=== PATIENT | male | born 1965 | race Caucasian/White ===

== ENCOUNTER 2024-07-13 08:01 | Outpatient (REF) | payer BC, SELFPAY ==
--- OUTSIDE RECORDS SUMMARY | 2024-07-13 08:03 | XMS_ITS | Data Portability ---
Author Organization [facility], Main Office Address [address] [place] [address] Care Team Providers Care Target Setter Name Role Phone ALY DENNIS Primary Care Provider [phone] TIFFANY ALLEN Roll Cutter LUNA HARRINGTON Anesthesia Technician [facility] Phys. Med. & Rehab Assessment Encounter Date Assessment Date Assessment LastModified by Organization Details LastModified Time 06/23/2021 06/23/2021 This service was provided using telemedicine. Patient consented to video & audio visit Patient was located at at home Provider was located in the office. No other persons participated in the telemedicine visit except for the patient unless otherwise indicated here. {{}} Total time of visit was 20 minutes. Resolving symptoms of COVID-19 in patient who is now day #5 since postive test. 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 Orders done. Advised that he may use trimacinolone 0.1% cream that he has had home for resolving rash. [email or web address] Not available 06/23/2021 11:28:37 Plan of Treatment Reminders Order Date Submit Date Provider Last Modified By Organization Details Last Modified Time Details Appointments None recorded. Lab unlisted lab - covid-19 (novel coronaviru s) PCR 2021 022 [facility], [address], [address], 03:06:42 CBC w/ auto diff 2021 022 [facility], [address], [place], [address], 2 15:30:16 lipid panel, serum 2021 022 [facility], [address], [address], [place], [address], 2 13:49:47 HbA1c (hemoglobi n A1c), blood 2021 022 [facility], [address], [address], [place], [address], 19:18:04 CMP, serum or plasma 2021 022 [facility], [address], [address], [place], [address], 2 13:49:45 PSA, serum or plasma - Screening 2021 022 [facility], [address], [address], [place], [address], 2 13:55:56 CBC w/ auto diff 2022 023 [facility], [address], [address], [place], [address], 3 14:12:25 ferritin, serum or plasma 2022 023 [facility], [address], [address], [place], [address], 3 15:37:19 PSA, serum or plasma - Screening 2022 023 [facility], [address], [address], [place], [address], 3 15:37:21 lipid panel, serum 2022 023 [facility], [address], [address], [place], [address], 3 15:35:50 CMP, serum or plasma 2022 023 [facility], [address], [address], [place], [address], 3 15:35:49 hemochroma tosis mutation (hfe), blood/tiss ue 2022 023 [facility], [address], [address], [place], [address], 3 10:44:11 CBC w/ auto diff 2022 023 [facility], [address], [address], [place], [address], 3 14:53:[address]/dietiti an referral 2021 022 [email or web address] Not available 2 11:44:[address]/dietiti an referral 2022 023 [email or web address] Not available 3 11:31:06 Procedures None recorded. Surgeries None recorded. Imaging None recorded. Medication Orders olopatadin e 0.1 % eye drops 2021 023 [id number], [address] [place], [address], 3 10:20:34 Patient Targets Encounter Date Encounter Id Patient Goals Patient Target Last Modified By Organization Details Last Modified Time 04/18/2023 [id number] director long term care goal of Excess Body Weight Loss % 5 Not available Not available Not available Ongoing of LDL Direct <100 Not available Not available Not available Ongoing of LDL Direct yearly Not available Not available Not available Pt agrees to follow low fat diet, avoid saturated fats , decrease carbohydrate intake to 45 - 50 gm per meal , pt agrees to develop a regular pattern of exercise such as walking 30 minutes a day 3 times a week, Pt will keep a record of exercise and activity level Patient preferences and goals incorporated in plan and updated/modified as needed to reflect progress toward goal.Pt advised and agrees to work on self-monitoring behaviors; begin an appropriate diet for weight loss (such as a low carbohydrate diet), to do moderate exercise (such as walking) for approximately 150 minutes per week; and to identify desirable and timely rewards that will reinforce achievement of specific weight loss goals. [email or web address] Not available 04/18/2023 11:45:56 Patient Instructions Encounter Date Encounter Id Patient Instructions Last Modified By Organization Details Last Modified Time 01/11/2022 [id number] high cholesterol: care instructions [email or web address] Not available 01/11/2022 11:07:06 prediabetes: care instructions awychowski Not available 01/11/2022 11:07:06 dry eyes: care instructions [email or web address] Not available 01/11/2022 11:07:07 Prostate Cancer Screening [email or web address] Not available 01/11/2022 11:07:07 starting a weight loss plan: care instructions [email or web address] Not available 01/11/2022 11:07:07 11/15/2022 [id number] high cholesterol: care instructions [email or web address] Not available 11/15/2022 10:43:54 04/18/2023 [id number] A healthy lifestyle: care instructions [email or web address] Not available 04/18/2023 11:55:37 Well Visit 50 to 65: Care Instructions [email or web address] Not available 04/18/2023 11:55:37 starting a weight loss plan: care instructions [email or web address] Not available 04/18/2023 11:55:37 Medications (OTC, herbal therapies, supplements) reviewed and reconciled with patient and or caregiver, including potential side effects, drug interactions, instructions, and the consequences of not taking medication. Reviewed potential barriers to medication adherence, such as side effects from medication or cost of medication. 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 for Body mass index 30+ - obesity Referring Physician: Aly Dennis, Family Medicine, Encounter Date: 06/19/2024 Results Created Date Observation Date Name Description Value Unit Range Abnormal Flag Note LastModifiedBy Organization Detail LastModifiedTime 06/21/19 22 06/29/2021 COVID -19 (NOVE L CORON AVIRU S) PCR covid-19 PCR specimen source NASAL Not Available [facility] [address] [place], [address], 06/30/2021 05:45:51 06/21/19 22 06/30/2021 COVID -19 (NOVE L CORON AVIRU S) PCR covid-19 PCR result (neg) abnormal POSIT BROOKE Posit brooke for detec tion of 2018- novel Coron aviru s (2018nCoV ) by RT-PC Jose Cruz ambrosio to the [facility]. All test resul ts must be corre lated with clini rosanna findi ngs. This test has been autho rized by the FDA under an Emerg ency Use Autho rizat ion (EUA) for use by autho rized labor atori es. Testi ng perfo rmed on the [employer] ic Panth er Aptim a assay utili zing trans cript ion-m ediat ed ampli ficat ion (TMA) . Not Available [facility] [address] [place], [address], 06/30/2021 05:45:51 06/24/19 22 06/24/2021 COVID -19 (NOVE L CORON AVIRU S) PCR covid-19 PCR specimen source NASAL Not Available [facility] [address] [place], [address], 06/25/2021 03:06:42 06/24/19 22 06/25/2021 COVID -19 (NOVE L CORON AVIRU S) PCR covid-19 PCR result (neg) abnormal POSIT BR[facility] Posit brooke for detec tion of 2019- novel Coron aviru s (2018nCoV ) by real- time RT-PC R. Resul deepali ambrosio to the [facility]. To preve nt error s in diagn osis, test resul ts shoul d be inter prete d in the paula xt of clini rosanna findi ngs and other labor atory data. Rare polym orphi sms exist that could lead to false -nega tive or false -posi tive resul ts. If resul ts obtai favian do not match the clini rosanna findi ngs, addit ional testi ng shoul d be consi dered . This test has been autho rized by the FDA under an Emerg ency Use Autho rizat ion (EUA) for use by autho rized labor atori es. Testi ng perfo rmed by real time PCR utili [employer]StoneAS VisualCV0 SARS- CoV-2 test. Not Available [facility] [address] [place], [address], 06/25/2021 03:06:42 02/21/20 22 02/20/2022 COMPR EHENS BROOKE METAB OLIC PANL glucose 85 mg/dL (70-99 ) Not Available [facility] [address] [place], [address], 02/20/2022 13:49:45 02/21/20 22 02/20/2022 COMPR EHENS BROOKE METAB OLIC PANL BUN 13 mg/dL (6-20) Not Available [facility] [address] [place], [address], 02/20/2022 13:49:45 02/21/20 22 02/20/2022 COMPR EHENS BROOKE METAB OLIC PANL creatinine 1.0 mg/dL (0.7-1 .2) Not Available [facility] [address] [place], [address], 02/20/2022 13:49:45 02/21/20 22 02/20/2022 COMPR EHENS BROOKE METAB OLIC PANL sodium 140 mmol/ L (133-1 45) Not Available [facility] [address] [place], [address], 02/20/2022 13:49:45 02/21/20 22 02/20/2022 COMPR EHENS BROOKE METAB OLIC PANL potassium 3.9 mmol/ L (3.6-5 .2) Not Available [facility] [address] [place], [address], 02/20/2022 13:49:45 02/21/20 22 02/20/2022 COMPR EHENS BROOKE METAB OLIC PANL chloride 105 mmol/ L (98-10 7) Not Available [facility] [address] [place], [address], 02/20/2022 13:49:45 02/21/20 22 02/20/2022 COMPR EHENS BROOKE METAB OLIC PANL bicarbonate 25 mmol/ L (22-29 ) Not Available [facility] [address] [place], [address], 02/20/2022 13:49:45 02/21/2002/20/2022 COMPR EHENS BROOKE METAB OLIC PANL anion gap 10 (4-17) Not Available [facility] [address] [place], [address], 02/20/2022 13:49:45 02/21/20 22 02/20/2022 COMPR EHENS BROOKE METAB OLIC PANL albumin 4.7 gm/dL (3.4-4 .8) Not Available [facility] [address] [place], [address], 02/20/2022 13:49:45 02/21/20 22 02/20/2022 COMPR EHENS BROOKE METAB OLIC PANL calcium 9.7 mg/dL (8.6-1 0.5) Not Available [facility] [address] [place], [address], 02/20/2022 13:49:45 02/21/20 22 02/20/2022 COMPR EHENS BROOKE METAB OLIC PANL bilirubin,to amilcar 0.7 mg/dL (0-1.2 ) Not Available [facility] [address] [place], [address], 02/20/2022 13:49:45 02/21/20 22 02/20/2022 COMPR EHENS BROOKE METAB OLIC PANL total protein 6.6 gm/dL (6.2-8 .2) Not Available [facility] [address] [place], [address], 02/20/2022 13:49:45 02/21/20 22 02/20/2022 COMPR EHENS BROOKE METAB OLIC PANL Ag ratio 2.5 Not Available [facility] [address] [place], [address], 02/20/2022 13:49:45 02/21/20 22 02/20/2022 COMPR EHENS BROOKE METAB OLIC PANL AST 23 U/L (0-40) Not Available [facility] [address] [place], [address], 02/20/2022 13:49:45 02/21/20 22 02/20/2022 COMPR EHENS BROOKE METAB OLIC PANL alk phos 54 U/L (40-12 9) Not Available [facility] [address] [place], [address], 02/20/2022 13:49:45 02/21/20 22 02/20/2022 COMPR EHENS BROOKE METAB OLIC PANL ALT 23 U/L (0-41) Not Available [facility] [address] [place], [address], 02/20/2022 13:49:45 02/21/20 22 02/20/2022 COMPR EHENS BROOKE METAB OLIC PANL estimated GFR creatinine 94 mL/mi n/1.7 3_M2 Creat inine based estim ated glome rular filtr ation (eGFR ) in adult s is calcu lated using the Natio nal Kidne y Found ation recom damien d 2020 CKD-E PI equat ion. Estim ates GFR from serum creat inine , age and sex. Not Available [facility] [address] [place] [address], 02/20/2022 13:49:45 02/21/20 22 02/20/2022 LIPID PANEL cholesterol, total 179 mg/dL (<200) Not Available [facility] [address] [place], [address], 02/20/2022 13:49:47 02/21/20 22 02/20/2022 LIPID PANEL triglyceride 133 mg/dL (<150) Not Available [facility] [address] [place], [address], 02/20/2022 13:49:47 02/21/20 22 02/20/2022 LIPID PANEL HDL chol 42 mg/dL (>39) Not Available [facility] [address] [place], [address], 02/20/2022 13:49:47 02/21/20 22 02/20/2022 LIPID PANEL LDL cholesterol, calculated 110 mg/dL (0-130 ) Not Available [facility] [address] [place], [address], 02/20/2022 13:49:47 02/21/20 22 02/20/2022 LIPID PANEL non HDL cholesterol (calc) 137 mg/dL (<160) Not Available [facility] [address] [place], [address], 02/20/2022 13:49:47 02/21/20 22 02/20/2022 PSA SCREE N PSA 0.8 NG/mL (0-4) TEST PERFO RMED USING THE FARSHAD ELECT FARSHAD MILLU MINES CENCE TOTAL PSA ASSAY . PSA VALUE S OBTAI FAVIAN WITH OTHER ASSAY METHO DS OR KITS CANNO T BE USED INTER GARCIA EABLY . Not Available [facility] [address] [place], [address], 02/20/2022 13:55:56 02/21/20 22 02/20/2022 COMPL ETE CBC WITH DIFF WBC 7.2 K/mm3 (4.0-1 1.0) Not Available [facility] [address] [place], [address], 02/20/2022 15:30:15 02/21/20 22 02/20/2022 COMPL ETE CBC WITH DIFF RBC 4.93 M/mm3 (4.70- 6.10) Not Available [facility] [address] [place], [address], 02/20/2022 15:30:15 02/21/20 22 02/20/2022 COMPL ETE CBC WITH DIFF HGB 15.3 gm/dL (13.7- 17.1) Not Available [facility] [address] [place], [address], 02/20/2022 15:30:15 02/21/20 22 02/20/2022 COMPL ETE CBC WITH DIFF HCT 44.1 % (40.5- 50.0) Not Available [facility] [address] [place], [address], 02/20/2022 15:30:15 02/21/20 22 02/20/2022 COMPL ETE CBC WITH DIFF MCV 89.5 fL (80.0- 94.0) Not Available [facility] [address] [place], [address], 02/20/2022 15:30:15 02/21/20 22 02/20/2022 COMPL ETE CBC WITH DIFF MCH 31.0 pg (27.0- 34.0) Not Available [facility] [address] [place], [address], 02/20/2022 15:30:15 02/21/20 22 02/20/2022 COMPL ETE CBC WITH DIFF MCHC 34.7 g/dL (33.0- 37.0) Not Available [facility] [address] [place], [address], 02/20/2022 15:30:15 02/21/20 22 02/20/2022 COMPL ETE CBC WITH DIFF plt 257 K/mm3 (150-4 60) Not Available [facility] [address] [place], [address], 02/20/2022 15:30:15 02/21/20 22 02/20/2022 COMPL ETE CBC WITH DIFF RDW-SD 40.6 fL (<47.0 ) Not Available [facility] [address] [place], [address], 02/20/2022 15:30:15 02/21/20 22 02/20/2022 COMPL ETE CBC WITH DIFF MPV 11.1 fL (9.4-1 2.4) Not Available [facility] [address] [place], [address], 02/20/2022 15:30:15 02/21/20 22 02/20/2022 COMPL ETE CBC WITH DIFF automated NRBC 0.0 #/100 _WBC' s Not Available [facility] [address] [place], [address], 02/20/2022 15:30:15 02/21/20 22 02/20/2022 COMPL ETE CBC WITH DIFF abs. NRBC 0.0 K/mm3 Not Available [facility] [address] [place], [address], 02/20/2022 15:30:15 02/21/20 22 02/20/2022 COMPL ETE CBC WITH DIFF neut # 5.0 K/mm3 (1.3-7 .0) Not Available [facility] [address] [place], [address], 02/20/2022 15:30:15 02/21/20 22 02/20/2022 COMPL ETE CBC WITH DIFF lymph # 1.3 K/mm3 (0.8-3 .1) Not Available [facility] [address] [place], [address], 02/20/2022 15:30:15 02/21/20 22 02/20/2022 COMPL ETE CBC WITH DIFF mono# 0.6 K/mm3 (0.4-1 .3) Not Available [facility] [address] [place], [address], 02/20/2022 15:30:15 02/21/20 22 02/20/2022 COMPL ETE CBC WITH DIFF eo # 0.2 K/mm3 (0.0-0 .4) Not Available [facility] [address] [place], [address], 02/20/2022 15:30:15 02/21/20 22 02/20/2022 COMPL ETE CBC WITH DIFF baso # 0.0 K/mm3 (0.0-0 .1) Not Available [facility] [address] [place], [address], 02/20/2022 15:30:15 02/21/20 22 02/20/2022 COMPL ETE CBC WITH DIFF abs. imm gran 0.0 K/mm3 Not Available [facility] [address] [place], [address], 02/20/2022 15:30:15 02/21/20 22 02/20/2022 COMPL ETE CBC WITH DIFF neut 69.0 % (44-76 ) Not Available [facility] [address] [place], [address], 02/20/2022 15:30:15 02/21/20 22 02/20/2022 COMPL ETE CBC WITH DIFF lymph 18.1 % (15-43 ) Not Available [facility] [address] [place], [address], 02/20/2022 15:30:15 02/21/20 22 02/20/2022 COMPL ETE CBC WITH DIFF monocyte 8.9 % (4.5-1 0.5) Not Available [facility] [address] [place], [address], 02/20/2022 15:30:15 02/21/20 22 02/20/2022 COMPL ETE CBC WITH DIFF eo 2.8 % (0-6) Not Available [facility] [address] [place], [address], 02/20/2022 15:30:15 02/21/20 22 02/20/2022 COMPL ETE CBC WITH DIFF baso 0.6 % (0-2) Not Available [facility] [address], [place], [address], 02/20/2022 15:30:15 02/21/20 22 02/20/2022 COMPL ETE CBC WITH DIFF imm gran 0.6 % Not Available [facility] [address], [place], [address], 02/20/2022 15:30:15 02/21/20 22 02/20/2022 HEMOG LOBIN A1C hemoglobin A1C 5.3 % (4.0-5 .6) MONIT ORING : In known diabe tic patie nts, hemog lobin A1c targe ts shoul d be discu ssed with healt h care provi leisa. DIAGN OSTIC USE: The Ameri can Diabe ashwin Assoc iatio n (ADA) and the World Healt h Organ izati on (WHO) recom mend the use of HbA1c to diagn ose diabe ashwin using a thres hold of 6.5%. Patie nts who have an HbA1c betwe en 5.7% and 6.4% are consi dered at incre ased risk for devel oping diabe ashwin in the futur e. CAUTI ON: False ly low HbA1c resul ts may be obser saran in patie nts with hemol ytic anemi a, homoz ygous forms of abnor mal hemog lobin (e.g. SS, CC, SC), pregn tanner, recen t blood loss or hemog lobin F great er than 7%. Fruct osami ne may be used as an alter carla test in these cases . REFER ENCE: ADA: Stand ards of Medic al Care in Diabe ashwin 2019, The Journ al of Clini rosanna and Appli ed Resea [facility] and Educa tion Volum e 43, Suppl ement 1 Not Available [facility] [address] [place], [address], 02/20/2022 19:18:04 01/04/20 23 01/03/2023 COMPL ETE CBC WITH DIFF WBC 7.2 K/mm3 (4.0-1 1.0) Not Available [facility] [address] [place], [address], 01/03/2023 14:12:25 01/04/20 23 01/03/2023 COMPL ETE CBC WITH DIFF RBC 5.19 M/mm3 (4.70- 6.10) Not Available [facility] [address] [place], [address], 01/03/2023 14:12:25 01/04/20 23 01/03/2023 COMPL ETE CBC WITH DIFF HGB 15.6 gm/dL (13.7- 17.1) Not Available [facility] [address] [place], [address], 01/03/2023 14:12:25 01/04/20 23 01/03/2023 COMPL ETE CBC WITH DIFF HCT 47.8 % (40.5- 50.0) Not Available [facility] [address] [place], [address], 01/03/2023 14:12:25 01/04/20 23 01/03/2023 COMPL ETE CBC WITH DIFF MCV 92.1 fL (80.0- 94.0) Not Available [facility] [address] [place], [address], 01/03/2023 14:12:25 01/04/20 23 01/03/2023 COMPL ETE CBC WITH DIFF MCH 30.1 pg (27.0- 34.0) Not Available [facility] [address] [place], [address], 01/03/2023 14:12:25 01/04/20 23 01/03/2023 COMPL ETE CBC WITH DIFF MCHC 32.6 g/dL (33.0- 37.0) low Not Available [facility] [address] [place], [address], 01/03/2023 14:12:25 01/04/20 23 01/03/2023 COMPL ETE CBC WITH DIFF plt 271 K/mm3 (150-4 60) Not Available [facility] [address] [place], [address], 01/03/2023 14:12:25 01/04/20 23 01/03/2023 COMPL ETE CBC WITH DIFF RDW-SD 42.5 fL (<47.0 ) Not Available [facility] [address] [place], [address], 01/03/2023 14:12:25 01/04/20 23 01/03/2023 COMPL ETE CBC WITH DIFF MPV 11.0 fL (9.4-1 2.4) Not Available [facility] [address] [place], [address], 01/03/2023 14:12:25 01/04/20 23 01/03/2023 COMPL ETE CBC WITH DIFF automated NRBC 0.0 #/100 _WBC' s Not Available [facility] [address] [place], [address], 01/03/2023 14:12:25 01/04/2001/03/2023 COMPL ETE CBC WITH DIFF abs. NRBC 0.0 K/mm3 Not Available [facility] [address] [place], [address], 01/03/2023 14:12:25 01/04/20 23 01/03/2023 COMPL ETE CBC WITH DIFF neut # 4.6 K/mm3 (1.3-7 .0) Not Available [facility] [address] [place], [address], 01/03/2023 14:12:25 01/04/20 23 01/03/2023 COMPL ETE CBC WITH DIFF lymph # 1.6 K/mm3 (0.8-3 .1) Not Available [facility] [address] [place], [address], 01/03/2023 14:12:25 01/04/20 23 01/03/2023 COMPL ETE CBC WITH DIFF mono# 0.7 K/mm3 (0.4-1 .3) Not Available [facility] [address] [place], [address], 01/03/2023 14:12:25 01/04/20 23 01/03/2023 COMPL ETE CBC WITH DIFF eo # 0.2 K/mm3 (0.0-0 .4) Not Available [facility] [address] [place], [address], 01/03/2023 14:12:25 01/04/20 23 01/03/2023 COMPL ETE CBC WITH DIFF baso # 0.0 K/mm3 (0.0-0 .1) Not Available [facility] [address] [place], [address], 01/03/2023 14:12:25 01/04/20 23 01/03/2023 COMPL ETE CBC WITH DIFF abs. imm gran 0.1 K/mm3 Not Available [facility] [address] [place], [address], 01/03/2023 14:12:25 01/04/20 23 01/03/2023 COMPL ETE CBC WITH DIFF neut 64.3 % (44-76 ) Not Available [facility] [address] [place], [address], 01/03/2023 14:12:25 01/04/20 23 01/03/2023 COMPL ETE CBC WITH DIFF lymph 22.6 % (15-43 ) Not Available [facility] [address] [place], [address], 01/03/2023 14:12:25 01/04/20 23 01/03/2023 COMPL ETE CBC WITH DIFF monocyte 9.2 % (4.5-1 0.5) Not Available [facility] [address] [place], [address], 01/03/2023 14:12:25 01/04/20 23 01/03/2023 COMPL ETE CBC WITH DIFF eo 2.6 % (0-6) Not Available [facility] [address] [place], [address], 01/03/2023 14:12:25 01/04/20 23 01/03/2023 COMPL ETE CBC WITH DIFF baso 0.6 % (0-2) Not Available [facility] [address] [place], [address], 01/03/2023 14:12:25 01/04/20 23 01/03/2023 COMPL ETE CBC WITH DIFF imm gran 0.7 % Not Available [facility] [address] [place], [address], 01/03/2023 14:12:25 01/04/20 23 01/03/2023 COMPR EHENS BROOKE METAB OLIC PANL glucose 88 mg/dL (70-99 ) Not Available [facility] [address] [place], [address], 01/03/2023 15:35:49 01/04/20 23 01/03/2023 COMPR EHENS BROOKE METAB OLIC PANL BUN 15 mg/dL (6-20) Not Available [facility] [address] [place], [address], 01/03/2023 15:35:49 01/04/20 23 01/03/2023 COMPR EHENS BROOKE METAB OLIC PANL creatinine 1.2 mg/dL (0.7-1 .2) Not Available [facility] [address] [place], [address], 01/03/2023 15:35:49 01/04/20 23 01/03/2023 COMPR EHENS BROOKE METAB OLIC PANL sodium 141 mmol/ L (133-1 45) Not Available [facility] [address] [place], [address], 01/03/2023 15:35:49 01/04/20 23 01/03/2023 COMPR EHENS BROOKE METAB OLIC PANL potassium 4.8 mmol/ L (3.6-5 .2) Not Available [facility] [address] [place], [address], 01/03/2023 15:35:49 01/04/20 23 01/03/2023 COMPR EHENS BROOKE METAB OLIC PANL chloride 104 mmol/ L (98-10 7) Not Available [facility] [address] [place], [address], 01/03/2023 15:35:49 01/04/20 23 01/03/2023 COMPR EHENS BROOKE METAB OLIC PANL bicarbonate 28 mmol/ L (22-29 ) Not Available [facility] [address] [place], [address], 01/03/2023 15:35:49 01/04/20 23 01/03/2023 COMPR EHENS [place] METAB OLIC PANL anion gap 9 (4-17) Not Available [facility] [address] [place], [id number], 01/03/2023 15:35:49 01/04/2001/03/2023 COMPR EHENS [place] METAB OLIC PANL albumin 4.7 gm/dL (3.4-4 .8) Not Available [facility] [address] [place], [id number], 01/03/2023 15:35:49 01/04/2001/03/2023 COMPR EHENS BROOKE METAB OLIC PANL calcium 10.0 mg/dL (8.6-1 0.5) Not Available [facility] [address] [place], [id number], 01/03/2023 15:35:49 01/04/20 23 01/03/2023 COMPR EHENS BR[place] METAB OLIC PANL bilirubin,to amilcar 0.5 mg/dL (0-1.2 ) Not Available [facility] [address] [place], [id number], 01/03/2023 15:35:49 01/04/20 23 01/03/2023 COMPR EHENS BROOKE METAB OLIC PANL total protein 6.6 gm/dL (6.2-8 .2) Not Available [facility] [address], [id number], 01/03/2023 15:35:49 01/04/20 23 01/03/2023 COMPR EHENS BROOKE METAB OLIC PANL Ag ratio 2.5 Not Available [facility] [address] [place], [id number], 01/03/2023 15:35:49 01/04/20 23 01/03/2023 COMPR EHENS BROOKE METAB OLIC PANL AST 20 U/L (0-40) Not Available [facility] [address] [place], [id number], 01/03/2023 15:35:49 01/04/20 23 01/03/2023 COMPR EHENS BROOKE METAB OLIC PANL alk phos 54 U/L (40-12 9) Not Available [facility] [address], [address], 01/03/2023 15:35:49 01/04/20 23 01/03/2023 COMPR EHENS BROOKE METAB OLIC PANL ALT 24 U/L (0-41) Not Available [facility] [address] [place], [id number], 01/03/2023 15:35:49 01/04/20 23 01/03/2023 COMPR EHENS BROOKE METAB OLIC PANL estimated GFR creatinine 74 mL/mi n/1.7 3_M2 Creat inine based estim ated glome rular filtr ation (eGFR ) in adult s is calcu lated using the Natio nal Kidne y Found ation recom damien d 2020 CKD-E PI equat ion. Estim ates GFR from serum creat inine , age and sex. Not Available [facility] [address] [place], [address], 01/03/2023 15:35:49 01/04/20 23 01/03/2023 LIPID PANEL cholesterol, total 160 mg/dL (<200) Not Available [facility] [address] [place], [address], 01/03/2023 15:35:50 01/04/20 23 01/03/2023 LIPID PANEL triglyceride 112 mg/dL (<150) Not Available [facility] [address] [place], [address], 01/03/2023 15:35:50 01/04/20 23 01/03/2023 LIPID PANEL HDL chol 39 mg/dL (>39) low Not Available [facility] [address] [place], [address], 01/03/2023 15:35:50 01/04/20 23 01/03/2023 LIPID PANEL LDL cholesterol, calculated 99 mg/dL (0-130 ) Not Available [facility] [address] [place], [address], 01/03/2023 15:35:50 01/04/20 23 01/03/2023 LIPID PANEL non HDL cholesterol (calc) 121 mg/dL (<160) Not Available [facility] [address], [address], 01/03/2023 15:35:50 01/04/20 23 01/03/2023 BETTY TIN ferritin 499 NG/mL (16-29 4) high Not Available [facility] [address] [place], [address], 01/03/2023 15:37:19 01/04/20 23 01/03/2023 PSA SCREE N PSA 0.7 NG/mL (0-4) TEST PERFO RMED USING THE FARSHAD ELECT FARSHAD MILLU MINES CENCE TOTAL PSA ASSAY . PSA VALUE S OBTAI FAVIAN WITH OTHER ASSAY METHO DS OR KITS CANNO T BE USED INTER GARCIA EABLY . Not Available [facility] [address] [place], [address], 01/03/2023 15:37:21 01/04/20 23 01/04/2023 IRON & TIBC iron 89 mcg/d L (45-16 0) Not Available [facility] [address] [place], [address], 01/04/2023 09:46:05 01/04/20 23 01/04/2023 IRON & TIBC unsaturated iron binding capac 269 mcg/d L (110-3 70) Not Available [facility] [address], [address], 01/04/2023 09:46:05 01/04/20 23 01/04/2023 IRON & TIBC est T. iron bind capacity 358 mcg/d L (155-5 30) Not Available [facility] [address], [address], 01/04/2023 09:46:05 01/04/20 23 01/04/2023 IRON & TIBC % iron saturation 25 % (20-55 ) Not Available [facility] [address], [address], 01/04/2023 09:46:05 01/04/20 23 01/04/2023 TRANS BETTY N transferrin 280 mg/dL (200-3 60) Not Available [facility] [address], [address], 01/04/2023 09:46:06 04/18/20 23 04/18/2023 COMPL ETE BLOOD COUNT WBC 7.1 K/mm3 (4.0-1 1.0) Not Available [facility] [address] [place] [address], 04/18/2023 14:53:35 04/18/20 04/18/2023 COMPL ETE BLOOD COUNT RBC 5.24 M/mm3 (4.70- 6.10) Not Available [facility] [address] [place], [address], 04/18/2023 14:53:35 04/18/20 23 04/18/2023 COMPL ETE BLOOD COUNT HGB 15.7 gm/dL (13.7- 17.1) Not Available [facility] [address] [place], [address], 04/18/2023 14:53:35 04/18/20 23 04/18/2023 COMPL ETE BLOOD COUNT HCT 47.2 % (40.5- 50.0) Not Available [facility] [address] [place], [address], 04/18/2023 14:53:35 04/18/20 23 04/18/2023 COMPL ETE BLOOD COUNT MCV 90.1 fL (80.0- 94.0) Not Available [facility] [address] [place], [address], 04/18/2023 14:53:35 04/18/20 23 04/18/2023 COMPL ETE BLOOD COUNT MCH 30.0 pg (27.0- 34.0) Not Available [facility] [address] [place], [address], 04/18/2023 14:53:35 04/18/20 23 04/18/2023 COMPL ETE BLOOD COUNT MCHC 33.3 g/dL (33.0- 37.0) Not Available [facility] [address] [place], [address], 04/18/2023 14:53:35 04/18/20 23 04/18/2023 COMPL ETE BLOOD COUNT plt 259 K/mm3 (150-4 60) Not Available [facility] [address] [place], [address], 04/18/2023 14:53:35 04/18/20 23 04/18/2023 COMPL ETE BLOOD COUNT RDW-SD 41.0 fL (<47.0 ) Not Available [facility] [address] [place], [address], 04/18/2023 14:53:35 04/18/20 23 04/18/2023 COMPL ETE BLOOD COUNT MPV 11.0 fL (9.4-1 2.4) Not Available [facility] [address] [place], [address], 04/18/2023 14:53:35 04/18/20 23 04/18/2023 COMPL ETE BLOOD COUNT automated NRBC 0.0 #/100 _WBC' s Not Available [facility] [address] [place], [address], 04/18/2023 14:53:35 04/18/20 23 04/18/2023 COMPL ETE BLOOD COUNT abs. NRBC 0.0 K/mm3 Not Available [facility] [address] [place], [address], 04/18/2023 14:53:35 04/18/20 23 04/18/2023 TRANS BETTY N transferrin 272 mg/dL (200-3 60) Not Available [facility] [address] [place], [address], 04/18/2023 17:15:09 04/18/20 23 04/30/2023 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 HETERO ZYGOUS (nomut ) abnormal Not Available [facility] [address] [place], [address], 04/30/2023 10:44:11 04/18/20 23 04/30/2023 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 ON DETECT ED Not Available [facility] [address] [place], [address], 04/30/2023 10:44:11 04/18/20 23 04/30/2023 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 N hereditary hemochromato sis NO INCRE ASED RISK with heter ozygo sity of C282Y This ivana sis ident ified one copy of the C282Y mutat ion. This patie nt is heter ozygo us for the C282Y mutat ion alone and is at low risk for iron overl oad. Less than 1% of indiv idual s affec hebert with hered itary hemoc hroma tosis are heter ozygo us for the C282Y mutat ion alone . Kori ic couns eling may be consi dered if clini sam indic ated. Patie nts with 2 copie s of the C282Y mutat ion accou nt for 60-90 % of patie nts with Hered itary Hemoc hroma tosis . The H63D mutat ion is gener ally not assoc iated with iron overl oad unles s seen with the C282Y mutat ion as a compo und heter ozygo te (<5%) . The remai asad 10-15 % of patie nts who have inher ited forms of iron overl oad most likel y have mutat ions in anoth er gene invol saran in iron homeo stasi s. Pheno typic expre ssion only occur s in appro ximat taylor 70% of C282Y homoz ygote s, and fewer than 10% will devel op sever e iron overl oad accom panie d by organ damag e and clini rosanna manif estat ions of hemoc hroma tosis . Kris ile hemoc hroma tosis is assoc iated with mutat ions in the HJV (HFE2 ) and HAMP (HEF2 B) genes , which are not teste d by this HFE mutat ion ivana sis. Rare polym orphi sms exist that could lead to false -nega tive or false -posi tive resul ts. If resul ts obtai favian do not match the clini rosanna findi ngs, addit ional testi ng shoul d be consi dered . Test resul ts shoul d be inter prete d in the paula xt of clini rosanna findi ngs, famil y histo ry, and other labor atory data. Metho ds: DNA was extra cted from this sampl e and scree favian for the mutat ions indic ated by real- time PCR. Refer ences : Hitesh e Kori . 1996: 13:39 9408, Sandy Inter n Med. 2006 Jan 1,145 (3):2 09-22 3., Dig Dis Sci. 2006 Sep 51(4) : 803-8 07. Jose t 2002, 359(9 302): 211-2 18., Clin Gastr oente rol Hepat ol 2006, 4(11) :1403 -1410 , Kori Med. 1999 Sep-O ct,2( 5)271 -277. This test was devel oped and it's perfo rmanc e alistair cteri stics deter mined by Beverly ate Refer ence Labor atori es. It has not been clear ed or appro saran by the [place] FDA. The FDA has deter mined that such clear ance is not neces earle. This labor atory is certi fied under CLIA 88 as quali fied to perfo rm high compl exity clini rosanna labor atory testi ng. 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 BY SILVIA IN RODOLFO Mcpherson Not Available [facility] [address] [place], [address], 04/30/2023 10:44:11 06/24/19 25 06/24/2024 CBC WITH DIFFE RENTI AL/PL ATELE T WBC 8.1 x10e3 /uL 3.4-10 .8 normal Not Available [facility] ([facility]) [address] [facility], [place], [address], 06/25/2024 08:08:38 06/24/19 25 06/24/2024 CBC WITH DIFFE RENTI AL/PL ATELE T RBC 5.13 x10e6 /uL 4.14-5 .80 normal Not Available [facility] ([facility]) [address] [place], [address], 06/25/2024 08:08:38 06/24/19 25 06/24/2024 CBC WITH DIFFE RENTI AL/PL ATELE T hemoglobin 16.0 g/dL 13.0-1 7.7 normal Not Available [facility] ([facility]) [address] [place], [address], 06/25/2024 08:08:38 06/24/19 25 06/24/2024 CBC WITH DIFFE RENTI AL/PL ATELE T hematocrit 46.7 % 37.5-5 1.0 normal Not Available [facility] ([facility]) [address] [place], [address], 06/25/2024 08:08:38 06/24/19 25 06/24/2024 CBC WITH DIFFE RENTI AL/PL ATELE T MCV 91 fL 79-97 normal Not Available [facility] ([facility]) [address] [place], [address], 06/25/2024 08:08:38 06/24/19 25 06/24/2024 CBC WITH DIFFE RENTI AL/PL ATELE T MCH 31.2 pg 26.6-3 3.0 normal Not Available [facility] ([facility]) [address] [place], [address], 06/25/2024 08:08:38 06/24/19 25 06/24/2024 CBC WITH DIFFE RENTI AL/PL ATELE T MCHC 34.3 g/dL 31.5-3 5.7 normal Not Available [facility] ([facility]) [address] [place], [address], 06/25/2024 08:08:38 06/24/19 25 06/24/2024 CBC WITH DIFFE RENTI AL/PL ATELE T RDW 12.6 % 11.6-1 5.4 Not Available [facility] ([facility]) [address] [facility], [place], [address], 06/25/2024 08:08:38 06/24/19 25 06/24/2024 CBC WITH DIFFE RENTI AL/PL ATELE T platelets 273 x10e3 /uL 150-45 0 normal Not Available [facility] ([facility]) [address] [facility], [place], [address], 06/25/2024 08:08:38 06/24/19 25 06/24/2024 CBC WITH DIFFE RENTI AL/PL ATELE T neutrophils 68 % not estab. normal Not Available [facility] ([facility]) [address] [facility], [place], [address], 06/25/2024 08:08:38 06/24/19 25 06/24/2024 CBC WITH DIFFE RENTI AL/PL ATELE T lymphs 19 % not estab. normal Not Available [facility] ([facility]) [address] [facility], [place], [address], 06/25/2024 08:08:38 06/24/19 25 06/24/2024 CBC WITH DIFFE RENTI AL/PL ATELE T monocytes 8 % not estab. normal Not Available [facility] ([facility]) [address] [facility], [place], [address], 06/25/2024 08:08:38 06/24/19 25 06/24/2024 CBC WITH DIFFE RENTI AL/PL ATELE T eos 3 % not estab. normal Not Available [facility] ([facility]) [address] [facility], [place], [address], 06/25/2024 08:08:38 06/24/19 25 06/24/2024 CBC WITH DIFFE RENTI AL/PL ATELE T basos 1 % not estab. 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 0 normal Not Available [facility] ([facility]) [address] [place], [address], 06/25/2024 08:08:38 06/24/19 25 06/24/2024 CBC WITH DIFFE RENTI AL/PL ATELE T lymphs (absolute) 1.5 x10e3 /uL 0.7-3. 1 normal Not Available [facility] ([facility]) [address] [place], [address], 06/25/2024 08:08:38 06/24/19 25 06/24/2024 CBC WITH DIFFE RENTI AL/PL ATELE T monocytes(ab solute) 0.7 x10e3 /uL 0.1-0. 9 normal Not Available [facility] ([facility]) [address] [place], [address], 06/25/2024 08:08:38 06/24/19 25 06/24/2024 CBC WITH DIFFE RENTI AL/PL ATELE T eos (absolute) 0.2 x10e3 /uL 0.0-0. 4 normal Not Available [facility] ([facility]) [address] [place], [address], 06/25/2024 08:08:38 06/24/19 25 06/24/2024 CBC WITH DIFFE RENTI AL/PL ATELE T baso (absolute) 0.1 x10e3 /uL 0.0-0. 2 normal Not Available [facility] ([facility]) [address] [facility], [place], [address], 06/25/2024 08:08:38 06/24/19 25 06/24/2024 CBC WITH DIFFE RENTI AL/PL ATELE T immature granulocytes 1 % not estab. Not Available [facility] ([facility]) [address] [facility], [place], [address], 06/25/2024 08:08:38 06/24/19 25 06/24/2024 CBC WITH DIFFE RENTI AL/PL ATELE T immature grans (abs) 0.1 x10e3 /uL 0.0-0. 1 Not Available [facility] ([facility]) [address] [facility], [place], [address], 06/25/2024 08:08:38 06/24/19 25 06/24/2024 CBC WITH DIFFE RENTI AL/PL ATELE T NRBC OPERATIONS LEADER Not Available [facility] ([facility]) [address] [facility], [place], [address], 06/25/2024 08:08:38 06/24/19 25 06/24/2024 CBC WITH DIFFE RENTI AL/PL ATELE T hematology comments: OPERATIONS LEADER Not Available [facility] ([facility]) [address] [facility], [place], [address], 06/25/2024 08:08:38 06/24/19 25 06/24/2024 COMP. METAB OLIC PANEL (14) glucose 99 mg/dL 70-99 normal Not Available [facility] ([facility]) [address] [facility] [place], [address], 06/25/2024 08:08:38 06/24/19 25 06/24/2024 COMP. METAB OLIC PANEL (14) BUN 16 mg/dL 6-24 normal Not Available [facility] ([facility]) [address] [facility], [place], [address], 06/25/2024 08:08:38 06/24/19 25 06/24/2024 COMP. METAB OLIC PANEL (14) creatinine 0.99 mg/dL 0.76-1 .27 normal Not Available [facility] ([facility]) [address] [facility] [place], [address], 06/25/2024 08:08:38 06/24/19 25 06/24/2024 COMP. METAB OLIC PANEL (14) eGFR 89 mL/mi n/1.7 3 >59 normal Not Available [facility] ([facility]) [address] [facility] [place], [address], 06/25/2024 08:08:38 06/24/19 25 06/24/2024 COMP. METAB OLIC PANEL (14) BUN/creatini ne ratio 16 9-20 normal Not Available [facility] ([facility]) [address] [facility], [place], [address], 06/25/2024 08:08:38 06/24/19 25 06/24/2024 COMP. METAB OLIC PANEL (14) sodium 142 mmol/ L 134-14 4 normal Not Available [facility] ([facility]) [address] [facility] [place], [address], 06/25/2024 08:08:38 06/24/19 25 06/24/2024 COMP. METAB OLIC PANEL (14) potassium 4.2 mmol/ L 3.5-5. 2 normal Not Available [facility] ([facility]) [address] [facility] [place], [address], 06/25/2024 08:08:38 06/24/19 25 06/24/2024 COMP. METAB OLIC PANEL (14) chloride 103 mmol/ L 96-106 normal Not Available [facility] ([facility]) [address] [facility], [place], [address], 06/25/2024 08:08:38 06/24/19 25 06/24/2024 COMP. METAB OLIC PANEL (14) carbon dioxide, total 23 mmol/ L 20-29 normal Not Available [facility] ([facility]) [address] [facility] [place], [address], 06/25/2024 08:08:38 06/24/19 25 06/24/2024 COMP. METAB OLIC PANEL (14) calcium 9.8 mg/dL 8.7-10 .2 normal Not Available [facility] ([facility]) [address] [facility] [place], [address], 06/25/2024 08:08:38 06/24/19 25 06/24/2024 COMP. METAB OLIC PANEL (14) protein, total 6.7 g/dL 6.0-8. 5 normal Not Available [facility] ([facility]) [address] [facility] [place], [address], 06/25/2024 08:08:38 06/24/19 25 06/24/2024 COMP. METAB OLIC PANEL (14) albumin 4.4 g/dL 3.8-4. 9 normal Not Available [facility] ([facility]) [address] [facility] [place], [address], 06/25/2024 08:08:38 06/24/19 25 06/24/2024 COMP. METAB OLIC PANEL (14) globulin, total 2.3 g/dL 1.5-4. 5 Not Available [facility] ([facility]) [address] [facility] [place], [address], 06/25/2024 08:08:38 06/24/19 25 06/24/2024 COMP. METAB OLIC PANEL (14) bilirubin, total 0.5 mg/dL 0.0-1. 2 normal Not Available [facility] ([facility]) [address] [facility] [place], [address], 06/25/2024 08:08:38 06/24/19 25 06/24/2024 COMP. METAB OLIC PANEL (14) alkaline phosphatase 57 IU/L 44-121 normal Not Available [facility] ([facility]) [address] [facility] [place], [address], 06/25/2024 08:08:38 06/24/19 25 06/24/2024 COMP. METAB OLIC PANEL (14) AST (SGOT) 24 IU/L 0-40 normal Not Available [facility] ([facility]) [address] [facility] [place], [address], 06/25/2024 08:08:38 06/24/19 25 06/24/2024 COMP. METAB OLIC PANEL (14) ALT (SGPT) 28 IU/L 0-44 normal Not Available [facility] ([facility]) [address] [place], [address], 06/25/2024 08:08:38 06/24/19 25 06/24/2024 LIPID PANEL cholesterol, total 193 mg/dL 100-19 9 normal Not Available [facility] ([facility]) [address] [place], [address], 06/25/2024 08:08:39 06/24/19 25 06/24/2024 LIPID PANEL triglyceride s 118 mg/dL 0-149 normal Not Available [facility] ([facility]) [address] [place], [address], 06/25/2024 08:08:39 06/24/19 25 06/24/2024 LIPID PANEL HDL cholesterol 39 mg/dL >39 below low normal Not Available [facility] ([facility]) [address] [place], [address], 06/25/2024 08:08:39 06/24/19 25 06/24/2024 LIPID PANEL VLDL cholesterol rosanna 21 mg/dL 5-40 Not Available [facility] ([facility]) [address] [place], [address], 06/25/2024 08:08:39 06/24/19 25 06/24/2024 LIPID PANEL LDL chol calc ([facility]) 133 mg/dL 0-99 above high normal Not Available [facility] ([facility]) [address] [facility], [place], [address], 06/25/2024 08:08:39 06/24/19 25 06/24/2024 LIPID PANEL LDL calc comment: OPERATIONS LEADER Not Available [facility] ([facility]) [address] [facility], [place], [address], 06/25/2024 08:08:39 06/24/19 25 06/25/2024 PROST ATE-S PECIF IC AG prostate specific Ag 0.8 NG/mL 0.0-4. 0 normal Farshad ECLIA metho dolog y. Accor ding to the Ameri can Urolo gical Assoc iatio n, Serum PSA shoul d decre ase and remai n at undet ectab le level s after radic al prost atect mary. The AUA defin es bioch emica l recur rence as an initi al PSA value 0.2 ng/mL or great er follo wed by a subse quent confi rmato ry PSA value 0.2 ng/mL or great er. Value s obtai favian with diffe rent assay metho ds or kits canno t be used inter garcia eably . Resul ts canno t be inter prete d as absol ysleta del sur evide nce of the prese nce or absen ce of savanna roman se. Not Available [facility] ([facility]) [address] [facility], [place], [address], 06/25/2024 08:08:40 06/24/19 25 06/25/2024 BETTY TIN ferritin 587 NG/mL 30-400 above high normal Not Available [facility] ([facility]) [address] [facility], [place], [address], 06/25/2024 08:08:41 06/24/19 25 06/25/2024 C-ANANTH CTIVE PROTE IN, QUANT C-reactive protein, quant 2 mg/L 0-10 normal Not Available [facility] ([facility]) [address], [place], [address], 06/25/2024 08:08:42 06/23/19 25 06/23/2024 XR, knee, 1 or 2 view Knee 1 or 2 Views Left, 2 views Reason : PAIN COMPAR CORTEZ: None. FINDIN GS: No bone lesion s or fractu res. Mild tricom partme ntal degene rative osteoa rthrit is but no eviden ce of osteoc hondra l defect or intra- articu lar loose body. Very trace joint effusi on. IMPRES SHERICE: No acute abnorm ality. WSN: [id number] Orderi ng Physic thom: Aly Green ed By: Kelli Esqueda MD Dictat ed Date/T yoshi: 3:38 pm Review ed By: Yin HANCOCK, Kelli Signed By: Kelli Esqueda MD Signed Date/T yoshi: 3:38 pm Transc ribed By: KRISTOPHER Transc ribed Date/T yoshi: 3:37 pm Patien t Class: Outpat ient [facility] (Outpt Imaging) [address] [place], [address], 06/24/2024 11:19:59 Result Notes None recorded. Problems Name Problem SNOMED Code Status Onset Date Resolution Date Notes Provider Name and Address Organization Details Recorded Time Hyperlipi demia 38276985 Active 2016 [facility] 15:16:16 Hypertrig lyceridem ia 973086611 Active 2016 [facility] 9 15:16:16 Chronic dermatiti s 19740420 Completed 201612/08/2019 Aly Dennis MD [address] [facility] [address] [facility] [place], [address] , [facility] 0 11:36:21 Obesity 994588968 Completed 201708/23/2017 Aly Dennis MD [address] [facility] [address], [place], [address] , [facility] 8 14:40:23 Body mass index 30+ - obesity 019529675 Completed 201712/08/2019 Aly Dennis MD [address] [facility] [address], [place], [address] , [facility] 5 10:59:47 Family history of malignant neoplasm of prostate 372043359 Active 2017 Darcie verdugo [facility] 9 15:16:16 Diverticu lar disease 638645300 Active 2017 Darcie verdugo [facility] 9 15:16:16 Internal hemorrhoi ds 69309801 Active 2017 Darcie verdugo [facility] 9 15:16:16 Environme ntal allergy 455895389 Active 2018 Darcie verdugo [facility] 9 15:16:16 Disorder of lumbar disc 404780501 Active 2019 Aly Dennis MD [address] [facility] [address], [place], [address] , [facility] 0 08:34:20 Eczema 07753792 Active 2019 Aly Dennis MD [address] [facility] [address], [place], [address] , [facility] 0 11:45:16 Elevated blood-pre ssure reading without diagnosis of hypertens ion 826657225 Completed 201901/11/2022 Aly Dennis MD [address] [facility] [address], [address] , [facility] 2 10:49:02 Impaired fasting glycemia 464346208 Completed 202002/21/2022 Aly Dennis MD [address] [facility] [address], [place], [address] , [facility] 2 09:19:47 Gastroeso phageal reflux disease 817882481 Active 2020 Billy Malin PA-C [address] [facility] [address], [place], [address] , [facility] 1 11:29:00 Chronic low back pain 412228980 Active 2020 Billy Malin PA-C [address] [facility] [address], [place], [address] , [facility] 1 11:32:46 Skin lesion 72521245 Completed 202001/11/2022 Aly Dennis MD [address] [facility] [address], [place], [address] , [facility] 2 10:52:09 History of SARS-CoV- 2 84848959133 4714751 Active 2021 Aly Dennis MD [address] [facility] [address], [place], [address] , [facility] 2 10:52:00 Family history of hemochrom atosis 155324193 Active 2021 Aly Dennis MD [address] [facility] [address], [place], [address] , [facility] 2 10:54:54 Serum ferritin above reference range 659711079 Active 2022 Aly Dennis MD [address] [facility] [address], [place], [address] , [facility] 3 07:30:23 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 Procedures Surgical History Date Name Laterality Status Provider Name and Address Organization Details Recorded Time 07/05/19 23 biopsy of skin completed Aly Dennis MD [address] [address], [place], [address], [facility] 07/11/2022 22:29:09 05/08/20 18 Colonoscopy completed Martina Valentin [facility] 05/08/2018 12:09:45 08/11/19 17 Cerumen Removal completed Aly Dennis MD [address] [address], [place], [address], [facility] 08/10/2016 13:52:43 07/11/19 16 Create eardrum opening completed Gabby Underwood MA [facility] 08/10/2016 13:09:38 06/10/19 13 Other completed Gabby Underwood MA [facility] 08/10/2016 13:06:33 06/10/18 80 Orthopedic Surgery completed Aly Dennis MD [address] [address], [place], [address], [facility] 08/23/2017 14:49:00 06/10/18 78 Elbow arthroscopy/anthony earl completed Aly Dennis MD [address] [facility] [address], [place], [address], [facility] 08/25/2018 09:50:43 06/10/18 75 Ther fx nasal inf turbinate completed Aly Dennis MD [address] [facility] [address], [place], [address], [facility] [place] 08/25/2018 09:51:30 Imaging Results Imaging Date Name Status LastModified by Organiz ation Details LastModified Time 06/23/2024 XR, knee, 1 or 2 view completed [facility] ([facility]) [address] , [place], [address], 06/24/2024 11:19:59 Procedure Notes None recorded. Medical Equipment None Reported. Allergies Allergen ID Allergen Name Allergen Category Reaction Reaction Severity Criticality Documentation Date Start Date Code Code System Note Provider Name and Address Organization Details Recorded Time 51500 ragweed pollen environme nt Not available Not available Not available 06/23/2021 [id number] UNK Leatha Negro MA [facility], [facility] 2 10:50:00 No known drug allergies Medications Name Sig Start Date Stop Date Status Note LastModified by Organization Details LastModified Time carisopro dol 350 mg tablet 05/12 completed Not Available Not Available Not Available amoxicill in 500 mg capsule Take 1 capsule 3 times a day by oral route for 10 days. 05/12 completed Not Available Not Available Not Available neomycin- polymyxin -hydrocor t 3.5 mg/mL-10, 000 unit/mL-1 % ear solution 03/12 completed Not Available Not Available Not Available ketoconaz ole 2 % shampoo APPLY TO THE AFFECTED AREA(S), LATHER, LEAVE IN PLACE FOR 5 MINUTES, AND THEN RINSE OFF WITH WATER BY TOPICAL ROUTE TWICE weekly for 2 months and as needed 08/20 completed Not Available Not Available Not Available Carafate 100 mg/mL oral suspensio n 05/12 completed Not Available Not Available Not Available cetirizin e 10 mg tablet Take 1 tablet every day by oral route as needed. active Not Available Not Available No t Available azithromy gabriela 250 mg tablet 03/12 completed Not Available Not Available Not Available ibuprofen 800 mg tablet 08/10 completed Not Available Not Available Not Available tizanidin e 4 mg tablet Take 1 tablet every 6 hours by oral route as needed for 7 days. 07/09 completed Not Available Not Available Not Available prednison e 20 mg tablet Take 2 tablets every day by oral route for 5 days. 05/12 completed Not Available Not Available Not Available permethri n 5 % topical cream APPLY (THOROUG HLY MASSAGE INTO SKIN FROM HEAD TO SOLES OF FEET) BY TOPICAL ROUTE ONCE LEAVE ON FOR 8-14 HR, THEN REMOVE BY THOROUGH WASHING 08/23 completed Not Available Not Available Not Available acetamino phen 300 mg-codein e 30 mg tablet 03/12 completed Not Available Not Available Not Available omeprazol e 40 mg capsule,d elayed release 05/12 completed Not Available Not Available Not Available fenofibra te micronize d 200 mg capsule TAKE 1 CAPSULE DAILY active Not Available Not Available No t Available triamcino lone acetonide 0.1 % topical cream APPLY TO AFFECTED AREA TWICE A DAY NEEDED 01/09 completed Not Available Not Available Not Available simvastat in 40 mg tablet TAKE 1 TABLET DAILY active Not Available Not Available No t Available oxycodone -acetamin ophen 5 mg-325 mg tablet 05/12 completed Not Available Not Available Not Available amoxicill in 875 mg tablet TAKE 1 TABLET BY MOUTH EVERY 12 HOURS FOR 10 DAYS 12/07 completed Not Available Not Available Not Available clotrimaz ole-betam ethasone 1 %-0.05 % topical cream APPLY 1 APPLICAT ION(S) TWICE A DAY BY TOPICAL ROUTE NEEDED FOR 10 DAYS. 01/09 completed Not Available Not Available Not Available olopatadi ne 0.1 % eye drops INSTILL 1 DROP INTO AFFECTED EYE(S) BY OPHTHALM IC ROUTE 2 TIMES PER DAY AT AN INTERVAL OF 6 TO 8 HOURS 11/15 completed Not Available Not Available Not Available lidocaine 5 % topical patch 05/12 completed Not Available Not Available Not Available betametha sone dipropion ate 0.05 % topical cream Apply 1 applicat ion every day by topical route as needed for 30 days. 06/19 completed Not Available Not Available Not Available omeprazol e 20 mg capsule,d elayed release TAKE 1 CAPSULE BY MOUTH EVERY DAY active Not Available Not Available No t Available cephalexi n 500 mg tablet TAKE 1 TABLET (ORAL) 4 TIMES PER DAY FOR 3 DAYS 06/19 completed Not Available Not Available Not Available hydroxyzi ne HCl 25 mg tablet TAKE 1-2 TABS BY MOUTH AT BEDTIME TOLERATE D FOR ITCH MAY BE SEDATING 06/19 completed Not Available Not Available Not Available codeine 10 mg-guaife nesin 100 mg/5 mL oral liquid Take 5 mL as needed by oral route in the evening for 3 days. 05/12 completed Not Available Not Available Not Available gabapenti n 100 mg capsule Take 1 capsule 3 times a day by oral route for 30 days. 01/11 completed Not Available Not Available Not Available methylpre dnisolone 4 mg tablets in a dose pack TAKE 6 TABLETS ON DAY 1 DIRECTED ON PACKAGE AND DECREASE BY 1 TAB EACH DAY FOR A TOTAL OF 6 DAYS 12/07 completed Not Available Not Available Not Available naproxen 500 mg tablet TAKE 1 TABLET BY MOUTH TWICE A DAY FOR 15 DAYS. 06/08 completed Not Available Not Available Not Available amoxicill in 875 mg-potass ium clavulana te 125 mg tablet 08/10 completed Not Available Not Available Not Available Benadryl 25 mg capsule Take 2 capsules every 4 hours by oral route as needed. 09/21 completed Not Available Not Available Not Available neomycin 3.5 mg/g-poly myxin B 10,000 unit/g-de xameth 0.1 % eye oint APPLY TO INTO BOTH EYES AT BEDTIME 11/15 completed Not Available Not Available Not Available Benadryl Allergy 25 mg tablet Take 2 tablets every 4 hours by oral route as needed. 06/08 completed for seasonal allergie s Not Available Not Available Not Available Vitamin C 500 mg capsule,e xtended release Take 1 capsule every day by oral route. 06/19 completed Not Available Not Available Not Available cyclobenz aprine 5 mg tablet Take 1 tablet 3 times a day by oral route for 7 days. 01/11 completed Not Available Not Available Not Available Folbee 2.5 mg-25 mg-1 mg tablet TAKE 1 TABLET BY MOUTH EVERY DAY *NOT COVERD 11/15 completed Not Available Not Available Not Available Vitamin C 1 tablet po daily active OTC; strength unknown Not Available Not Available Not Available ProAir HFA 90 mcg/actua tion aerosol inhaler Inhale 2 puffs every 4-6 hours by inhalati on route as needed for 25 days. 05/12 completed Not Available Not Available Not Available Zanfel topical cleanser 12/07 completed Not Available Not Available Not Available GaviLyte- G 236 gram-22.7 4 gram-6.74 gram-5.86 gram oral solution 05/12 completed Not Available Not Available Not Available Proctosol HC 2.5 % topical cream perineal applicato r APPLY SPARINGL Y TO AFFECTED AREA TWICE A DAY 04/09 completed Not Available Not Available Not Available Vitals Date Recorded Body height Provider Name an d Address Organization Details Last Updated DateTime 06/23/2021 171.45 cm Leatha Negro MA [facility] 06/23/2021 10:49:52 Date Recorded Body height Body mass index (BMI) Body weight Heart rate Oxygen saturation Oxygen saturation in Arterial blood by Pulse oximetry Body temperature Systolic blood pressure Diastolic blood pressure Provider Name and Address Organization Details Last Updated DateTime 2 171.45 cm 33.5 kg/m2 14652.5 4 g 58 /min 98 % 98 % 98.24 [degF] 126 mm[Hg] 84 mm[Hg] [facility] 2 10:28:35 Date Recorded Body height Body mass index (BMI) Body weight Heart rate Oxygen saturation Oxygen saturation in Arterial blood by Pulse oximetry Body temperature Systolic blood pressure Diastolic blood pressure Provider Name and Address Organization Details Last Updated DateTime 3 171.45 cm 34.1 kg/m2 167238. 91 g 66 /min 96 % 96 % 97.9 [degF] 144 mm[Hg] 71 mm[Hg] Mel[facility] Magall[facility] 3 10:14:38 Date Recorded Body height Body mass index (BMI) Body weight Oxygen saturation Oxygen saturation in Arterial blood by Pulse oximetry Heart rate Body temperature Systolic blood pressure Diastolic blood pressure Provider Name and Address Organization Details Last Updated DateTime 3 171.45 cm 33.8 kg/m2 66617.7 3 g 98 % 98 % 64 /min 98.3 [degF] 124 mm[Hg] 78 mm[Hg] Stefany Sutherland MA [facility] 3 10:56:04 Date Recorded Body height Body mass index (BMI) Body weight Heart rate Oxygen saturation Oxygen saturation in Arterial blood by Pulse oximetry Body temperature Systolic blood pressure Diastolic blood pressure Provider Name and Address Organization Details Last Updated DateTime 5 171.45 cm 36 kg/m2 403597. 02 g 66 /min 97 % 97 % 97.7 [degF] 149 mm[Hg] 87 mm[Hg] Gabby lynch MA [facility] 5 10:31:04 Social History Question Answer Notes LastModified by Organizat ion Details LastModified Time Tobacco Smoking Status [facility]10/[facility] 13:01:06 Do You Have An Advance Directive? Yes HCP; Suresh Rowland Information not available 01/11/2022 What Is Your Level Of Alcohol Consumption? Occasional Information not available 08/10/2016 Is Blood Transfusion Acceptable In An Emergency? Yes Information not available 08/10/2016 What Is Your Level Of Caffeine Consumption? Heavy 4-5 Servings Of Coffee Daily Information not available 06/19/2024 How Much Tobacco Do You Chew? None Information not available 08/10/2016 Are You Currently Employed? Yes Information not available 08/10/2016 What Type Of Diet Are You Following? REGULAR Less Red Meat And Carbs Information not available 06/19/2024 Which Illicit Or Recreational Drugs Have You Used? None Information not available 08/10/2016 Do You Or Have You Ever Used E-cigarettes Or Vape? 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 With Others ([place]), Daughter, And Dog Information not available 01/11/2022 Do You Take Precautions To Prevent Distracted Driving? Yes Information not available 08/10/2016 How Often Do You Need To Have Someone Help You When You Read Instructions, Pamphlets, Or Other Written Material From Your Doctor Or Pharmacy? Never Information not available 08/10/2016 Have You Served In The ? Yes Information not available 08/10/2016 Have You Or Anyone In Your Household Had Any Of The Following Symptoms In The Last 14 Days: Sore Throat, Cough, Chills, Body Aches For Unknown Reasons, Shortness Of Breath For Unknown Reasons, Loss Of Smell, Loss Of Taste, Fever At Or Greater Than 100 Degrees Fahrenheit? No Information not available 12/08/2019 Are You Or Anyone In Your Household A Health Care Provider Or Emergency Responder? No Information not available 12/08/2019 To The Best Of Your Knowledge Have You Been In Close Proximity To Any Individual Who Tested Positive For COVID-19? No Information not available 06/16/2020 *AWV ONLY* Are You Presently Prescribed Opioid Medication By PCP Or Specialist? If YES -Provider Assess The Benefit For Other, Non-opioid Pain Therapies Instead, Even If The Patient Does Not Have OUD But Is Possibly At Risk. No Information not available 01/09/2021 Have You Recently Traveled To A COVID-19 High Risk Area Or Gathering In The Last 10 Days? No Information not available 01/09/2021 What Was The Date Of Your Most Recent Tobacco Screening? 06/19/2024 Information not available 06/19/2024 How Many Children Do You Have? 2 [place] ([place] [email or web address] Information not available 01/11/2022 Do You Use Protection During Sex? No Information not available 08/10/2016 Seat Belts Used Routinely No Information not available 01/11/2022 Are You Sexually Active? No Information not available 08/10/2016 Smoke Alarm In Home Yes Information not available 01/11/2022 At What Age Did You Start Smoking Tobacco? 0 Information not available 08/10/2016 Are You Passively Exposed To Smoke? Yes Information not available 08/10/2016 Do You Or Have You Ever Used Smokeless Tobacco? Never Used Smokeless Tobacco Information not available 09/22/2019 How Much Tobacco Do You Smoke? No Information not available 08/10/2016 Do You Use Any Illicit Or Recreational Drugs? No Information not available 01/11/2022 Do You Use Sunscreen Routinely? Yes Information not available 08/10/2016 How Many Years Have You Smoked Tobacco? 0 Information not available 08/10/2016 Do You Or Have You Ever Used Any Other Forms Of Tobacco Or Nicotine? No Information not available 01/11/2022 Sex: Unknown Functional Status Question Answer Note LastModified by Organizat ion Details LastModified Time Are you able to walk? YESWOREST Information not available 01/11/2022 Are you able to care for yourself? Yes Information not available 08/10/2016 What is your exercise level? Occasional chair exercises for joints Information not available 06/19/2024 Mental Status None recorded. Family History Relationship Description Onset Age of this Age Resolved Age Notes LastModified by Organization Details LastModified Time Father Hemochromato sis [email or web address] s Not available 08/10/2016 13:04:40 Father Carcinoma of prostate and PGF [email or web address] Not available 01/09/2021 11:14:22 Mother Well adult [email or web address] Not avail able 08/10/2016 13:27:25 Maternal Grandfather Abdominal aortic aneurysm awychowski Not available 08/10 13:27:48 Medical History Condition Response Other N Gout N Kidney Stones N Blood Diseases N Hyperthyroidism N Breast Cancer N Depression N COPD N Lung Disease N Hypothyroidism N Defects or Inherited Disease N Anesthesia Complications N Headaches/Migraines N Varicose Veins N Anxiety Disorder N Obesity Y Vision or Eye Problems Y Arthritis N Head Injury/Concussion N Polyps N Infertility N Congenital Anomalies N Acid Reflux (GERD) Y Cancer N Stroke N ADHD N Endometriosis N High Cholesterol Y Liver Disease N Fibromyalgia N Kidney Disease N Heart Problems N Ear or Hearing Problems Y Hospitalizations Y Thyroid Problems N GI Problems N Acne Y Eating Disorder N Skin Problems Y Anemia N Constipation N Bladder Problems N Mental Illness N Ovarian Cancer N Diabetes N Blood Transfusions Y Seizures/Epilepsy N Tuberculosis N AIDS/HIV N Congestive Heart Failure (CHF) N Eczema N Diverticulitis N Abuse/Domestic Violence N Asthma N Allergies N Reflux/GERD N Hepatitis N Pulmonary Embolism N Hypertension N Chicken Pox N Autism Spectrum Disorder (ASD) N Osteoporosis N Immunizations Vaccine Type Date Status Note Provider Name and Address Organization Details Recorded Time Tdap 09/15/19 13 completed Darcie verdugo [facility] 09/17/2018 15:16:17 COVID-19, mRNA, LNP-S, PF, 100 mcg/0.5mL dose or 50 mcg/0.25mL dose 06/22/19 21 completed CHELSI Munoz [facility] 11/15/2022 10:13:21 COVID-19, mRNA, LNP-S, PF, 100 mcg/0.5mL dose or 50 mcg/0.25mL dose 07/20/19 21 completed CHELSI Brennan [facility] 05/01/2021 15:54:10 Influenza, split virus, quadrivalent, PF 05/12/20 18 completed CHELSI Napier [facility] 01/11/2022 13:20:43 Influenza, split virus, quadrivalent, PF 04/18/20 19 completed [facility] 01/11/2022 13:20:43 Td (adult), 2 Lf tetanus toxoid, preservative free, adsorbed 04/18/20 23 completed CHELSI Newman, [facility] 04/18/2023 12:01:06 Influenza, split virus, trivalent, PF 06/19/19 25 cancelled patient objection Aly Dennis MD [address] [address], [place], [address], [facility] 06/19/2024 11:09:27 Past Encounters Encounter ID Performer Location Encounter Start Date Encounter Closed Date Diagnosis/Indication Diagnosis SNOMED-CT Code Diagnosis ICD10 Code Diagnosis Note [id number] Aly Dennis MD Main Office [address] [facility] [address] [place] [id number] 03/12/2016 15:21:35 03/12/2016 16:43:33 Mixed hyperlipidemia 014397333 E78.2 Body mass index 30+ - obesity 310033393 E66.9 Z68.35 Otitis media 07011908 H6 6.92 chronic s/p tube placement by ENT ~ 8 months ago - cont. f/u c ENT [id number] Gabby Ivory-Chelsi jacques MA Main Office [address] [address] [place] [id number] 08/10/2016 12:38:07 08/10/2016 14:08:03 Adult health examination 486068773 Z00.00 Immunizati on status utd per pt, flu declined. Will screen based on risk factors. Regular dental and ophtho care advised as well as seat belt and sunscreen use. Distracted driving discussed. Advance directives in place. Body mass index 30+ - obesity 912501980 Z68.30 E66.9 Hyperlipidemia 55658403 E78.5 Foreign body in ear 7544 1006 T16.2XXA [id number] Aly Dennis MD Main Office [address] [address] [place] [id number] 10/29/2016 11:08:11 10/29/2016 12:18:58 Acute dermatitis 44425652 L30.9 Possible scabies vs contact dermatitis vs eczema. Less likely impetigino us or fungal. Will see if topical steroid helps and counseled on scabies pathophysi ology. Call inb/worse. Tinea corporis 34609080 B35.4 P{t will use OTC antifungal cream for 2 weeks and call inb/worse. [id number] Aly Dennis MD Main Office [address] [address] [place] [id number] 08/23/2017 13:50:12 08/23/2017 15:05:32 Adult health examination 106549732 Z00.00 Immunizati on status utd, flu declined. Will screen based on risk factors. Regular dental and ophtho care advised as well as seat belt and sunscreen use. Distracted driving discussed. Advance directives in place. Obesity 483665566 E66.9 Body mass index 30+ - obesity 479627284 Z68.34 Hypertriglyceridemia 302 983140 E78.2 Hyperlipidemia 63871980 E78.5 Well controlled and meds tolerated. Will continue current dosing. Screening for malignant neoplasm of colon 516363470 Z12.11 [id number] Aly Dennis MD Main Office [address] [facility] [address] [place] [id number] 11/22/2017 08:21:09 11/22/2017 09:21:49 Epistaxis 61814530 R04.0 continue to use vaseline, do not use saline spray. Chronic sinusitis 011160 00 J32.9 Continue amox TID as directed start zyrtec daily and flonase once daily- takes 3-5 days to kick in. stop nasal saline spray. hydration, rest. call/ return if not improved after amox, may need sinus CT. [id number] Aly Dennis MD Main Office [address] [facility] [address] [place] [id number] 05/12/2018 09:36:24 05/12/2018 10:55:54 Needs influenza immunization 025402075 Z23 Low back pain 050069116 M54.5 Likely muscular but if recurrent or if additional symptoms develop will need formal PT, possibly MRI and PMR vs neurosurg eval. WIll work on core strengthen ing himself and call with any recurrence . Degenerati on of lumbar intervertebral disc 83590908 M51.36 L5/S1 on xray. Bilateral nature of pain makes disc disease/sp inal stenosis less likely but will need to be considered if pain recurs. [id number] Aly Dennis MD Main Office [address] [facility] [address] [place] [id number] 08/25/2018 09:15:15 08/25/2018 10:13:54 Adult health examination 692849329 Z00.00 Immunizati on status utd, flu advised in the Fall. Will screen based on risk factors. Regular dental and ophtho care advised as well as seat belt and sunscreen use. Distracted driving discussed. Advance directives in place. Body mass index 30+ - obesity 797596422 Z68.34 Obesity 354395207 E66.9 Hypertriglyceridemia 302 424905 E78.2 Hyperlipidemia 55414955 E78.5 Well controlled and meds tolerated. Will continue current dosing. Screening for malignant neoplasm of colon 911972233 Z12.11 Screening utd. Due in 2027 unless symptoms or other risk factors arise in the meantime. Gastroesop hageal reflux disease 218115070 K21.9 Discussed wt loss and caffeine intake reduction. Will use H2B PRN. Call if symptoms persist/wo rsen. Seborrheic dermatitis of scalp 649748519 L21.0 Call inb/worse. Eczema 35066734 L30.9 c/w nummular eczema. WIll see if steroid helps. Advised to f/u with derm if persistent or changing. [id number] Aly Dennis MD Main Office [address] [address] [place] [id number] 11/25/2018 14:16:12 11/25/2018 15:17:45 Chronic dermatitis 89909065 L30.9 Unclear if this is related to photosensi tivity vs allergic process/ec zema. See if po prednisone helps given degree of skin involvemen t then transition to topical. Given recurrence will ask derm to help characteri ze and provide treatment plan. Advised to call inb/worse in the meantime. Eczema 52912069 L30.9 Overall findings still suggestive of this, but given recurrence will ask derm for assistance with management . Gentle soap and moisturiza tion after bathing advised. [id number] Dayanara Parrish Main Office [address] [address] [place] [id number] 04/18/2019 08:24:17 04/18/2019 08:29:17 Needs influenza immunization 450164835 Z23 [id number] Aly Dennis MD Main Office [address] [address] [place] [id number] 06/11/2019 10:22:52 06/11/2019 11:33:17 Low back pain 771615214 M54.5 Likely muscular but reflex asymmetry is concerning for possible radiculopa thy. If persistent will need formal PT, possibly MRI and PMR vs neurosurg eval. WIll try NSAID, muscle relaxant, sleeping on firm surface and working on core strengthen ing himself for now. Call with any new symptom developmen t. [id number] Aly Dennis MD Main Office [address] [address] [place] [id number] 06/15/2019 11:03:01 06/15/2019 12:13:52 Low back pain 724116622 M54.5 Likely muscular but reflex asymmetry is concerning for possible radiculopa thy. WIll continue with conservati ve home treatment for now. If persistent will need formal PT. Given recurrent nature will ask PMR for insight on how to prevent further recurrence and to see if imaging is warranted. Advised to call with any new symptom developmen t. [id number] Aly Dennis MD Main Office [address] [address] [place] [id number] 06/22/2019 09:52:17 06/22/2019 10:34:55 Lumbar radiculopathy 874862374 M54.16 Persistent pain with radicular finding on exam and worsening chronic recurrent course. Further anatomical characteri zation warranted. Will try formal PT while waiting for physiatry eval next month. [id number] Aly Dennis MD Main Office [address] [address] [place] [id number] 07/09/2019 08:04:29 07/09/2019 08:46:45 Low back strain 512200775 S39.012D Based on MRI findings pain is most likely from soft tissue source/mus teresa. Will continue PT but should be fine to return to work. Physiatry referral not done but would pursue only if symptoms recur. Will return to work after PT this week. [id number] TANYA Dsouza Main Office [address] [address] [place] [id number] 09/22/2019 13:00:18 09/22/2019 15:31:50 Acute otitis media 3894638 H66.91 unable to visualize TM, will tx for presumed OM. amox bid x full 10 days, hydration, rest, tylenol or ibuprofen as needed for pain. call or return of sx not improving next week. 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 Will continue with current topical treatment for now, try otc hydrocorti sone cream to skin bid for 5 days. If not improving would use medrol as he cannot use steroid cream around the eye. Call if any pain or sx in eye. [id number] Aly Dennis MD Main Office [address] [facility] [address] [facility] [place] [id number] 12/08/2019 10:44:19 12/08/2019 12:06:28 Adult health examination 465507818 Z00.00 Immunizati on status utd, flu advised in the Fall. Will screen based on risk factors. Regular dental and ophtho care advised as well as seat belt and sunscreen use. Distracted driving discussed. Advance directives in place. Disorder o f lumbar disc 039281804 M51.9 Stable, has completed Pt since recent flare and works on [employer]. Refer to PMR if recurrent. Varicella vaccination 68 084241 Z23 Body mass index 30+ - obesity 235998647 Z68.33 Obesity 655536790 E66.9 Hypertriglyceridemia 302 955728 E78.2 Hyperlipidemia 21652680 E78.5 Well controlled and meds tolerated. Will continue current dosing. Screening for malignant neoplasm of colon 796830355 Z12.11 Screening utd. Due in 2027 unless symptoms or other risk factors arise in the meantime. Gastroesop hageal reflux disease 471226466 K21.9 Discussed wt loss and caffeine intake reduction. Will use H2B PRN. Call if symptoms persist/wo rsen. Eczema 95671688 L30.9 c/w nummular eczema. Responding to topical triamcinol oneAdvised to f/u with derm if persistent or changing. Family his tory of malignant neoplasm of prostate 231031450 Z80.42 Elevated blood-pressure reading without diagnosis of hypertension 071940547 R03.0 Non sepcific changes on ECG without LVH. Will screen for other end organ damage. Start diuretic if BP >130/90 at f/u. Tinrosenda littleuris 147592831 B 35.6 Call inb/worse. [id number] [facility] [address] [facility] [address] [place] [id number] 04/09/2020 08:01:39 04/09/2020 10:03:14 Eczema [id number] L30.9 [id number] [facility] [address] [facility] [address] [place] [address] 06/16/2020 06:55:07 06/28/2020 11:20:10 Hyperlipidemia 96859546 E78.01 Well controlled and meds tolerated. Will continue current dosing. Disorder o f lumbar disc 157487374 M51.9 Imaging from 2019 showed some subtle disease. Responded well to PT in the past so will revisit. Refer to PMR if persistent /worse. Screening for malignant neoplasm of prostate 551051178 Z12.5 Due for screening before next appt. [id number] Billy Malin PA-C Main Office [address] [facility] [address] [place] [address] 01/09/2021 10:22:29 01/09/2021 11:32:25 Adult health examination 426435157 Z00.00 Varicella vaccination 68 894722 Z23 Hyperlipidemia 48826217 E78.5 Hepatitis C screening 41 2508076 Z11.59 Prostate s pecific antigen above reference range 318066658 R97.20 Eczema 87948432 L30.9 stable, cont f/u c derm Impaired f asting glycemia 368444184 R73.01 Body mass index 30+ - obesity 613738507 E66.9 Z68.33 Chronic low back pain 27 0728817 M54.5 better lately p PT, cont HEP Skin lesion 27317373 L98 .9 Gastroesop hageal reflux disease 615171427 K21.9 mild, discussed anti-reflu x measures, rec pepcid qd/prn - if no sig help, then consider ppi [id number] Alexandria Wallis Main Office [address] [facility] [address] [place] [id number] 05/01/2021 15:23:46 05/01/2021 16:26:16 Low back pain 531271654 M54.51 Rest, stretching at home, start PT program twice a week. Can use naprosyn in the am and flexeril at night, sleep with pillow under knees or between knees. Likely muscular, call if not better with PT and medication s. [id number] Billy Malin PA-C Main Office [address] [facility] [address] [place] [id number] 06/08/2021 08:44:19 06/08/2021 14:18:55 Herpes zoster 7239023 B02.9 viewed pic that he sent in, and by virtue of his story - sounds like he had shingles x 1 wk, which is getting better - cont to apply ointment (can use triple abx or vas pj) topically to buffer friction between vest/shirt and skin, and consider gbn if PHN appears to persist/ge t worse (sounds like he is getting better so may not need but will give script just in case d/t holiday w/e and he is going to [place] in 2 days), rec get shingrix in ~ 6 months [id number] [facility] [address] [facility] [address] [place] [address] 06/23/2021 08:21:26 06/23/2021 15:41:04 Exposure to viral disease 3992269917 15759 Z03.818 [id number] Aly Dennis MD Main Office [address] [facility] [address] [place] [id number] 01/11/2022 10:05:08 01/11/2022 11:10:01 Adult health examination 758792884 Z00.00 Immunizati on status utd, flu advised in the Fall. Will screen based on risk factors. Regular dental and ophtho care advised as well as seat belt and sunscreen use. Distracted driving discussed. Advance directives in place. Varicella vaccination 68 247121 Z23 Hypertriglyceridemia 302 380301 E78.2 Fairly well controlled on statin/fib rate. Consider adding fish oil Hyperlipidemia 46441480 E78.5 Well controlled and meds tolerated. Will continue current dosing. Body mass index 30+ - obesity 289498854 E66.9 Z68.33 Impaired f asting glycemia 025771866 R73.01 Will monitor/re assess. Family his tory of hemochromatosis 103430063 Z83.49 Nocturia 086329911 R35.1 Allergic conjunctivitis 216171293 H10.13 Continue lubricatin g drops, try allergy tx. [id number] Aly Dennis MD Main Office [address] [facility] [address] [place] [id number] 11/15/2022 09:56:33 11/15/2022 10:36:30 Family history of hemochromatosis 663518387 Z83.49 Due for labs before next appt. Nocturia 684164080 R35.1 Hyperlipidemia 53538312 E78.5 Well controlled and meds tolerated. Will continue current dosing. [id number] Billy Malin PA-C Main Office [address] [facility] [address] [place] [id number] 04/18/2023 10:48:33 04/18/2023 12:00:37 Adult health examination 935342961 Z00.00 colon utd Eczema 28825986 L30.9 stable, cont f/u c derm Gastroesop hageal reflux disease 578485260 K21.9 mild, discussed anti-reflu x measures, rec pepcid qd/prn - if no sig help, then consider ppi Hypertriglyceridemia 302 219159 E78.2 stable, cont meds as dir Serum ferr itin above reference range 110437971 R77.8 + fh HH, will check for genetic mutation Family his tory of hemochromatosis 416291203 Z83.49 see above Requires a tetanus booster 432216109 Z23 Body mass index 30+ - obesity 292377536 E66.9 Z68.33 Pain of le ft knee region 9589351317 74825 M25.562 mild, int - likely d/t mild OA - defers xray for now, consider turmeric or prn tyl [id number] Moira Pac Main Office [address] [facility] [address] [place] [address] 06/19/2024 09:57:02 06/19/2024 11:13:42 Adult health examination 948105345 Z00.00 Immunizati on status utd, flu advised in the Fall. Will screen based on risk factors. Regular dental and ophtho care advised as well as seat belt and sunscreen use. Distracted driving discussed. Advance directives in place. Influenza vaccination declined 816324026 Z28.21 Body mass index 30+ - obesity 594380152 E66.9 Z68.36 Gastroesop hageal reflux disease 847330897 K21.9 Discussed wt loss and caffeine intake reduction. Will use H2B PRN. Call if symptoms persist/wo rsen. Nocturia 991759108 R35.1 Serum ferr itin above reference range 322325733 R77.8 Hereditary hemochromatosis 68621403 E83.110 Heterzygou s Administra tion of pneumococcal vaccine 03581997 Z23 Varicella vaccination 68 028467 Z23 Pain of le ft knee region 7866465025 20730 M25.562 Health Concerns Section Related Observation LastModified by Organization Detai ls LastModified Time None Recorded Concern Status LastModified by Organization Details LastModified Time None Recorded Advance Directives Directive Y: HCP; Suresh Rowland Payers Encounter Date Sequence Insurance Name Policy Number Policy Wheeler Covered Member ID Wheeler Member ID Guarantor Name 06/23/2021 1 [place] [facility] [id number] Roddy Ramos III [id number] Roddy Ramos III 01/11/2022 1 [place] [facility] [id number] Roddy Ramos III [id number] Roddy Krueger Gaulin III 11/15/2022 1 [place] [facility] [id number] Roddy Ramos III [id number] Roddy Krueger Gaulin III 04/18/2023 1 [place] [facility] [id number] Roddy Krueger Gaulin III [id number] Roddy Ramos III Notes Date Note Type Note Provider Name and Address Organization Details Recorded Time 2 text/html TH visit during COVID-19 crisis. Pt notes that he is doing well after testing positive for COVID on 06/19/2020. Had been traveling to [place] prior to positive test. Now with resolution of fevers. Notes mild cough and nasal congestion. No change in taste/smell. Did not have treatment with any therapeutics against COVID. Also notes rash over bilateral upper arms and extending to the flanks. Started with burning sensation and rash on the left upper arm and was thought to be possible zoster. however, symptoms now bilateral. Notes no open lesions presently, but had some small blisters at onset. Using Vaseline topically, which helps control the itching. Jhon Giang MD [address] [address], [place], [address], [facility] 06/23/2021 11:28:56 2 text/html Generic HPI TemplateReported bypatient.Notes:Here for a physical, feels well. Seeing dentist and ophtho regularly. Aly Dennis MD [address], [address], [facility] 01/12/2022 09:07:26 3 text/html HyperlipidemiaReported bypatient.Type of hyperlipidemia:combined Duration:chronic Prior Tests:highest cholesterol level: (210); highest LDL level: (134); highest triglyceride level: (176); lowest HDL level: (41) Control:usually well controlled; improving; at goal Current Therapy:currently taking: (simvastatin and fenofibrate); last cholesterol level: (179); last LDL level: (110); last triglyceride level: (133); last HDL level: (42) Compliance:compliant; compliant with diet; exercises Complications:no coronary artery disease; no peripheral artery disease; no cardiovascular disease Risk Factors:obesity Aly Dennis MD [address], [address], [facility] 12/12/2022 12:10:16 3 text/html here for annual pe. Billy Malin PA-C [address], [address], [facility] 04/18/2023 12:00:57
[2024-07-13 08:31] LABS: Hematocrit 43.1 % (42.0-52.0); Hemoglobin 15.5 g/dl (14.0-18.0)
[2024-07-13 09:46] LABS: Ferritin 525 ng/mL (20-250)
== END 2024-07-13 08:02 | disposition home or self-care (01) ==
LOC: HO.BBR 08:01
PROVIDERS: PCP Pediatrics; Visit Provider Pediatrics
DX: E83.110 Hereditary hemochromatosis (principal)
CPT/HCPCS: 36415; 82728; 85014; 85018

== ENCOUNTER 2024-08-11 08:03 | Outpatient (REF) | payer BC, SELFPAY ==
--- OUTSIDE RECORDS SUMMARY | 2024-08-11 08:15 | XMS_ITS | Data Portability ---
Author Organization [facility], Main Office Address [address] [place] [address] Care Team Providers Care Dialysis Chief Equipment Technician Name Role Phone ALY DENNIS Primary Care Provider [phone] TIFFANY ALLEN Doggy Daycare Activities Director LUNA HARRINGTON Office Messenger Helper [phone] [facility] Phys. Med. [...] now day #5 since postive test. 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 Orders done. Advised that he may use trimacinolone 0.1% cream that he has had home for resolving rash. [email or web address] Not available 06/23/2021 11:28:37 Plan of Treatment Reminders Order Date Submit Date Provider Last Modified By Organization Details Last Modified Time Details Appointments None record ed. Lab CBC w/ auto diff 2024 025 FARZANA [facility] (Centralized Electronic Ordering - All Locations), Patient Can Go To The Location Of Their Choice, [id number] 08:08:38 PSA, total, serum or plasma 2024 025 FARZANA [facility] (Centralized Electronic Ordering - All Locations), Patient Can Go To The Location Of Their Choice, 08:08:40 ferrit in, serum or plasma 2024 025 FARZANA [facility] (Centralized Electronic Ordering - All Locations), Patient Can Go To The Location Of Their Choice, 08:08:41 C reacti ve protei n, QN, serum or plasma 2024 025 FARZANA [facility] (Centralized Electronic Ordering - All Locations), Patient Can Go To The Location Of Their Choice, 08:08:42 CMP, serum or plasma 2024 025 FARZANA [facility] (Centralized Electronic Ordering - All Locations), Patient Can Go To The Location Of Their Choice, 08:08:39 lipid panel, serum 2024 025 FARZANA [facility] (Centralized Electronic Ordering - All Locations), Patient Can Go To The Location Of Their Choice, 08:08:39 hemoch romato sis mutati on (hfe), blood/ tissue 2022 023 FARZANA [facility], [address], [address], [place], [id number], 3 10:44:11 CBC w/ auto diff 2022 023 FARZANA [facility], [address], [address], [place], [id number], 3 14:53:35 CBC w/ auto diff 2022 023 FARZANA [facility], [address], [address], [place], [address], 3 14:12:25 ferrit in, serum or plasma 2022 023 FARZANA [facility], [address], [address], [place], [address], 3 15:37:19 PSA, serum or plasma - Screen ing 2022 023 FARZANA [facility], [address], [address], [place], [id number], 3 15:37:21 lipid panel, serum 2022 023 FARZANA [facility], [address], [address], [place], [address], 3 15:35:50 CMP, serum or plasma 2022 023 FARZANA [facility], [address], [address], [place], [address], 3 15:35:49 CBC w/ auto diff 2021 022 FARZANA [facility], [address], [address], [place], [id number], 2 15:30:16 lipid panel, serum 2021 022 FARZANA [facility], [address], [address], [place], [id number], 2 13:49:47 HbA1c (hemog lobin A1c), blood 2021 022 FARZANA [facility], [address], [address], [place], [address], 2 19:18:04 CMP, serum or plasma 2021 022 FARZANA [facility], [address], [address], [place], [address], 2 13:49:45 PSA, serum or plasma - Screen ing 2021 022 FARZANA [facility], [address], [address], [place], [id number], 2 13:55:56 unlist ed lab - covid- 19 (novel de jesus virus) PCR 2021 022 FARZANA [facility], [address] [facility], [facility], [place], [id number], 2 03:06:42 Referral nutrit ionist /vinodi josie referr al 2024 025 Not available 5 11:20:28 nutrit ionist /dieti josie referr al 2022 023 [email or web address] Not available 3 11:31:06 nutrit ionist /vinodi josie referr al 2021 022 [email or web address] Not available 2 11:44:32 Procedures None record ed. Surgeries None record ed. Imaging XR, knee, 3 view - to assess left knee arthri tic burden 2024 025 lyn [facility], [address] [place] [address], [id number], 5 09:28:19 Medication Orders omepra zole 20 mg capsul e,tim yed releas e 2024 025 [email or web address] [id number], [address] [place], [address], 5 15:59:49 olopat adine 0.1 % eye drops 2021 023 ATHENAFAX [id number], [address] [place], [address], 3 10:20:34 Patient Targets Encounter Date Encounter Id Patient Goals Patient Target Last Modified By Organization Details Last Modified Time 04/18/2023 [id number] [facility] goal of Excess Body Weight Loss % [...] By Organization Details Last Modified Time 01/11/2022 [id number] high cholesterol : care instructions [email or web address] Not available 01/11/2022 11:07:06 prediabetes: car e instructions awychowski Not available 01/11/2022 11:07:06 dry eyes: care instructions awychowski Not available 01/11/2022 11:07:07 Prostate Cancer Screening awychowski Not available 01/11/2022 11:07:07 starting a weigh t loss plan: care instructions awychowski Not available 01/11/2022 11:07:07 11/15/2022 [id number] high cholesterol : care instructions awychowski Not available 11/15/2022 10:43:54 04/18/2023 [id number] A healthy lifest yle: care instructions pmadden Not available 04/18/2023 11:55:37 Well Visit 50 to 65: Care Instructions pmadden Not available 04/18/2023 11:55:37 starting a weigh t loss plan: care instructions pmadden Not available 04/18/2023 11:55:37 Medications (OTC , herbal therapies, supplements) reviewed and reconciled with patient and or caregiver, including potential side effects, drug interactions, instructions, and the consequences of not taking medication. Reviewed potential barriers to medication adherence, such as side effects from medication or cost of medication. 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 Body mass index 30+ - obesity Referring Physician: Aly Dennis, Family Medicine, Encounter Date: 01/11/2022 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 for Body mass index 30+ - obesity Referring Physician: Billy Malin, Internal Medicine, Encounter Date: 04/18/2023 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 Refer ral for Body mass index 30+ - obesity Referring Physician: Aly Dennis, Family Medicine, Encounter Date: 06/19/2024 Results Created Date Observation Date Name Description Value Unit Range Abnormal Flag Note LastModifiedBy Organization Detail LastModifiedTime 06/21/19 22 06/29/2021 COVID -19 (NOVE L CORON AVIRU S) PCR covid-19 PCR specimen source NASAL Not Available [facility] (Centralized [facility] Ordering - All Locations) Patient Can Go To The Location Of Their Choice, [id number] 06/30/2021 05:45:51 06/21/19 22 06/30/2021 COVID -19 (NOVE L CORON AVIRU S) PCR covid-19 PCR result (neg) abnormal POSIT BROOKE Posit brooke for detec tion of 2019- novel Coron aviru s (2018 -nCoV ) by RT-PC R. Resul t teo ambrosio to the [facility]. All test resul ts must be corre lated with clini rosanna findi ngs. This test has been autho rized by the FDA under an Emerg ency Use Autho rizat ion (EUA) for use by autho rized labor atori es. Testi ng perfo rmed on the Holog ic Panth er Aptim a assay utili zing trans cript ion-m ediat ed ampli ficat ion (TMA) . Not Available [facility] (Centralized Electronic Ordering - All Locations) Patient Can Go To The Location Of Their Choice, [id number] 06/30/2021 05:45:51 06/24/1906/24/2021 COVID -19 (NOVE L CORON AVIRU S) PCR covid-19 PCR specimen source NASAL Not Available [facility] (Centralized [facility] Ordering - All Locations) Patient Can Go To The Location Of Their Choice, 06/25/2021 03:06:42 06/24/19 22 06/25/2021 COVID -19 (NOVE L CORON AVIRU S) PCR covid-19 PCR result (neg) abnormal POSIT BROOKE Posit brooke for detec tion of 2019- novel Coron aviru s (2018nCoV ) by real- time RT-PC R. Resul t repor hebert to the [facility]. To preve nt error s in diagn [...] perfo rmed by real time PCR utili [facility] LORIE 6800 SARS- CoV-2 test. Not Available [facility] (Centralized Electronic Ordering - All Locations) Patient Can Go To The Location Of Their Choice, [id number] 06/25/2021 03:06:42 02/21/20 22 02/20/2022 COMPR EHENS BROOKE METAB OLIC PANL glucose 85 mg/dL (70-99 ) Not Available [facility] (Centralized Electronic Ordering - All Locations) Patient Can Go To The Location Of Their Choice, [id number] 02/20/2022 13:49:45 02/21/20 22 02/20/2022 COMPR EHENS BROOKE METAB OLIC PANL BUN 13 mg/dL (6-20) Not Available [facility] (Centralized Electronic Ordering - All Locations) Patient Can Go To The Location Of Their Choice, 02/20/2022 13:49:45 02/21/2002/20/2022 COMPR EHENS BROOKE METAB OLIC PANL creatinine 1.0 mg/dL (0.7-1 .2) Not Available [facility] (Centralized Electronic Ordering - All Locations) Patient Can Go To The Location Of Their Choice, 02/20/2022 13:49:45 02/21/2002/20/2022 COMPR EHENS BROOKE METAB OLIC PANL sodium 140 mmol/ L (133-1 45) Not Available [facility] (Centralized Electronic Ordering - All Locations) Patient Can Go To The Location Of Their Choice, 02/20/2022 13:49:45 02/21/2002/20/2022 COMPR EHENS BROOKE METAB OLIC PANL potassium 3.9 mmol/ L (3.6-5 .2) Not Available [facility] (Centralized Electronic Ordering - All Locations) Patient Can Go To The Location Of Their Choice, 02/20/2022 13:49:45 02/21/2002/20/2022 COMPR EHENS BROOKE METAB OLIC PANL chloride 105 mmol/ L (98-10 7) Not Available [facility] (Centralized Electronic Ordering - All Locations) Patient Can Go To The Location Of Their Choice, 02/20/2022 13:49:45 02/21/2002/20/2022 COMPR EHENS BROOKE METAB OLIC PANL bicarbonate 25 mmol/ L (22-29 ) Not Available [facility] (Centralized Electronic Ordering - All Locations) Patient Can Go To The Location Of Their Choice, 02/20/2022 13:49:45 02/21/2002/20/2022 COMPR EHENS BROOKE METAB OLIC PANL anion gap 10 (4-17) Not Available [facility] (Centralized Electronic Ordering - All Locations) Patient Can Go To The Location Of Their Choice, 02/20/2022 13:49:45 02/21/2002/20/2022 COMPR EHENS BROOKE METAB OLIC PANL albumin 4.7 gm/dL (3.4-4 .8) Not Available [facility] (Centralized Electronic Ordering - All Locations) Patient Can Go To The Location Of Their Choice, 02/20/2022 13:49:45 02/21/2002/20/2022 COMPR EHENS BROOKE METAB OLIC PANL calcium 9.7 mg/dL (8.6-1 0.5) Not Available [facility] (Centralized Electronic Ordering - All Locations) Patient Can Go To The Location Of Their Choice, 02/20/2022 13:49:45 02/21/2002/20/2022 COMPR EHENS BROOKE METAB OLIC PANL bilirubin,to amilcar 0.7 mg/dL (0-1.2 ) Not Available [facility] (Centralized Electronic Ordering - All Locations) Patient Can Go To The Location Of Their Choice, 02/20/2022 13:49:45 02/21/2002/20/2022 COMPR EHENS BROOKE METAB OLIC PANL total protein 6.6 gm/dL (6.2-8 .2) Not Available [facility] (Centralized Electronic Ordering - All Locations) Patient Can Go To The Location Of Their Choice, 02/20/2022 13:49:45 02/21/2002/20/2022 COMPR EHENS BROOKE METAB OLIC PANL Ag ratio 2.5 Not Available [facility] (Centralized Electronic Ordering - All Locations) Patient Can Go To The Location Of Their Choice, 02/20/2022 13:49:45 02/21/2002/20/2022 COMPR EHENS BROOKE METAB OLIC PANL AST 23 U/L (0-40) Not Available [facility] (Centralized Electronic Ordering - All Locations) Patient Can Go To The Location Of Their Choice, 02/20/2022 13:49:45 02/21/2002/20/2022 COMPR EHENS BROOKE METAB OLIC PANL alk phos 54 U/L (40-12 9) Not Available [facility] (Centralized Electronic Ordering - All Locations) Patient Can Go To The Location Of Their Choice, 02/20/2022 13:49:45 02/21/2002/20/2022 COMPR EHENS BROOKE METAB OLIC PANL ALT 23 U/L (0-41) Not Available [facility] (Centralized Electronic Ordering - All Locations) Patient Can Go To The Location Of Their Choice, 02/20/2022 13:49:45 02/21/2002/20/2022 COMPR EHENS BROOKE METAB OLIC PANL estimated GFR creatinine 94 mL/mi n/1.7 3_M2 Creat inine based estim ated glome rular filtr ation (eGFR ) in adult s is calcu lated using the Natio nal Kidne y Found ation recom damien d 2020 CKD-E PI equat ion. Estim ates GFR from serum creat inine , age and sex. Not Available [facility] (Centralized Electronic Ordering - All Locations) Patient Can Go To The Location Of Their Choice, 02/20/2022 13:49:45 02/21/2002/20/2022 LIPID PANEL cholesterol, total 179 mg/dL (<200) Not Available [facility] ([facility] Ordering - All Locations) Patient Can Go To The Location Of Their Choice, 02/20/2022 13:49:47 02/21/2002/20/2022 LIPID PANEL triglyceride 133 mg/dL (<150) Not Available [facility] ([facility] Order[facility] - All Locations) Patient Can Go To The Location Of Their Choice, 02/20/2022 13:49:47 02/21/2002/20/2022 LIPID PANEL HDL chol 42 mg/dL (>39) Not Available [facility] (Centralized Electronic Ordering - All Locations) Patient Can Go To The Location Of Their Choice, 02/20/2022 13:49:47 02/21/2002/20/2022 LIPID PANEL LDL cholesterol, calculated 110 mg/dL (0-130 ) Not Available [facility] (Centralized Electronic Ordering - All Locations) Patient Can Go To The Location Of Their Choice, 02/20/2022 13:49:47 02/21/2002/20/2022 LIPID PANEL non HDL cholesterol (calc) 137 mg/dL (<160) Not Available [facility] ([facility] Ordering - All Locations) Patient Can Go To The Location Of Their Choice, 02/20/2022 13:49:47 02/21/2002/20/2022 PSA SCREE N PSA 0.8 NG/mL (0-4) TEST PERFO RMED USING THE FARSHAD ELECT FARSHAD MILLU MINES CENCE TOTAL PSA ASSAY . PSA VALUE S OBTAI FAVIAN WITH OTHER ASSAY METHO DS OR KITS CANNO T BE USED INTER GARCIA EABLY . Not Available [facility] (Centralized Electronic Ordering - All Locations) Patient Can Go To The Location Of Their Choice, 02/20/2022 13:55:56 02/21/2002/20/2022 COMPL ETE CBC WITH DIFF WBC 7.2 K/mm3 (4.0-1 1.0) Not Available [facility] (Centralized Electronic Ordering - All Locations) Patient Can Go To The Location Of Their Choice, 02/20/2022 15:30:02/21/2002/20/2022 COMPL ETE CBC WITH DIFF RBC 4.93 M/mm3 (4.70- 6.10) Not Available [facility] (Centralized Electronic Ordering - All Locations) Patient Can Go To The Location Of Their Choice, 02/20/2022 15:30:15 02/21/2002/20/2022 COMPL ETE CBC WITH DIFF HGB 15.3 gm/dL (13.7- 17.1) Not Available [facility] (Centralized Electronic Ordering - All Locations) Patient Can Go To The Location Of Their Choice, 02/20/2022 15:30:15 02/21/2002/20/2022 COMPL ETE CBC WITH DIFF HCT 44.1 % (40.5- 50.0) Not Available [facility] (Centralized Electronic Ordering - All Locations) Patient Can Go To The Location Of Their Choice, 02/20/2022 15:30:15 02/21/2002/20/2022 COMPL ETE CBC WITH DIFF MCV 89.5 fL (80.0- 94.0) Not Available [facility] (Centralized Electronic Ordering - All Locations) Patient Can Go To The Location Of Their Choice, 02/20/2022 15:30:02/21/2002/20/2022 COMPL ETE CBC WITH DIFF MCH 31.0 pg (27.0- 34.0) Not Available [facility] (Centralized Electronic Ordering - All Locations) Patient Can Go To The Location Of Their Choice, 02/20/2022 15:30:02/21/2002/20/2022 COMPL ETE CBC WITH DIFF MCHC 34.7 g/dL (33.0- 37.0) Not Available [facility] (Centralized Electronic Ordering - All Locations) Patient Can Go To The Location Of Their Choice, 02/20/2022 15:30:15 02/21/2002/20/2022 COMPL ETE CBC WITH DIFF plt 257 K/mm3 (150-4 60) Not Available [facility] (Centralized Electronic Ordering - All Locations) Patient Can Go To The Location Of Their Choice, 02/20/2022 15:30:02/21/2002/20/2022 COMPL ETE CBC WITH DIFF RDW-SD 40.6 fL (<47.0 ) Not Available [facility] (Centralized Electronic Ordering - All Locations) Patient Can Go To The Location Of Their Choice, 02/20/2022 15:30:02/21/2002/20/2022 COMPL ETE CBC WITH DIFF MPV 11.1 fL (9.4-1 2.4) Not Available [facility] (Centralized Electronic Ordering - All Locations) Patient Can Go To The Location Of Their Choice, 02/20/2022 15:30:02/21/2002/20/2022 COMPL ETE CBC WITH DIFF automated NRBC 0.0 #/100 _WBC' s Not Available [facility] (Centralized Electronic Ordering - All Locations) Patient Can Go To The Location Of Their Choice, 02/20/2022 15:30:02/21/2002/20/2022 COMPL ETE CBC WITH DIFF abs. NRBC 0.0 K/mm3 Not Available [facility] (Centralized Electronic Ordering - All Locations) Patient Can Go To The Location Of Their Choice, 02/20/2022 15:30:02/21/2002/20/2022 COMPL ETE CBC WITH DIFF neut # 5.0 K/mm3 (1.3-7 .0) Not Available [facility] (Centralized Electronic Ordering - All Locations) Patient Can Go To The Location Of Their Choice, 02/20/2022 15:30:02/21/2002/20/2022 COMPL ETE CBC WITH DIFF lymph # 1.3 K/mm3 (0.8-3 .1) Not Available [facility] (Centralized Electronic Ordering - All Locations) Patient Can Go To The Location Of Their Choice, 02/20/2022 15:30:02/21/2002/20/2022 COMPL ETE CBC WITH DIFF mono# 0.6 K/mm3 (0.4-1 .3) Not Available [facility] (Centralized Electronic Ordering - All Locations) Patient Can Go To The Location Of Their Choice, 02/20/2022 15:30:02/21/2002/20/2022 COMPL ETE CBC WITH DIFF eo # 0.2 K/mm3 (0.0-0 .4) Not Available [facility] (Centralized Electronic Ordering - All Locations) Patient Can Go To The Location Of Their Choice, 02/20/2022 15:30:02/21/2002/20/2022 COMPL ETE CBC WITH DIFF baso # 0.0 K/mm3 (0.0-0 .1) Not Available [facility] (Centralized Electronic Ordering - All Locations) Patient Can Go To The Location Of Their Choice, 02/20/2022 15:30:02/21/2002/20/2022 COMPL ETE CBC WITH DIFF abs. imm gran 0.0 K/mm3 Not Available [facility] ([facility] Ordering - All Locations) Patient Can Go To The Location Of Their Choice, 02/20/2022 15:30:02/21/2002/20/2022 COMPL ETE CBC WITH DIFF neut 69.0 % (44-76 ) Not Available [facility] (Centralized Electronic Ordering - All Locations) Patient Can Go To The Location Of Their Choice, 02/20/2022 15:30:02/21/2002/20/2022 COMPL ETE CBC WITH DIFF lymph 18.1 % (15-43 ) Not Available [facility] (Centralized Electronic Ordering - All Locations) Patient Can Go To The Location Of Their Choice, 02/20/2022 15:30:02/21/2002/20/2022 COMPL ETE CBC WITH DIFF monocyte 8.9 % (4.5-1 0.5) Not Available [facility] (Centralized Electronic Ordering - All Locations) Patient Can Go To The Location Of Their Choice, [id number] 02/20/2022 15:30:15 02/21/20 22 02/20/2022 COMPL ETE CBC WITH DIFF eo 2.8 % (0-6) Not Available [facility] (Centralized Electronic Ordering - All Locations) Patient Can Go To The Location Of Their Choice, [facility] 02/20/2022 15:30:15 02/21/20 22 02/20/2022 COMPL ETE CBC WITH DIFF baso 0.6 % (0-2) Not Available [facility] (Centralized [facility] Ordering - All Locations) Patient Can Go To The Location Of Their Choice, [id number] 02/20/2022 15:30:15 02/21/20 22 02/20/2022 COMPL ETE CBC WITH DIFF imm gran 0.6 % Not Available [facility] (Centralized Electronic Ordering - All Locations) Patient Can Go To The Location Of Their Choice, [facility] 02/20/2022 15:30:15 02/21/2002/20/2022 HEMOG LOBIN A1C hemoglobin A1C 5.3 % [...] of Clini rosanna and Appli ed Resea [facility] and Alea trina Volum e 43, Suppl ement 1 Not Available [facility] (Centralized Electronic Ordering - All Locations) Patient Can Go To The Location Of Their Choice, 02/20/2022 19:18:04 01/04/2001/03/2023 COMPL ETE CBC WITH DIFF WBC 7.2 K/mm3 (4.0-1 1.0) Not Available [facility] (Centralized Electronic Ordering - All Locations) Patient Can Go To The Location Of Their Choice, 01/03/2023 14:12:25 01/04/2001/03/2023 COMPL ETE CBC WITH DIFF RBC 5.19 M/mm3 (4.70- 6.10) Not Available [facility] (Centralized Electronic Ordering - All Locations) Patient Can Go To The Location Of Their Choice, 01/03/2023 14:12:01/04/2001/03/2023 COMPL ETE CBC WITH DIFF HGB 15.6 gm/dL (13.7- 17.1) Not Available [facility] (Centralized Electronic Ordering - All Locations) Patient Can Go To The Location Of Their Choice, 01/03/2023 14:12:25 01/04/2001/03/2023 COMPL ETE CBC WITH DIFF HCT 47.8 % (40.5- 50.0) Not Available [facility] (Centralized Electronic Ordering - All Locations) Patient Can Go To The Location Of Their Choice, 01/03/2023 14:12:25 01/04/2001/03/2023 COMPL ETE CBC WITH DIFF MCV 92.1 fL (80.0- 94.0) Not Available [facility] ([facility]ized Electronic Ordering - All Locations) Patient Can Go To The Location Of Their Choice, 01/03/2023 14:12:01/04/2001/03/2023 COMPL ETE CBC WITH DIFF MCH 30.1 pg (27.0- 34.0) Not Available [facility] (Centralized Electronic Ordering - All Locations) Patient Can Go To The Location Of Their Choice, 01/03/2023 14:12:25 01/04/2001/03/2023 COMPL ETE CBC WITH DIFF MCHC 32.6 g/dL (33.0- 37.0) low Not Available [facility] ([facility]ized [facility] Ordering - All Locations) Patient Can Go To The Location Of Their Choice, 01/03/2023 14:12:01/04/2001/03/2023 COMPL ETE CBC WITH DIFF plt 271 K/mm3 (150-4 60) Not Available [facility] (Centralized Electronic Ordering - All Locations) Patient Can Go To The Location Of Their Choice, 01/03/2023 14:12:01/04/2001/03/2023 COMPL ETE CBC WITH DIFF RDW-SD 42.5 fL (<47.0 ) Not Available [facility] (Centralized Electronic Ordering - All Locations) Patient Can Go To The Location Of Their Choice, 01/03/2023 14:12:01/04/2001/03/2023 COMPL ETE CBC WITH DIFF MPV 11.0 fL (9.4-1 2.4) Not Available [facility] (Centralized Electronic Ordering - All Locations) Patient Can Go To The Location Of Their Choice, 01/03/2023 14:12:01/04/2001/03/2023 COMPL ETE CBC WITH DIFF automated NRBC 0.0 #/100 _WBC' s Not Available [facility] (Centralized Electronic Ordering - All Locations) Patient Can Go To The Location Of Their Choice, 01/03/2023 14:12:01/04/2001/03/2023 COMPL ETE CBC WITH DIFF abs. NRBC 0.0 K/mm3 Not Available [facility] (Centralized Electronic Ordering - All Locations) Patient Can Go To The Location Of Their Choice, 01/03/2023 14:12:01/04/2001/03/2023 COMPL ETE CBC WITH DIFF neut # 4.6 K/mm3 (1.3-7 .0) Not Available [facility] (Centralized Electronic Ordering - All Locations) Patient Can Go To The Location Of Their Choice, 01/03/2023 14:12:01/04/2001/03/2023 COMPL ETE CBC WITH DIFF lymph # 1.6 K/mm3 (0.8-3 .1) Not Available [facility] (Centralized Electronic Ordering - All Locations) Patient Can Go To The Location Of Their Choice, 01/03/2023 14:12:01/04/2001/03/2023 COMPL ETE CBC WITH DIFF mono# 0.7 K/mm3 (0.4-1 .3) Not Available [facility] (Centralized Electronic Ordering - All Locations) Patient Can Go To The Location Of Their Choice, 01/03/2023 14:12:01/04/2001/03/2023 COMPL ETE CBC WITH DIFF eo # 0.2 K/mm3 (0.0-0 .4) Not Available [facility] (Centralized Electronic Ordering - All Locations) Patient Can Go To The Location Of Their Choice, 01/03/2023 14:12:01/04/2001/03/2023 COMPL ETE CBC WITH DIFF baso # 0.0 K/mm3 (0.0-0 .1) Not Available [facility] (Centralized Electronic Ordering - All Locations) Patient Can Go To The Location Of Their Choice, 01/03/2023 14:12:01/04/2001/03/2023 COMPL ETE CBC WITH DIFF abs. imm gran 0.1 K/mm3 Not Available [facility] ([facility] Ordering - All Locations) Patient Can Go To The Location Of Their Choice, 01/03/2023 14:12:01/04/2001/03/2023 COMPL ETE CBC WITH DIFF neut 64.3 % (44-76 ) Not Available [facility] (Centralized Electronic Ordering - All Locations) Patient Can Go To The Location Of Their Choice, 01/03/2023 14:12:01/04/2001/03/2023 COMPL ETE CBC WITH DIFF lymph 22.6 % (15-43 ) Not Available [facility] (Centralized Electronic Ordering - All Locations) Patient Can Go To The Location Of Their Choice, 01/03/2023 14:12:01/04/2001/03/2023 COMPL ETE CBC WITH DIFF monocyte 9.2 % (4.5-1 0.5) Not Available [facility] (Centralized Electronic Ordering - All Locations) Patient Can Go To The Location Of Their Choice, 01/03/2023 14:12:01/04/2001/03/2023 COMPL ETE CBC WITH DIFF eo 2.6 % (0-6) Not Available [facility] (Centralized Electronic Ordering - All Locations) Patient Can Go To The Location Of Their Choice, 01/03/2023 14:12:25 01/04/2001/03/2023 COMPL ETE CBC WITH DIFF baso 0.6 % (0-2) Not Available [facility] (Centralized Electronic Ordering - All Locations) Patient Can Go To The Location Of Their Choice, 01/03/2023 14:12:25 01/04/2001/03/2023 COMPL ETE CBC WITH DIFF imm gran 0.7 % Not Available [facility] (Centralized Electronic Ordering - All Locations) Patient Can Go To The Location Of Their Choice, 01/03/2023 14:12:25 01/04/2001/03/2023 COMPR EHENS BROOKE METAB OLIC PANL glucose 88 mg/dL (70-99 ) Not Available [facility] (Centralized Electronic Ordering - All Locations) Patient Can Go To The Location Of Their Choice, 01/03/2023 15:35:49 01/04/2001/03/2023 COMPR EHENS BROOKE METAB OLIC PANL BUN 15 mg/dL (6-20) Not Available [facility] (Centralized Electronic Ordering - All Locations) Patient Can Go To The Location Of Their Choice, 01/03/2023 15:35:49 01/04/2001/03/2023 COMPR EHENS BROOKE METAB OLIC PANL creatinine 1.2 mg/dL (0.7-1 .2) Not Available [facility] (Centralized Electronic Ordering - All Locations) Patient Can Go To The Location Of Their Choice, 01/03/2023 15:35:49 01/04/2001/03/2023 COMPR EHENS BROOKE METAB OLIC PANL sodium 141 mmol/ L (133-1 45) Not Available [facility] (Centralized Electronic Ordering - All Locations) Patient Can Go To The Location Of Their Choice, 01/03/2023 15:35:49 01/04/2001/03/2023 COMPR EHENS BROOKE METAB OLIC PANL potassium 4.8 mmol/ L (3.6-5 .2) Not Available [facility] (Centralized Electronic Ordering - All Locations) Patient Can Go To The Location Of Their Choice, 01/03/2023 15:35:49 01/04/2001/03/2023 COMPR EHENS BROOKE METAB OLIC PANL chloride 104 mmol/ L (98-10 7) Not Available [facility] (Centralized Electronic Ordering - All Locations) Patient Can Go To The Location Of Their Choice, 01/03/2023 15:35:49 01/04/2001/03/2023 COMPR EHENS BROOKE METAB OLIC PANL bicarbonate 28 mmol/ L (22-29 ) Not Available [facility] (Centralized Electronic Ordering - All Locations) Patient Can Go To The Location Of Their Choice, 01/03/2023 15:35:49 01/04/2001/03/2023 COMPR EHENS BROOKE METAB OLIC PANL anion gap 9 (4-17) Not Available [facility] (Centralized Electronic Ordering - All Locations) Patient Can Go To The Location Of Their Choice, 01/03/2023 15:35:49 01/04/2001/03/2023 COMPR EHENS BROOKE METAB OLIC PANL albumin 4.7 gm/dL (3.4-4 .8) Not Available [facility] (Centralized Electronic Ordering - All Locations) Patient Can Go To The Location Of Their Choice, 01/03/2023 15:35:49 01/04/2001/03/2023 COMPR EHENS BROOKE METAB OLIC PANL calcium 10.0 mg/dL (8.6-1 0.5) Not Available [facility] (Centralized Electronic Ordering - All Locations) Patient Can Go To The Location Of Their Choice, 01/03/2023 15:35:49 01/04/2001/03/2023 COMPR EHENS BROOKE METAB OLIC PANL bilirubin,to amilcar 0.5 mg/dL (0-1.2 ) Not Available [facility] (Centralized Electronic Ordering - All Locations) Patient Can Go To The Location Of Their Choice, 01/03/2023 15:35:49 01/04/2001/03/2023 COMPR EHENS BROOKE METAB OLIC PANL total protein 6.6 gm/dL (6.2-8 .2) Not Available [facility] (Centralized Electronic Ordering - All Locations) Patient Can Go To The Location Of Their Choice, 01/03/2023 15:35:49 01/04/2001/03/2023 COMPR EHENS BROOKE METAB OLIC PANL Ag ratio 2.5 Not Available [facility] (Centralized Electronic Ordering - All Locations) Patient Can Go To The Location Of Their Choice, 01/03/2023 15:35:49 01/04/2001/03/2023 COMPR EHENS BROOKE METAB OLIC PANL AST 20 U/L (0-40) Not Available [facility] (Centralized Electronic Ordering - All Locations) Patient Can Go To The Location Of Their Choice, 01/03/2023 15:35:49 01/04/2001/03/2023 COMPR EHENS BROOKE METAB OLIC PANL alk phos 54 U/L (40-12 9) Not Available [facility] (Centralized Electronic Ordering - All Locations) Patient Can Go To The Location Of Their Choice, 01/03/2023 15:35:49 01/04/2001/03/2023 COMPR EHENS BROOKE METAB OLIC PANL ALT 24 U/L (0-41) Not Available [facility] (Centralized Electronic Ordering - All Locations) Patient Can Go To The Location Of Their Choice, 01/03/2023 15:35:49 01/04/2001/03/2023 COMPR EHENS BROOKE METAB OLIC PANL estimated GFR creatinine 74 mL/mi n/1.7 3_M2 Creat inine based estim ated glome rular filtr ation (eGFR ) in adult s is calcu lated using the Natio nal Kidne y Found ation recom damien d 2020 CKD-E PI equat ion. Estim ates GFR from serum creat inine , age and sex. Not Available [facility] (Centralized Electronic Ordering - All Locations) Patient Can Go To The Location Of Their Choice, 01/03/2023 15:35:49 01/04/2001/03/2023 LIPID PANEL cholesterol, total 160 mg/dL (<200) Not Available [facility] ([facility] Order[facility] - All Locations) Patient Can Go To The Location Of Their Choice, 01/03/2023 15:35:50 01/04/2001/03/2023 LIPID PANEL triglyceride 112 mg/dL (<150) Not Available [facility] ([facility] Order[facility] - All Locations) Patient Can Go To The Location Of Their Choice, 01/03/2023 15:35:50 01/04/2001/03/2023 LIPID PANEL HDL chol 39 mg/dL (>39) low Not Available [facility] (Centralized Electronic Ordering - All Locations) Patient Can Go To The Location Of Their Choice, 01/03/2023 15:35:50 01/04/2001/03/2023 LIPID PANEL LDL cholesterol, calculated 99 mg/dL (0-130 ) Not Available [facility] (Centralized Electronic Ordering - All Locations) Patient Can Go To The Location Of Their Choice, 01/03/2023 15:35:50 01/04/2001/03/2023 LIPID PANEL non HDL cholesterol (calc) 121 mg/dL (<160) Not Available [facility] ([facility] Ordering - All Locations) Patient Can Go To The Location Of Their Choice, 01/03/2023 15:35:50 01/04/2001/03/2023 BETTY TIN ferritin 499 NG/mL (16-29 4) high Not Available [facility] ([facility]ized Electronic Ordering - All Locations) Patient Can Go To The Location Of Their Choice, 01/03/2023 15:37:19 01/04/2001/03/2023 PSA SCREE N PSA 0.7 NG/mL (0-4) TEST PERFO RMED USING THE FARSHAD ELECT FARSHAD MILLU MINES CENCE TOTAL PSA ASSAY . PSA VALUE S OBTAI FAVIAN WITH OTHER ASSAY METHO DS OR KITS CANNO T BE USED INTER GARCIA EABLY . Not Available [facility] (Centralized Electronic Ordering - All Locations) Patient Can Go To The Location Of Their Choice, 01/03/2023 15:37:21 01/04/2001/04/2023 IRON & TIBC iron 89 mcg/d L (45-16 0) Not Available [facility] ([facility]ized Electronic Ordering - All Locations) Patient Can Go To The Location Of Their Choice, 01/04/2023 09:46:05 01/04/2001/04/2023 IRON & TIBC unsaturated iron binding capac 269 mcg/d L (110-3 70) Not Available [facility] (Centralized Electronic Ordering - All Locations) Patient Can Go To The Location Of Their Choice, 01/04/2023 09:46:05 01/04/2001/04/2023 IRON & TIBC est T. iron bind capacity 358 mcg/d L (155-5 30) Not Available [facility] ([facility]ized Electronic Ordering - All Locations) Patient Can Go To The Location Of Their Choice, 01/04/2023 09:46:05 01/04/2001/04/2023 IRON & TIBC % iron saturation 25 % (20-55 ) Not Available [facility] ([facility]ized Electronic Ordering - All Locations) Patient Can Go To The Location Of Their Choice, 01/04/2023 09:46:05 01/04/2001/04/2023 TRANS BETTY N transferrin 280 mg/dL (200-3 60) Not Available [facility] ([facility] Electronic Ordering - All Locations) Patient Can Go To The Location Of Their Choice, 01/04/2023 09:46:06 04/18/2004/18/2023 COMPL ETE BLOOD COUNT WBC 7.1 K/mm3 (4.0-1 1.0) Not Available [facility] ([facility]ized [facility] Ordering - All Locations) Patient Can Go To The Location Of Their Choice, 04/18/2023 14:53:35 04/18/2004/18/2023 COMPL ETE BLOOD COUNT RBC 5.24 M/mm3 (4.70- 6.10) Not Available [facility] ([facility] Ordering - All Locations) Patient Can Go To The Location Of Their Choice, 04/18/2023 14:53:35 04/18/2004/18/2023 COMPL ETE BLOOD COUNT HGB 15.7 gm/dL (13.7- 17.1) Not Available [facility] ([facility] Ordering - All Locations) Patient Can Go To The Location Of Their Choice, 04/18/2023 14:53:35 04/18/2004/18/2023 COMPL ETE BLOOD COUNT HCT 47.2 % (40.5- 50.0) Not Available [facility] ([facility]ized Electronic Ordering - All Locations) Patient Can Go To The Location Of Their Choice, 04/18/2023 14:53:35 04/18/2004/18/2023 COMPL ETE BLOOD COUNT MCV 90.1 fL (80.0- 94.0) Not Available [facility] ([facility] Electronic Ordering - All Locations) Patient Can Go To The Location Of Their Choice, 04/18/2023 14:53:35 04/18/2004/18/2023 COMPL ETE BLOOD COUNT MCH 30.0 pg (27.0- 34.0) Not Available [facility] ([facility]ized Electronic Ordering - All Locations) Patient Can Go To The Location Of Their Choice, 04/18/2023 14:53:35 04/18/2004/18/2023 COMPL ETE BLOOD COUNT MCHC 33.3 g/dL (33.0- 37.0) Not Available [facility] ([facility] Electronic Ordering - All Locations) Patient Can Go To The Location Of Their Choice, 04/18/2023 14:53:35 04/18/2004/18/2023 COMPL ETE BLOOD COUNT plt 259 K/mm3 (150-4 60) Not Available [facility] ([facility] Electronic Ordering - All Locations) Patient Can Go To The Location Of Their Choice, 04/18/2023 14:53:35 04/18/2004/18/2023 COMPL ETE BLOOD COUNT RDW-SD 41.0 fL (<47.0 ) Not Available [facility] ([facility]ized Electronic Ordering - All Locations) Patient Can Go To The Location Of Their Choice, 04/18/2023 14:53:35 04/18/2004/18/2023 COMPL ETE BLOOD COUNT MPV 11.0 fL (9.4-1 2.4) Not Available [facility] ([facility] Ordering - All Locations) Patient Can Go To The Location Of Their Choice, 04/18/2023 14:53:35 04/18/2004/18/2023 COMPL ETE BLOOD COUNT automated NRBC 0.0 #/100 _WBC' s Not Available [facility] ([facility] Ordering - All Locations) Patient Can Go To The Location Of Their Choice, 04/18/2023 14:53:35 04/18/2004/18/2023 COMPL ETE BLOOD COUNT abs. 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 Refer ences : Natur e Kori . 1996: 13:39 9408, Sandy Inter n Med. 2005Jan 08,145 (3):2 09-22 3., Dig Dis Sci. 2006 Sep 51(4) : 803-8 07. Jose t 2002, 359(9 302): 211-2 18., Clin Gastr oente rol Hepat ol 2006, 4(11) :1403 -1410 , Kori Med. 2000 Sep-O ct,2( 5)271 -277. This test was devel oped and it's perfo rmanc e alistair cteri stics deter mined by [facility] Refer ence Labor atori es. It has not been clear ed or appro saran by the [place] FDA. The FDA has deter mined that such clear ance is not neces earle. This labor atory is certi fied under CLIA 88 as quali fied to perfo rm high compl exity clini rosanna labor atory testi ng. Not Available [facility] ([facility]ized Electronic Ordering - All Locations) Patient Can Go To The Location Of Their Choice, [id number] 04/30/2023 10:44:11 04/18/20 23 04/30/2023 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 N 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 RETED BY SILVIA IN RODOLFO Mcpherson Not Available [facility] ([facility]ized Electronic Ordering - All Locations) Patient Can Go To The Location Of Their Choice, [id number] 04/30/2023 10:44:11 06/24/1906/24/2024 CBC WITH DIFFE RENTI AL/PL ATELE T WBC 8.1 x10e3 /uL 3.4-10 .8 normal Not Available [facility] ([facility]) [address] [place], [address], 06/25/2024 08:08:38 06/24/19 25 06/24/2024 CBC WITH DIFFE RENTI AL/PL ATELE T RBC 5.13 x10e6 /uL 4.14-5 .80 normal Not Available [facility] ([facility]) [address] [place], [address], 06/25/2024 08:08:38 06/24/19 25 06/24/2024 CBC WITH DIFFE RENTI AL/PL ATELE T hemoglobin 16.0 g/dL 13.0-1 7.7 normal Not Available [facility] ([facility]) [address] [place], [address], 06/25/2024 08:08:38 06/24/19 25 06/24/2024 CBC WITH DIFFE RENTI AL/PL ATELE T hematocrit 46.7 % 37.5-5 1.0 normal Not Available [facility] ([facility]) [address] [place], [address], 06/25/2024 08:08:38 06/24/19 25 06/24/2024 CBC WITH DIFFE RENTI AL/PL ATELE T MCV 91 fL 79-97 normal Not Available [facility] ([facility]) [address] [facility], [place], [address], 06/25/2024 08:08:38 06/24/19 25 06/24/2024 CBC WITH DIFFE RENTI AL/PL ATELE T MCH 31.2 pg 26.6-3 3.0 normal Not Available [facility] ([facility]) [address] [facility], [place], [address], 06/25/2024 08:08:38 06/24/19 25 06/24/2024 CBC WITH DIFFE RENTI AL/PL ATELE T MCHC 34.3 g/dL 31.5-3 5.7 normal Not Available [facility] ([facility]) [address] [place], [address], 06/25/2024 08:08:38 06/24/19 25 06/24/2024 CBC WITH DIFFE RENTI AL/PL ATELE T RDW 12.6 % 11.6-1 5.4 Not Available [facility] ([facility]) [address] [place], [address], 06/25/2024 08:08:38 06/24/19 25 06/24/2024 CBC WITH DIFFE RENTI AL/PL ATELE T platelets 273 x10e3 /uL 150-45 0 normal Not Available [facility] ([facility]) [address] [place], [address], 06/25/2024 08:08:38 06/24/19 25 06/24/2024 CBC WITH DIFFE RENTI AL/PL ATELE T neutrophils 68 % not estab. normal Not Available [facility] ([facility]) [address] [place], [address], 06/25/2024 08:08:38 06/24/19 25 06/24/2024 CBC WITH DIFFE RENTI AL/PL ATELE T lymphs 19 % not estab. normal Not Available [facility] ([facility]) [address] [facility], [place], [address], 06/25/2024 08:08:38 06/24/19 25 06/24/2024 CBC WITH DIFFE RENTI AL/PL ATELE T monocytes 8 % not estab. normal Not Available [facility] ([facility]) [address] [facility], [place], [address], 06/25/2024 08:08:38 06/24/19 25 06/24/2024 CBC WITH DIFFE RENTI AL/PL ATELE T eos 3 % not estab. normal Not Available [facility] ([facility]) [address] [facility], [place], [address], 06/25/2024 08:08:38 06/24/19 25 06/24/2024 CBC WITH DIFFE RENTI AL/PL ATELE T basos 1 % not estab. normal Not Available [facility] ([facility]) [address] [place], [address], 06/25/2024 08:08:38 06/24/19 25 06/24/2024 CBC WITH DIFFE RENTI AL/PL ATELE T immature cells PHYSICIAN RECRUITER Not Available [facility] ([facility]) [address] [place], [address], 06/25/2024 08:08:38 06/24/19 25 06/24/2024 CBC WITH DIFFE RENTI AL/PL ATELE T neutrophils (absolute) 5.6 x10e3 /uL 1.4-7. 0 normal Not Available [facility] ([facility]) [address] [place], [address], 06/25/2024 08:08:38 06/24/19 25 06/24/2024 CBC WITH DIFFE RENTI AL/PL ATELE T lymphs (absolute) 1.5 x10e3 /uL 0.7-3. 1 normal Not Available [facility] ([facility]) [address] [facility], [place], [address], 06/25/2024 08:08:38 06/24/19 25 06/24/2024 CBC WITH DIFFE RENTI AL/PL ATELE T monocytes(ab solute) 0.7 x10e3 /uL 0.1-0. 9 normal Not Available [facility] ([facility]) [address] [facility], [place], [address], 06/25/2024 08:08:38 06/24/1906/24/2024 CBC WITH DIFFE RENTI AL/PL ATELE T eos (absolute) 0.2 x10e3 /uL 0.0-0. 4 normal Not Available [facility] ([facility]) [address] [facility], [place], [address], 06/25/2024 08:08:38 06/24/19 25 06/24/2024 CBC WITH DIFFE RENTI AL/PL ATELE T baso (absolute) 0.1 x10e3 /uL 0.0-0. 2 normal Not Available [facility] ([facility]) [address] [facility], [place], [address], 06/25/2024 08:08:38 06/24/1906/24/2024 CBC WITH DIFFE RENTI AL/PL ATELE T immature granulocytes 1 % not estab. Not Available [facility] ([facility]) [address] [place], [address], 06/25/2024 08:08:38 06/24/1906/24/2024 CBC WITH DIFFE RENTI AL/PL ATELE T immature grans (abs) 0.1 x10e3 /uL 0.0-0. 1 Not Available [facility] ([facility]) [address] [facility], [place], [address], 06/25/2024 08:08:38 06/24/19 25 06/24/2024 CBC WITH DIFFE RENTI AL/PL ATELE T NRBC PHYSICIAN RECRUITER Not Available [facility] ([facility]) [address] [facility], [place], [address], 06/25/2024 08:08:38 06/24/19 25 06/24/2024 CBC WITH DIFFE RENTI AL/PL ATELE T hematology comments: PHYSICIAN RECRUITER Not Available [facility] ([facility]) [address] [facility], [place], [address], 06/25/2024 08:08:38 06/24/19 25 06/24/2024 COMP. METAB OLIC PANEL (14) glucose 99 mg/dL 70-99 normal Not Available [facility] ([facility]) [address] [facility], [place], [address], 06/25/2024 08:08:38 06/24/19 25 06/24/2024 COMP. METAB OLIC PANEL (14) BUN 16 mg/dL 6-24 normal Not Available [facility] ([facility]) [address] [facility], [place], [address], 06/25/2024 08:08:38 06/24/19 25 06/24/2024 COMP. METAB OLIC PANEL (14) creatinine 0.99 mg/dL 0.76-1 .27 normal Not Available [facility] ([facility]) [address] [facility], [place], [address], 06/25/2024 08:08:38 06/24/19 25 06/24/2024 COMP. METAB OLIC PANEL (14) eGFR 89 mL/mi n/1.7 3 >59 normal Not Available [facility] ([facility]) [address] [facility] [place], [address], 06/25/2024 08:08:38 06/24/19 25 06/24/2024 COMP. METAB OLIC PANEL (14) BUN/creatini ne ratio 16 9-20 normal Not Available [facility] ([facility]) [address] [place], [address], 06/25/2024 08:08:38 06/24/19 25 06/24/2024 COMP. METAB OLIC PANEL (14) sodium 142 mmol/ L 134-14 4 normal Not Available [facility] ([facility]) [address] [place], [address], 06/25/2024 08:08:38 06/24/19 25 06/24/2024 COMP. METAB OLIC PANEL (14) potassium 4.2 mmol/ L 3.5-5. 2 normal Not Available [facility] ([facility]) [address] [place], [address], 06/25/2024 08:08:38 06/24/19 25 06/24/2024 COMP. METAB OLIC PANEL (14) chloride 103 mmol/ L 96-106 normal Not Available [facility] ([facility]) [address] [place], [address], 06/25/2024 08:08:38 06/24/19 25 06/24/2024 COMP. METAB OLIC PANEL (14) carbon dioxide, total 23 mmol/ L 20-29 normal Not Available [facility] ([facility]) [address] [place], [address], 06/25/2024 08:08:38 06/24/19 25 06/24/2024 COMP. METAB OLIC PANEL (14) calcium 9.8 mg/dL 8.7-10 .2 normal Not Available [facility] ([facility]) [address] [place], [address], 06/25/2024 08:08:38 06/24/19 25 06/24/2024 COMP. METAB OLIC PANEL (14) protein, total 6.7 g/dL 6.0-8. 5 normal Not Available [facility] ([facility]) [address] [place], [address], 06/25/2024 08:08:38 06/24/19 25 06/24/2024 COMP. METAB OLIC PANEL (14) albumin 4.4 g/dL 3.8-4. 9 normal Not Available [facility] ([facility]) [address] [place], [address], 06/25/2024 08:08:38 06/24/19 25 06/24/2024 COMP. METAB OLIC PANEL (14) globulin, total 2.3 g/dL 1.5-4. 5 Not Available [facility] ([facility]) [address] [place], [address], 06/25/2024 08:08:38 06/24/19 25 06/24/2024 COMP. METAB OLIC PANEL (14) bilirubin, total 0.5 mg/dL 0.0-1. 2 normal Not Available [facility] ([facility]) [address] [place], [address], 06/25/2024 08:08:38 06/24/19 25 06/24/2024 COMP. METAB OLIC PANEL (14) alkaline phosphatase 57 IU/L 44-121 normal Not Available [facility] ([facility]) [address] [place], [address], 06/25/2024 08:08:38 06/24/19 25 06/24/2024 COMP. METAB OLIC PANEL (14) AST (SGOT) 24 IU/L 0-40 normal Not Available [facility] ([facility]) [address] [place], [address], 06/25/2024 08:08:38 06/24/19 25 06/24/2024 COMP. METAB OLIC PANEL (14) ALT (SGPT) 28 IU/L 0-44 normal Not Available [facility] ([facility]) [address] [place], [address], 06/25/2024 08:08:38 06/24/19 25 06/24/2024 LIPID PANEL cholesterol, total 193 mg/dL 100-19 9 normal Not Available [facility] ([facility]) [address] [place], [address], 06/25/2024 08:08:39 06/24/19 25 06/24/2024 LIPID PANEL triglyceride s 118 mg/dL 0-149 normal Not Available [facility] ([facility]) [address] [place], [address], 06/25/2024 08:08:39 06/24/19 25 06/24/2024 LIPID PANEL HDL cholesterol 39 mg/dL >39 below low normal Not Available [facility] ([facility]) [address] [facility], [place], [address], 06/25/2024 08:08:39 06/24/19 25 06/24/2024 LIPID PANEL VLDL cholesterol rosanna 21 mg/dL 5-40 Not Available [facility] ([facility]) [address] [place], [address], 06/25/2024 08:08:39 06/24/19 25 06/24/2024 LIPID PANEL LDL chol calc ([facility]) 133 mg/dL 0-99 above high normal Not Available [facility] ([facility]) [address] [place], [address], 06/25/2024 08:08:39 06/24/19 25 06/24/2024 LIPID PANEL LDL calc comment: PHYSICIAN RECRUITER Not Available [facility] ([facility]) [address] [place], [address], 06/25/2024 08:08:39 06/24/19 25 06/25/2024 PROST ATE-S [...] t be inter prete d as absol port gamble evide nce of the prese nce or absen ce of savanna roman se. Not Available [facility] ([facility]) [address] [place], [address], 06/25/2024 08:08:40 06/24/19 25 06/25/2024 BETTY TIN ferritin 587 NG/mL 30-400 above high normal Not Available [facility] ([facility]) [address] [place], [address], 06/25/2024 08:08:41 06/24/19 25 06/25/2024 C-ANANTH CTIVE PROTE IN, QUANT C-reactive protein, quant 2 mg/L 0-10 normal Not Available [facility] ([facility]) [address] [place], [address], 06/25/2024 08:08:42 06/23/19 25 06/23/2024 XR, knee, [...] 6 Orderi ng Physic thom: Aly Green Dictat ed By: Kelli Esqueda MD Dictat ed Date/T yoshi: 3:38 pm Review ed By: Kelli Esqueda MD Signed By: Kelli Esqueda MD Signed Date/T yoshi: 3:38 pm Transc ribed By: KRISTOPHER Transc ribed Date/T yoshi: 3:37 pm Patien t Class: Outpat ient [facility] (Outpt Imaging) [address] [facility], [place], [address], 06/24/2024 11:19:59 Result Notes None recorded. Problems Name Problem SNOMED Code Status Onset Date Resolution Date Notes Provider Name and Address Organization Details Recorded Time Hyperlipi demia 80103894 Active 2016 Darcie verdugo [facility] 9 15:16:16 Hypertrig lyceridem ia 430296413 Active 2016 Darcie verdugo [facility] 9 15:16:16 Chronic dermatiti s 52291248 Completed 201612/08/2019 Aly Dennis MD [address], [place], [address] , [facility] 0 11:36:21 Obesity 587133947 Completed 201708/23/2017 Aly Dennis MD [address], [place], [address] , [facility] 8 14:40:23 Body mass index 30+ - obesity 682445779 Completed 201712/08/2019 Aly Dennis MD [address], [place], [address] , [facility] 5 10:59:47 Family history of malignant neoplasm of prostate 218836412 Active 2017 Darcie verdugo [facility] 9 15:16:16 Diverticu lar disease 405549332 Active 2017 Darcie verdugo [facility] 9 15:16:16 Internal hemorrhoi ds 44072312 Active 2017 Darcie verdugo [facility] 9 15:16:16 Environme ntal allergy 802430253 Active 2018 Darcie verdugo, [facility] 9 15:16:16 Disorder of lumbar disc 951117247 Active 2019 Aly Dennis MD [address] [facility] [address], [place], [address] , [facility] 0 08:34:20 Eczema 30474847 Active 2019 Aly Dennis MD [address] [address], [place], [address] , [facility] 0 11:45:16 Elevated blood-pre ssure reading without diagnosis of hypertens ion 758105145 Completed 201901/11/2022 Aly Dennis MD [address] [facility] [address], [place], [address] , [facility] 2 10:49:02 Impaired fasting glycemia 060953676 Completed 202002/21/2022 Aly Dennis MD [address] [address], [place], [address] , [facility] 2 09:19:47 Gastroeso phageal reflux disease 840922931 Active 2020 Billy Malin PA-C [address] [address], [place], [address] , [facility] 1 11:29:00 Chronic low back pain 371406220 Active 2020 Billy Malin PA-C [address] [facility] [address], [place], [address] , [facility] 1 11:32:46 Skin lesion 41498072 Completed 202001/11/2022 Aly Dennis MD [address] [address], [place], [address] , [facility] 2 10:52:09 History of SARS-CoV- 2 [id number] 9652824 Active 2021 Aly Dennis MD [address] [address], [place], [address] , [facility] 2 10:52:00 Family history of hemochrom atosis 421087078 Active 2021 Aly Dennis MD [address] [address], [place], [address] , [facility] 2 10:54:54 Serum ferritin above reference range 448473440 Active 2022 Aly Dennis MD [address] [address], [place], [address] , [facility] 3 07:30:23 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 Procedures Surgical History Date Name Laterality Status Provider Name and Address Organization Details Recorded Time 07/05/19 23 biopsy of skin completed Aly Dennis MD [address] [facility] [address] [facility] [place][note 2], [place], [address], [facility] 07/11/2022 22:29:09 05/08/20 18 Colonoscopy completed Martinaskylar Valentin [facility] 05/08/2018 12:09:45 08/11/19 17 Cerumen Removal completed Aly Dennis MD [address] [facility] [address] [facility] [place][note 2], [place], [address], [facility] 08/10/2016 13:52:43 07/11/19 16 Create eardrum opening completed Gabby Underwood MA [facility] 08/10/2016 13:09:38 06/10/19 13 Other completed Gabby Underwood MA [facility] 08/10/2016 13:06:33 06/10/18 80 Orthopedic Surgery completed Aly Dennis MD [address] [facility] [address] [facility] [place][note 2], [place], [address], [facility] 08/23/2017 14:49:00 06/10/18 78 Elbow arthroscopy/anthony earl completed Aly Dennis MD [address] [address], [place], [address], [facility] 08/25/2018 09:50:43 06/10/18 75 Ther fx nasal inf turbinate completed Aly Dennis MD [address] [address], [place], [address], [facility] 08/25/2018 09:51:30 Imaging Results Imaging Date Name Status LastModified by Organiz ation Details LastModified Time 06/23/2024 XR, knee, 1 or 2 view completed [facility] ([facility] [address] [place], [address], 06/24/2024 11:19:59 Procedure Notes None recorded. Medical Equipment None Reported. Allergies Allergen ID Allergen Name Allergen Category Reaction Reaction Severity Criticality Documentation Date Start Date Code Code System Note Provider Name and Address Organization Details Recorded Time 89455 ragweed pollen environme nt Not available Not available Not available 06/23/2021 [id number] UNK CHELSI Napier, [facility] 2 10:50:00 No known drug allergies Medications Name Sig Start Date Stop Date Status Note LastModified by Organization Details LastModified Time carisopro dol 350 mg tablet 05/12 completed Not Available Not Available Not Available amoxicill in 500 mg capsule Take 1 capsule 3 times a day by oral route for 10 days. 05/12 completed Not Available Not Available Not Available atorvasta tin 40 mg tablet Take 1 tablet every day by oral route for 90 days. 2024 active Not Available Not Available Not Avai lable neomycin- polymyxin -hydrocor t 3.5 mg/mL-10, 000 [...] 200 mg capsule TAKE 1 CAPSULE DAILY 08/05 completed Not Available Not Available Not Available triamcino lone acetonide 0.1 % topical cream APPLY TO AFFECTED AREA TWICE A DAY NEEDED 01/09 completed Not Available Not Available Not Available simvastat in 40 mg tablet TAKE 1 TABLET DAILY 08/05 completed Not Available Not Available Not Available oxycodone -acetamin ophen 5 mg-325 mg [...] DateTime 06/23/2021 171.45 cm Leatha Negro MA [facility] 06/23/2021 10:49:52 Date Recorded Body height Body mass index (BMI) Body weight Heart rate Oxygen saturation Oxygen saturation in Arterial blood by Pulse oximetry Body temperature Systolic blood pressure Diastolic blood pressure Provider Name and Address Organization Details Last Updated DateTime 2 171.45 cm 33.5 kg/m2 50174.5 4 g 58 /min 98 % 98 % 98.24 [degF] 126 mm[Hg] 84 mm[Hg] Leatha Negro MA [facility] 2 10:28:35 Date Recorded Body height Body mass index (BMI) Body weight Heart rate Oxygen saturation Oxygen saturation in Arterial blood by Pulse oximetry Body temperature Systolic blood pressure Diastolic blood pressure Provider Name and Address Organization Details Last Updated DateTime 3 171.45 cm 34.1 kg/m2 389541. 91 g 66 /min 96 % 96 % 97.9 [degF] 144 mm[Hg] 71 mm[Hg] Melanie Rodas MA [facility] 3 10:14:38 Date Recorded Body height Body mass index (BMI) Body weight Oxygen saturation Oxygen saturation in Arterial blood by Pulse oximetry Heart rate Body temperature Systolic blood pressure Diastolic blood pressure Provider Name and Address Organization Details Last Updated DateTime 3 171.45 cm 33.8 kg/m2 07937.7 3 g 98 % 98 % 64 /min 98.3 [degF] 124 mm[Hg] 78 mm[Hg] Stefany Sutherland MA [facility] 3 10:56:04 Date Recorded Body height Body mass index (BMI) Body weight Heart rate Oxygen saturation Oxygen saturation in Arterial blood by Pulse oximetry Body temperature Systolic blood pressure Diastolic blood pressure Provider Name and Address Organization Details Last Updated DateTime 5 171.45 cm 36 kg/m2 259853. 02 g 66 /min 97 % 97 % 97.7 [degF] 149 mm[Hg] 87 mm[Hg] Gabby lynch MA [facility] 10:31:04 Social History Question Answer Notes LastModified by Organizat ion Details LastModified Time Tobacco Smoking Status Never Smoker CHELSI Young [facility] 08/10/2016 13:01:06 Do You Have An Advance Directive? Yes HCP; Alexandria Ramos, Joey- Gaudencio perez Information not available 01/11/2022 What Is Your [...] E-cigarettes Or Vape? 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 With Others (Alexandria), Daughter, And Dog longdenisa Information not available 01/11/2022 Do You Take [...] Many Children Do You Have? 2 [place] awychowski Information not available 01/11/2022 Do You Use [...] Time Tdap 09/15/19 13 completed Darcie verdugo [facility] 09/17/2018 15:16:17 COVID-19, mRNA, LNP-S, PF, 100 mcg/0.5mL dose or 50 mcg/0.25mL dose 06/22/19 21 completed Melanie Rodas MA null, [facility] 11/15/2022 10:13:21 COVID-19, mRNA, LNP-S, PF, 100 mcg/0.5mL dose or 50 mcg/0.25mL dose 07/20/19 21 completed Mikala Arizmendi MA null, [facility] 05/01/2021 15:54:10 Influenza, split virus, quadrivalent, PF 05/12/20 18 completed CHELSI Napier, [facility] 01/11/2022 13:20:43 Influenza, split virus, quadrivalent, PF 04/18/20 19 completed CHELSI Napier, [facility] 01/11/2022 13:20:43 Td (adult), 2 Lf tetanus toxoid, preservative free, adsorbed 04/18/20 23 completed CHELSI Newman, [facility] 04/18/2023 12:01:06 Influenza, split virus, trivalent, PF 06/19/19 25 cancelled patient objection Aly Dennis MD [address] [address], [place], [address], [facility] 07/21/2024 07:06:58 Past Encounters Encounter ID Performer Location Encounter Start Date Encounter Closed Date Diagnosis/Indication Diagnosis SNOMED-CT Code Diagnosis ICD10 Code Diagnosis Note [id number] Aly Dennis MD Main Office [address] [place] [address] 03/12/2016 15:21:35 03/12/2016 16:43:33 Mixed hyperlipidemia 080100159 E78.2 Body mass index 30+ - obesity 194190065 E66.9 Z68.35 Otitis media 71836705 H6 6.92 chronic s/p tube placement by ENT ~ 8 months ago - cont. f/u c ENT [id number] Gabby jacques MA Main Office [address] [place] [address] 08/10/2016 12:38:07 08/10/2016 14:08:03 Adult health examination 173431268 Z00.00 Immunizati on status utd per pt, flu declined. Will screen based on risk factors. Regular dental and ophtho care advised as well as seat belt and sunscreen use. Distracted driving discussed. Advance directives in place. Body mass index 30+ - obesity 487970945 Z68.30 E66.9 Hyperlipidemia 20985844 E78.5 Foreign body in ear 7544 1006 T16.2XXA [id number] Aly Dennis MD Main Office [address] [address] [place] [address] 10/29/2016 11:08:11 10/29/2016 12:18:58 Acute dermatitis 79774046 L30.9 Possible scabies vs contact dermatitis vs eczema. Less likely impetigino us or fungal. Will see if topical steroid helps and counseled on scabies pathophysi ology. Call inb/worse. Tinea corporis 93967578 B35.4 P{t will use OTC antifungal cream for 2 weeks and call inb/worse. [id number] Aly Dennis MD Main Office [address] [address] [place] [address] 08/23/2017 13:50:12 08/23/2017 15:05:32 Adult health examination 705532943 Z00.00 Immunizati on status utd, flu declined. Will screen based on risk factors. Regular dental and ophtho care advised as well as seat belt and sunscreen use. Distracted driving discussed. Advance directives in place. Obesity 097670402 E66.9 Body mass index 30+ - obesity 885440880 Z68.34 Hypertriglyceridemia 302 288787 E78.2 Hyperlipidemia 35307910 E78.5 Well controlled and meds tolerated. Will continue current dosing. Screening for malignant neoplasm of colon 564456104 Z12.11 [id number] Aly Dennis MD Main Office [address] [address] [place] [address] 11/22/2017 08:21:09 11/22/2017 09:21:49 Epistaxis 14648017 R04.0 continue to use vaseline, do not use saline spray. Chronic sinusitis 243475 00 J32.9 Continue amox TID as directed start zyrtec daily and flonase once daily- takes 3-5 days to kick in. stop nasal saline spray. hydration, rest. call/ return if not improved after amox, may need sinus CT. [id number] lAy Dennis MD Main Office [address] [facility] [address] [place] [address] 05/12/2018 09:36:24 05/12/2018 10:55:54 Needs influenza immunization 962259018 Z23 Low back pain 910162057 M54.5 Likely muscular but if recurrent or if additional symptoms develop will need formal PT, possibly MRI and PMR vs neurosurg eval. WIll work on core strengthen ing himself and call with any recurrence . Degenerati on of lumbar intervertebral disc 18415248 M51.36 L5/S1 on xray. Bilateral nature of pain makes disc disease/sp inal stenosis less likely but will need to be considered if pain recurs. [id number] Aly Dennis MD Main Office [address] [facility] [address] [place] [address] 08/25/2018 09:15:15 08/25/2018 10:13:54 Adult health examination 468435822 Z00.00 Immunizati on status utd, flu advised in the Fall. Will screen based on risk factors. Regular dental and ophtho care advised as well as seat belt and sunscreen use. Distracted driving discussed. Advance directives in place. Body mass index 30+ - obesity 949082412 Z68.34 Obesity 240407565 E66.9 Hypertriglyceridemia 302 574743 E78.2 Hyperlipidemia 34251696 E78.5 Well controlled and meds tolerated. Will continue current dosing. Screening for malignant neoplasm of colon 084336659 Z12.11 Screening utd. Due in 2027 unless symptoms or other risk factors arise in the meantime. Gastroesop hageal reflux disease 762639990 K21.9 Discussed wt loss and caffeine intake reduction. Will use H2B PRN. Call if symptoms persist/wo rsen. Seborrheic dermatitis of scalp 459215263 L21.0 Call inb/worse. Eczema 45629499 L30.9 c/w nummular eczema. WIll see if steroid helps. Advised to f/u with derm if persistent or changing. [id number] Aly Dennis MD Main Office [address] [facility] [address] [place] [address] 11/25/2018 14:16:12 11/25/2018 15:17:45 Chronic dermatitis 98723080 L30.9 Unclear if this is related to photosensi tivity vs allergic process/ec zema. See if po prednisone helps given degree of skin involvemen t then transition to topical. Given recurrence will ask derm to help characteri ze and provide treatment plan. Advised to call inb/worse in the meantime. Eczema 99611420 L30.9 Overall findings still suggestive of this, but given recurrence will ask derm for assistance with management . Gentle soap and moisturiza tion after bathing advised. [id number] Dayanara Parrish Main Office [address] [facility] [address] [place] [address] 04/18/2019 08:24:17 04/18/2019 08:29:17 Needs influenza immunization 422163312 Z23 [id number] Aly Dennis MD Main Office [address] [facility] [address] [place] [address] 06/11/2019 10:22:52 06/11/2019 11:33:17 Low back pain 702984658 M54.5 Likely muscular but reflex asymmetry is concerning for possible radiculopa thy. If persistent will need formal PT, possibly MRI and PMR vs neurosurg eval. WIll try NSAID, muscle relaxant, sleeping on firm surface and working on core strengthen ing himself for now. Call with any new symptom developmen t. [id number] Aly Dennis MD Main Office [address] [facility] [address] [place] [address] 06/15/2019 11:03:01 06/15/2019 12:13:52 Low back pain 427989322 M54.5 Likely muscular but reflex asymmetry is concerning for possible radiculopa thy. WIll continue with conservati ve home treatment for now. If persistent will need formal PT. Given recurrent nature will ask PMR for insight on how to prevent further recurrence and to see if imaging is warranted. Advised to call with any new symptom oswaldo palumbo. [id number] Aly Dennis MD Main Office [address] [address] [place] [address] 06/22/2019 09:52:17 06/22/2019 10:34:55 Lumbar radiculopathy 367731365 M54.16 Persistent pain with radicular finding on exam and worsening chronic recurrent course. Further anatomical characteri zation warranted. Will try formal PT while waiting for physiatry eval next month. [id number] Aly Dennis MD Main Office [address] [address] [place] [address] 07/09/2019 08:04:29 07/09/2019 08:46:45 Low back strain 621463551 S39.012D Based on MRI findings pain is most likely from soft tissue source/mus teresa. Will continue PT but should be fine to return to work. Physiatry referral not done but would pursue only if symptoms recur. Will return to work after PT this week. [id number] TANYA Dsouza Main Office [address] [address] [place] [address] 09/22/2019 13:00:18 09/22/2019 15:31:50 Acute otitis media 1063082 H66.91 unable to visualize TM, will tx for presumed OM. amox bid x full 10 days, hydration, rest, tylenol or ibuprofen as needed for pain. call or return of sx not improving next week. 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 Will continue with current topical treatment for now, try otc hydrocorti sone cream to skin bid for 5 days. If not improving would use medrol as he cannot use steroid cream around the eye. Call if any pain or sx in eye. [id number] Aly Dennis MD Main Office [address] [address] [place] [address] 12/08/2019 10:44:19 12/08/2019 12:06:28 Adult health examination 425121271 Z00.00 Immunizati on status utd, flu advised in the Fall. Will screen based on risk factors. Regular dental and ophtho care advised as well as seat belt and sunscreen use. Distracted driving discussed. Advance directives in place. Disorder o f lumbar disc 499932354 M51.9 Stable, has completed Pt since recent flare and works on [employer]. Refer to PMR if recurrent. Varicella vaccination 68 166792 Z23 Body mass index 30+ - obesity 536852575 Z68.33 Obesity 541168282 E66.9 Hypertriglyceridemia 302 765124 E78.2 Hyperlipidemia 91840257 E78.5 Well controlled and meds tolerated. Will continue current dosing. Screening for malignant neoplasm of colon 096309946 Z12.11 Screening utd. Due in 2027 unless symptoms or other risk factors arise in the meantime. Gastroesop hageal reflux disease 581169771 K21.9 Discussed wt loss and caffeine intake reduction. Will use H2B PRN. Call if symptoms persist/wo rsen. Eczema 80594823 L30.9 c/w nummular eczema. Responding to topical triamcinol oneAdvised to f/u with derm if persistent or changing. Family his tory of malignant neoplasm of prostate 467648893 Z80.42 Elevated blood-pressure reading without diagnosis of hypertension 750098081 R03.0 Non sepcific changes on ECG without LVH. Will screen for other end organ damage. Start diuretic if BP >130/90 at f/u. Tinea cruris 795744093 B 35.6 Call inb/worse. [id number] Jhon Giang MD [facility] [address] [place] [address] 04/09/2020 08:01:39 04/09/2020 10:03:14 Eczema 60931690 L30.9 [id number] Aly Dennis MD [facility] [address] [place] [address] 06/16/2020 06:55:07 06/28/2020 11:20:10 Hyperlipidemia 84227582 E78.01 Well controlled and meds tolerated. Will continue current dosing. Disorder o f lumbar disc 145177760 M51.9 Imaging from 2019 showed some subtle disease. Responded well to PT in the past so will revisit. Refer to PMR if persistent /worse. Screening for malignant neoplasm of prostate 872375176 Z12.5 Due for screening before next appt. [id number] Billy Malin PA-C Main Office [address] [address] [place] [address] 01/09/2021 10:22:29 01/09/2021 11:32:25 Adult health examination 264505445 Z00.00 Varicella vaccination 68 915292 Z23 Hyperlipidemia 65031737 E78.5 Hepatitis C screening 41 1288047 Z11.59 Prostate s pecific antigen above reference range 010351683 R97.20 Eczema 82324123 L30.9 stable, cont f/u c derm Impaired f asting glycemia 579217394 R73.01 Body mass index 30+ - obesity 494739916 E66.9 Z68.33 Chronic low back pain 27 8931007 M54.5 better lately p PT, cont HEP Skin lesion 87949461 L98 .9 Gastroesop hageal reflux disease 951434523 K21.9 mild, discussed anti-reflu x measures, rec pepcid qd/prn - if no sig help, then consider ppi [id number] Alexanrdia Wallis Main Office [address] [address] [place] [address] 05/01/2021 15:23:46 05/01/2021 16:26:16 Low back pain 822651123 M54.51 Rest, stretching at home, start PT program twice a week. Can use naprosyn in the am and flexeril at night, sleep with pillow under knees or between knees. Likely muscular, call if not better with PT and medication s. [id number] Billy Malin PA-C Main Office [address] [address] [place] [address] 06/08/2021 08:44:19 06/08/2021 14:18:55 Herpes zoster 6283383 B02.9 viewed pic that he sent in, [...] rec get shingrix in ~ 6 months [id number] Jhon Giang MD [facility] [address] [place] [address] 06/23/2021 08:21:26 06/23/2021 15:41:04 Exposure to viral disease 3486233697 13276 Z03.818 [id number] Aly Dennis MD Main Office [address] [place] [address] 01/11/2022 10:05:08 01/11/2022 11:10:01 Adult health examination 331456917 Z00.00 Immunizati on status utd, flu advised in the Fall. Will screen based on risk factors. Regular dental and ophtho care advised as well as seat belt and sunscreen use. Distracted driving discussed. Advance directives in place. Varicella vaccination 68 571981 Z23 Hypertriglyceridemia 302 372688 E78.2 Fairly well controlled on statin/fib rate. Consider adding fish oil Hyperlipidemia 50379125 E78.5 Well controlled and meds tolerated. Will continue current dosing. Body mass index 30+ - obesity 357130478 E66.9 Z68.33 Impaired f asting glycemia 740449016 R73.01 Will monitor/re assess. Family his tory of hemochromatosis 373023502 Z83.49 Nocturia 010699823 R35.1 Allergic conjunctivitis 642227626 H10.13 Continue lubricatin g drops, try allergy tx. [id number] Aly Dennis MD Main Office [address] [place] [address] 11/15/2022 09:56:33 11/15/2022 10:36:30 Family history of hemochromatosis 811503534 Z83.49 Due for labs before next appt. Nocturia 766396112 R35.1 Hyperlipidemia 77085927 E78.5 Well controlled and meds tolerated. Will continue current dosing. [id number] Billy Malin PA-C Main Office [address] [facility] [address] [facility] [place] [address] 04/18/2023 10:48:33 04/18/2023 12:00:37 Adult health examination 304378543 Z00.00 colon utd Eczema 41161616 L30.9 stable, cont f/u c derm Gastroesop hageal reflux disease 742684815 K21.9 mild, discussed anti-reflu x measures, rec pepcid qd/prn - if no sig help, then consider ppi Hypertriglyceridemia 302 677224 E78.2 stable, cont meds as dir Serum ferr itin above reference range 312628916 R77.8 + fh HH, will check for genetic mutation Family his tory of hemochromatosis 739291380 Z83.49 see above Requires a tetanus booster 579370544 Z23 Body mass index 30+ - obesity 040433129 E66.9 Z68.33 Pain of le ft knee region 1930086415 23831 M25.562 mild, int - likely d/t mild OA - defers xray for now, consider turmeric or prn tyl [id number] Aly Dennis MD Main Office [address] [facility] [address] [facility] [place] [address] 06/19/2024 09:57:02 06/19/2024 11:13:42 Adult health examination 101683007 Z00.00 Immunizati on status utd, flu advised in the Fall. Will screen based on risk factors. Regular dental and ophtho care advised as well as seat belt and sunscreen use. Distracted driving discussed. Advance directives in place. Influenza vaccination declined 552466972 Z28.21 Body mass index 30+ - obesity 347468829 E66.9 Z68.36 Gastroesop hageal reflux disease 498448647 K21.9 Symptoms well controlled without warning signs on PPI. Discussed wt loss and caffeine intake reduction. Will use H2B PRN. Call if symptoms persist/wo rsen. Nocturia 329837159 R35.1 Serum ferr itin above reference range 757878171 R77.8 Likely secondary to heterzygou s hemochroma tosis, will monitor with therapeuti c phlebotomy . Hereditary hemochromatosis 46442680 E83.110 Heterzygou s but with elevated ferritin will refer for phlebotomy . Administra tion of pneumococcal vaccine 39931145 Z23 Varicella vaccination 68 925714 Z23 Pain of le ft knee region 6794695129 32276 M25.562 Will go for imaging if persistent /worse. If significan t arthritic burden will refer to ortho. Health Concerns Section Related Observation LastModified by Organization Detai ls LastModified Time None Recorded Concern Status LastModified by Organization Details LastModified Time None Recorded Advance Directives Directive Y: HCP; Alexandria Ramos, Suresh patricio Payers Encounter Date Sequence Insurance Name Policy Number Policy Wheeler Covered Member ID Wheeler Member ID Guarantor Name 06/23/2021 1 [place] [facility] [id number] Roddy J Gaulin III [id number] Roddy J Gaulin III 01/11/2022 1 [place] [facility] [id number] Roddy J Gaulin III [id number] Roddy J Gaulin III 11/15/2022 1 [place] [facility] [id number] Roddy J Gaulin III [id number] Roddy J Gaulin III 04/18/2023 1 [place] [facility] ([facility] [id number] Roddy J Gaulin III [id number] Roddy J Gaulin III 06/19/2024 1 [place] [facility] ([facility] [id number] Roddy J Gaulin III [id number] Roddy J Gaulin III Notes Date Note Type Note Provider Name and Address Organization Details Recorded Time 2 text/html TH visit during COVID-19 crisis. Pt notes that he is doing well after testing positive for COVID on 06/19/2020. Had been traveling to [place] prior to positive test. Now with resolution [...] control the itching. Jhon Giang MD [address] [address], [place], [id number], [facility] 06/23/2021 11:28:56 2 text/html Generic HPI TemplateReported bypatient.Notes:Here for a physical, feels well. Seeing dentist and ophtho regularly. Aly Dennis MD [address], [id number], [facility] 01/12/2022 09:07:26 3 text/html HyperlipidemiaReported bypatient.Type of [...] disease Risk Factors:obesity Aly Dennis MD [address], [id number], [facility] 12/12/2022 12:10:16 3 text/html here for annual pe. Billy Malin PA-C [address], [id number], [facility] 04/18/2023 12:00:57 5 text/html Generic HPI TemplateReported bypatient.Notes:Here for a physical, feels well. Seeing dentist and ophtho regularly. Aly Dennis MD [address], [id number], [facility] 07/21/2024 07:11:46
[2024-08-11 08:23] LABS: Hematocrit 43.1 % (42.0-52.0)
== END 2024-08-11 08:04 | disposition home or self-care (01) ==
LOC: HO.BBR 08:03
PROVIDERS: PCP Pediatrics; Visit Provider Pediatrics
DX: E83.110 Hereditary hemochromatosis (principal)
CPT/HCPCS: 36415; 85014; 85018

== ENCOUNTER 2024-09-11 08:06 | Outpatient (REF) | payer BC, SELFPAY ==
--- OUTSIDE RECORDS SUMMARY | 2024-09-11 08:19 | XMS_ITS | Data Portability ---
Author Organization 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 Med. [...] now day #5 since postive test. 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 COVID-19 PCR prior [...] Go To The Location Of Their Choice, [id number] 08:08:38 PSA, total, serum or plasma 2024 [...] blood/ tissue 2022 023 [facility], [address], [address], [place], [address], 3 10:44:11 CBC w/ auto diff 2022 023 [facility], [address], [address], [place], [address], 3 14:53:35 CBC w/ auto diff 2022 023 [facility], [address], [address], [place], [address], 3 14:12:25 ferrit in, serum or plasma 2022 023 [facility], [address], [address], [place], [address], 3 15:37:19 PSA, serum or plasma - Screen ing 2022 023 [facility], [address], [address], [place], [address], 3 15:37:21 lipid panel, serum 2022 023 [facility], [address], [address], [place], [address], 3 15:35:50 CMP, serum or plasma 2022 023 [facility], [address], [address], [place], [address], 3 15:35:49 CBC w/ auto diff 2021 022 [facility], [address], [address], [place], [address], 2 15:30:16 lipid panel, serum 2021 022 [facility], [address], [address], [place], [address], 2 13:49:47 HbA1c (hemog lobin A1c), blood 2021 022 [facility], [address], [address], [place], [address], 2 19:18:04 CMP, serum or plasma 2021 022 [facility], [address], [address], [place], [address], 2 13:49:45 PSA, serum or plasma - Screen ing 2021 022 [facility], [address], [address], [place], [address], 2 13:55:56 unlist ed lab - covid- 19 (novel de jesus virus) PCR 2021 022 [facility], [address] [facility], [facility], [place], [address], 2 03:06:42 Referral nutrit ionist /vinodi josie referr al 2024 025 [email or web address] Not available 5 11:20:28 nutrit ionist /dieti josie referr al 2022 023 [email or web address] Not available 3 11:31:06 nutrit ionist /vinodi josie referr al 2021 022 Not available 2 11:44:32 Procedures None record ed. Surgeries None record ed. Imaging XR, knee, 3 view - to assess left knee arthri tic burden 2024 025 lyn [facility], [address] [place] [address], [address], 5 09:28:19 Medication Orders omepra zole 20 mg capsul e,tim yed releas e 2024 025 [email or web address] [id number], [address] [place], [address], 5 15:59:49 olopat adine 0.1 % eye drops 2021 023 ATHENAFAX [id number], [address] [place], [address], 3 10:20:34 Patient Targets Encounter Date Encounter Id Patient Goals Patient Target Last Modified By Organization Details Last Modified Time 04/18/2023 [id number] jail goal of Excess Body Weight Loss % [...] By Organization Details Last Modified Time 01/11/2022 [id number] high cholesterol : care instructions awychowski Not available 01/11/2022 11:07:06 prediabetes: car e instructions awychowski Not available 01/11/2022 11:07:06 dry eyes: care instructions awychowski Not available 01/11/2022 11:07:07 Prostate Cancer Screening awychowski Not available 01/11/2022 11:07:07 starting a weigh t loss plan: care instructions awychowski Not available 01/11/2022 11:07:07 11/15/2022 [id number] high cholesterol : care instructions awychowski Not available 11/15/2022 10:43:54 04/18/2023 [id number] A healthy lifest yle: care instructions pmadden [...] medication. 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 Resul t teo ambrosio to the [facility]. All test resul ts must be corre [...] Go To The Location Of Their Choice, [id number] 06/30/2021 05:45:51 06/24/1906/24/2021 COVID -19 (NOVE L [...] R. Resul t repor hebert to the [facility]. To preve nt error s in diagn [...] perfo rmed by real time PCR [facility] LORIE 6800 SARS- CoV-2 test. Not Available [facility] (Centralized Electronic Ordering - All Locations) Patient Can Go To The Location Of Their Choice, [id number] 06/25/2021 03:06:42 02/21/20 22 02/20/2022 COMPR EHENS BROOKE METAB OLIC PANL glucose 85 mg/dL (70-99 ) Not Available [facility] (Centralized Electronic Ordering - All Locations) Patient Can Go To The Location Of Their Choice, [id number] 02/20/2022 13:49:45 02/21/20 22 02/20/2022 COMPR EHENS [...] Go To The Location Of Their Choice, [id number] 02/20/2022 15:30:15 02/21/20 22 02/20/2022 COMPL ETE CBC WITH DIFF eo 2.8 % (0-6) Not Available [facility] (Centralized Electronic Ordering - All Locations) Patient Can Go To The Location Of Their Choice, [facility] 02/20/2022 15:30:15 02/21/20 22 02/20/2022 COMPL ETE CBC WITH DIFF baso 0.6 % (0-2) Not Available [facility] (Centralized Electronic Ordering - All Locations) Patient Can Go To The Location Of Their Choice, [id number] 02/20/2022 15:30:15 02/21/20 22 02/20/2022 COMPL ETE CBC WITH DIFF imm gran 0.6 % Not Available [facility] (Centralized Electronic Ordering - All Locations) Patient Can Go To The Location Of Their Choice, [facility] 02/20/2022 15:30:15 02/21/2002/20/2022 HEMOG LOBIN A1C hemoglobin [...] of Clini rosanna and Appli ed Resea [facility] and Alea trina Volum e 43, Suppl [...] Go To The Location Of Their Choice, [id number] 04/18/2023 14:53:35 04/18/2004/18/2023 TRANS BETTY N transferrin 272 mg/dL (200-3 60) Not Available [facility] (Centralized Electronic Ordering - All Locations) Patient Can Go To The Location Of Their Choice, [id number] 04/18/2023 17:15:09 04/18/2004/30/2023 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 HETERO ZYGOUS (nomut ) abnormal Not Available [facility] (Centralized Electronic Ordering - All Locations) Patient Can Go To The Location Of Their Choice, [id number] 04/30/2023 10:44:11 04/18/2004/30/2023 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 ON DETECT ED Not Available [facility] (Centralized Electronic Ordering - All Locations) Patient Can Go To The Location Of Their Choice, [id number] 04/30/2023 10:44:11 04/18/2004/30/2023 HERED ITARY HEMOC HROMA [...] Go To The Location Of Their Choice, [id number] 04/30/2023 10:44:11 04/18/20 23 04/30/2023 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 N 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 BY SILVIA IN RODOLFO Mcpherson Not Available [facility] (Centralized Electronic Ordering - All Locations) Patient Can Go To The Location Of Their Choice, [id number] 04/30/2023 10:44:11 06/24/1906/24/2024 CBC WITH DIFFE RENTI AL/PL ATELE T WBC 8.1 x10e3 /uL 3.4-10 .8 normal Not Available [facility] ([facility]) [address] [place], [address], 06/25/2024 08:08:38 06/24/19 25 06/24/2024 CBC WITH DIFFE RENTI AL/PL ATELE T RBC 5.13 x10e6 /uL 4.14-5 .80 normal Not Available [facility] ([facility]) [address] [place], [address], 06/25/2024 08:08:38 06/24/19 25 06/24/2024 CBC WITH DIFFE RENTI AL/PL ATELE T hemoglobin 16.0 g/dL 13.0-1 7.7 normal Not Available [facility] ([facility]) [address] [place], [address], 06/25/2024 08:08:38 06/24/19 25 06/24/2024 CBC WITH DIFFE RENTI AL/PL ATELE T hematocrit 46.7 % 37.5-5 1.0 normal Not Available [facility] ([facility]) [address] [place], [address], 06/25/2024 08:08:38 06/24/19 25 06/24/2024 CBC WITH DIFFE RENTI AL/PL ATELE T MCV 91 fL 79-97 normal Not Available [facility] ([facility]) [address] [facility], [place], [address], 06/25/2024 08:08:38 06/24/19 25 06/24/2024 CBC WITH DIFFE RENTI AL/PL ATELE T MCH 31.2 pg 26.6-3 3.0 normal Not Available [facility] ([facility]) [address] [facility], [place], [address], 06/25/2024 08:08:38 06/24/19 25 06/24/2024 CBC WITH DIFFE RENTI AL/PL ATELE T MCHC 34.3 g/dL 31.5-3 5.7 normal Not Available [facility] ([facility]) [address] [place], [address], 06/25/2024 08:08:38 06/24/19 25 06/24/2024 CBC WITH DIFFE RENTI AL/PL ATELE T RDW 12.6 % 11.6-1 5.4 Not Available [facility] ([facility]) [address] [place], [address], 06/25/2024 08:08:38 06/24/19 25 06/24/2024 CBC WITH DIFFE RENTI AL/PL ATELE T platelets 273 x10e3 /uL 150-45 0 normal Not Available [facility] ([facility]) [address] [place], [address], 06/25/2024 08:08:38 06/24/19 25 06/24/2024 CBC WITH DIFFE RENTI AL/PL ATELE T neutrophils 68 % not estab. normal Not Available [facility] ([facility]) [address] [place], [address], 06/25/2024 08:08:38 06/24/19 25 06/24/2024 CBC WITH DIFFE RENTI AL/PL ATELE T lymphs 19 % not estab. normal Not Available [facility] ([facility]) [address] [facility], [place], [address], 06/25/2024 08:08:38 06/24/19 25 06/24/2024 CBC WITH DIFFE RENTI AL/PL ATELE T monocytes 8 % not estab. normal Not Available [facility] ([facility]) [address] [facility], [place], [address], 06/25/2024 08:08:38 06/24/19 25 06/24/2024 CBC WITH DIFFE RENTI AL/PL ATELE T eos 3 % not estab. normal Not Available [facility] ([facility]) [address] [facility], [place], [address], 06/25/2024 08:08:38 06/24/19 25 06/24/2024 CBC WITH DIFFE RENTI AL/PL ATELE T basos 1 % not estab. 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 0 normal Not Available [facility] ([facility]) [address] [place], [address], 06/25/2024 08:08:38 06/24/19 25 06/24/2024 CBC WITH DIFFE RENTI AL/PL ATELE T lymphs (absolute) 1.5 x10e3 /uL 0.7-3. 1 normal Not Available [facility] ([facility]) [address] [facility], [place], [address], 06/25/2024 08:08:38 06/24/19 25 06/24/2024 CBC WITH DIFFE RENTI AL/PL ATELE T monocytes(ab solute) 0.7 x10e3 /uL 0.1-0. 9 normal Not Available [facility] ([facility]) [address] [facility], [place], [address], 06/25/2024 08:08:38 06/24/1906/24/2024 CBC WITH DIFFE RENTI AL/PL ATELE T eos (absolute) 0.2 x10e3 /uL 0.0-0. 4 normal Not Available [facility] ([facility]) [address] [facility], [place], [address], 06/25/2024 08:08:38 06/24/19 25 06/24/2024 CBC WITH DIFFE RENTI AL/PL ATELE T baso (absolute) 0.1 x10e3 /uL 0.0-0. 2 normal Not Available [facility] ([facility]) [address] [facility], [place], [address], 06/25/2024 08:08:38 06/24/1906/24/2024 CBC WITH DIFFE RENTI AL/PL ATELE T immature granulocytes 1 % not estab. Not Available [facility] ([facility]) [address] [place], [address], 06/25/2024 08:08:38 06/24/1906/24/2024 CBC WITH DIFFE RENTI AL/PL ATELE T immature grans (abs) 0.1 x10e3 /uL 0.0-0. 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 METAB OLIC PANEL (14) glucose 99 mg/dL 70-99 normal Not Available [facility] ([facility]) [address] [facility], [place], [address], 06/25/2024 08:08:38 06/24/19 25 06/24/2024 COMP. METAB OLIC PANEL (14) BUN 16 mg/dL 6-24 normal Not Available [facility] ([facility]) [address] [facility], [place], [address], 06/25/2024 08:08:38 06/24/19 25 06/24/2024 COMP. METAB OLIC PANEL (14) creatinine 0.99 mg/dL 0.76-1 .27 normal Not Available [facility] ([facility]) [address] [facility], [place], [address], 06/25/2024 08:08:38 06/24/19 25 06/24/2024 COMP. METAB OLIC PANEL (14) eGFR 89 mL/mi n/1.7 3 >59 normal Not Available [facility] ([facility]) [address] [facility] [place], [address], 06/25/2024 08:08:38 06/24/19 25 06/24/2024 COMP. METAB OLIC PANEL (14) BUN/creatini ne ratio 16 9-20 normal Not Available [facility] ([facility]) [address] [place], [address], 06/25/2024 08:08:38 06/24/19 25 06/24/2024 COMP. METAB OLIC PANEL (14) sodium 142 mmol/ L 134-14 4 normal Not Available [facility] ([facility]) [address] [place], [address], 06/25/2024 08:08:38 06/24/19 25 06/24/2024 COMP. METAB OLIC PANEL (14) potassium 4.2 mmol/ L 3.5-5. 2 normal Not Available [facility] ([facility]) [address] [place], [address], 06/25/2024 08:08:38 06/24/19 25 06/24/2024 COMP. METAB OLIC PANEL (14) chloride 103 mmol/ L 96-106 normal Not Available [facility] ([facility]) [address] [place], [address], 06/25/2024 08:08:38 06/24/19 25 06/24/2024 COMP. METAB OLIC PANEL (14) carbon dioxide, total 23 mmol/ L 20-29 normal Not Available [facility] ([facility]) [address] [place], [address], 06/25/2024 08:08:38 06/24/19 25 06/24/2024 COMP. METAB OLIC PANEL (14) calcium 9.8 mg/dL 8.7-10 .2 normal Not Available [facility] ([facility]) [address] [place], [address], 06/25/2024 08:08:38 06/24/19 25 06/24/2024 COMP. METAB OLIC PANEL (14) protein, total 6.7 g/dL 6.0-8. 5 normal Not Available [facility] ([facility]) [address] [place], [address], 06/25/2024 08:08:38 06/24/19 25 06/24/2024 COMP. METAB OLIC PANEL (14) albumin 4.4 g/dL 3.8-4. 9 normal Not Available [facility] ([facility]) [address] [place], [address], 06/25/2024 08:08:38 06/24/19 25 06/24/2024 COMP. METAB OLIC PANEL (14) globulin, total 2.3 g/dL 1.5-4. 5 Not Available [facility] ([facility]) [address] [place], [address], 06/25/2024 08:08:38 06/24/19 25 06/24/2024 COMP. METAB OLIC PANEL (14) bilirubin, total 0.5 mg/dL 0.0-1. 2 normal Not Available [facility] ([facility]) [address] [place], [address], 06/25/2024 08:08:38 06/24/19 25 06/24/2024 COMP. METAB OLIC PANEL (14) alkaline phosphatase 57 IU/L 44-121 normal Not Available [facility] ([facility]) [address] [place], [address], 06/25/2024 08:08:38 06/24/19 25 06/24/2024 COMP. METAB OLIC PANEL (14) AST (SGOT) 24 IU/L 0-40 normal Not Available [facility] ([facility]) [address] [place], [address], 06/25/2024 08:08:38 06/24/19 25 06/24/2024 COMP. METAB OLIC PANEL (14) ALT (SGPT) 28 IU/L 0-44 normal Not Available [facility] ([facility]) [address] [place], [address], 06/25/2024 08:08:38 06/24/19 25 06/24/2024 LIPID PANEL cholesterol, total 193 mg/dL 100-19 9 normal Not Available [facility] ([facility]) [address] [place], [address], 06/25/2024 08:08:39 06/24/19 25 06/24/2024 LIPID PANEL triglyceride s 118 mg/dL 0-149 normal Not Available [facility] ([facility]) [address] [place], [address], 06/25/2024 08:08:39 06/24/19 25 06/24/2024 LIPID PANEL HDL cholesterol 39 mg/dL >39 below low normal Not Available [facility] ([facility]) [address] [facility], [place], [address], 06/25/2024 08:08:39 06/24/19 25 06/24/2024 LIPID PANEL VLDL cholesterol rosanna 21 mg/dL 5-40 Not Available [facility] ([facility]) [address] [place], [address], 06/25/2024 08:08:39 06/24/19 25 06/24/2024 LIPID PANEL LDL chol calc ([facility]) 133 mg/dL 0-99 above high normal Not Available [facility] ([facility]) [address] [place], [address], 06/25/2024 08:08:39 06/24/19 25 06/24/2024 LIPID PANEL LDL calc comment: 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 Not Available [facility] ([facility]) [address] [place], [address], 06/25/2024 08:08:40 06/24/19 25 06/25/2024 BETTY TIN ferritin 587 NG/mL 30-400 above high normal Not Available [facility] ([facility]) [address] [place], [address], 06/25/2024 08:08:41 06/24/19 25 06/25/2024 C-ANANTH CTIVE PROTE IN, QUANT C-reactive protein, quant 2 mg/L 0-10 normal Not Available [facility] ([facility]) [address] [place], [address], 06/25/2024 08:08:42 06/23/19 25 06/23/2024 XR, knee, [...] 3:37 pm Patien t Class: Outpat ient [facility] (Outpt Imaging) [address] [facility], [place], [address], 06/24/2024 11:19:59 Result Notes None recorded. Problems Name Problem SNOMED Code Status Onset Date Resolution Date Notes Provider Name and Address Organization Details Recorded Time Hyperlipi demia 45942412 Active 2016 Darcie verdugo [facility] 9 15:16:16 Hypertrig lyceridem ia 989492379 Active 2016 Darcie verdugo [facility] 9 15:16:16 Chronic dermatiti s 26129087 Completed 201612/08/2019 Aly Dennis MD [address], [place], [address] , [facility] 0 11:36:21 Obesity 624591846 Completed 201708/23/2017 Aly Dennis MD [address], [place], [address] , [facility] 8 14:40:23 Body mass index 30+ - obesity 929398319 Completed 201712/08/2019 Aly Dennis MD [address], [place], [address] , [facility] 5 10:59:47 Family history of malignant neoplasm of prostate 578667891 Active 2017 Darcie verdugo [facility] 9 15:16:16 Diverticu lar disease 386023593 Active 2017 Darcie verdugo [facility] 9 15:16:16 Internal hemorrhoi ds 80171203 Active 2017 Darcie verdugo [facility] 9 15:16:16 Environme ntal allergy 719915664 Active 2018 Darcie verdugo, [facility] 9 15:16:16 Disorder of lumbar disc 398553855 Active 2019 Aly Dennis MD [address] [facility] [address], [place], [address] , [facility] 0 08:34:20 Eczema 61388109 Active 2019 Aly Dennis MD [address] [address], [place], [address] , [facility] 0 11:45:16 Elevated blood-pre ssure reading without diagnosis of hypertens ion 714314898 Completed 201901/11/2022 Aly Dennis MD [address] [facility] [address], [place], [address] , [facility] 2 10:49:02 Impaired fasting glycemia 305534737 Completed 202002/21/2022 Aly Dennis MD [address] [address], [place], [address] , [facility] 2 09:19:47 Gastroeso phageal reflux disease 161067080 Active 2020 Billy Malin PA-C [address] [address], [place], [address] , [facility] 1 11:29:00 Chronic low back pain 075617437 Active 2020 Billy Malin PA-C [address] [facility] [address], [place], [address] , [facility] 1 11:32:46 Skin lesion 92248072 Completed 202001/11/2022 Aly Dennis MD [address] [address], [place], [address] , [facility] 2 10:52:09 History of SARS-CoV- 2 71468111652 6259493 Active 2021 Aly Dennis MD [address] [address], [place], [address] , [facility] 2 10:52:00 Family history of hemochrom atosis 994829115 Active 2021 Aly Dennis MD [address] [address], [place], [address] , [facility] 2 10:54:54 Serum ferritin above reference range 181665857 Active 2022 Aly Dennis MD [address] [address], [place], [address] , [facility] 3 07:30:23 Hereditar y hemochrom atosis 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 Procedures Surgical History Date Name Laterality Status Provider Name and Address Organization Details Recorded Time 07/05/19 23 biopsy of skin completed Aly Dennis MD [address] [facility] [address] [facility], [place], [address], [facility] 07/11/2022 22:29:09 05/08/20 18 Colonoscopy completed Martinaskylar Valentin [facility] 05/08/2018 12:09:45 08/11/19 17 Cerumen Removal completed Aly Dennis MD [address] [facility] [address] [facility], [place], [address], [facility] 08/10/2016 13:52:43 07/11/19 16 Create eardrum opening completed Gabby Underwood MA [facility] 08/10/2016 13:09:38 06/10/19 13 Other completed Gabby Underwood MA [facility] 08/10/2016 13:06:33 06/10/18 80 Orthopedic Surgery completed Aly Dennis MD [address] [facility] [address] [facility], [place], [address], [facility] 08/23/2017 14:49:00 06/10/18 78 Elbow arthroscopy/anthony earl completed Aly Dennis MD [address] [address], [place], [address], [facility] 08/25/2018 09:50:43 06/10/18 75 Ther fx nasal inf turbinate completed Aly Dennis MD [address] [address], [place], [address], [facility] 08/25/2018 09:51:30 Imaging Results Imaging Date Name Status LastModified by Organiz ation Details LastModified Time 06/23/2024 XR, knee, 1 or 2 view completed [facility] (Outpt Imaging) [address] [place], [address], 06/24/2024 11:19:59 Procedure Notes None recorded. Medical Equipment None Reported. Allergies Allergen ID Allergen Name Allergen Category Reaction Reaction Severity Criticality Documentation Date Start Date Code Code System Note Provider Name and Address Organization Details Recorded Time 00570 ragweed pollen environme nt Not available Not available Not available 06/23/2021 [id number] UNK CHELSI Napier, [facility] 2 10:50:00 No known drug allergies Medications [...] unit/g-de xameth 0.1 % eye oint APPLY INTO BOTH EYES AT BEDTIME active Not Available Not Available No t Available Benadryl Allergy 25 mg tablet Take [...] DateTime 06/23/2021 171.45 cm Leatha Negro MA [facility] 06/23/2021 10:49:52 Date Recorded Body height Body mass index (BMI) Body weight Heart rate Oxygen saturation Oxygen saturation in Arterial blood by Pulse oximetry Body temperature Systolic blood pressure Diastolic blood pressure Provider Name and Address Organization Details Last Updated DateTime 2 171.45 cm 33.5 kg/m2 19415.5 4 g 58 /min 98 % 98 % 98.24 [degF] 126 mm[Hg] 84 mm[Hg] Leatha Negro MA [facility] 2 10:28:35 Date Recorded Body height Body mass index (BMI) Body weight Heart rate Oxygen saturation Oxygen saturation in Arterial blood by Pulse oximetry Body temperature Systolic blood pressure Diastolic blood pressure Provider Name and Address Organization Details Last Updated DateTime 3 171.45 cm 34.1 kg/m2 281494. 91 g 66 /min 96 % 96 % 97.9 [degF] 144 mm[Hg] 71 mm[Hg] [facility]anie [facility] 3 10:14:38 Date Recorded Body height Body mass index (BMI) Body weight Oxygen saturation Oxygen saturation in Arterial blood by Pulse oximetry Heart rate Body temperature Systolic blood pressure Diastolic blood pressure Provider Name and Address Organization Details Last Updated DateTime 3 171.45 cm 33.8 kg/m2 44624.7 3 g 98 % 98 % 64 /min 98.3 [degF] 124 mm[Hg] 78 mm[Hg] [facility]uther[facility] 3 10:56:04 Date Recorded Body height Body mass index (BMI) Body weight Heart rate Oxygen saturation Oxygen saturation in Arterial blood by Pulse oximetry Body temperature Systolic blood pressure Diastolic blood pressure Provider Name and Address Organization Details Last Updated DateTime 5 171.45 cm 36 kg/m2 229069. 02 g 66 /min 97 % 97 % 97.7 [degF] 149 mm[Hg] 87 mm[Hg] Gabby lynch MA [facility] 10:31:04 Social History Question Answer Notes LastModified by Organizat ion Details LastModified Time Tobacco Smoking Status Never Smoker CHELSI Young [facility] 08/10/2016 13:01:06 Do You Have An Advance Directive? Yes HCP; Alexandria Ramos, Jagjitr- Gaudencio perez Information not available 01/11/2022 What [...] E-cigarettes Or Vape? Never Used Electronic Cigarettes Information not available 01/11/2022 What Is Your Occupation? [employer] [facility] lyn Information not available 08/10/2016 Live Alone Or With Others? With Others (Alexandria), Daughter, And Dog lyn Information not available 01/11/2022 Do You Take [...] available 08/10 13:27:48 Medical History Condition Response Gout N Other N Kidney Stones N Blood Diseases N Hyperthyroidism N Breast Cancer N Hypothyroidism N Lung Disease N Depression N COPD N Defects or Inherited Disease N Anesthesia Complications N Headaches/Migraines N Anxiety Disorder N Varicose Veins N Obesity Y Vision or Eye Problems Y Arthritis N Head Injury/Concussion N Infertility N Polyps N Congenital Anomalies N Acid Reflux (GERD) Y Cancer N Stroke N ADHD N Endometriosis N High Cholesterol Y Liver Disease N Fibromyalgia N Kidney Disease N Heart Problems N Ear or Hearing Problems Y Hospitalizations Y Thyroid Problems N GI Problems N Acne Y Eating Disorder N Skin Problems Y Anemia N Constipation N Bladder Problems N Mental Illness N Diabetes N Ovarian Cancer N Blood Transfusions Y Seizures/Epilepsy N Tuberculosis N AIDS/HIV N Congestive Heart Failure (CHF) N Eczema N Abuse/Domestic Violence N Diverticulitis N Asthma N Allergies N Reflux/GERD N Hepatitis N Pulmonary Embolism N Hypertension N Chicken Pox N Autism Spectrum Disorder (ASD) N Osteoporosis N Immunizations Vaccine Type Date Status Note Provider Name and Address Organization Details Recorded Time Tdap 09/15/19 13 completed Darcie verdugo [facility] 09/17/2018 15:16:17 COVID-19, mRNA, LNP-S, PF, 100 mcg/0.5mL dose or 50 mcg/0.25mL dose 06/22/19 21 completed CHELSI Munoz, [facility] 11/15/2022 10:13:21 COVID-19, mRNA, LNP-S, PF, 100 mcg/0.5mL dose or 50 mcg/0.25mL dose 07/20/19 21 completed CHELSI Brennan, [facility] 05/01/2021 15:54:10 Influenza, split virus, quadrivalent, PF 05/12/20 18 completed CHELSI Napier, [facility] 01/11/2022 13:20:43 Influenza, split virus, quadrivalent, PF 04/18/20 19 completed CHELSI Napier, [facility] 01/11/2022 13:20:43 Td (adult), 2 Lf tetanus toxoid, preservative free, adsorbed 04/18/20 23 completed CHELSI Newman, [facility] 04/18/2023 12:01:06 Influenza, split virus, trivalent, PF 06/19/19 25 cancelled patient objection Aly Dennis MD [address] [address], [place], [address], [facility] 07/21/2024 07:06:58 Past Encounters Encounter ID Performer Location Encounter Start Date Encounter Closed Date Diagnosis/Indication Diagnosis SNOMED-CT Code Diagnosis ICD10 Code Diagnosis Note [id number] Aly Dennis MD Main Office [address] [place] [address] 03/12/2016 15:21:35 03/12/2016 16:43:33 Mixed hyperlipidemia 024712974 E78.2 Body mass index 30+ - obesity 064031642 E66.9 Z68.35 Otitis media 80214951 H6 6.92 chronic s/p tube placement by ENT ~ 8 months ago - cont. f/u c ENT [id number] Gabby jacques MA Main Office [address] [place] [id number] 08/10/2016 12:38:07 08/10/2016 14:08:03 Adult health examination 001812155 Z00.00 Immunizati on status utd per pt, flu declined. Will screen based on risk factors. Regular dental and ophtho care advised as well as seat belt and sunscreen use. Distracted driving discussed. Advance directives in place. Body mass index 30+ - obesity 832981512 Z68.30 E66.9 Hyperlipidemia 98167966 E78.5 Foreign body in ear 7544 1006 T16.2XXA [id number] Aly Dennis MD Main Office [address] [address] [place] [address] 10/29/2016 11:08:11 10/29/2016 12:18:58 Acute dermatitis 64906409 L30.9 Possible scabies vs contact dermatitis vs eczema. Less likely impetigino us or fungal. Will see if topical steroid helps and counseled on scabies pathophysi ology. Call inb/worse. Tinea corporis 47893007 B35.4 P{t will use OTC antifungal cream for 2 weeks and call inb/worse. [id number] Aly Dennis MD Main Office [address] [place] [address] 08/23/2017 13:50:12 08/23/2017 15:05:32 Adult health examination 114632570 Z00.00 Immunizati on status utd, flu declined. Will screen based on risk factors. Regular dental and ophtho care advised as well as seat belt and sunscreen use. Distracted driving discussed. Advance directives in place. Obesity 690371551 E66.9 Body mass index 30+ - obesity 880479040 Z68.34 Hypertriglyceridemia 302 749336 E78.2 Hyperlipidemia 76379359 E78.5 Well controlled and meds tolerated. Will continue current dosing. Screening for malignant neoplasm of colon 867037244 Z12.11 [id number] Aly Dennis MD Main Office [address] [facility] [address] [place] [address] 11/22/2017 08:21:09 11/22/2017 09:21:49 Epistaxis 48294891 R04.0 continue to use vaseline, do not use saline spray. Chronic sinusitis 256836 00 J32.9 Continue amox TID as directed start zyrtec daily and flonase once daily- takes 3-5 days to kick in. stop nasal saline spray. hydration, rest. call/ return if not improved after amox, may need sinus CT. [id number] Aly Dennis MD Main Office [address] [facility] [address] [facility] [place] [address] 05/12/2018 09:36:24 05/12/2018 10:55:54 Needs influenza immunization 594595878 Z23 Low back pain 094148251 M54.5 Likely muscular but if recurrent or if additional symptoms develop will need formal PT, possibly MRI and PMR vs neurosurg eval. WIll work on core strengthen ing himself and call with any recurrence . Degenerati on of lumbar intervertebral disc 22162787 M51.36 L5/S1 on xray. Bilateral nature of pain makes disc disease/sp inal stenosis less likely but will need to be considered if pain recurs. [id number] Aly Dennis MD Main Office [address] [facility] [address] [place] [id number] 08/25/2018 09:15:15 08/25/2018 10:13:54 Adult health examination 018340256 Z00.00 Immunizati on status utd, flu advised in the Fall. Will screen based on risk factors. Regular dental and ophtho care advised as well as seat belt and sunscreen use. Distracted driving discussed. Advance directives in place. Body mass index 30+ - obesity 535793532 Z68.34 Obesity 493497494 E66.9 Hypertriglyceridemia 302 397861 E78.2 Hyperlipidemia 82131512 E78.5 Well controlled and meds tolerated. Will continue current dosing. Screening for malignant neoplasm of colon 778292323 Z12.11 Screening utd. Due in 2027 unless symptoms or other risk factors arise in the meantime. Gastroesop hageal reflux disease 388857421 K21.9 Discussed wt loss and caffeine intake reduction. Will use H2B PRN. Call if symptoms persist/wo rsen. Seborrheic dermatitis of scalp 854384653 L21.0 Call inb/worse. Eczema 41955688 L30.9 c/w nummular eczema. WIll see if steroid helps. Advised to f/u with derm if persistent or changing. [id number] Aly Dennis MD Main Office [address] [facility] [address] [place] [address] 11/25/2018 14:16:12 11/25/2018 15:17:45 Chronic dermatitis 16025182 L30.9 Unclear if this is related to photosensi tivity vs allergic process/ec zema. See if po prednisone helps given degree of skin involvemen t then transition to topical. Given recurrence will ask derm to help characteri ze and provide treatment plan. Advised to call inb/worse in the meantime. Eczema 37595187 L30.9 Overall findings still suggestive of this, but given recurrence will ask derm for assistance with management . Gentle soap and moisturiza tion after bathing advised. [id number] Dayanara Parrish Main Office [address] [address] [place] [id number] 04/18/2019 08:24:17 04/18/2019 08:29:17 Needs influenza immunization 436751836 Z23 [id number] Aly Dennis MD Main Office [address] [facility] [address] [place] [address] 06/11/2019 10:22:52 06/11/2019 11:33:17 Low back pain 493150608 M54.5 Likely muscular but reflex asymmetry is concerning for possible radiculopa thy. If persistent will need formal PT, possibly MRI and PMR vs neurosurg eval. WIll try NSAID, muscle relaxant, sleeping on firm surface and working on core strengthen ing himself for now. Call with any new symptom developmen t. [id number] Aly Dennis MD Main Office [address] [facility] [address] [place] [id number] 06/15/2019 11:03:01 06/15/2019 12:13:52 Low back pain 112287092 M54.5 Likely muscular but reflex asymmetry is concerning for possible radiculopa thy. WIll continue with conservati ve home treatment for now. If persistent will need formal PT. Given recurrent nature will ask PMR for insight on how to prevent further recurrence and to see if imaging is warranted. Advised to call with any new symptom developmen t. [id number] Aly Dennis MD Main Office [address] [address] [place] [address] 06/22/2019 09:52:17 06/22/2019 10:34:55 Lumbar radiculopathy 460241784 M54.16 Persistent pain with radicular finding on exam and worsening chronic recurrent course. Further anatomical characteri zation warranted. Will try formal PT while waiting for physiatry eval next month. [id number] Aly Dennis MD Main Office [address] [address] [place] [address] 07/09/2019 08:04:29 07/09/2019 08:46:45 Low back strain 735649861 S39.012D Based on MRI findings pain is most likely from soft tissue source/mus teresa. Will continue PT but should be fine to return to work. Physiatry referral not done but would pursue only if symptoms recur. Will return to work after PT this week. [id number] TANYA Dsouza Main Office [address] [address] [place] [address] 09/22/2019 13:00:18 09/22/2019 15:31:50 Acute otitis media 4431190 H66.91 unable to visualize TM, will tx for presumed OM. amox bid x full 10 days, hydration, rest, tylenol or ibuprofen as needed for pain. call or return of sx not improving next week. 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 Will continue with current topical treatment for now, try otc hydrocorti sone cream to skin bid for 5 days. If not improving would use medrol as he cannot use steroid cream around the eye. Call if any pain or sx in eye. [id number] Aly Dennis MD Main Office [address] [address] [place] [address] 12/08/2019 10:44:19 12/08/2019 12:06:28 Adult health examination 488916275 Z00.00 Immunizati on status utd, flu advised in the Fall. Will screen based on risk factors. Regular dental and ophtho care advised as well as seat belt and sunscreen use. Distracted driving discussed. Advance directives in place. Disorder o f lumbar disc 378968988 M51.9 Stable, has completed Pt since recent flare and works on [employer] ing. Refer to PMR if recurrent. Varicella vaccination 68 163734 Z23 Body mass index 30+ - obesity 305371096 Z68.33 Obesity 962759913 E66.9 Hypertriglyceridemia 302 968664 E78.2 Hyperlipidemia 81507099 E78.5 Well controlled and meds tolerated. Will continue current dosing. Screening for malignant neoplasm of colon 053574681 Z12.11 Screening utd. Due in 2027 unless symptoms or other risk factors arise in the meantime. Gastroesop hageal reflux disease 583481438 K21.9 Discussed wt loss and caffeine intake reduction. Will use H2B PRN. Call if symptoms persist/wo rsen. Eczema 30240958 L30.9 c/w nummular eczema. Responding to topical triamcinol oneAdvised to f/u with derm if persistent or changing. Family his tory of malignant neoplasm of prostate 812528199 Z80.42 Elevated blood-pressure reading without diagnosis of hypertension 144636355 R03.0 Non sepcific changes on ECG without LVH. Will screen for other end organ damage. Start diuretic if BP >130/90 at f/u. Tinea cruris 052495202 B 35.6 Call inb/worse. [id number] Jhon Giang MD [facility] [address] [facility] [place] [address] 04/09/2020 08:01:39 04/09/2020 10:03:14 Eczema 21578283 L30.9 [id number] Aly Dennis MD [facility] h [address] [facility] [place] [address] 06/16/2020 06:55:07 06/28/2020 11:20:10 Hyperlipidemia 18422413 E78.01 Well controlled and meds tolerated. Will continue current dosing. Disorder o f lumbar disc 712248295 M51.9 Imaging from 2019 showed some subtle disease. Responded well to PT in the past so will revisit. Refer to PMR if persistent /worse. Screening for malignant neoplasm of prostate 744794149 Z12.5 Due for screening before next appt. [id number] Billy Malin PA-C Main Office [address] [facility] [address] [place] [address] 01/09/2021 10:22:29 01/09/2021 11:32:25 Adult health examination 827758316 Z00.00 Varicella vaccination 68 285072 Z23 Hyperlipidemia 33486650 E78.5 Hepatitis C screening 41 3439622 Z11.59 Prostate s pecific antigen above reference range 862150843 R97.20 Eczema 24470133 L30.9 stable, cont f/u c derm Impaired f asting glycemia 384840527 R73.01 Body mass index 30+ - obesity 342809567 E66.9 Z68.33 Chronic low back pain 27 8616010 M54.5 better lately p PT, cont HEP Skin lesion 93756389 L98 .9 Gastroesop hageal reflux disease 440439223 K21.9 mild, discussed anti-reflu x measures, rec pepcid qd/prn - if no sig help, then consider ppi [id number] Alexandria Wallis Main Office [address] [address] [place] [address] 05/01/2021 15:23:46 05/01/2021 16:26:16 Low back pain 208715280 M54.51 Rest, stretching at home, start PT program twice a week. Can use naprosyn in the am and flexeril at night, sleep with pillow under knees or between knees. Likely muscular, call if not better with PT and medication s. [id number] Billy Malin PA-C Main Office [address] [facility] [address] [place] [address] 06/08/2021 08:44:19 06/08/2021 14:18:55 Herpes zoster 8012608 B02.9 viewed pic that he sent in, [...] rec get shingrix in ~ 6 months [id number] Jhon Giang MD [facility] [address] [facility] [address] [place] [address] 06/23/2021 08:21:26 06/23/2021 15:41:04 Exposure to viral disease 7383756868 23463 Z03.818 [id number] Aly Dennis MD Main Office [address] [address] [place] [id number] 01/11/2022 10:05:08 01/11/2022 11:10:01 Adult health examination 897680436 Z00.00 Immunizati on status utd, flu advised in the Fall. Will screen based on risk factors. Regular dental and ophtho care advised as well as seat belt and sunscreen use. Distracted driving discussed. Advance directives in place. Varicella vaccination 68 607650 Z23 Hypertriglyceridemia 302 532436 E78.2 Fairly well controlled on statin/fib rate. Consider adding fish oil Hyperlipidemia 08131245 E78.5 Well controlled and meds tolerated. Will continue current dosing. Body mass index 30+ - obesity 643653372 E66.9 Z68.33 Impaired f asting glycemia 227273860 R73.01 Will monitor/re assess. Family his tory of hemochromatosis 663173806 Z83.49 Nocturia 396124648 R35.1 Allergic conjunctivitis 266718325 H10.13 Continue lubricatin g drops, try allergy tx. [id number] Aly Dennis MD Main Office [address] [facility] [address] [place] [address] 11/15/2022 09:56:33 11/15/2022 10:36:30 Family history of hemochromatosis 014788909 Z83.49 Due for labs before next appt. Nocturia 469967850 R35.1 Hyperlipidemia 36684656 E78.5 Well controlled and meds tolerated. Will continue current dosing. [id number] Billy Malin PA-C Main Office [address] [facility] [address] [place] [address] 04/18/2023 10:48:33 04/18/2023 12:00:37 Adult health examination 598648693 Z00.00 colon utd Eczema 30212061 L30.9 stable, cont f/u c derm Gastroesop hageal reflux disease 899898073 K21.9 mild, discussed anti-reflu x measures, rec pepcid qd/prn - if no sig help, then consider ppi Hypertriglyceridemia 302 826361 E78.2 stable, cont meds as dir Serum ferr itin above reference range 730049662 R77.8 + fh HH, will check for genetic mutation Family his tory of hemochromatosis 408720562 Z83.49 see above Requires a tetanus booster 805392035 Z23 Body mass index 30+ - obesity 090167780 E66.9 Z68.33 Pain of le ft knee region 7154929498 49541 M25.562 mild, int - likely d/t mild OA - defers xray for now, consider turmeric or prn tyl [id number] Aly Dennis MD Main Office [address] [facility] [address] [facility] [place] [address] 06/19/2024 09:57:02 06/19/2024 11:13:42 Adult health examination 095051199 Z00.00 Immunizati on status utd, flu advised in the Fall. Will screen based on risk factors. Regular dental and ophtho care advised as well as seat belt and sunscreen use. Distracted driving discussed. Advance directives in place. Influenza vaccination declined 912399655 Z28.21 Body mass index 30+ - obesity 741310963 E66.9 Z68.36 Gastroesop hageal reflux disease 059555248 K21.9 Symptoms well controlled without warning signs on PPI. Discussed wt loss and caffeine intake reduction. Will use H2B PRN. Call if symptoms persist/wo rsen. Nocturia 710609489 R35.1 Serum ferr itin above reference range 930464737 R77.8 Likely secondary to heterzygou s hemochroma tosis, will monitor with therapeuti c phlebotomy . Hereditary hemochromatosis 46842910 E83.110 Heterzygou s but with elevated ferritin will refer for phlebotomy . Administra tion of pneumococcal vaccine 54437875 Z23 Varicella vaccination 68 537702 Z23 Pain of le ft knee region 9596932723 10100 M25.562 Will go for imaging if persistent [...] Member ID Guarantor Name 06/23/2021 1 [place] [facility]) [id number] Roddy J Gaulin III [id number] Roddy J Gaulin III 01/11/2022 1 [place] [facility] [id number] Roddy J Gaulin III [id number] Roddy J Gaulin III 11/15/2022 1 [place] [facility] [id number] Roddy J Gaulin III [id number] Roddy J Gaulin III 04/18/2023 1 [place] [facility] [id number] Roddy J Gaulin III [id number] Roddy J Gaulin III 06/19/2024 1 [place] [facility] [id number] Roddy J Gaulin III [id number] Roddy J Gaulin III Notes Date Note Type Note Provider Name and Address Organization Details Recorded Time 2 text/html TH visit during COVID-19 crisis. Pt notes that he is doing well after testing positive for COVID on 06/19/2020. Had been traveling to [place] prior to positive test. Now with resolution [...] control the itching. Jhon Giang MD [address], [address], [facility] 06/23/2021 11:28:56 2 text/html Generic HPI TemplateReported bypatient.Notes:Here for a physical, feels well. Seeing dentist and ophtho regularly. Aly Dennis MD [address], [address], [facility] 01/12/2022 09:07:26 3 text/html HyperlipidemiaReported bypatient.Type of [...] disease Risk Factors:obesity Aly Dennis MD [address], [address], [facility] 12/12/2022 12:10:16 3 text/html here for annual pe. Billy Malin PA-C [address], [address], [facility] 04/18/2023 12:00:57 5 text/html Generic HPI TemplateReported bypatient.Notes:Here for a physical, feels well. Seeing dentist and ophtho regularly. Aly Dennis MD [address], [address], [facility] 07/21/2024 07:11:46
[2024-09-11 08:22] LABS: Hematocrit 43.2 % (42.0-52.0); Hemoglobin 15.2 g/dl (14.0-18.0)
== END 2024-09-11 08:07 | disposition home or self-care (01) ==
LOC: HO.BBR 08:06
PROVIDERS: PCP Pediatrics; Visit Provider Pediatrics
DX: E83.110 Hereditary hemochromatosis (principal)
CPT/HCPCS: 36415; 85014; 85018

== ENCOUNTER 2024-10-14 08:03 | Outpatient (REF) | payer BC, SELFPAY ==
--- OUTSIDE RECORDS SUMMARY | 2024-10-14 08:10 | XMS_ITS | Data Portability ---
Author Organization [facility], Main Office Address [address] [place] [address] Care Team Providers Care Shell Fisherman Name Role Phone ALY DENNIS Primary Care Provider TIFFANY ALLEN Biodiesel Production Technician LUNA HARRINGTON Scientific Programmer Analyst [facility] Phys. Med. [...] now day #5 since postive test. 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 prior [...] Go To The Location Of Their Choice, [id number] 08:08:38 PSA, total, serum or plasma 2024 [...] blood/ tissue 2022 023 [facility], [address], [address], [place], [address], 3 10:44:11 CBC w/ auto diff 2022 023 [facility], [address], [address], [place], [address], 3 14:53:35 CBC w/ auto diff 2022 023 [facility], [address], [address], [place], [address], 3 14:12:25 ferrit in, serum or plasma 2022 023 [facility], [address], [address], [place], [address], 3 15:37:19 PSA, serum or plasma - Screen ing 2022 023 [facility], [address], [address], [place], [address], 3 15:37:21 lipid panel, serum 2022 023 [facility], [address], [address], [place], [address], 3 15:35:50 CMP, serum or plasma 2022 023 [facility], [address], [address], [place], [address], 3 15:35:49 CBC w/ auto diff 2021 022 [facility], [address], [address], [place], [address], 2 15:30:16 lipid panel, serum 2021 022 [facility], [address], [address], [place], [address], 2 13:49:47 HbA1c (hemog lobin A1c), blood 2021 022 [facility], [address], [address], [place], [address], 2 19:18:04 CMP, serum or plasma 2021 022 [facility], [address], [address], [place], [address], 2 13:49:45 PSA, serum or plasma - Screen ing 2021 022 [facility], [address], [address], [place], [address], 2 13:55:56 unlist ed lab - covid- 19 (novel de jesus virus) PCR 2021 022 [facility], [address] [facility], [facility], [place], [address], 2 03:06:42 Referral nutrit ionist /vinodi josie referr al 2024 025 Not available 5 11:20:28 nutrit ionist /dieti josie referr al 2022 023 [email or web address] Not available 3 11:31:06 nutrit ionist /vinodi josie referr al 2021 022 [email or web address] Not available 2 11:44:32 Procedures None record ed. Surgeries None record ed. Imaging XR, knee, 3 view - to assess left knee arthri tic burden 2024 025 lyn [facility], [address] [place] [address], [address], 5 09:28:19 Medication Orders omepra zole 20 mg capsul e,tim yed releas e 2024 025 [email or web address] [id number], [address] [place], [address], 5 15:59:49 olopat adine 0.1 % eye drops 2021 023 ATHENA[id number], [address] [place], [address], 3 10:20:34 Patient Targets Encounter Date Encounter Id Patient Goals Patient Target Last Modified By Organization Details Last Modified Time 04/18/2023 [id number] group home goal of Excess Body Weight Loss % [...] By Organization Details Last Modified Time 01/11/2022 [id number] high cholesterol : care instructions awychowski Not available 01/11/2022 11:07:06 prediabetes: car e instructions awychowski Not available 01/11/2022 11:07:06 dry eyes: care instructions awychowski Not available 01/11/2022 11:07:07 Prostate Cancer Screening awychowski Not available 01/11/2022 11:07:07 starting a weigh t loss plan: care instructions awychowski Not available 01/11/2022 11:07:07 11/15/2022 [id number] high cholesterol : care instructions awychowski Not available 11/15/2022 10:43:54 04/18/2023 [id number] A healthy lifest yle: care instructions pmadden [...] medication. pmadden Not available 04/18/2023 11:31:49 06/19/2024 [id number] gastroesophageal reflux disease (GERD): care instructions awychowski Not available 06/19/2024 11:09:26 hemochromatosis: care instructions awdenisa Not available 06/19/2024 11:09:26 Prostate Cancer Screening awmichaelowski Not available 06/19/2024 11:09:26 starting a weigh t loss plan: care instructions lyn Not available 06/19/2024 11:09:26 Nutrition Referr al and Weight Management Follow-up Information lyn Not available 06/19/2024 11:09:26 Reason for Referral Boss Dyer/dietitian Refer ral for Body mass index 30+ - obesity Referring Physician: Aly Dennis, Family Medicine, Encounter Date: 01/11/2022 Boss Dyer/dietitian Refer ral for Body mass index 30+ - obesity Referring Physician: Billy Malin, Internal Medicine, Encounter Date: 04/18/2023 Boss Dyer/dietitian Refer ral for Body mass index 30+ [...] Go To The Location Of Their Choice, [id number] 06/30/2021 05:45:51 06/21/19 22 06/30/2021 COVID -19 (NOVE L CORON AVIRU S) PCR covid-19 PCR result (neg) abnormal POSIT BROOKE Posit brooke for detec tion of 2019- novel Coron aviru s (2018 -nCoV ) by RT-PC R. Resul t teo ambrosio to the [facility]. All test resul ts must be corre [...] Go To The Location Of Their Choice, [id number] 06/30/2021 05:45:51 06/24/1906/24/2021 COVID -19 (NOVE L [...] R. Resul t repor hebert to the [facility]. To preve nt error s in diagn [...] perfo rmed by real time PCR utili [facility] LORIE 6800 SARS- CoV-2 test. Not Available [facility] (Centralized Electronic Ordering - All Locations) Patient Can Go To The Location Of Their Choice, [id number] 06/25/2021 03:06:42 02/21/20 22 02/20/2022 COMPR EHENS BROOKE METAB OLIC PANL glucose 85 mg/dL (70-99 ) Not Available [facility] (Centralized Electronic Ordering - All Locations) Patient Can Go To The Location Of Their Choice, [id number] 02/20/2022 13:49:45 02/21/20 22 02/20/2022 COMPR EHENS [...] Go To The Location Of Their Choice, [id number] 02/20/2022 15:30:15 02/21/20 22 02/20/2022 COMPL ETE CBC WITH DIFF eo 2.8 % (0-6) Not Available [facility] (Centralized Electronic Ordering - All Locations) Patient Can Go To The Location Of Their Choice, [id number] 02/20/2022 15:30:15 02/21/20 22 02/20/2022 COMPL ETE CBC WITH DIFF baso 0.6 % (0-2) Not Available [facility] (Centralized Electronic Ordering - All Locations) Patient Can Go To The Location Of Their Choice, [id number] 02/20/2022 15:30:15 02/21/20 22 02/20/2022 COMPL ETE CBC WITH DIFF imm gran 0.6 % Not Available [facility] (Centralized Electronic Ordering - All Locations) Patient Can Go To The Location Of Their Choice, [facility] 02/20/2022 15:30:15 02/21/2002/20/2022 HEMOG LOBIN A1C hemoglobin [...] of Clini rosanna and Appli ed [facility] and Alea trina Volum e 43, [...] Go To The Location Of Their Choice, [id number] 04/18/2023 14:53:35 04/18/2004/18/2023 TRANS BETTY N transferrin 272 mg/dL (200-3 60) Not Available [facility] (Centralized Electronic Ordering - All Locations) Patient Can Go To The Location Of Their Choice, [id number] 04/18/2023 17:15:09 04/18/2004/30/2023 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 HETERO ZYGOUS (nomut ) abnormal Not Available [facility] (Centralized Electronic Ordering - All Locations) Patient Can Go To The Location Of Their Choice, [id number] 04/30/2023 10:44:11 04/18/2004/30/2023 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 ON DETECT ED Not Available [facility] (Centralized Electronic Ordering - All Locations) Patient Can Go To The Location Of Their Choice, [id number] 04/30/2023 10:44:11 04/18/2004/30/2023 HERED ITARY HEMOC HROMA [...] Go To The Location Of Their Choice, [id number] 04/30/2023 10:44:11 04/18/20 23 04/30/2023 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 N 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 RETED BY SILVIA IN RODOLFO Mcpherson Not Available [facility] (Centralized Electronic Ordering - All Locations) Patient Can Go To The Location Of Their Choice, [id number] 04/30/2023 10:44:11 06/24/1906/24/2024 CBC WITH DIFFE RENTI AL/PL ATELE T WBC 8.1 x10e3 /uL 3.4-10 .8 normal Not Available [facility] ([facility]) [address] [place], [address], 06/25/2024 08:08:38 06/24/19 25 06/24/2024 CBC WITH DIFFE RENTI AL/PL ATELE T RBC 5.13 x10e6 /uL 4.14-5 .80 normal Not Available [facility] ([facility]) [address] [place], [address], 06/25/2024 08:08:38 06/24/19 25 06/24/2024 CBC WITH DIFFE RENTI AL/PL ATELE T hemoglobin 16.0 g/dL 13.0-1 7.7 normal Not Available [facility] ([facility]) [address] [place], [address], 06/25/2024 08:08:38 06/24/19 25 06/24/2024 CBC WITH DIFFE RENTI AL/PL ATELE T hematocrit 46.7 % 37.5-5 1.0 normal Not Available [facility] ([facility]) [address] [place], [address], 06/25/2024 08:08:38 06/24/19 25 06/24/2024 CBC WITH DIFFE RENTI AL/PL ATELE T MCV 91 fL 79-97 normal Not Available [facility] ([facility]) [address], [place], [place], [address], 06/25/2024 08:08:38 06/24/19 25 06/24/2024 CBC WITH DIFFE RENTI AL/PL ATELE T MCH 31.2 pg 26.6-3 3.0 normal Not Available [facility] ([facility]) [address], [place], [place], [address], 06/25/2024 08:08:38 06/24/19 25 06/24/2024 CBC WITH DIFFE RENTI AL/PL ATELE T MCHC 34.3 g/dL 31.5-3 5.7 normal Not Available [facility] ([facility]) [address] [place], [address], 06/25/2024 08:08:38 06/24/19 25 06/24/2024 CBC WITH DIFFE RENTI AL/PL ATELE T RDW 12.6 % 11.6-1 5.4 Not Available [facility] ([facility]) [address] [place], [address], 06/25/2024 08:08:38 06/24/19 25 06/24/2024 CBC WITH DIFFE RENTI AL/PL ATELE T platelets 273 x10e3 /uL 150-45 0 normal Not Available [facility] ([facility]) [address] [place], [address], 06/25/2024 08:08:38 06/24/19 25 06/24/2024 CBC WITH DIFFE RENTI AL/PL ATELE T neutrophils 68 % not estab. normal Not Available [facility] ([facility]) [address] [place], [address], 06/25/2024 08:08:38 06/24/19 25 06/24/2024 CBC WITH DIFFE RENTI AL/PL ATELE T lymphs 19 % not estab. normal Not Available [facility] ([facility]) [address], [place], [place], [address], 06/25/2024 08:08:38 06/24/19 25 06/24/2024 CBC WITH DIFFE RENTI AL/PL ATELE T monocytes 8 % not estab. normal Not Available [facility] ([facility]) [address], [place], [place], [address], 06/25/2024 08:08:38 06/24/19 25 06/24/2024 CBC WITH DIFFE RENTI AL/PL ATELE T eos 3 % not estab. normal Not Available [facility] ([facility]) [address], [place], [place], [address], 06/25/2024 08:08:38 06/24/19 25 06/24/2024 CBC WITH DIFFE RENTI AL/PL ATELE T basos 1 % not estab. normal Not Available [facility] ([facility]) [address] [place], [address], 06/25/2024 08:08:38 06/24/19 25 06/24/2024 CBC WITH DIFFE RENTI AL/PL ATELE T immature cells HEAD SULFIDE OPERATOR Not Available [facility] ([facility]) [address] [place], [address], 06/25/2024 08:08:38 06/24/19 25 06/24/2024 CBC WITH DIFFE RENTI AL/PL ATELE T neutrophils (absolute) 5.6 x10e3 /uL 1.4-7. 0 normal Not Available [facility] ([facility]) [address] [place], [address], 06/25/2024 08:08:38 06/24/19 25 06/24/2024 CBC WITH DIFFE RENTI AL/PL ATELE T lymphs (absolute) 1.5 x10e3 /uL 0.7-3. 1 normal Not Available [facility] ([facility]) [address], [place], [place], [address], 06/25/2024 08:08:38 06/24/19 25 06/24/2024 CBC WITH DIFFE RENTI AL/PL ATELE T monocytes(ab solute) 0.7 x10e3 /uL 0.1-0. 9 normal Not Available [facility] ([facility]) [address], [place], [place], [address], 06/25/2024 08:08:38 06/24/1906/24/2024 CBC WITH DIFFE RENTI AL/PL ATELE T eos (absolute) 0.2 x10e3 /uL 0.0-0. 4 normal Not Available [facility] ([facility]) [address], [place], [place], [address], 06/25/2024 08:08:38 06/24/19 25 06/24/2024 CBC WITH DIFFE RENTI AL/PL ATELE T baso (absolute) 0.1 x10e3 /uL 0.0-0. 2 normal Not Available [facility] ([facility]) [address], [place], [place], [address], 06/25/2024 08:08:38 06/24/1906/24/2024 CBC WITH DIFFE RENTI AL/PL ATELE T immature granulocytes 1 % not estab. Not Available [facility] ([facility]) [address] [place], [address], 06/25/2024 08:08:38 06/24/1906/24/2024 CBC WITH DIFFE RENTI AL/PL ATELE T immature grans (abs) 0.1 x10e3 /uL 0.0-0. 1 Not Available [facility] ([facility]) [address], [place], [place], [address], 06/25/2024 08:08:38 06/24/19 25 06/24/2024 CBC WITH DIFFE RENTI AL/PL ATELE T NRBC HEAD SULFIDE OPERATOR Not Available [facility] ([facility]) [address], [place], [place], [address], 06/25/2024 08:08:38 06/24/19 25 06/24/2024 CBC WITH DIFFE RENTI AL/PL ATELE T hematology comments: HEAD SULFIDE OPERATOR Not Available [facility] ([facility]) [address], [place], [place], [address], 06/25/2024 08:08:38 06/24/19 25 06/24/2024 COMP. METAB OLIC PANEL (14) glucose 99 mg/dL 70-99 normal Not Available [facility] ([facility]) [address], [place], [place], [address], 06/25/2024 08:08:38 06/24/19 25 06/24/2024 COMP. METAB OLIC PANEL (14) BUN 16 mg/dL 6-24 normal Not Available [facility] ([facility]) [address], [place], [place], [address], 06/25/2024 08:08:38 06/24/19 25 06/24/2024 COMP. METAB OLIC PANEL (14) creatinine 0.99 mg/dL 0.76-1 .27 normal Not Available [facility] ([facility]) [address], [place], [place], [address], 06/25/2024 08:08:38 06/24/19 25 06/24/2024 COMP. METAB OLIC PANEL (14) eGFR 89 mL/mi n/1.7 3 >59 normal Not Available [facility] ([facility]) [address], [place], [address], 06/25/2024 08:08:38 06/24/19 25 06/24/2024 COMP. METAB OLIC PANEL (14) BUN/creatini ne ratio 16 9-20 normal Not Available [facility] ([facility]) [address] [place], [address], 06/25/2024 08:08:38 06/24/19 25 06/24/2024 COMP. METAB OLIC PANEL (14) sodium 142 mmol/ L 134-14 4 normal Not Available [facility] ([facility]) [address] [place], [address], 06/25/2024 08:08:38 06/24/19 25 06/24/2024 COMP. METAB OLIC PANEL (14) potassium 4.2 mmol/ L 3.5-5. 2 normal Not Available [facility] ([facility]) [address] [place], [address], 06/25/2024 08:08:38 06/24/19 25 06/24/2024 COMP. METAB OLIC PANEL (14) chloride 103 mmol/ L 96-106 normal Not Available [facility] ([facility]) [address] [place], [address], 06/25/2024 08:08:38 06/24/19 25 06/24/2024 COMP. METAB OLIC PANEL (14) carbon dioxide, total 23 mmol/ L 20-29 normal Not Available [facility] ([facility]) [address] [place], [address], 06/25/2024 08:08:38 06/24/19 25 06/24/2024 COMP. METAB OLIC PANEL (14) calcium 9.8 mg/dL 8.7-10 .2 normal Not Available [facility] ([facility]) [address] [place], [address], 06/25/2024 08:08:38 06/24/19 25 06/24/2024 COMP. METAB OLIC PANEL (14) protein, total 6.7 g/dL 6.0-8. 5 normal Not Available [facility] ([facility]) [address] [place], [address], 06/25/2024 08:08:38 06/24/19 25 06/24/2024 COMP. METAB OLIC PANEL (14) albumin 4.4 g/dL 3.8-4. 9 normal Not Available [facility] ([facility]) [address] [place], [address], 06/25/2024 08:08:38 06/24/19 25 06/24/2024 COMP. METAB OLIC PANEL (14) globulin, total 2.3 g/dL 1.5-4. 5 Not Available [facility] ([facility]) [address] [place], [address], 06/25/2024 08:08:38 06/24/19 25 06/24/2024 COMP. METAB OLIC PANEL (14) bilirubin, total 0.5 mg/dL 0.0-1. 2 normal Not Available [facility] ([facility]) [address] [place], [address], 06/25/2024 08:08:38 06/24/19 25 06/24/2024 COMP. METAB OLIC PANEL (14) alkaline phosphatase 57 IU/L 44-121 normal Not Available [facility] ([facility]) [address] [place], [address], 06/25/2024 08:08:38 06/24/19 25 06/24/2024 COMP. METAB OLIC PANEL (14) AST (SGOT) 24 IU/L 0-40 normal Not Available [facility] ([facility]) [address] [place], [address], 06/25/2024 08:08:38 06/24/19 25 06/24/2024 COMP. METAB OLIC PANEL (14) ALT (SGPT) 28 IU/L 0-44 normal Not Available [facility] ([facility]) [address] [place], [address], 06/25/2024 08:08:38 06/24/19 25 06/24/2024 LIPID PANEL cholesterol, total 193 mg/dL 100-19 9 normal Not Available [facility] ([facility]) [address] [place], [address], 06/25/2024 08:08:39 06/24/19 25 06/24/2024 LIPID PANEL triglyceride s 118 mg/dL 0-149 normal Not Available [facility] ([facility]) [address] [place], [address], 06/25/2024 08:08:39 06/24/19 25 06/24/2024 LIPID PANEL HDL cholesterol 39 mg/dL >39 below low normal Not Available [facility] ([facility]) [address], [place], [place], [address], 06/25/2024 08:08:39 06/24/19 25 06/24/2024 LIPID PANEL VLDL cholesterol rosanna 21 mg/dL 5-40 Not Available [facility] ([facility]) [address] [place], [address], 06/25/2024 08:08:39 06/24/19 25 06/24/2024 LIPID PANEL LDL chol calc ([facility]) 133 mg/dL 0-99 above high normal Not Available [facility] ([facility]) [address] [place], [address], 06/25/2024 08:08:39 06/24/19 25 06/24/2024 LIPID PANEL LDL calc comment: HEAD SULFIDE OPERATOR Not Available [facility] ([facility]) [address] [place], [address], 06/25/2024 08:08:39 06/24/19 25 06/25/2024 PROST ATE-S [...] t be inter prete d as absol blanche evide nce of the prese nce or absen ce of savanna roman se. Not Available [facility] ([facility]) [address] [place], [address], 06/25/2024 08:08:40 06/24/19 25 06/25/2024 BETTY TIN ferritin 587 NG/mL 30-400 above high normal Not Available [facility] ([facility]) [address] [place], [address], 06/25/2024 08:08:41 06/24/19 25 06/25/2024 C-ANANTH CTIVE PROTE IN, QUANT C-reactive protein, quant 2 mg/L 0-10 normal Not Available [facility] ([facility]) [address] [place], [address], 06/25/2024 08:08:42 06/23/19 25 06/23/2024 XR, knee, [...] 3:37 pm Patien t Class: Outpat ient [facility] ([facility]) [address] [facility], [place], [address], 06/24/2024 11:19:59 Result Notes None recorded. Problems Name Problem SNOMED Code Status Onset Date Resolution Date Notes Provider Name and Address Organization Details Recorded Time Hyperlipi demia 70109796 Active 2016 Darcie verdugo [facility] 9 15:16:16 Hypertrig lyceridem ia 279164009 Active 2016 Darcie verdugo [facility] 9 15:16:16 Chronic dermatiti s 43830942 Completed 201612/08/2019 Aly Dennis MD [address], [place], [address] , [facility] 0 11:36:21 Obesity 811965025 Completed 201708/23/2017 Aly Dennis MD [address], [place], [address] , [facility] 8 14:40:23 Body mass index 30+ - obesity 591294516 Completed 201712/08/2019 Aly Dennis MD [address], [place], [address] , [facility] 5 10:59:47 Family history of malignant neoplasm of prostate 350684828 Active 2017 Darcie verdugo [facility] 9 15:16:16 Diverticu lar disease 004494424 Active 2017 Darcie verdugo [facility] 9 15:16:16 Internal hemorrhoi ds 29674424 Active 2017 Darcie verdugo [facility] 9 15:16:16 Environme ntal allergy 770260164 Active 2018 Darcie verdugo, [facility] 9 15:16:16 Disorder of lumbar disc 675819227 Active 2019 Aly Dennis MD [address] [facility] [address], [place], [address] , [facility] 0 08:34:20 Eczema 90602014 Active 2019 Aly Dennis MD [address] [address], [place], [address] , [facility] 0 11:45:16 Elevated blood-pre ssure reading without diagnosis of hypertens ion 068052805 Completed 201901/11/2022 Aly Dennis MD [address] [facility] [address], [place], [address] , [facility] 2 10:49:02 Impaired fasting glycemia 150724897 Completed 202002/21/2022 Aly Dennis MD [address] [address], [place], [address] , [facility] 2 09:19:47 Gastroeso phageal reflux disease 423818808 Active 2020 Billy Malin PA-C [address] [address], [place], [address] , [facility] 1 11:29:00 Chronic low back pain 481678087 Active 2020 Billy Malin PA-C [address] [facility] [address], [place], [address] , [facility] 1 11:32:46 Skin lesion 01057206 Completed 202001/11/2022 Aly Dennis MD [address] [address], [place], [address] , [facility] 2 10:52:09 History of SARS-CoV- 2 08842763843 8529237 Active 2021 Aly Dennis MD [address] [address], [place], [address] , [facility] 2 10:52:00 Family history of hemochrom atosis 782896343 Active 2021 Aly Dennis MD [address] [address], [place], [address] , [facility] 2 10:54:54 Serum ferritin above reference range 709519071 Active 2022 Aly Dennis MD [address] [address], [place], [address] , [facility] 3 07:30:23 Hereditar y hemochrom atosis 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 Procedures Surgical History Date Name Laterality Status Provider Name and Address Organization Details Recorded Time 07/05/19 23 biopsy of skin completed Aly Dennis MD [address] [facility] [address] [facility], [place], [address], [facility] 07/11/2022 22:29:09 05/08/20 18 Colonoscopy completed Martinaskylar Valentin [facility] 05/08/2018 12:09:45 08/11/19 17 Cerumen Removal completed Aly Dennis MD [address] [facility] [address] [facility], [place], [address], [facility] 08/10/2016 13:52:43 07/11/19 16 Create eardrum opening completed Gabby Underwood MA [facility] 08/10/2016 13:09:38 06/10/19 13 Other completed Gabby Underwood MA [facility] 08/10/2016 13:06:33 06/10/18 80 Orthopedic Surgery completed Aly Dennis MD [address] [facility] [address] [facility], [place], [address], [facility] 08/23/2017 14:49:00 06/10/18 78 Elbow arthroscopy/anthony earl completed Aly Dennis MD [address] [address], [place], [address], [facility] 08/25/2018 09:50:43 06/10/18 75 Ther fx nasal inf turbinate completed Aly Dennis MD [address] [address], [place], [address], [facility] 08/25/2018 09:51:30 Imaging Results Imaging Date Name Status LastModified by Organiz ation Details LastModified Time 06/23/2024 XR, knee, 1 or 2 view completed [facility] ([facility]) [address] [place], [address], 06/24/2024 11:19:59 Procedure Notes None recorded. Medical Equipment None Reported. Allergies Allergen ID Allergen Name Allergen Category Reaction Reaction Severity Criticality Documentation Date Start Date Code Code System Note Provider Name and Address Organization Details Recorded Time 07700 ragweed pollen environme nt Not available Not available Not available 06/23/2021 79338 UNK CHELSI Napier [facility] 2 10:50:00 No known drug [...] Not Available atorvasta tin 40 mg tablet TAKE 1 TABLET DAILY active Not Available Not Available No t Available neomycin- polymyxin -hydrocor t 3.5 mg/mL-10, [...] DateTime 06/23/2021 171.45 cm Leatha Negro [facility] 06/23/2021 10:49:52 Date Recorded Body height Body mass index (BMI) Body weight Heart rate Oxygen saturation Oxygen saturation in Arterial blood by Pulse oximetry Body temperature Systolic blood pressure Diastolic blood pressure Provider Name and Address Organization Details Last Updated DateTime 2 171.45 cm 33.5 kg/m2 84651.5 4 g 58 /min 98 % 98 % 98.24 [degF] 126 mm[Hg] 84 mm[Hg] Leatha Negro [facility] 2 10:28:35 Date Recorded Body height Body mass index (BMI) Body weight Heart rate Oxygen saturation Oxygen saturation in Arterial blood by Pulse oximetry Body temperature Systolic blood pressure Diastolic blood pressure Provider Name and Address Organization Details Last Updated DateTime 3 171.45 cm 34.1 kg/m2 204567. 91 g 66 /min 96 % 96 % 97.9 [degF] 144 mm[Hg] 71 mm[Hg] [facility]as [facility] 3 10:14:38 Date Recorded Body height Body mass index (BMI) Body weight Oxygen saturation Oxygen saturation in Arterial blood by Pulse oximetry Heart rate Body temperature Systolic blood pressure Diastolic blood pressure Provider Name and Address Organization Details Last Updated DateTime 3 171.45 cm 33.8 kg/m2 80125.7 3 g 98 % 98 % 64 /min 98.3 [degF] 124 mm[Hg] 78 mm[Hg] Stefany Sutherland [facility] 3 10:56:04 Date Recorded Body height Body mass index (BMI) Body weight Heart rate Oxygen saturation Oxygen saturation in Arterial blood by Pulse oximetry Body temperature Systolic blood pressure Diastolic blood pressure Provider Name and Address Organization Details Last Updated DateTime 5 171.45 cm 36 kg/m2 893087. 02 g 66 /min 97 % 97 % 97.7 [degF] 149 mm[Hg] 87 mm[Hg] Gabby lynch [facility] 5 10:31:04 Social History Question Answer Notes LastModified by Organizat ion Details LastModified Time Tobacco Smoking Status Never Smoker CHELSI Young, [facility] 08/10/2016 13:01:06 Do You Have An Advance Directive? Yes HCP; Alexandria Stokesshawanda, Jagjitr- Gaudencio perez Information not available 01/11/2022 [...] E-cigarettes Or Vape? 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 2 [place] shmuelowski Information not available 01/11/2022 Do You Use [...] Diseases N Hyperthyroidism N Breast Cancer N COPD N Depression N Lung Disease N Hypothyroidism N Defects [...] Time Tdap 09/15/19 13 completed Darcie verdugo [facility] 09/17/2018 15:16:17 COVID-19, mRNA, LNP-S, PF, 100 mcg/0.5mL dose or 50 mcg/0.25mL dose 06/22/19 21 completed CHELSI Munoz, [facility] 11/15/2022 10:13:21 COVID-19, mRNA, LNP-S, PF, 100 mcg/0.5mL dose or 50 mcg/0.25mL dose 07/20/19 21 completed CHELSI Brennan, [facility] 05/01/2021 15:54:10 Influenza, split virus, quadrivalent, PF 05/12/20 18 completed CHELSI Napier, [facility] 01/11/2022 13:20:43 Influenza, split virus, quadrivalent, PF 04/18/20 19 completed CHELSI Napier, [facility] 01/11/2022 13:20:43 Td (adult), 2 Lf tetanus toxoid, preservative free, adsorbed 04/18/20 23 completed CHELSI Newman, [facility] 04/18/2023 12:01:06 Influenza, split virus, trivalent, PF 06/19/19 25 cancelled patient objection Aly Dennis MD [address] [address], [place], [address], [facility] 07/21/2024 07:06:58 Past Encounters Encounter ID Performer Location Encounter Start Date Encounter Closed Date Diagnosis/Indication Diagnosis SNOMED-CT Code Diagnosis ICD10 Code Diagnosis Note [id number] Billy Malin PA-C Main Office [address] [place] [address] 03/12/2016 15:21:35 03/12/2016 16:43:33 Mixed hyperlipidemia 392997562 E78.2 Body mass index 30+ - obesity 955890711 E66.9 Z68.35 Otitis media 77190638 H6 6.92 chronic s/p tube placement by ENT ~ 8 months ago - cont. f/u c ENT [id number] Aly Dennis MD Main Office [address] [place] [address] 08/10/2016 12:38:07 08/10/2016 14:08:03 Adult health examination 614083464 Z00.00 Immunizati on status utd per pt, flu declined. Will screen based on risk factors. Regular dental and ophtho care advised as well as seat belt and sunscreen use. Distracted driving discussed. Advance directives in place. Body mass index 30+ - obesity 055046770 Z68.30 E66.9 Hyperlipidemia 62744855 E78.5 Foreign body in ear 7544 1006 T16.2XXA [id number] Aly Dennis MD Main Office [address] [address] 10/29/2016 11:08:11 10/29/2016 12:18:58 Acute dermatitis 62360382 L30.9 Possible scabies vs contact dermatitis vs eczema. Less likely impetigino us or fungal. Will see if topical steroid helps and counseled on scabies pathophysi ology. Call inb/worse. Tinea corporis 80654713 B35.4 P{t will use OTC antifungal cream for 2 weeks and call inb/worse. [id number] Aly Dennis MD Main Office [address] [address] 08/23/2017 13:50:12 08/23/2017 15:05:32 Adult health examination 622820738 Z00.00 Immunizati on status utd, flu declined. Will screen based on risk factors. Regular dental and ophtho care advised as well as seat belt and sunscreen use. Distracted driving discussed. Advance directives in place. Obesity 856091945 E66.9 Body mass index 30+ - obesity 070117622 Z68.34 Hypertriglyceridemia 302 141107 E78.2 Hyperlipidemia 89727656 E78.5 Well controlled and meds tolerated. Will continue current dosing. Screening for malignant neoplasm of colon 873649984 Z12.11 [id number] TANYA Dsouza Main Office [address] [address] 11/22/2017 08:21:09 11/22/2017 09:21:49 Epistaxis 93946772 R04.0 continue to use vaseline, do not use saline spray. Chronic sinusitis 748595 00 J32.9 Continue amox TID as directed start zyrtec daily and flonase once daily- takes 3-5 days to kick in. stop nasal saline spray. hydration, rest. call/ return if not improved after amox, may need sinus CT. [id number] Aly Dennis MD Main Office [address] [facility] [address] [place] [address] 05/12/2018 09:36:24 05/12/2018 10:55:54 Needs influenza immunization 355374917 Z23 Low back pain 396924672 M54.5 Likely muscular but if recurrent or if additional symptoms develop will need formal PT, possibly MRI and PMR vs neurosurg eval. WIll work on core strengthen ing himself and call with any recurrence . Degenerati on of lumbar intervertebral disc 73825358 M51.36 L5/S1 on xray. Bilateral nature of pain makes disc disease/sp inal stenosis less likely but will need to be considered if pain recurs. [id number] Aly Dennis MD Main Office [address] [place] [address] 08/25/2018 09:15:15 08/25/2018 10:13:54 Adult health examination 442726555 Z00.00 Immunizati on status utd, flu advised in the Fall. Will screen based on risk factors. Regular dental and ophtho care advised as well as seat belt and sunscreen use. Distracted driving discussed. Advance directives in place. Body mass index 30+ - obesity 351020357 Z68.34 Obesity 427931747 E66.9 Hypertriglyceridemia 302 701488 E78.2 Hyperlipidemia 48520748 E78.5 Well controlled and meds tolerated. Will continue current dosing. Screening for malignant neoplasm of colon 356062047 Z12.11 Screening utd. Due in 2027 unless symptoms or other risk factors arise in the meantime. Gastroesop hageal reflux disease 196894809 K21.9 Discussed wt loss and caffeine intake reduction. Will use H2B PRN. Call if symptoms persist/wo rsen. Seborrheic dermatitis of scalp 560720625 L21.0 Call inb/worse. Eczema 30104388 L30.9 c/w nummular eczema. WIll see if steroid helps. Advised to f/u with derm if persistent or changing. [id number] Aly Dennis MD Main Office [address] [address] [place] [address] 11/25/2018 14:16:12 11/25/2018 15:17:45 Chronic dermatitis 80432063 L30.9 Unclear if this is related to photosensi tivity vs allergic process/ec zema. See if po prednisone helps given degree of skin involvemen t then transition to topical. Given recurrence will ask derm to help characteri ze and provide treatment plan. Advised to call inb/worse in the meantime. Eczema 26618826 L30.9 Overall findings still suggestive of this, but given recurrence will ask derm for assistance with management . Gentle soap and moisturiza tion after bathing advised. [id number] Jhon Giang MD Main Office [address] [address] [place] [address] 04/18/2019 08:24:17 04/18/2019 08:29:17 Needs influenza immunization 767305003 Z23 [id number] Aly Dennis MD Main Office [address] [address] [place] [address] 06/11/2019 10:22:52 06/11/2019 11:33:17 Low back pain 882152059 M54.5 Likely muscular but reflex asymmetry is concerning for possible radiculopa thy. If persistent will need formal PT, possibly MRI and PMR vs neurosurg eval. WIll try NSAID, muscle relaxant, sleeping on firm surface and working on core strengthen ing himself for now. Call with any new symptom developmen t. [id number] Aly Dennis MD Main Office [address] [address] [place] [address] 06/15/2019 11:03:01 06/15/2019 12:13:52 Low back pain 982444111 M54.5 Likely muscular but reflex asymmetry is concerning for possible radiculopa thy. WIll continue with conservati ve home treatment for now. If persistent will need formal PT. Given recurrent nature will ask PMR for insight on how to prevent further recurrence and to see if imaging is warranted. Advised to call with any new symptom developmen t. [id number] Aly Dennis MD Main Office [address] [facility] [address] [place] [address] 06/22/2019 09:52:17 06/22/2019 10:34:55 Lumbar radiculopathy 280633917 M54.16 Persistent pain with radicular finding on exam and worsening chronic recurrent course. Further anatomical characteri zation warranted. Will try formal PT while waiting for physiatry eval next month. [id number] Aly Dennis MD Main Office [address] [address] [place] [address] 07/09/2019 08:04:29 07/09/2019 08:46:45 Low back strain 661672254 S39.012D Based on MRI findings pain is most likely from soft tissue source/mus teresa. Will continue PT but should be fine to return to work. Physiatry referral not done but would pursue only if symptoms recur. Will return to work after PT this week. [id number] Serjio Rick MD Main Office [address] [address] [place] [address] 09/22/2019 13:00:18 09/22/2019 15:31:50 Acute otitis media 4008062 H66.91 unable to visualize TM, will tx for presumed OM. amox bid x full 10 days, hydration, rest, tylenol or ibuprofen as needed for pain. call or return of sx not improving next week. 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 Will continue with current topical treatment for now, try otc hydrocorti sone cream to skin bid for 5 days. If not improving would use medrol as he cannot use steroid cream around the eye. Call if any pain or sx in eye. [id number] Aly Dennis MD Main Office [address] [address] [place] [address] 12/08/2019 10:44:19 12/08/2019 12:06:28 Adult health examination 316535143 Z00.00 Immunizati on status utd, flu advised in the Fall. Will screen based on risk factors. Regular dental and ophtho care advised as well as seat belt and sunscreen use. Distracted driving discussed. Advance directives in place. Disorder o f lumbar disc 822933573 M51.9 Stable, has completed Pt since recent flare and works on [employer] ing. Refer to PMR if recurrent. Varicella vaccination 68 299409 Z23 Body mass index 30+ - obesity 179683501 Z68.33 Obesity 690912530 E66.9 Hypertriglyceridemia 302 852222 E78.2 Hyperlipidemia 88660045 E78.5 Well controlled and meds tolerated. Will continue current dosing. Screening for malignant neoplasm of colon 178831728 Z12.11 Screening utd. Due in 2027 unless symptoms or other risk factors arise in the meantime. Gastroesop hageal reflux disease 462464718 K21.9 Discussed wt loss and caffeine intake reduction. Will use H2B PRN. Call if symptoms persist/wo rsen. Eczema 03414889 L30.9 c/w nummular eczema. Responding to topical triamcinol oneAdvised to f/u with derm if persistent or changing. Family his tory of malignant neoplasm of prostate 489023522 Z80.42 Elevated blood-pressure reading without diagnosis of hypertension 875821624 R03.0 Non sepcific changes on ECG without LVH. Will screen for other end organ damage. Start diuretic if BP >130/90 at f/u. Tinea cruris 540276398 B 35.6 Call inb/worse. [id number] Jhon Giang MD [facility] [address] [facility] [address] [facility] [place] [address] 04/09/2020 08:01:39 04/09/2020 10:03:14 Eczema 51221478 L30.9 [id number] Aly Dennis MD [facility] [address] [facility] [address] [facility] [place] [address] 06/16/2020 06:55:07 06/28/2020 11:20:10 Hyperlipidemia 89917102 E78.01 Well controlled and meds tolerated. Will continue current dosing. Disorder o f lumbar disc 655488557 M51.9 Imaging from 2019 showed some subtle disease. Responded well to PT in the past so will revisit. Refer to PMR if persistent /worse. Screening for malignant neoplasm of prostate 411885121 Z12.5 Due for screening before next appt. [id number] Billy Malin PA-C Main Office [address] [place] [address] 01/09/2021 10:22:29 01/09/2021 11:32:25 Adult health examination 721936921 Z00.00 Varicella vaccination 68 531962 Z23 Hyperlipidemia 48008577 E78.5 Hepatitis C screening 41 2071729 Z11.59 Prostate s pecific antigen above reference range 934581167 R97.20 Eczema 63388387 L30.9 stable, cont f/u c derm Impaired f asting glycemia 700086912 R73.01 Body mass index 30+ - obesity 455072583 E66.9 Z68.33 Chronic low back pain 27 9941980 M54.5 better lately p PT, cont HEP Skin lesion 46211777 L98 .9 Gastroesop hageal reflux disease 188983501 K21.9 mild, discussed anti-reflu x measures, rec pepcid qd/prn - if no sig help, then consider ppi [id number] Amita cisneros MD Main Office [address] [place] [address] 05/01/2021 15:23:46 05/01/2021 16:26:16 Low back pain 476212078 M54.51 Rest, stretching at home, start PT program twice a week. Can use naprosyn in the am and flexeril at night, sleep with pillow under knees or between knees. Likely muscular, call if not better with PT and medication s. [id number] Quan Metcalf MD Main Office [address] [place] [address] 06/08/2021 08:44:19 06/08/2021 14:18:55 Herpes zoster 4266705 B02.9 viewed pic that he sent in, [...] rec get shingrix in ~ 6 months [id number] Jhon Giang MD [facility] [address] [facility] [address] [place] [address] 06/23/2021 08:21:26 06/23/2021 15:41:04 Exposure to viral disease 3747013622 28290 Z03.818 [id number] Aly Dennis MD Main Office [address] [place] [address] 01/11/2022 10:05:08 01/11/2022 11:10:01 Adult health examination 689274044 Z00.00 Immunizati on status utd, flu advised in the Fall. Will screen based on risk factors. Regular dental and ophtho care advised as well as seat belt and sunscreen use. Distracted driving discussed. Advance directives in place. Varicella vaccination 68 549253 Z23 Hypertriglyceridemia 302 931317 E78.2 Fairly well controlled on statin/fib rate. Consider adding fish oil Hyperlipidemia 58446636 E78.5 Well controlled and meds tolerated. Will continue current dosing. Body mass index 30+ - obesity 574983230 E66.9 Z68.33 Impaired f asting glycemia 304848517 R73.01 Will monitor/re assess. Family his tory of hemochromatosis 683442847 Z83.49 Nocturia 528995788 R35.1 Allergic conjunctivitis 741176482 H10.13 Continue lubricatin g drops, try allergy tx. [id number] Aly Dennis MD Main Office [address] [facility] [address] [place] [address] 11/15/2022 09:56:33 11/15/2022 10:36:30 Family history of hemochromatosis 160838590 Z83.49 Due for labs before next appt. Nocturia 979428545 R35.1 Hyperlipidemia 22058380 E78.5 Well controlled and meds tolerated. Will continue current dosing. [id number] lAy Dennis MD Main Office [address] [facility] [address] [place] [address] 04/18/2023 10:48:33 04/18/2023 12:00:37 Adult health examination 573200766 Z00.00 colon utd Eczema 29864605 L30.9 stable, cont f/u c derm Gastroesop hageal reflux disease 556760998 K21.9 mild, discussed anti-reflu x measures, rec pepcid qd/prn - if no sig help, then consider ppi Hypertriglyceridemia 302 986289 E78.2 stable, cont meds as dir Serum ferr itin above reference range 877958940 R77.8 + fh HH, will check for genetic mutation Family his tory of hemochromatosis 104075654 Z83.49 see above Requires a tetanus booster 358354800 Z23 Body mass index 30+ - obesity 305701230 E66.9 Z68.33 Pain of le ft knee region 2123813310 55456 M25.562 mild, int - likely d/t mild OA - defers xray for now, consider turmeric or prn tyl [id number] Aly Dennis MD Main Office [address] [facility] [address] [facility] [place] [address] 06/19/2024 09:57:02 06/19/2024 11:13:42 Adult health examination 772725400 Z00.00 Immunizati on status utd, flu advised in the Fall. Will screen based on risk factors. Regular dental and ophtho care advised as well as seat belt and sunscreen use. Distracted driving discussed. Advance directives in place. Influenza vaccination declined 594479139 Z28.21 Body mass index 30+ - obesity 895011160 E66.9 Z68.36 Gastroesop hageal reflux disease 254448320 K21.9 Symptoms well controlled without warning signs on PPI. Discussed wt loss and caffeine intake reduction. Will use H2B PRN. Call if symptoms persist/wo rsen. Nocturia 325304246 R35.1 Serum ferr itin above reference range 383165908 R77.8 Likely secondary to heterzygou s hemochroma tosis, will monitor with therapeuti c phlebotomy . Hereditary hemochromatosis 06062106 E83.110 Heterzygou s but with elevated ferritin will refer for phlebotomy . Administra tion of pneumococcal vaccine 50227999 Z23 Varicella vaccination 68 383514 Z23 Pain of le ft knee region 8760858041 10518 M25.562 Will go for imaging if persistent /worse. If significan t arthritic burden will refer to ortho. Health Concerns Section Related Observation LastModified by Organization Detai ls LastModified Time None Recorded Concern Status LastModified by Organization Details LastModified Time None Recorded Advance Directives Directive Y: HCP; Suresh Rowalnd Payers Encounter Date Sequence Insurance Name Policy Number Policy Wheeler Covered Member ID Wheeler Member ID Guarantor Name 06/23/2021 1 [place] [facility] [id number] Roddy J Gaulin III [id number] Roddy J Gaulin III 01/11/2022 1 [place] [facility] [id number] Roddy J Gaulin III [id number] Roddy J Gaulin III 11/15/2022 1 [place] [facility] [id number] Roddy J Gaulin III [id number] Roddy J Gaulin III 04/18/2023 1 [place] [facility] [id number] Roddy J Gaulin III [id number] Roddy J Gaulin III 06/19/2024 1 [place] [facility] [id number] Roddy J Gaulin III [id number] Roddy J Gaulin III Notes Date Note Type Note Provider Name and Address Organization Details Recorded Time 2 text/html TH visit during COVID-19 crisis. Pt notes that he is doing well after testing positive for COVID on 06/19/2020. Had been traveling to [place] prior to positive test. Now with resolution [...] control the itching. Jhon Giang MD [address], [address], [facility] 06/23/2021 11:28:56 2 text/html Generic HPI TemplateReported bypatient.Notes:Here for a physical, feels well. Seeing dentist and ophtho regularly. Aly Dennis MD [address], [address], [facility] 01/12/2022 09:07:26 3 text/html HyperlipidemiaReported bypatient.Type of [...] disease Risk Factors:obesity Aly Dennis MD [address], [address], [facility] 12/12/2022 12:10:16 3 text/html here for annual pe. Billy Malin PA-C [address], [address], [facility] 04/18/2023 12:00:57 5 text/html Generic HPI TemplateReported bypatient.Notes:Here for a physical, feels well. Seeing dentist and ophtho regularly. Aly Dennis MD [address], [address], [facility] 07/21/2024 07:11:46
[2024-10-14 09:05] LABS: Hematocrit 42.2 % (42.0-52.0); Hemoglobin 15.3 g/dl (14.0-18.0)
[2024-10-14 09:59] LABS: Ferritin 181 ng/mL (20-250)
== END 2024-10-14 08:04 | disposition home or self-care (01) ==
LOC: HO.BBR 08:03
PROVIDERS: PCP Pediatrics; Visit Provider Pediatrics
DX: E83.110 Hereditary hemochromatosis (principal)
CPT/HCPCS: 36415; 82728; 85014; 85018

== ENCOUNTER 2024-11-20 08:00 | Outpatient (REF) | payer BC, SELFPAY ==
[2024-11-20 08:14] LABS: Hemoglobin 15.2 g/dl (14.0-18.0)
== END 2024-11-20 08:01 | disposition home or self-care (01) ==
LOC: HO.BBR 08:00
PROVIDERS: PCP Pediatrics; Visit Provider Pediatrics
DX: E83.110 Hereditary hemochromatosis (principal)
CPT/HCPCS: 36415; 85014; 85018

== ENCOUNTER 2024-12-23 09:37 | Outpatient (REF) | payer BC, SELFPAY ==
--- OUTSIDE RECORDS SUMMARY | 2024-12-23 10:10 | XMS_ITS ---
[...] Not Available Vitals Date Recorded Body height Body mass index (BMI) Body weight Heart rate Oxygen saturation Oxygen saturation in Arterial blood by Pulse oximetry Body temperature Systolic And Diastolic Provider Name and Address Organization Details Last Updated DateTime 5 171.45 cm 36 kg/m2 342801. 02 g 66 /min 97 % 97 % 97.7 [degF] 149/87 mm[Hg] Gabby lynch MA [facility] 5 10:31:04 Date Recorded Body height Provider Name an d Address Organization Details Last Updated DateTime 06/23/2021 171.45 cm Leatha Negro MA [facility] 06/23/2021 10:49:52 Date Recorded Body height Body mass index (BMI) Body weight Heart rate Oxygen saturation Oxygen saturation in Arterial blood by Pulse oximetry Body temperature Systolic And Diastolic Provider Name and Address Organization Details Last Updated DateTime 3 171.45 cm 34.1 kg/m2 064712. 91 g 66 /min 96 % 96 % 97.9 [degF] 144/71 mm[Hg] Melanie Rodas MA [facility] 3 10:14:38 Date Recorded Body height Body mass index (BMI) Body weight Heart rate Oxygen saturation Oxygen saturation in Arterial blood by Pulse oximetry Body temperature Systolic And Diastolic Provider Name and Address Organization Details Last Updated DateTime 2 171.45 cm 33.5 kg/m2 70531.5 4 g 58 /min 98 % 98 % 98.24 [degF] 126/84 mm[Hg] Leatha Negro MA [facility] 2 10:28:35 Date Recorded Body height Body mass index (BMI) Body weight Oxygen saturation Oxygen saturation in Arterial blood by Pulse oximetry Heart rate Body temperature Systolic And Diastolic Provider Name and Address Organization Details Last Updated DateTime 3 171.45 cm 33.8 kg/m2 86211.7 3 g 98 % 98 % 64 /min 98.3 [degF] 124/78 mm[Hg] Stefany Sutherland MA [facility] 3 10:56:04 Social History Question Answer Notes LastModified by Organizat ion Details LastModified Time Tobacco Smoking Status Never Smoker CHELSI Young [facility] 08/10/2016 13:01:06 Do You Have An Advance Directive? Yes HCP; Suresh Rowland Information not available 01/11/2022 Is Blood Transfusion Acceptable In An Emergency? Yes Information not available 08/10/2016 What Is Your Level Of Caffeine Consumption? Heavy 4-5 Servings Of Coffee Daily Information not available 06/19/2024 How Much Tobacco Do You Chew? None Information not available 08/10/2016 What Type Of Diet Are You Following? REGULAR Less Red Meat And Carbs Information not available 06/19/2024 Which Illicit Or Recreational Drugs Have You Used? None Information not available 08/10/2016 Live Alone Or [...] Many Children Do You Have? 2 [place] Information not available 01/11/2022 Do You Use [...] To Smoke? Yes Information not available 08/10/2016 How Much Tobacco Do You Smoke? No Information not available 08/10/2016 Do You Use Sunscreen Routinely? Yes Information not available 08/10/2016 How Many Years Have You Smoked Tobacco? 0 Information not available 08/10/2016 Sex: Unknown Functional Status Question Answer Note LastModified by Organizat ion Details LastModified Time Do you use any illicit or recreational drugs? No Information not available 01/11/2022 Do you or have you ever used any other forms of tobacco or nicotine? No Information not available 01/11/2022 What is your level of alcohol consumption? Occasional Information not available 08/10/2016 Do you or have you ever used smokeless tobacco? Never used smokeless tobacco Information not available 09/22/2019 Are you currently employed? Yes Information not available 08/10/2016 Are you able to walk? YESWOREST Information not available 01/11/2022 Are you able to care for yourself? 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 Never used electronic cigarettes Information not available 01/11/2022 What is your exercise level? Occasional chair [...] Diseases N Hyperthyroidism N Breast Cancer N Lung Disease N Hypothyroidism N Depression N COPD N Defects or [...] Problems N GI Problems N Acne Y Skin Problems Y Eating Disorder N Anemia N Constipation N Bladder Problems N Mental Illness N Ovarian Cancer N Diabetes N Blood Transfusions Y Seizures/Epilepsy N Tuberculosis N AIDS/HIV N Congestive Heart Failure (CHF) N Eczema N Diverticulitis N Abuse/Domestic Violence N Asthma N Allergies N Reflux/GERD N Hepatitis N Pulmonary Embolism N Hypertension N Osteoporosis N Chicken Pox N Autism Spectrum Disorder (ASD) N Immunizations Vaccine Type Date Status Note Provider Name and Address Organization Details Recorded Time Tdap 09/15/19 13 completed Darcie verdugo [facility] 09/17/2018 15:16:17 COVID-19, mRNA, LNP-S, PF, 100 mcg/0.5mL dose or 50 mcg/0.25mL dose 06/22/19 [address] [facility] 11/15/2022 10:13:21 COVID-19, mRNA, LNP-S, PF, 100 mcg/0.5mL dose or 50 mcg/0.25mL dose 07/20/19 21 completed CHELSI Brennan [facility] 05/01/2021 15:54:10 Influenza, split virus, quadrivalent, PF 05/12/20 18 completed CHELSI Napier, [facility] 01/11/2022 13:20:43 Influenza, split virus, quadrivalent, PF 04/18/20 19 completed CHELSI Napier, [facility] 01/11/2022 13:20:43 Td (adult), 2 Lf tetanus toxoid, preservative free, adsorbed 04/18/20 23 completed CHELSI Newman, [facility] 04/18/2023 12:01:06 Influenza, split virus, trivalent, PF 06/19/19 25 cancelled patient objection Aly Garcia MD [address] [address], [place], [address], [facility] 07/21/2024 07:06:58 Past Encounters Encounter ID Performer Location Encounter Start Date Encounter Closed Date Diagnosis/Indication Diagnosis SNOMED-CT Code Diagnosis ICD10 Code Diagnosis Note [id number] Billy Malin PA-C Main Office [address] [id number] 03/12/2016 15:21:35 03/12/2016 16:43:33 Mixed hyperlipidemia 148711153 E78.2 Body mass index 30+ - obesity 808146092 E66.9 Z68.35 Otitis media 39087117 H6 6.92 chronic s/p tube placement by ENT ~ 8 months ago - cont. f/u c ENT [id number] Aly Garcia MD Main Office [address] [address] 08/10/2016 12:38:07 08/10/2016 14:08:03 Adult health examination 087055269 Z00.00 Immunizati on status utd per pt, flu declined. Will screen based on risk factors. Regular dental and ophtho care advised as well as seat belt and sunscreen use. Distracted driving discussed. Advance directives in place. Body mass index 30+ - obesity 639767451 Z68.30 E66.9 Hyperlipidemia 49483926 E78.5 Foreign body in ear 7544 1006 T16.2XXA [id number] Aly Garcia MD Main Office [address] [facility] [address] [place] [address] 10/29/2016 11:08:11 10/29/2016 12:18:58 Acute dermatitis 19512791 L30.9 Possible scabies vs contact dermatitis vs eczema. Less likely impetigino us or fungal. Will see if topical steroid helps and counseled on scabies pathophysi ology. Call inb/worse. Tinea corporis 00599043 B35.4 P{t will use OTC antifungal cream for 2 weeks and call inb/worse. [id number] Ayl Garcia MD Main Office [address] [address] [place] [id number] 08/23/2017 13:50:12 08/23/2017 15:05:32 Adult health examination 257970994 Z00.00 Immunizati on status utd, flu declined. Will screen based on risk factors. Regular dental and ophtho care advised as well as seat belt and sunscreen use. Distracted driving discussed. Advance directives in place. Obesity 220093120 E66.9 Body mass index 30+ - obesity 909922764 Z68.34 Hypertriglyceridemia 302 326912 E78.2 Hyperlipidemia 37824556 E78.5 Well controlled and meds tolerated. Will continue current dosing. Screening for malignant neoplasm of colon 925833318 Z12.11 [id number] TANYA Dsouza Main Office [address] [facility] [address] [place] [address] 11/22/2017 08:21:09 11/22/2017 09:21:49 Epistaxis 40798437 R04.0 continue to use vaseline, do not use saline spray. Chronic sinusitis 548537 00 J32.9 Continue amox TID as directed start zyrtec daily and flonase once daily- takes 3-5 days to kick in. stop nasal saline spray. hydration, rest. call/ return if not improved after amox, may need sinus CT. [id number] Aly Garcia MD Main Office [address] [facility] [address] [place] [id number] 05/12/2018 09:36:24 05/12/2018 10:55:54 Needs influenza immunization 122855013 Z23 Low back pain 801878618 M54.5 Likely muscular but if recurrent or if additional symptoms develop will need formal PT, possibly MRI and PMR vs neurosurg eval. WIll work on core strengthen ing himself and call with any recurrence . Degenerati on of lumbar intervertebral disc 47488843 M51.36 L5/S1 on xray. Bilateral nature of pain makes disc disease/sp inal stenosis less likely but will need to be considered if pain recurs. [id number] Aly Garcia MD Main Office [address] [facility] [address] [facility] [place] [id number] 08/25/2018 09:15:15 08/25/2018 10:13:54 Adult health examination 560731376 Z00.00 Immunizati on status utd, flu advised in the Fall. Will screen based on risk factors. Regular dental and ophtho care advised as well as seat belt and sunscreen use. Distracted driving discussed. Advance directives in place. Body mass index 30+ - obesity 714090468 Z68.34 Obesity 749801604 E66.9 Hypertriglyceridemia 302 459796 E78.2 Hyperlipidemia 55709717 E78.5 Well controlled and meds tolerated. Will continue current dosing. Screening for malignant neoplasm of colon 415301941 Z12.11 Screening utd. Due in 2027 unless symptoms or other risk factors arise in the meantime. Gastroesop hageal reflux disease 390901123 K21.9 Discussed wt loss and caffeine intake reduction. Will use H2B PRN. Call if symptoms persist/wo rsen. Seborrheic dermatitis of scalp 283532344 L21.0 Call inb/worse. Eczema 23542011 L30.9 c/w nummular eczema. WIll see if steroid helps. Advised to f/u with derm if persistent or changing. [id number] Aly Garcia MD Main Office [address] [facility] [address] [facility] [place] [id number] 11/25/2018 14:16:12 11/25/2018 15:17:45 Chronic dermatitis 90075042 L30.9 Unclear if this is related to photosensi tivity vs allergic process/ec zema. See if po prednisone helps given degree of skin involvemen t then transition to topical. Given recurrence will ask derm to help characteri ze and provide treatment plan. Advised to call inb/worse in the meantime. Eczema 93891334 L30.9 Overall findings still suggestive of this, but given recurrence will ask derm for assistance with management . Gentle soap and moisturiza tion after bathing advised. [id number] Jhon Giang MD Main Office [address] [address] [place] [address] 04/18/2019 08:24:17 04/18/2019 08:29:17 Needs influenza immunization 573797498 Z23 [id number] Aly Garcia MD Main Office [address] [address] [place] [address] 06/11/2019 10:22:52 06/11/2019 11:33:17 Low back pain 889386611 M54.5 Likely muscular but reflex asymmetry is concerning for possible radiculopa thy. If persistent will need formal PT, possibly MRI and PMR vs neurosurg eval. WIll try NSAID, muscle relaxant, sleeping on firm surface and working on core strengthen ing himself for now. Call with any new symptom developmen t. [id number] Aly Garcia MD Main Office [address] [place] [address] 06/15/2019 11:03:01 06/15/2019 12:13:52 Low back pain 706006489 M54.5 Likely muscular but reflex asymmetry is concerning for possible radiculopa thy. WIll continue with conservati ve home treatment for now. If persistent will need formal PT. Given recurrent nature will ask PMR for insight on how to prevent further recurrence and to see if imaging is warranted. Advised to call with any new symptom developmen t. [id number] Aly Garcia MD Main Office [address] [address] [place] [address] 06/22/2019 09:52:17 06/22/2019 10:34:55 Lumbar radiculopathy 175234716 M54.16 Persistent pain with radicular finding on exam and worsening chronic recurrent course. Further anatomical characteri zation warranted. Will try formal PT while waiting for physiatry eval next month. [id number] Aly Garcia MD Main Office [address] [address] [place] [address] 07/09/2019 08:04:29 07/09/2019 08:46:45 Low back strain 829622942 S39.012D Based on MRI findings pain is most likely from soft tissue source/mus teresa. Will continue PT but should be fine to return to work. Physiatry referral not done but would pursue only if symptoms recur. Will return to work after PT this week. [id number] Serjio Rick MD Main Office [address] [address] [place] [address] 09/22/2019 13:00:18 09/22/2019 15:31:50 Acute otitis media 9545306 H66.91 unable to visualize TM, will tx for presumed OM. amox bid x full 10 days, hydration, rest, tylenol or ibuprofen as needed for pain. call or return of sx not improving next week. 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 Will continue with current topical treatment for now, try otc hydrocorti sone cream to skin bid for 5 days. If not improving would use medrol as he cannot use steroid cream around the eye. Call if any pain or sx in eye. [id number] Aly Garcia MD Main Office [address] [place] [address] 12/08/2019 10:44:19 12/08/2019 12:06:28 Adult health examination 603270440 Z00.00 Immunizati on status utd, flu advised in the Fall. Will screen based on risk factors. Regular dental and ophtho care advised as well as seat belt and sunscreen use. Distracted driving discussed. Advance directives in place. Disorder o f lumbar disc 514298924 M51.9 Stable, has completed Pt since recent flare and works on [employer]. Refer to PMR if recurrent. Varicella vaccination 68 235811 Z23 Body mass index 30+ - obesity 251438857 Z68.33 Obesity 148573515 E66.9 Hypertriglyceridemia 302 514954 E78.2 Hyperlipidemia 95541951 E78.5 Well controlled and meds tolerated. Will continue current dosing. Screening for malignant neoplasm of colon 351750466 Z12.11 Screening utd. Due in 2027 unless symptoms or other risk factors arise in the meantime. Gastroesop hageal reflux disease 463036047 K21.9 Discussed wt loss and caffeine intake reduction. Will use H2B PRN. Call if symptoms persist/wo rsen. Eczema 53628515 L30.9 c/w nummular eczema. Responding to topical triamcinol oneAdvised to f/u with derm if persistent or changing. Family his tory of malignant neoplasm of prostate 003921131 Z80.42 Elevated blood-pressure reading without diagnosis of hypertension 531191585 R03.0 Non sepcific changes on ECG without LVH. Will screen for other end organ damage. Start diuretic if BP >130/90 at f/u. Tinea cruris 745230550 B 35.6 Call inb/worse. [id number] [facility] [address] [place] [address] 04/09/2020 08:01:39 04/09/2020 10:03:14 Eczema 13421674 L30.9 [id number] [facility] [address] [place] [address] 06/16/2020 06:55:07 06/28/2020 11:20:10 Hyperlipidemia 84627195 E78.01 Well controlled and meds tolerated. Will continue current dosing. Disorder o f lumbar disc 213013358 M51.9 Imaging from 2019 showed some subtle disease. Responded well to PT in the past so will revisit. Refer to PMR if persistent /worse. Screening for malignant neoplasm of prostate 746829954 Z12.5 Due for screening before next appt. [id number] Billy Malin PA-C Main Office [address] [place] [address] 01/09/2021 10:22:29 01/09/2021 11:32:25 Adult health examination 308191302 Z00.00 Varicella vaccination 68 230551 Z23 Hyperlipidemia 84241830 E78.5 Hepatitis C screening 41 1992974 Z11.59 Prostate s pecific antigen above reference range 334460073 R97.20 Eczema 16217794 L30.9 stable, cont f/u c derm Impaired f asting glycemia 669004301 R73.01 Body mass index 30+ - obesity 785779202 E66.9 Z68.33 Chronic low back pain 27 0956868 M54.5 better lately p PT, cont HEP Skin lesion 54470421 L98 .9 Gastroesop hageal reflux disease 973585183 K21.9 mild, discussed anti-reflu x measures, rec pepcid qd/prn - if no sig help, then consider ppi [id number] Amita cisneros MD Main Office [address] [facility] [address] [place] [address] 05/01/2021 15:23:46 05/01/2021 16:26:16 Low back pain 451385824 M54.51 Rest, stretching at home, start PT program twice a week. Can use naprosyn in the am and flexeril at night, sleep with pillow under knees or between knees. Likely muscular, call if not better with PT and medication s. [id number] Quan Metcalf MD Main Office [address] [facility] [address] [place] [address] 06/08/2021 08:44:19 06/08/2021 14:18:55 Herpes zoster 4748145 B02.9 viewed pic that he sent in, [...] rec get shingrix in ~ 6 months [id number] Jhon Giang MD [facility] [address] [address] [place] [address] 06/23/2021 08:21:26 06/23/2021 15:41:04 Exposure to viral disease 3901368170 80518 Z03.818 [id number] Aly Garcia MD Main Office [address] [address] [place] [address] 01/11/2022 10:05:08 01/11/2022 11:10:01 Adult health examination 907337581 Z00.00 Immunizati on status utd, flu advised in the Fall. Will screen based on risk factors. Regular dental and ophtho care advised as well as seat belt and sunscreen use. Distracted driving discussed. Advance directives in place. Varicella vaccination 68 419154 Z23 Hypertriglyceridemia 302 037026 E78.2 Fairly well controlled on statin/fib rate. Consider adding fish oil Hyperlipidemia 49593493 E78.5 Well controlled and meds tolerated. Will continue current dosing. Body mass index 30+ - obesity 474786823 E66.9 Z68.33 Impaired f asting glycemia 711671502 R73.01 Will monitor/re assess. Family his tory of hemochromatosis 980475615 Z83.49 Nocturia 797259497 R35.1 Allergic conjunctivitis 990691968 H10.13 Continue lubricatin g drops, try allergy tx. [id number] Aly Garcia MD Main Office [address] [address] [place] [address] 11/15/2022 09:56:33 11/15/2022 10:36:30 Family history of hemochromatosis 613500136 Z83.49 Due for labs before next appt. Nocturia 757800526 R35.1 Hyperlipidemia 98367011 E78.5 Well controlled and meds tolerated. Will continue current dosing. [id number] Aly Garcia MD Main Office [address] [address] [place] [address] 04/18/2023 10:48:33 04/18/2023 12:00:37 Adult health examination 194135583 Z00.00 colon utd Eczema 77589703 L30.9 stable, cont f/u c derm Gastroesop hageal reflux disease 389994342 K21.9 mild, discussed anti-reflu x measures, rec pepcid qd/prn - if no sig help, then consider ppi Hypertriglyceridemia 302 682355 E78.2 stable, cont meds as dir Serum ferr itin above reference range 023404413 R77.8 + fh HH, will check for genetic mutation Family his tory of hemochromatosis 574763369 Z83.49 see above Requires a tetanus booster 836004311 Z23 Body mass index 30+ - obesity 875876918 E66.9 Z68.33 Pain of le ft knee region 0807507797 77314 M25.562 mild, int - likely d/t mild OA - defers xray for now, consider turmeric or prn tyl [id number] Aly Garcia MD Main Office [address] [facility] [address] [place] [address] 06/19/2024 09:57:02 06/19/2024 11:13:42 Adult health examination 768201307 Z00.00 Immunizati on status utd, flu advised in the Fall. Will screen based on risk factors. Regular dental and ophtho care advised as well as seat belt and sunscreen use. Distracted driving discussed. Advance directives in place. Influenza vaccination declined 996558703 Z28.21 Body mass index 30+ - obesity 468723053 E66.9 Z68.36 Gastroesop hageal reflux disease 424942832 K21.9 Symptoms well controlled without warning signs on PPI. Discussed wt loss and caffeine intake reduction. Will use H2B PRN. Call if symptoms persist/wo rsen. Nocturia 312025047 R35.1 Serum ferr itin above reference range 687858842 R77.8 Likely secondary to heterzygou s hemochroma tosis, will monitor with therapeuti c phlebotomy . Hereditary hemochromatosis 56206193 E83.110 Heterzygou s but with elevated ferritin will refer for phlebotomy . Administra tion of pneumococcal vaccine 75417723 Z23 Varicella vaccination 68 904776 Z23 Pain of le ft knee region 9274857948 44233 M25.562 Will go for imaging if persistent /worse. If significan t arthritic burden will refer to ortho. Health Concerns Section Related Observation LastModified by Organization Detai ls LastModified Time None Recorded Concern Status LastModified by Organization Details LastModified Time None Recorded Advance Directives Directive Y: HCP; [place]Suresh Cavanaugh Payers Insurance Date Sequence Insurance Name Policy Number Policy Wheeler Covered Member ID Wheeler Member ID Guarantor Name 07/30/2024 1 [place] [facility] [id number] Roddy Krueger Richard III [id number] Roddy Ramos III Notes Date Note Type Note Provider Name and Address Organization Details Recorded Time 2 text/html TH visit during COVID-19 crisis. Pt notes that he is doing well after testing positive for COVID on 06/19/2020. Had been traveling to [place] prior to positive test. Now with resolution [...] control the itching. Jhon Giang MD [address], [address], [facility] 06/23/2021 11:28:56 2 text/html Generic HPI TemplateReported bypatient.Notes:Here for a physical, feels well. Seeing dentist and ophtho regularly. Aly Gracia MD [address], [address], [facility] 01/12/2022 09:07:26 3 text/html HyperlipidemiaReported bypatient.Type of [...] disease; no cardiovascular disease Risk Factors:obesity Aly Garcia MD [address], [address], [facility] 12/12/2022 12:10:16 3 text/html here for annual pe. Billy Malin PA-C [address], [address], [facility] 04/18/2023 12:00:57 5 text/html Generic HPI TemplateReported bypatient.Notes:Here for a physical, feels well. Seeing dentist and ophtho regularly. Aly Garcia MD [address] [address], [place], [address], [facility] 07/21/2024 07:11:46
== END 2024-12-23 09:38 | disposition home or self-care (01) ==
LOC: HO.BBR 09:37
PROVIDERS: PCP Pediatrics; Visit Provider Pediatrics
DX: Z13.89 Encounter for screening for other disorder (principal)

== ENCOUNTER 2025-01-26 10:51 | Outpatient (REF) | payer BC, SELFPAY ==
[2025-01-26 11:05] LABS: Hematocrit 44.3 % (42.0-52.0); Hemoglobin 14.8 g/dl (14.0-18.0)
[2025-01-26 12:37] LABS: Ferritin 50 ng/mL (20-250)
== END 2025-01-26 10:52 | disposition home or self-care (01) ==
LOC: HO.BBR 10:51
PROVIDERS: PCP Pediatrics; Visit Provider Pediatrics
DX: E83.110 Hereditary hemochromatosis (principal)
CPT/HCPCS: 36415; 82728; 85014; 85018

== ENCOUNTER 2025-03-05 10:46 | Outpatient (REF) | payer BC, SELFPAY ==
--- OUTSIDE RECORDS SUMMARY | 2025-03-05 12:27 | XMS_ITS | Data Portability ---
Author Organization [facility], Main Office Address [address] [facility] [address] [place] [address] Care Team Providers Care Pediatric Cardiologist Name Role Phone ALY DENNIS Primary Care Provider [phone] TIFFANY ALLEN Social Media Analyst LUNA ANDREWS Home Energy Inspector [facility] Phys. Med. & Rehab Assessment No assessment recorded. Plan of Treatment Reminders Order Date Submit Date Provider Last Modified By Organization Details Last Modified Time Details Appointments PE EST 2025 10:15A M Aly Dennis MD Not available Not available Not available Lab PSA, total, serum or plasma 2024 025 [facility] (Centralized Electronic Ordering - All Locations), Patient Can Go To The Location Of Their Choice, 01/04/2025 15:45:39 TIBC (total iron-b inding capaci ty), serum 2024 025 [facility]NA [facility] (Centralized Electronic Ordering - All Locations), Patient Can Go To The Location Of Their Choice, 01/04/2025 15:45:39 ferrit in, serum or plasma 2024 025 [facility] (Centralized Electronic Ordering - All Locations), Patient Can Go To The Location Of Their Choice, 01/27/2025 14:38:50 lipid panel, serum 2024 025 [facility] ([facility]ized [facility] Ordering - All Locations), Patient Can Go To The Location Of Their Choice, 01/04/2025 15:45:38 CMP, serum or plasma 2024 025 [facility] ([facility]ized [facility] Ordering - All Locations), Patient Can Go To The Location Of Their Choice, 01/04/2025 15:51:14 CBC w/ auto diff 2024 025 [facility]AN [facility] ([facility]ized Electronic Ordering - All Locations), Patient Can Go To The Location Of Their Choice, 06/25/2024 08:08:38 PSA, total, serum or plasma 2024 025 [facility] ([facility]ized Electronic Ordering - All Locations), Patient Can Go To The Location Of Their Choice, 06/25/2024 08:08:40 ferrit in, serum or plasma 2024 025 [facility] (Centralized Electronic Ordering - All Locations), Patient Can Go To The Location Of Their Choice, 06/25/2024 08:08:41 C reacti ve protei n, QN, serum or plasma 2024 025 [facility] (Centralized Electronic Ordering - All Locations), Patient Can Go To The Location Of Their Choice, 06/25/2024 08:08:42 CMP, serum or plasma 2024 025 [facility] ([facility]ized [facility] Ordering - All Locations), Patient Can Go To The Location Of Their Choice, 06/25/2024 08:08:39 lipid panel, serum 2024 025 [facility] ([facility]ized Electronic Ordering - All Locations), Patient Can Go To The Location Of Their Choice, 06/25/2024 08:08:39 hemoch romato sis mutati on (hfe), blood/ tissue 2022 023 [facility], [address], [address], [place], [address], 04/30/2023 10:44:11 CBC w/ auto diff 2022 023 [facility], [address], [address], [place], [address], 04/18/2023 14:53:35 Referral nutrit ionist /kylie galindo referr al 2024 025 [email or web address] Not available 06/19/2024 11:20:28 nutrit ionist /vinodi josie referr al 2022 023 [email or web address] Not available 05/28/2023 11:31:06 Procedures None record ed. Surgeries None record ed. Imaging XR, ribs, unilat eral, w/ PA chest 2024 025 [facility], [address] [place] [address], [address], 02/26/2025 19:04:49 XR, thorac ic spine [email or web address] [place] [address] Radiology, [address] [place] [address], [address], 02/25/2025 16:14:25 XR, knee, 3 view - to assess left knee arthri tic burden 2024 025 lyn [facility], [address] [place] [address], [address], 06/24/2024 09:28:19 Medication Orders cyclob enzapr ine 5 mg tablet 2024 025 [facility]/Pharmacy #[id number], [address] [place], [address], 03/04/2025 15:36:36 Fish Oil 1,000 mg (120 mg-180 mg) capsul e 2024 025 [facility]acy #[id number], [address] [place], [address], 01/04/2025 15:45:40 omepra zole 20 mg capsul e,itm yed releas e 2024 025 [email or web address] [facility]/Pharmacy #0838, [address] [facility], [place], [address], 06/19/2024 15:59:49 Patient Targets Encounter Date Encounter Id Patient Goals Patient Target Last Modified By Organization Details Last Modified Time 04/18/2023 [id number] [facility] goal of Excess Body Weight Loss % 5 Not available Not available Not available Ongoing of LDL Direct <100 Not available Not available Not available Ongoing of LDL Direct yearly Not available Not available Not available 04/18/2023 [id number] Pt agrees to follow low fat diet, [...] updated/modified as needed to reflect progress toward goal. Pt advised and agrees to work on self-monitoring [...] By Organization Details Last Modified Time 04/18/2023 [id number] A healthy lifest yle: care instructions pmadden [...] medication. pmadden Not available 04/18/2023 11:31:49 06/19/2024 [id number] gastroesophageal reflux disease (GERD): care instructions awychowski Not available 06/19/2024 11:09:26 hemochromatosis: care instructions awychowski Not available 06/19/2024 11:09:26 Prostate Cancer Screening awychowski Not available 06/19/2024 11:09:26 starting a weigh t loss plan: care instructions awdenisa Not available 06/19/2024 11:09:26 Nutrition Referr al and Weight Management Follow-up Information awdenisa Not available 06/19/2024 11:09:26 01/04/2025 [id number] elevated blood pressure: care instructions awychowski Not available 01/04/2025 15:51:12 Prostate Cancer Screening awychowski Not available 01/04/2025 15:45:35 hemochromatosis: care instructions awychowski Not available 01/04/2025 15:45:35 high cholesterol : care instructions awychowski Not available 01/04/2025 15:45:36 03/04/2025 [id number] Follow up if no improvement or if symptoms worsen. 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 Refer ral for Body mass index 30+ - obesity Referring Physician: Billy Malin, Internal Medicine, Encounter Date: 04/18/2023 Refrigerator Car Icer/dietitian Refer ral for Body mass index 30+ - obesity Referring Physician: Aly Dennis, Family Medicine, Encounter Date: 06/19/2024 Results Created Date Observation Date Name Description Value Unit Range Abnormal Flag Note LastModifiedBy Organization Detail LastModifiedTime 04/18/2004/18/2023 COMPL ETE BLOOD COUNT WBC 7.1 K/mm3 (4.0-1 1.0) Not Available [facility] (Centralized Electronic Ordering - All Locations) Patient Can Go To The Location Of Their Choice, [id number] 04/18/2023 14:53:35 04/18/2004/18/2023 COMPL ETE BLOOD COUNT RBC 5.24 M/mm3 (4.70- 6.10) Not Available [facility] (Centralized Electronic Ordering - All Locations) Patient Can Go To The Location Of Their Choice, [id number] 04/18/2023 14:53:35 04/18/2004/18/2023 COMPL ETE BLOOD COUNT [...] Go To The Location Of Their Choice, [id number] 04/18/2023 14:53:35 04/18/2004/18/2023 COMPL ETE BLOOD COUNT abs. 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 2006 Jan 08,145 (3):2 09-22 3., Dig Dis Sci. 2006 Sep 51(4) : 803-8 07. Jose t 2002, 359(0 302): 211-2 18., Clin Gastr oente rol Hepat ol 2006, 4(11) :1403 -1410 , Kori Med. 2000 Sep-O ct,2 5)271 -277. This test was devel oped and it's perfo rmanc e alistair cteri stics deter mined by [facility] en[facility] Labor atori es. It has not been clear ed or appro saran by the [place] FDA. The FDA has deter mined that such clear ance is not mariya og. This labor atory is certi fied under CLIA 88 as quali fied to perfo rm high compl exity clini rosanna labor atory testi ng. 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 Not Available [facility] (Centralized Electronic Ordering - All Locations) Patient Can Go To The Location Of Their Choice, [id number] 04/30/2023 10:44:11 06/24/19 25 06/24/2024 CBC WITH DIFFE RENTI AL/PL ATELE T WBC 8.1 x10e3 /uL 3.4-10 .8 normal Not Available [facility] ([facility]) [address] [place], [address], 06/25/2024 08:08:38 06/24/19 25 06/24/2024 CBC WITH DIFFE RENTI AL/PL ATELE T RBC 5.13 x10e6 /uL 4.14-5 .80 normal Not Available [facility] ([facility]) [address] [place], [address], 06/25/2024 08:08:38 06/24/19 25 06/24/2024 CBC WITH DIFFE RENTI AL/PL ATELE T hemoglobin 16.0 g/dL 13.0-1 7.7 normal Not Available [facility] ([facility]) [address] [place], [address], 06/25/2024 08:08:38 06/24/19 25 06/24/2024 CBC WITH DIFFE RENTI AL/PL ATELE T hematocrit 46.7 % 37.5-5 1.0 normal Not Available [facility] ([facility]) [address] [facility], [place], [address], 06/25/2024 08:08:38 06/24/19 25 06/24/2024 CBC WITH DIFFE RENTI AL/PL ATELE T MCV 91 fL 79-97 normal Not Available [facility] ([facility]) [address] [facility], [place], [address], 06/25/2024 08:08:38 06/24/19 25 06/24/2024 CBC WITH DIFFE RENTI AL/PL ATELE T MCH 31.2 pg 26.6-3 3.0 normal Not Available [facility] ([facility]) [address] [facility], [place], [address], 06/25/2024 08:08:38 06/24/19 25 06/24/2024 CBC WITH DIFFE RENTI AL/PL ATELE T MCHC 34.3 g/dL 31.5-3 5.7 normal Not Available [facility] ([facility]) [address] [facility], [place], [address], 06/25/2024 08:08:38 06/24/19 25 06/24/2024 CBC WITH DIFFE RENTI AL/PL ATELE T RDW 12.6 % 11.6-1 5.4 Not Available [facility] ([facility]) [address] [facility], [place], [address], 06/25/2024 08:08:38 06/24/1906/24/2024 CBC WITH DIFFE RENTI AL/PL ATELE T platelets 273 x10e3 /uL 150-45 0 normal Not Available [facility] ([facility]) [address] [place], [address], 06/25/2024 08:08:38 06/24/19 25 06/24/2024 CBC WITH DIFFE RENTI AL/PL ATELE T neutrophils 68 % not estab. normal Not Available [facility] ([facility]) [address] [facility], [place], [address], 06/25/2024 08:08:38 06/24/19 25 06/24/2024 CBC WITH DIFFE RENTI AL/PL ATELE T lymphs 19 % not estab. normal Not Available [facility] ([facility]) [address] [facility], [place], [address], 06/25/2024 08:08:38 06/24/19 25 06/24/2024 CBC WITH DIFFE RENTI AL/PL ATELE T monocytes 8 % not estab. normal Not Available [facility] ([facility]) [address] [facility], [place], [address], 06/25/2024 08:08:38 06/24/19 25 06/24/2024 CBC WITH DIFFE RENTI AL/PL ATELE T eos 3 % not estab. normal Not Available [facility] ([facility]) [address] [facility], [place], [address], 06/25/2024 08:08:38 06/24/19 25 06/24/2024 CBC WITH DIFFE RENTI AL/PL ATELE T basos 1 % not estab. 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 0 normal Not Available [facility] ([facility]) [address] [facility], [place], [address], 06/25/2024 08:08:38 06/24/19 25 06/24/2024 CBC WITH DIFFE RENTI AL/PL ATELE T lymphs (absolute) 1.5 x10e3 /uL 0.7-3. 1 normal Not Available [facility] ([facility]) [address] [facility], [place], [address], 06/25/2024 08:08:38 06/24/19 25 06/24/2024 CBC WITH DIFFE RENTI AL/PL ATELE T monocytes(ab solute) 0.7 x10e3 /uL 0.1-0. 9 normal Not Available [facility] ([facility]) [address] [facility], [place], [address], 06/25/2024 08:08:38 06/24/19 25 06/24/2024 CBC WITH DIFFE RENTI AL/PL ATELE T eos (absolute) 0.2 x10e3 /uL 0.0-0. 4 normal Not Available [facility] ([facility]) [address] [facility], [place], [address], 06/25/2024 08:08:38 06/24/19 25 06/24/2024 CBC WITH DIFFE RENTI AL/PL ATELE T baso (absolute) 0.1 x10e3 /uL 0.0-0. 2 normal Not Available [facility] ([facility]) [address] [facility], [place], [address], 06/25/2024 08:08:38 06/24/19 25 06/24/2024 CBC WITH DIFFE RENTI AL/PL ATELE T immature granulocytes 1 % not estab. Not Available [facility] ([facility]) [address] [facility], [place], [address], 06/25/2024 08:08:38 06/24/19 25 06/24/2024 CBC WITH DIFFE RENTI AL/PL ATELE T immature grans (abs) 0.1 x10e3 /uL 0.0-0. 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 METAB OLIC PANEL (14) glucose 99 mg/dL 70-99 normal Not Available [facility] ([facility]) [address], [place], [address], 06/25/2024 08:08:38 06/24/19 25 06/24/2024 COMP. METAB OLIC PANEL (14) BUN 16 mg/dL 6-24 normal Not Available [facility] ([facility]) [address], [place], [address], 06/25/2024 08:08:38 06/24/19 25 06/24/2024 COMP. METAB OLIC PANEL (14) creatinine 0.99 mg/dL 0.76-1 .27 normal Not Available [facility] ([facility]) [address], [place], [address], 06/25/2024 08:08:38 06/24/19 25 06/24/2024 COMP. METAB OLIC PANEL (14) eGFR 89 mL/mi n/1.7 3 >59 normal Not Available [facility] ([facility]) [address], [place], [address], 06/25/2024 08:08:38 06/24/19 25 06/24/2024 COMP. METAB OLIC PANEL (14) BUN/creatini ne ratio 16 9-20 normal Not Available [facility] ([facility]) [address] [place], [address], 06/25/2024 08:08:38 06/24/19 25 06/24/2024 COMP. METAB OLIC PANEL (14) sodium 142 mmol/ L 134-14 4 normal Not Available [facility] ([facility]) [address] [place], [address], 06/25/2024 08:08:38 06/24/19 25 06/24/2024 COMP. METAB OLIC PANEL (14) potassium 4.2 mmol/ L 3.5-5. 2 normal Not Available [facility] ([facility]) [address] [place], [address], 06/25/2024 08:08:38 06/24/19 25 06/24/2024 COMP. METAB OLIC PANEL (14) chloride 103 mmol/ L 96-106 normal Not Available [facility] ([facility]) [address] [place], [address], 06/25/2024 08:08:38 06/24/19 25 06/24/2024 COMP. METAB OLIC PANEL (14) carbon dioxide, total 23 mmol/ L 20-29 normal Not Available [facility] ([facility]) [address] [place], [address], 06/25/2024 08:08:38 06/24/19 25 06/24/2024 COMP. METAB OLIC PANEL (14) calcium 9.8 mg/dL 8.7-10 .2 normal Not Available [facility] ([facility]) [address] [place], [address], 06/25/2024 08:08:38 06/24/19 25 06/24/2024 COMP. METAB OLIC PANEL (14) protein, total 6.7 g/dL 6.0-8. 5 normal Not Available [facility] ([facility]) [address] [place], [address], 06/25/2024 08:08:38 06/24/19 25 06/24/2024 COMP. METAB OLIC PANEL (14) albumin 4.4 g/dL 3.8-4. 9 normal Not Available [facility] ([facility]) [address] [place], [address], 06/25/2024 08:08:38 06/24/19 25 06/24/2024 COMP. METAB OLIC PANEL (14) globulin, total 2.3 g/dL 1.5-4. 5 Not Available [facility] ([facility]) [address] [place], [address], 06/25/2024 08:08:38 06/24/19 25 06/24/2024 COMP. METAB OLIC PANEL (14) bilirubin, total 0.5 mg/dL 0.0-1. 2 normal Not Available [facility] ([facility]) [address] [place], [address], 06/25/2024 08:08:38 06/24/19 25 06/24/2024 COMP. METAB OLIC PANEL (14) alkaline phosphatase 57 IU/L 44-121 normal Not Available [facility] ([facility]) [address] [place], [address], 06/25/2024 08:08:38 06/24/19 25 06/24/2024 COMP. METAB OLIC PANEL (14) AST (SGOT) 24 IU/L 0-40 normal Not Available [facility] ([facility]) [address] [place], [address], 06/25/2024 08:08:38 06/24/19 25 06/24/2024 COMP. METAB OLIC PANEL (14) ALT (SGPT) 28 IU/L 0-44 normal Not Available [facility] ([facility]) [address] [place], [address], 06/25/2024 08:08:38 06/24/19 25 06/24/2024 LIPID PANEL cholesterol, total 193 mg/dL 100-19 9 normal Not Available [facility] ([facility]) [address] [place], [address], 06/25/2024 08:08:39 06/24/19 25 06/24/2024 LIPID PANEL triglyceride s 118 mg/dL 0-149 normal Not Available [facility] ([facility]) [address] [place], [address], 06/25/2024 08:08:39 06/24/19 25 06/24/2024 LIPID PANEL HDL cholesterol 39 mg/dL >39 below low normal Not Available [facility] ([facility]) [address] [place], [address], 06/25/2024 08:08:39 06/24/19 25 06/24/2024 LIPID PANEL VLDL cholesterol rosanna 21 mg/dL 5-40 Not Available [facility] ([facility]) [address] [place], [address], 06/25/2024 08:08:39 06/24/19 25 06/24/2024 LIPID PANEL LDL chol calc ([facility]) 133 mg/dL 0-99 above high normal Not Available [facility] ([facility]) [address] [place], [address], 06/25/2024 08:08:39 06/24/19 25 06/24/2024 LIPID PANEL 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 0 normal [place] ECLIA metho dolog y. Accor ding to [...] t be inter prete d as absol pala evide nce of the prese nce or absen ce of savanna roman se. Not Available [facility] ([facility]) [address] [place], [address], 06/25/2024 08:08:40 06/24/19 25 06/25/2024 BETTY TIN ferritin 587 NG/mL 30-400 above high normal Not Available [facility] ([facility]) [address] [place], [address], 06/25/2024 08:08:41 06/24/19 25 06/25/2024 C-ANANTH CTIVE PROTE IN, QUANT C-reactive protein, quant 2 mg/L 0-10 normal Not Available [facility] ([facility]) [address] [place], [address], 06/25/2024 08:08:42 12/30/19 25 12/30/2024 LIPID PANEL cholesterol, total 147 mg/dL 100-19 9 normal Not Available [facility] ([facility]) [address] [place], [address], 12/30/2024 08:08:13 12/30/19 25 12/30/2024 LIPID PANEL triglyceride s 192 mg/dL 0-149 above high normal Not Available [facility] ([facility]) [address] [place], [address], 12/30/2024 08:08:13 12/30/19 25 12/30/2024 LIPID PANEL HDL cholesterol 31 mg/dL >39 below low normal Not Available [facility] ([facility]) [address] [place], [address], 12/30/2024 08:08:13 12/30/19 25 12/30/2024 LIPID PANEL VLDL cholesterol rosanna 33 mg/dL 5-40 Not Available [facility] ([facility]) [address] [place], [address], 12/30/2024 08:08:13 12/30/19 25 12/30/2024 LIPID PANEL LDL chol calc ([facility]) 83 mg/dL 0-99 Not Available [facility] ([facility]) [address] [place], [address], 12/30/2024 08:08:13 12/30/19 25 12/30/2024 LIPID PANEL LDL calc comment: 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 Not Available [facility] ([facility]) [address] [place], [address], 12/30/2024 08:08:13 12/30/19 25 12/30/2024 ALT+A ST AST (SGOT) 19 IU/L 0-40 normal Not Available [facility] ([facility]) [address] [place], [address], 12/30/2024 08:08:13 12/30/19 25 12/30/2024 ALT+A ST ALT (SGPT) 26 IU/L 0-44 normal Not Available [facility] ([facility]) [address] [place], [address], 12/30/2024 08:08:13 12/30/19 25 12/30/2024 CK, TOTAL creatine kinase,total 89 U/L 41-331 normal Not Available [facility] ([facility]) [address] [facility], [place], [address], 12/30/2024 08:08:14 06/23/1906/23/2024 XR, knee, 1 or 2 view Knee 1 or 2 Views Left, 2 views Reason : PAIN COMPAR AVI: None. FINDIN GS: No bone lesion s [...] 3:37 pm Patien t Class: Outpat ient [facility] (Outpt Imaging) [address], [place], [address], 01/04/2025 15:34:22 02/27/20 25 02/25/2025 XR, ribs, unila teral , w/ PA chest No observ ation record ed. [facility] [address] [facility] [address], [place], [address], 03/04/2025 15:29:44 02/27/20 25 02/25/2025 XR, thora cic spine , 3 view Thorac ic spine 3 views dated 2024. No prior studie s are availa ble. HISTOR Y: Pain. FINDIN GS: There is a mild accent uated thorac ic kyphos is. There is minima l loss of interv ertebr al disc space height and osteop hyte format ion throug hout. Parave rtebra l soft tissue s are within normal limits . IMPRES SHERICE: Degene rative change s. No eviden ce of fractu re or disloc ation. Examin ation [id number]. Thank you for annette hopper me to partic ipate in the care of this patien t. WSN: [id number] Orderi ng Physic thom: Yosi Malin Dictat ed By: Seymour Burks MD Dictat ed Date/T yoshi: 5:53 pm Review ed By: Seymour Burks MD Signed By: Seymour Burks MD Signed Date/T yoshi: 5:53 pm Transc ribed By: CSB Transc ribed Date/T yoshi: 5:53 pm Patien t Class: Outpat ient pmadden [facility] (Outpt Imaging) [address] [place], [address], 03/04/2025 15:29:44 02/27/20 25 02/25/2025 XR, ribs, unila teral , w/ PA chest PA chest and left RIBS 5 views dated Septem 2024. Compar avi films are from Novemb er 2017. HISTOR Y: Pain. FINDIN GS: The cardia c silhou ette is within normal limits for size. Hilar and medias tinal struct ures are unrema rkable . No airspa ce infilt rate or pleura l effusi on is identi fied. No acute displa latia rib fractu re or pneumo thorax is seen. IMPRES SHERICE: No eviden ce of acute pulmon marie diseas e. No acute displa latia rib fractu re or pneumo thorax is apprec iated. Examin ation [id number]. Thank you for rhondai ward me to partic ipate in the care of this patien t. WSN: [id number] Orderi ng Physic thom: Yosi Malin Dictat ed By: Seymour Burks MD Dictat ed Date/T yoshi: 5:54 pm Review ed By: Seymour Burks MD Signed By: Seymour Burks MD Signed Date/T yoshi: 5:54 pm Transc ribed By: CSB Transc ribed Date/T yoshi: 5:54 pm Patien t Class: Outpat ient [facility] (Outpt Imaging) [address] [place], [address], 03/04/2025 15:29:44 Result Notes Documentation Provider Name and Address Organization Details Recorded Time Xr, Knee, 1 Or 2 View : Knee 1 or 2 Views Left, 2 views Reason: PAIN COMPARISON: None. FINDINGS: No bone lesions or fractures. Mild tricompartmental degenerative osteoarthritis but no evidence of osteochondral defect or intra-articular loose body. Very trace joint effusion. IMPRESSION: No acute abnormality. WSN: [id number] Ordering Physician: Aly Dennis Dictated By: Kelli Esqueda MD Dictated Date/Time: 06/23/24 3:38 pm Reviewed By: Kelli Esqueda MD Signed By: Kelli Esqueda MD Signed Date/Time: 06/23/24 3:38 pm Transcribed By: KRISTOPHER Transcribed Date/Time: 06/23/24 3:37 pm Patient Class: Outpatient Aly Dennis MD [address], [id number], [facility] 01/04/2025 15:34:22 Xr, Thoracic Spine, 3 View : Thoracic spine 3 views dated February 25, 2025. No prior studies are available. HISTORY: Pain. FINDINGS: There is a mild accentuated thoracic kyphosis. There is minimal loss of intervertebral disc space height and osteophyte formation throughout. Paravertebral soft tissues are within normal limits. IMPRESSION: Degenerative changes. No evidence of fracture or dislocation. Examination 68234. Thank you for allowing me to participate in the care of this patient. WSN: [id number] Ordering Physician: Billy Malin Dictated By: Seymour Burks MD Dictated Date/Time: 02/26/25 5:53 pm Reviewed By: Seymour Burks MD Signed By: Seymour Burks MD Signed Date/Time: 02/26/25 5:53 pm Transcribed By: KRISTOPHER Transcribed Date/Time: 02/26/25 5:53 pm Patient Class: Outpatient Billy Malin PA-C [address] [place], [address], [facility] 03/04/2025 15:29:44 Xr, Ribs, Unilateral, W/ Pa Chest : PA chest and left RIBS 5 views dated February 25, 2025. Comparison films are from May 05, 2018. HISTORY: Pain. FINDINGS: The cardiac silhouette is within normal limits for size. Hilar and mediastinal structures are unremarkable. No airspace infiltrate or pleural effusion is identified. No acute displaced rib fracture or pneumothorax is seen. IMPRESSION: No evidence of acute pulmonary disease. No acute displaced rib fracture or pneumothorax is appreciated. Examination 72000. Thank you for allowing me to participate in the care of this patient. WSN: [id number] Ordering Physician: Billy Malin Dictated By: Seymour Burks MD Dictated Date/Time: 02/26/25 5:54 pm Reviewed By: Seymour Burks MD Signed By: Seymour Burks MD Signed Date/Time: 02/26/25 5:54 pm Transcribed By: KRISTOPHER Transcribed Date/Time: 02/26/25 5:54 pm Patient Class: Outpatient Billy Malin PA-C [address] [address], [place], [address], [facility] 03/04/2025 15:29:44 Problems Name Problem SNOMED Code Status Onset Date Resolution Date Notes Provider Name and Address Organization Details Recorded Time Hyperlipi demia 35163457 Active 2016 Darcie verdugo [facility] 9 15:16:16 Hypertrig lyceridem ia 196499895 Active 2016 Darcie verdugo [facility] 9 15:16:16 Chronic dermatiti s 15939264 Completed 201612/08/2019 Aly Dennis MD [address] [facility] [address], [place], [address] , [facility] 0 11:36:21 Obesity 877613140 Completed 201708/23/2017 Aly Dennis MD [address] [address], [place], [address] , [facility] 8 14:40:23 Body mass index 30+ - obesity 214634903 Completed 201712/08/2019 Aly Dennis MD [address] [address], [place], [address] , [facility] 5 10:59:47 Family history of malignant neoplasm of prostate 813964766 Active 2017 Darcie verdugo, [facility] 9 15:16:16 Diverticu lar disease 377794284 Active 2017 Darcie verdugo, [facility] 9 15:16:16 Internal hemorrhoi ds 92844660 Active 2017 Darcie verdugo, [facility] 9 15:16:16 Environme ntal allergy 588832721 Active 2018 Darcieriana verdugo, [facility] 9 15:16:16 Disorder of lumbar disc 505057153 Active 2019 Aly Dennis MD [address] [address], [place], [address] , [facility] 0 08:34:20 Eczema 87729554 Active 2019 Aly Dennis MD [address] [address], [address] , [facility] 0 11:45:16 Elevated blood-pre ssure reading without diagnosis of hypertens ion 034608921 Completed 201901/11/2022 Aly Dennis MD [address] [address], [address] , [facility] 2 10:49:02 Impaired fasting glycemia 991659107 Completed 202002/21/2022 Aly Dennis MD [address] [address], [address] , [facility] 2 09:19:47 Gastroeso phageal reflux disease 484883648 Active 2020 Billy Malin PA-C [address] [facility] [address], [place], [address] , [facility] 1 11:29:00 Chronic low back pain 828636485 Active 2020 Billy Malin PA-C [address] [facility] [address], [place], [address] , [facility] 1 11:32:46 Skin lesion 51842164 Completed 202001/11/2022 Aly Dennis MD [address] [facility] [address], [place], [address] , [facility] 2 10:52:09 History of SARS-CoV- 2 60496822109 3377971 Active 2021 Aly Dennis MD [address] [facility] [address], [place], [address] , [facility] 2 10:52:00 Family history of hemochrom atosis 983206941 Active 2021 Aly Dennis MD [address] [facility] [address], [place], [address] , [facility] 2 10:54:54 Serum ferritin above reference range 123256343 Active 2022 Aly Dennis MD [address] [facility] [address], [place], [address] , [facility] 3 07:30:23 Hereditar y hemochrom atosis 97211632 Active 2024 Aly Dennis MD [address] [facility] [address], [place], [address] , [facility] 5 10:59:00 Body mass index 30+ - obesity 437113333 Active 2024 Aly Dennis MD [address] [address], [place], [address] , [facility] 5 10:59:47 Osteoarth ritis of left knee joint 57950620100 9109 Active 2024 Aly Dennis MD [address] [address], [place], [address] , [facility] 5 09:25:50 Problem Notes None recorded. Procedures Surgical History Date Name Laterality Status Provider Name and Address Organization Details Recorded Time 07/05/19 23 biopsy of skin completed Aly Dennis MD [address] [address], [place], [address], [facility] 07/11/2022 22:29:09 05/08/20 18 Colonoscopy completed Martina Valentin [facility] 05/08/2018 12:09:45 08/11/19 17 Cerumen Removal completed Aly Dennis MD [address] [address], [place], [address], [facility] 08/10/2016 13:52:43 07/11/19 16 Create eardrum opening completed Gabby Underwood MA [facility] 08/10/2016 13:09:38 06/10/19 13 Other completed Gabby Underwood MA [facility] 08/10/2016 13:06:33 06/10/18 80 Orthopedic Surgery completed Aly Dennis MD [address] [address], [place], [address], [facility] 08/23/2017 14:49:00 06/10/18 78 Elbow arthroscopy/anthony earl completed Aly Dennis MD [address] [address], [place], [address], [facility] 08/25/2018 09:50:43 06/10/18 75 Ther fx nasal inf turbinate completed Aly Dennis MD [address], [place], [address], [facility] 08/25/2018 09:51:30 Imaging Results None recorded. Procedure Notes None recorded. Medical Equipment None Reported. Allergies Allergen ID Allergen Name Allergen Category Reaction Reaction Severity Criticality Documentation Date Start Date Code Code System Note Provider Name and Address Organization Details Recorded Time 65929 ragweed pollen environme nt Not available Not available Not available 06/23/2021 CHELSI Napier, [facility] 2 10:50:00 No known drug allergies Medications [...] aprine 5 mg tablet Take 1 tablet as needed by oral route at bedtime for 10 days. 2024 active Not Available Not Available Not Avai lable Folbee 2.5 mg-25 mg-1 mg tablet TAKE [...] completed Not Available Not Available Not Available Fish Oil 1,000 mg (120 mg-180 mg) capsule Take 1 capsule twice a day by oral route for 30 days. 2024 active Not Available Not Available Not Avai lable Vitals Date Recorded Body height Body mass index (BMI) Body weight Heart rate Oxygen saturation Oxygen saturation in Arterial blood by Pulse oximetry Body temperature Systolic And Diastolic Provider Name and Address Organization Details Last Updated DateTime 5 171.45 cm 36 kg/m2 454195. 02 g 66 /min 97 % 97 % 97.7 [degF] 149/87 mm[Hg] Gabby lynch MA [facility] 5 10:31:04 Date Recorded Body height Body mass index (BMI) Body weight Heart rate Oxygen saturation Oxygen saturation in Arterial blood by Pulse oximetry Body temperature Systolic And Diastolic Provider Name and Address Organization Details Last Updated DateTime 5 171.45 cm 34.7 kg/m2 618821. 28 g 68 /min 97 % 97 % 98.2 [degF] 130/74 mm[Hg] Melanie Magallanes [facility] 5 15:06:21 Date Recorded Body height Body mass index (BMI) Body weight Heart rate Oxygen saturation Oxygen saturation in Arterial blood by Pulse oximetry Body temperature Pain severity - 0-10 verbal numeric rating [Score] - Reported Systolic And Diastolic Provider Name and Address Organization Details Last Updated DateTime 5 171.45 cm 34.6 kg/m2 913042. 69 g 71 /min 96 % 96 % 97.3 [degF] 6 153/86 mm[Hg] Gabby lynch MA [facility] 5 15:06:39 Date Recorded Body height Body mass index (BMI) Body weight Heart rate Oxygen saturation Oxygen saturation in Arterial blood by Pulse oximetry Body temperature Systolic And Diastolic Systolic And Diastolic Provider Name and Address Organization Details Last Updated DateTime 5 171.45 cm 34.7 kg/m2 586234. 28 g 62 /min 97 % 97 % 98 [degF] 149/80 mm[Hg] 144/82 mm[Hg] Gabby lynch MA [facility] 5 14:54:55 Date Recorded Body height Body mass index (BMI) Body weight Oxygen saturation Oxygen saturation in Arterial blood by Pulse oximetry Heart rate Body temperature Systolic And Diastolic Provider Name and Address Organization Details Last Updated DateTime 3 171.45 cm 33.8 kg/m2 57308.7 3 g 98 % 98 % 64 /min 98.3 [degF] 124/78 mm[Hg] Stefany Sutherland MA [facility] 3 10:56:04 Social History Question Answer Notes LastModified by Organizat ion Details LastModified Time Tobacco Smoking Status Never [facility]/10[facility]2016 13:01:06 Do You Have An Advance [...] Many Children Do You Have? 2 [place] Information not available 01/11/2022 Do You Use [...] not available 08/10/2016 Are you able to walk independently without assistance or assistive devices? YESWOREST Information not available 01/11/2022 Are you able to care for yourself independently? 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 [facility] Information not available 08/10/2016 Do you or [...] Time Tdap 09/15/19 13 completed Darcie verdugo [facility] 09/17/2018 15:16:17 COVID-19, mRNA, LNP-S, PF, 100 mcg/0.5mL dose or 50 mcg/0.25mL dose 06/22/19 21 completed CHELSI Munoz [facility] 11/15/2022 10:13:21 COVID-19, mRNA, LNP-S, PF, 100 mcg/0.5mL dose or 50 mcg/0.25mL dose 07/20/19 21 completed CHELSI Brennan [facility] 05/01/2021 15:54:10 Influenza, split virus, quadrivalent, PF 05/12/20 18 completed [facility] 01/11/2022 13:20:43 Influenza, split virus, quadrivalent, PF 04/18/20 19 [facility] 13:20:43 Td (adult), 2 Lf tetanus toxoid, preservative free, adsorbed 04/18/20 23 [facility] 04[facility]18[facility]2023 12:01:06 Influenza, split virus, trivalent, PF 06/19/19 25 cancelled patient objection Aly Dennis MD [address] [place] [address], [address], [facility] 07/21/2024 07:06:58 Influenza, split virus, trivalent, PF 03/04/20 completed Gabby owens, CHELSI verdugo, [facility] 03/04/2025 16:10:02 Past Encounters Encounter ID Performer Location Encounter Start Date Encounter Closed Date Diagnosis/Indication Diagnosis SNOMED-CT Code Diagnosis ICD10 Code Diagnosis IMO Codes Diagnosis Note [id number] Billy Malin PA-C Main Office [address] [address] 03/12/2016 15:21:35 03/12/2016 16:43:33 Mixed hyperlipidemia 181718717 E78.2 Body mass index 30+ - obesity 621264973 E66.9 Z68.35 Otitis media 38412991 H6 6.92 chronic s/p tube placement by ENT ~ 8 months ago - cont. f/u c ENT [id number] Aly Dennis MD Main Office [address] [place] [address] 08/10/2016 12:38:07 08/10/2016 14:08:03 Adult health examination 025698704 Z00.00 Immunizati on status utd per pt, flu declined. Will screen based on risk factors. Regular dental and ophtho care advised as well as seat belt and sunscreen use. Distracted driving discussed. Advance directives in place. Body mass index 30+ - obesity 818276782 Z68.30 E66.9 Hyperlipidemia 35716267 E78.5 Foreign body in ear 7544 1006 T16.2XXA [id number] Aly Dennis MD Main Office [address] [place] [address] 10/29/2016 11:08:11 10/29/2016 12:18:58 Acute dermatitis 82833177 L30.9 Possible scabies vs contact dermatitis vs eczema. Less likely impetigino us or fungal. Will see if topical steroid helps and counseled on scabies pathophysi ology. Call inb/worse. Tinea corporis 64501562 B35.4 P{t will use OTC antifungal cream for 2 weeks and call inb/worse. [id number] Aly Dennis MD Main Office [address] [facility] [address] [place] [address] 08/23/2017 13:50:12 08/23/2017 15:05:32 Adult health examination 248788547 Z00.00 Immunizati on status utd, flu declined. Will screen based on risk factors. Regular dental and ophtho care advised as well as seat belt and sunscreen use. Distracted driving discussed. Advance directives in place. Obesity 931046260 E66.9 Body mass index 30+ - obesity 074159542 Z68.34 Hypertriglyceridemia 302 504062 E78.2 Hyperlipidemia 17954343 E78.5 Well controlled and meds tolerated. Will continue current dosing. Screening for malignant neoplasm of colon 851784596 Z12.11 [id number] TANYA Dsouza Main Office [address] [address] [place] [address] 11/22/2017 08:21:09 11/22/2017 09:21:49 Epistaxis 36691864 R04.0 continue to use vaseline, do not use saline spray. Chronic sinusitis 854461 00 J32.9 Continue amox TID as directed start zyrtec daily and flonase once daily- takes 3-5 days to kick in. stop nasal saline spray. hydration, rest. call/ return if not improved after amox, may need sinus CT. [id number] Aly Dennis MD Main Office [address] [address] [place] [address] 05/12/2018 09:36:24 05/12/2018 10:55:54 Needs influenza immunization 850161895 Z23 Low back pain 564346220 M54.5 Likely muscular but if recurrent or if additional symptoms develop will need formal PT, possibly MRI and PMR vs neurosurg eval. WIll work on core strengthen ing himself and call with any recurrence . Degenerati on of lumbar intervertebral disc 68009094 M51.36 L5/S1 on xray. Bilateral nature of pain makes disc disease/sp inal stenosis less likely but will need to be considered if pain recurs. [id number] Aly Dennis MD Main Office [address] [address] [place] [address] 08/25/2018 09:15:15 08/25/2018 10:13:54 Adult health examination 074623932 Z00.00 Immunizati on status utd, flu advised in the Fall. Will screen based on risk factors. Regular dental and ophtho care advised as well as seat belt and sunscreen use. Distracted driving discussed. Advance directives in place. Body mass index 30+ - obesity 984279964 Z68.34 Obesity 112082888 E66.9 Hypertriglyceridemia 302 916014 E78.2 Hyperlipidemia 29283348 E78.5 Well controlled and meds tolerated. Will continue current dosing. Screening for malignant neoplasm of colon 707173806 Z12.11 Screening utd. Due in 2027 unless symptoms or other risk factors arise in the meantime. Gastroesop hageal reflux disease 117440242 K21.9 Discussed wt loss and caffeine intake reduction. Will use H2B PRN. Call if symptoms persist/wo rsen. Seborrheic dermatitis of scalp 796564602 L21.0 Call inb/worse. Eczema 58355984 L30.9 c/w nummular eczema. WIll see if steroid helps. Advised to f/u with derm if persistent or changing. [id number] Aly Dennis MD Main Office [address] [facility] [address] [place] [address] 11/25/2018 14:16:12 11/25/2018 15:17:45 Chronic dermatitis 43419314 L30.9 Unclear if this is related to photosensi tivity vs allergic process/ec zema. See if po prednisone helps given degree of skin involvemen t then transition to topical. Given recurrence will ask derm to help characteri ze and provide treatment plan. Advised to call inb/worse in the meantime. Eczema 84743034 L30.9 Overall findings still suggestive of this, but given recurrence will ask derm for assistance with management . Gentle soap and moisturiza tion after bathing advised. [id number] Jhon Giang MD Main Office [address] [facility] [address] [place] [address] 04/18/2019 08:24:17 04/18/2019 08:29:17 Needs influenza immunization 543195725 Z23 [id number] Aly Dennis MD Main Office [address] [facility] [address] [place] [address] 06/11/2019 10:22:52 06/11/2019 11:33:17 Low back pain 751802282 M54.5 Likely muscular but reflex asymmetry is concerning for possible radiculopa thy. If persistent will need formal PT, possibly MRI and PMR vs neurosurg eval. WIll try NSAID, muscle relaxant, sleeping on firm surface and working on core strengthen ing himself for now. Call with any new symptom developmen t. [id number] Aly Dennis MD Main Office [address] [facility] [address] [place] [address] 06/15/2019 11:03:01 06/15/2019 12:13:52 Low back pain 608166956 M54.5 Likely muscular but reflex asymmetry is concerning for possible radiculopa thy. WIll continue with conservati ve home treatment for now. If persistent will need formal PT. Given recurrent nature will ask PMR for insight on how to prevent further recurrence and to see if imaging is warranted. Advised to call with any new symptom developmen t. [id number] Aly Dennis MD Main Office [address] [facility] [address] [place] [address] 06/22/2019 09:52:17 06/22/2019 10:34:55 Lumbar radiculopathy 454478498 M54.16 Persistent pain with radicular finding on exam and worsening chronic recurrent course. Further anatomical characteri zation warranted. Will try formal PT while waiting for physiatry eval next month. [id number] Aly Dennis MD Main Office [address] [facility] [address] [place] [address] 07/09/2019 08:04:29 07/09/2019 08:46:45 Low back strain 390233443 S39.012D Based on MRI findings pain is most likely from soft tissue source/mus teresa. Will continue PT but should be fine to return to work. Physiatry referral not done but would pursue only if symptoms recur. Will return to work after PT this week. [id number] Serjio Rick MD Main Office [address] [facility] [address] [place] [address] 09/22/2019 13:00:18 09/22/2019 15:31:50 Acute otitis media 7567187 H66.91 unable to visualize TM, will tx for presumed OM. amox bid x full 10 days, hydration, rest, tylenol or ibuprofen as needed for pain. call or return of sx not improving next week. [id number] Amita cisneros MD Main Office [address] 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 Will continue with current topical treatment for now, try otc hydrocorti sone cream to skin bid for 5 days. If not improving would use medrol as he cannot use steroid cream around the eye. Call if any pain or sx in eye. [id number] Aly Dennis MD Main Office [address] [facility] [address] [place] [address] 12/08/2019 10:44:19 12/08/2019 12:06:28 Adult health examination 233845756 Z00.00 Immunizati on status utd, flu advised in the Fall. Will screen based on risk factors. Regular dental and ophtho care advised as well as seat belt and sunscreen use. Distracted driving discussed. Advance directives in place. Disorder o f lumbar disc 438423800 M51.9 Stable, has completed Pt since recent flare and works on enavu. Refer to PMR if recurrent. Varicella vaccination 68 742622 Z23 Body mass index 30+ - obesity 673708065 Z68.33 Obesity 798575646 E66.9 Hypertriglyceridemia 302 425895 E78.2 Hyperlipidemia 39950349 E78.5 Well controlled and meds tolerated. Will continue current dosing. Screening for malignant neoplasm of colon 967050893 Z12.11 Screening utd. Due in 2027 unless symptoms or other risk factors arise in the meantime. Gastroesop hageal reflux disease 842630983 K21.9 Discussed wt loss and caffeine intake reduction. Will use H2B PRN. Call if symptoms persist/wo rsen. Eczema 25908192 L30.9 c/w nummular eczema. Responding to topical triamcinol oneAdvised to f/u with derm if persistent or changing. Family his tory of malignant neoplasm of prostate 634527763 Z80.42 Elevated blood-pressure reading without diagnosis of hypertension 270382637 R03.0 Non sepcific changes on ECG without LVH. Will screen for other end organ damage. Start diuretic if BP >130/90 at f/u. Tinea cruris 821488343 B 35.6 Call inb/worse. [id number] Jhon Giang MD [facility] [address] [facility] [address] [place] [address] 04/09/2020 08:01:39 04/09/2020 10:03:14 Eczema 53556520 L30.9 [id number] [facility]ly Dennis [facility] [address] [facility] [address] [facility] [place] [address] 06/16/2020 06:55:07 06/28/2020 11:20:10 Hyperlipidemia 44770981 E78.01 Well controlled and meds tolerated. Will continue current dosing. Disorder o f lumbar disc 317503352 M51.9 Imaging from 2019 showed some subtle disease. Responded well to PT in the past so will revisit. Refer to PMR if persistent /worse. Screening for malignant neoplasm of prostate 178089204 Z12.5 Due for screening before next appt. [id number] Billy Malin PA-C Main Office [address] [facility] [address] [facility] [place] [address] 01/09/2021 10:22:29 01/09/2021 11:32:25 Adult health examination 924356376 Z00.00 Varicella vaccination 68 822643 Z23 Hyperlipidemia 29867476 E78.5 Hepatitis C screening 41 0911169 Z11.59 Prostate s pecific antigen above reference range 182262200 R97.20 Eczema 11387446 L30.9 stable, cont f/u c derm Impaired f asting glycemia 376376090 R73.01 Body mass index 30+ - obesity 453553918 E66.9 Z68.33 Chronic low back pain 27 3221860 M54.5 better lately p PT, cont HEP Skin lesion 56694938 L98 .9 Gastroesop hageal reflux disease 209716286 K21.9 mild, discussed anti-reflu x measures, rec pepcid qd/prn - if no sig help, then consider ppi [id number] Amita cisneros MD Main Office [address] [address] [place] [address] 05/01/2021 15:23:46 05/01/2021 16:26:16 Low back pain 697539884 M54.51 Rest, stretching at home, start PT program twice a week. Can use naprosyn in the am and flexeril at night, sleep with pillow under knees or between knees. Likely muscular, call if not better with PT and medication s. [id number] Quan Metcalf MD Main Office [address] [address] [place] [address] 06/08/2021 08:44:19 06/08/2021 14:18:55 Herpes zoster 5214026 B02.9 viewed pic that he sent in, [...] rec get shingrix in ~ 6 months [id number] Jhon Giang MD [facility] [address] [address] [place] [address] 06/23/2021 08:21:26 06/23/2021 15:41:04 Exposure to viral disease 2648260414 06862 Z03.818 [id number] Aly Dennis MD Main Office [address] [address] [place] [address] 01/11/2022 10:05:08 01/11/2022 11:10:01 Adult health examination 276529807 Z00.00 Immunizati on status utd, flu advised in the Fall. Will screen based on risk factors. Regular dental and ophtho care advised as well as seat belt and sunscreen use. Distracted driving discussed. Advance directives in place. Varicella vaccination 68 124154 Z23 Hypertriglyceridemia 302 357610 E78.2 Fairly well controlled on statin/fib rate. Consider adding fish oil Hyperlipidemia 47671325 E78.5 Well controlled and meds tolerated. Will continue current dosing. Body mass index 30+ - obesity 106049470 E66.9 Z68.33 Impaired f asting glycemia 256981473 R73.01 Will monitor/re assess. Family his tory of hemochromatosis 655261309 Z83.49 Nocturia [id number] R35.1 Allergic conjunctivitis 257826251 H10.13 Continue lubricatin g drops, try allergy tx. [id number] Aly Dennis MD Main Office [address] [address] 11/15/2022 09:56:33 11/15/2022 10:36:30 Family history of hemochromatosis 359385001 Z83.49 Due for labs before next appt. Nocturia 407588080 R35.1 Hyperlipidemia 11867328 E78.5 Well controlled and meds tolerated. Will continue current dosing. [id number] Aly Dennis MD Main Office [address] [address] 04/18/2023 10:48:33 04/18/2023 12:00:37 Adult health examination 370643469 Z00.00 colon utd Eczema 83218090 L30.9 stable, cont f/u c derm Gastroesop hageal reflux disease 160248017 K21.9 mild, discussed anti-reflu x measures, rec pepcid qd/prn - if no sig help, then consider ppi Hypertriglyceridemia 302 806237 E78.2 stable, cont meds as dir Serum ferr itin above reference range 386410233 R77.8 + fh HH, will check for genetic mutation Family his tory of hemochromatosis 292301966 Z83.49 see above Requires a tetanus booster 693985141 Z23 Body mass index 30+ - obesity 254517151 E66.9 Z68.33 Pain of le ft knee region 7708551638 98003 M25.562 mild, int - likely d/t mild OA - defers xray for now, consider turmeric or prn tyl [id number] Aly Dennis MD Main Office [address] [facility] [address] [place] [address] 06/19/2024 09:57:02 06/19/2024 11:13:42 Adult health examination 877279611 Z00.00 Immunizati on status utd, flu advised in the Fall. Will screen based on risk factors. Regular dental and ophtho care advised as well as seat belt and sunscreen use. Distracted driving discussed. Advance directives in place. Influenza vaccination declined 864259528 Z28.21 Body mass index 30+ - obesity 057410515 E66.9 Z68.36 Gastroesop hageal reflux disease 350492264 K21.9 Symptoms well controlled without warning signs on PPI. Discussed wt loss and caffeine intake reduction. Will use H2B PRN. Call if symptoms persist/wo rsen. Nocturia 413779575 R35.1 Serum ferr itin above reference range 659066102 R77.8 Likely secondary to heterzygou s hemochroma tosis, will monitor with therapeuti c phlebotomy . Hereditary hemochromatosis 26983942 E83.110 Heterzygou s but with elevated ferritin will refer for phlebotomy . Administra tion of pneumococcal vaccine 06848439 Z23 Varicella vaccination 68 253106 Z23 Pain of le ft knee region 1293714798 75995 M25.562 Will go for imaging if persistent /worse. If significan t arthritic burden will refer to ortho. [id number] Aly Dennis MD Main Office [address] [facility] [address] [place] [address] 01/04/2025 14:30:35 01/04/2025 15:49:14 Hereditary hemochromatosis 77870690 E83.110 Heterozygo us, undergoing phlebotomy . WIll monitor labs. Hyperlipidemia 49432361 E78.5 Well controlled and meds tolerated. Will continue current dosing. Hypertriglyceridemia 302 626791 E78.2 Fairly well controlled on statin, will see if adding fish oil Nocturia 056893720 R35.1 Gastroesop hageal reflux disease 111172105 K21.9 Symptoms well controlled without warning signs on PPI. Discussed wt loss and caffeine intake reduction. Will use H2B PRN. Call if symptoms persist/wo rsen. Elevated blood-pressure reading without diagnosis of hypertension 641423086 R03.0 Blood pressure in the pre-hypert ensive range, almost normal today. Will monitor for end organ damage. [id number] Aly Dennis MD Main Office [address] [place] [address] 02/25/2025 14:36:58 02/25/2025 16:14:24 Chest wall pain 401604108 R07.89 [id number] suspect has 2 potential etiologies for his pain - ? pud/gerd and / or L ribs/thora cic spinecheck xrayssee below for tmt Acute thor acic back pain 922428003 M54.6 00232190 Gastroesop hageal reflux disease without esophagitis 064872104 K21.9 692550 mild, discussed anti-reflu x measures, rec pepcid qd/prn - if no sig help, then consider ppi 9.25 - rec resume ppi qd ac mealstop diclofenac rather, tyl 500mg 1-2 tabs 3x/day as dirrec ice to L ribs prnalso rec salonpas patch o/nrtc in 1 wk for re-eval, sooner prn [id number] Aly Dennis MD Main Office [address] [place] [address] 03/04/2025 14:16:31 03/04/2025 15:38:32 Needs influenza immunization 116179815 Z23 19 YEARS AND OLDER ONLY Chest wall pain 12782783 6 R07.89 [id number] suspect has 2 potential etiologies for his pain - ? pud/gerd and / or L ribs/thora cic spinecheck xrayssee below for tmt ..25 - persists - believe pain d/t musculoske letal strain (L rib m. strain) from last month (lifting sheet rock)cont moist heat, could alt c ice prncont heprec resume diclofenac c food x several days to help as anti-infla mmatory (is on ppi now) - when feeling better then wean off thiscont c tyl as dirwill also give prn m relaxer (hs) Gastroesop hageal reflux disease without esophagitis 135354553 K21.9 327743 mild, discussed anti-reflu x measures, rec pepcid qd/prn - if no sig help, then consider ppi 9.25 - rec resume ppi qd ac mealstop diclofenac rather, tyl 500mg 1-2 tabs 3x/day as dirrec ice to L ribs prnalso rec salonpas patch o/nrtc in 1 wk for re-eval, sooner prn ..25 - gerd better - cont ppi qd Diastasis recti 99407970 M62.08 1998 offered reassuranc e - is mild - rec core ex Health Concerns Section Related Observation LastModified by Organization Detai ls LastModified Time None Recorded Concern Status LastModified by Organization Details LastModified Time None Recorded Advance Directives Directive Y: HCP; Suresh Rowland Payers Insurance Date Sequence Insurance Name Policy Number Policy Wheeler Covered Member ID Wheeler Member ID Guarantor Name 03/04/2025 1 [facility] [place] [id number] Roddy Ramos III [id number] Roddy Ramos III Notes Date Note Type Note Provider Name and Address Organization Details Recorded Time 3 text/html Generic HPI TemplateReported by Patient here for annual pe. Billy Malin PA-C [address], [address], [facility] 04/18/2023 12:00:57 5 text/html Generic HPI TemplateReported by PatientHere for a physical, feels well. Seeing dentist and ophtho regularly. Aly Dennis MD [address] [address], [place], [address], [facility] 07/21/2024 07:11:46 5 text/html HyperlipidemiaReported by PatientHPIFor type of hyperlipidemia, patient reportscombined. For duration, patient reportschronic. For risk factors, patient reportsobesity. For prior tests, patient reportshighest cholesterol level: (210),highest ldl level: (133),highest triglyceride level: (176), andlowest hdl level: (31). For control, patient reportsusually well controlled,improving, andat goal. For current therapy, patient reportscurrently taking: (simvastatin and fenofibrate),last cholesterol level: (149),last ldl level: (83),last triglyceride level: (192), andlast hdl level: (42). For compliance, patient reportscompliant,compliant with diet, andexercises. For complications, patient reportsno coronary artery disease,no peripheral artery disease, andno cardiovascular disease. Aly Dennis MD [address]40 [facility] [address], [place], [address], [facility] 01/04/2025 15:51:34 5 text/html Patient c/o intermittent, left-sided flank pain x 3 weeks, consistently over the past 4 days.No known injury.He has been taking OTC ibuprofen.No urinary complaints - dysuria, hematuria pain aggravated by meal (usually restaurant, along c etoh)tried diclofenac c little help - ? worseno h/o kidney stonesno constipation - ave bm bid, no changesno brbpr+ htbn, mild n, no vno dysphagia, odynophagiaappetite finewt stable last colon dr andrews 11.18 - next in 10 yrs no coughingno trauma to ribsno brbpr, melena Billy Malin PA-C [address] [address], [place], [address], [facility] 02/26/2025 08:41:55 5 text/html Patient c/o intermittent, left-sided flank pain x 3 weeks, consistently over the past 4 days.No known injury.He has been taking OTC ibuprofen.No urinary complaints - dysuria, hematuria pain aggravated by meal (usually restaurant, along c etoh)tried diclofenac c little help - ? worseno h/o kidney stonesno constipation - ave bm bid, no changesno brbpr+ htbn, mild n, no vno dysphagia, odynophagiaappetite finewt stable last colon dr andrews 11.18 - next in 10 yrs no coughingno trauma to ribsno brbpr, melena 9.25.25 - here for 1 wk f/uhad nl xraysL lower rib pain is ~ 25% better - pain is intermittent, aggrav by movementtyl helps alleviatedoes recall lifting sheet rock - 6 panels 1 at a time ~ last month stomach is better c ppi Billy Malin PA-C [address] [address], [place], [address], [facility] 03/04/2025 17:09:53
--- OUTSIDE RECORDS SUMMARY | 2025-03-05 12:27 | XMS_ITS | Continuity of Care Document ---
Author Organization [facility], Main Office Address [address] [facility] [address] [place] [address] Care Team Providers Care Training Development Director Name Role Phone ALY DENNIS Primary Care Provider TIFFANY ALLEN Machine Hoop Maker Helper LUNA ANDREWS Freight Car Loader [phone] [facility] Phys. Med. & Rehab Assessment No assessment recorded. Plan of Treatment Reminders Order Date Submit Date Provider Last Modified By Organization Details Last Modified Time Details Appointments PE EST 2025 10:15A M Aly Dennis MD Not available Not available Not available Lab None recorded. Referral None recorded. Procedures None recorded. Surgeries None recorded. Imaging None recorded. Medication Orders cyclobenz aprine 5 mg tablet 2024 025 [facility][id number], [address] [place], [address], 03/04/2025 15:36:36 Patient TargetsNo targets recorded. Patient Instructions Encounter Date Encounter Id Patient Instructions Last Modified By Organization Details Last Modified Time 03/04/2025 [id number] Follow up if no improvement or if symptoms worsen. 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 None Reported. Results Created Date Observation Date Name Description Value Unit Range Abnormal Flag Note LastModifiedBy Organization Detail LastModifiedTime 02/27/2002/25/2025 XR, ribs, unila teral , w/ PA chest No observ ation [facility] ed. [facility] 3640 [facility] 207, [place], [address], 03/04/2025 15:29:44 02/27/20 25 02/25/2025 XR, thora [...] fractu re or disloc ation. Examin ation [id number]. Thank you for annette hopper me to partic ipate in the care of this patien t. WSN: [id number] Orderi ward Physic thom: Yosi Malin Dictat ed By: Seymour Burks MD Dictat ed Date/T yoshi: 5:53 pm Review ed By: Seymour Burks MD Signed By: Seymour Burks MD Signed Date/T yoshi: 5:53 pm Transc ribed By: KRISTOPHER Transc ribed Date/T yoshi: 5:53 pm Patien t Class: Outpat ient pmadden [facility] (Outpt Imaging) [address] , [place], [address], 03/04/2025 15:29:44 02/27/20 25 02/25/2025 XR, ribs, unila teral , w/ PA chest PA chest and left RIBS 5 views dated 2024. Compar avi films are from Novemb er 2018. HISTOR Y: Pain. FINDIN GS: The cardia [...] pneumo thorax is apprec iated. Examin ation [id number]. Thank you for rhondai ward me to partic ipate in the care of this delilah palumbo. WSN: [id number] Orderi ng Physic thom: Yosi Malin Dictat ed By: Seymour Burks MD Dictat ed Date/T yoshi: 5:54 pm Review ed By: Seymour Burks MD Signed By: Seymour Burks MD Signed Date/T yoshi: 5:54 pm Transc ribed By: KRISTOPHER Transc ribed Date/T yoshi: 5:54 pm Patiearle t Class: Outpat ient pmadden [facility] (Outpt Imaging) [address] [place] [address], [address], 03/04/2025 15:29:44 Result Notes None recorded. Problems Name Problem SNOMED Code Status Onset Date Resolution Date Notes Provider Name and Address Organization Details Recorded Time Hyperlipi demia 88942045 Active 2016 Darcie verdugo [facility] 9 15:16:16 Hypertrig lyceridem ia 212833807 Active 2016 Darcie verdugo [facility] 9 15:16:16 Chronic dermatiti s 56629209 Completed 201612/08/2019 Aly Dennis MD [address], [address] , [facility] 0 11:36:21 Obesity 008521862 Completed 201708/23/2017 Aly Dennis MD [address] [address], [address] , [facility] 8 14:40:23 Body mass index 30+ - obesity 534231305 Completed 201712/08/2019 Aly Dennis MD [address] [address], [address] , [facility] 5 10:59:47 Family history of malignant neoplasm of prostate 747971743 Active 2017 Darcie Christine kartik [facility] 9 15:16:16 Diverticu lar disease 499948901 Active 2017 Darcie Emmett verdugo [facility] 9 15:16:16 Internal hemorrhoi ds 66392565 Active 2017 Darcie Emmett verdugo [facility] 9 15:16:16 Environme ntal allergy 893333416 Active 2018 Darcie verdugo [facility] 9 15:16:16 Disorder of lumbar disc 167947891 Active 2019 Aly Dennis MD [address] [facility] [address], [place], [address] , [facility] 0 08:34:20 Eczema 68599232 Active 2019 Aly Dennis MD [address] [facility] [address], [place], [address] , [facility] 0 11:45:16 Elevated blood-pre ssure reading without diagnosis of hypertens ion 017451106 Completed 201901/11/2022 Aly Dennis MD [address] [facility] [address], [address] , [facility] 2 10:49:02 Impaired fasting glycemia 294389288 Completed 202002/21/2022 Aly Dennis MD [address] [facility] [address], [address] , [facility] 2 09:19:47 Gastroeso phageal reflux disease 133607381 Active 2020 Billy Malin PA-C [address] [facility] [address], [place], [address] , [facility] 1 11:29:00 Chronic low back pain 534397320 Active 2020 Billy Malin PA-C [address] [facility] [address], [place], [address] , [facility] 1 11:32:46 Skin lesion 91179957 Completed 202001/11/2022 Aly Dennis MD [address] [facility] [address], [place], [address] , [facility] 2 10:52:09 History of SARS-CoV- 2 36029749434 5198878 Active 2021 Aly Dennis MD [address] [facility] [address], [place], [address] , [facility] 2 10:52:00 Family history of hemochrom atosis 947021911 Active 2021 Aly Dennis MD [address] [facility] [address], [place], [address] , [facility] 2 10:54:54 Serum ferritin above reference range 095008655 Active 2022 Aly Dennis MD [address] [facility] [address], [place], [address] , [facility] 3 07:30:23 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 Procedures Surgical History Date Name Laterality Status Provider Name and Address Organization Details Recorded Time 07/05/19 23 biopsy of skin completed Aly Dennis MD [address] [address], [place], [address], [facility] 07/11/2022 22:29:09 05/08/20 18 Colonoscopy completed Martina Valentin [facility] 05/08/2018 12:09:45 08/11/19 17 Cerumen Removal completed Aly Dennis MD [address] [address], [place], [address], [facility] 08/10/2016 13:52:43 07/11/19 16 Create eardrum opening completed Gabby Underwood MA [facility] 08/10/2016 13:09:38 06/10/19 13 Other completed Gabby Underwood MA [facility] 08/10/2016 13:06:33 06/10/18 80 Orthopedic Surgery completed Aly Dennis MD [address] [address], [place], [address], [facility] 08/23/2017 14:49:00 06/10/18 78 Elbow arthroscopy/anthony earl completed Aly Dennis MD [address], [address], [facility] 08/25/2018 09:50:43 06/10/18 75 Ther fx nasal inf turbinate completed Aly Dennis MD [address] [address], [place], [address], [facility] 08/25/2018 09:51:30 Imaging Results None recorded. Procedure Notes None recorded. Medical Equipment None Reported. Allergies Allergen ID Allergen Name Allergen Category Reaction Reaction Severity Criticality Documentation Date Start Date Code Code System Note Provider Name and Address Organization Details Recorded Time 13583 ragweed pollen environme nt Not available Not available Not available 06/23/2021 Leatha Negro MA [facility] 2 10:50:00 No known drug allergies Medications [...] Updated DateTime 5 171.45 cm 34.7 kg/m2 926905. 28 g 62 /min 97 % 97 % 98 [degF] 149/80 mm[Hg] 144/82 mm[Hg] Gabby lynch MA [facility] 5 14:54:55 Social History Question Answer Notes LastModified by Organizat ion Details LastModified Time Tobacco Smoking Status [facility]2016 13:01:06 Do You Have An Advance [...] Others? With Others ([place]), Daughter, And Dog awychowski Information not available 01/11/2022 Do You Take [...] Many Children Do You Have? 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 [facility] Information not available 08/10/2016 Do you or [...] Recorded Time Tdap 09/15/19 13 completed Darcie verdugo, [facility] 09/17/2018 15:16:17 COVID-19, mRNA, LNP-S, PF, 100 mcg/0.5mL dose or 50 mcg/0.25mL dose 06/22/19 21 completed [facility] 11/15/2022 10:13:21 COVID-19, mRNA, LNP-S, PF, 100 mcg/0.5mL dose or 50 mcg/0.25mL dose 07/20/19 21 completed CHELSI Brennan, [facility] 05/01/2021 15:54:10 Influenza, split virus, quadrivalent, PF 05/12/20 18 completed CHELSI Napier, [facility] 01/11/2022 13:20:43 Influenza, split virus, quadrivalent, PF 04/18/20 19 completed CHELSI Napier, [facility] 01/11/2022 13:20:43 Td (adult), 2 Lf tetanus toxoid, preservative free, adsorbed 04/18/20 23 completed CHELSI Newman, [facility] 04/18/2023 12:01:06 Influenza, split virus, trivalent, PF 06/19/19 25 cancelled patient objection Aly Dennis MD [address] [address], [place], [address], [facility] 07/21/2024 07:06:58 Influenza, split virus, trivalent, PF 03/04/20 25 completed Gabby owens, CHELSI verdugo [place] - [facility] 03/04/2025 16:10:02 Past Encounters Encounter ID Performer Location Encounter Start Date Encounter Closed Date Diagnosis/Indication Diagnosis SNOMED-CT Code Diagnosis ICD10 Code Diagnosis IMO Codes Diagnosis Note [id number] Aly Dennis MD Main Office [address] [address] 02/25/2025 14:36:58 02/25/2025 16:14:24 Chest wall pain 274789582 R07.89 393302 suspect has 2 potential etiologies for his pain - ? pud/gerd and / or L ribs/thora cic spinecheck xrayssee below for tmt Acute thor acic back pain 259502092 M54.6 11539722 Gastroesop hageal reflux disease without esophagitis 106671556 K21.9 684569 mild, discussed anti-reflu x measures, rec pepcid qd/prn - if no sig help, then consider ppi 9.25 - rec resume ppi qd ac mealstop diclofenac rather, tyl 500mg 1-2 tabs 3x/day as dirrec ice to L ribs prnalso rec salonpas patch o/nrtc in 1 wk for re-eval, sooner prn [id number] Aly Dennis MD Main Office [address] [place] [address] 03/04/2025 14:16:31 03/04/2025 15:38:32 Needs influenza immunization 168079998 Z23 19 YEARS AND OLDER ONLY Chest wall pain 01375729 6 R07.89 520527 suspect has 2 potential etiologies for his [...] (hs) Gastroesop hageal reflux disease without esophagitis 866926568 K21.9 336599 mild, discussed anti-reflu x measures, rec pepcid qd/prn - if no sig help, then consider ppi 9.25 - rec resume ppi qd ac mealstop diclofenac rather, tyl 500mg 1-2 tabs 3x/day as dirrec ice to L ribs prnalso rec salonpas patch o/nrtc in 1 wk for re-eval, sooner prn . - gerd better - cont ppi qd Diastasis recti 34522962 M62.08 1998 offered reassuranc e - is mild - rec core ex Health Concerns Section Related Observation LastModified by Organization Detai ls LastModified Time None Recorded Concern Status LastModified by Organization Details LastModified Time None Recorded Payers Encounter Date Sequence Insurance Name Policy Number Policy Wheeler Covered Member ID Wheeler Member ID Guarantor Name 03/04/2025 1 [facility]: [facility] [place] [id number] Roddy Ramos III [id number] Roddy Ramos III Notes Date Note Type Note Provider Name and Address Organization Details Recorded Time 5 text/html Patient c/o intermittent, left-sided flank [...] no coughingno trauma to ribsno brbpr, melena ..25 - here for 1 wk f/uhad nl xraysL lower rib pain is ~ 25% better - pain is intermittent, aggrav by movementtyl helps alleviatedoes recall lifting sheet rock - 6 panels 1 at a time ~ last month stomach is better c ppi Billy SANTOS-C [address] [address], [place], [address], [facility] 03/04/2025 17:09:53
== END 2025-03-05 10:47 | disposition home or self-care (01) ==
LOC: HO.BBR 10:46
PROVIDERS: PCP Pediatrics; Visit Provider Pediatrics
DX: Z13.89 Encounter for screening for other disorder (principal)

== ENCOUNTER 2025-04-02 09:48 | Outpatient (REF) | payer BC, SELFPAY ==
[2025-04-02 10:05] LABS: Hematocrit 44.2 % (42.0-52.0); Hemoglobin 14.8 g/dl (14.0-18.0)
--- OUTSIDE RECORDS SUMMARY | 2025-04-02 11:03 | XMS_ITS | Data Portability ---
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 Med. [...] 15:51:14 CBC w/ auto diff 2024 025 FARZANA [...] blood/ tissue 2022 023 [facility], [address], [address], [place], [address], 04/30/2023 10:44:11 CBC w/ auto diff 2022 023 [facility], [address], [address], [place], [address], 04/18/2023 14:53:35 Referral nutrit ionist /kylie galindo referr al 2024 025 [email or web address] Not available 06/19/2024 11:20:28 nutrit ionist /vinodi josie referr al 2022 023 [email or web address] Not available 05/28/2023 11:31:06 Procedures None record ed. Surgeries None record ed. Imaging XR, ribs, unilat eral, w/ PA chest 2024 025 [facility], [address] [place] [address], [address], 02/26/2025 19:04:49 XR, thorac ic spine 2024 025 [email or web address] [facility], [address] [place] [address], [address], 03/11/2025 10:43:26 XR, knee, 3 view - to assess left knee arthri tic burden 2024 025 [email or web address] [facility], [address] [place] [address], [address], 06/24/2024 09:28:19 Medication Orders cyclob enzapr ine 5 mg tablet 2024 025 [facility]/Pharmacy #[id number], [address] [place], [address], 03/21/2025 05:02:27 Fish Oil 1,000 mg (120 mg-180 mg) capsul e 2024 025 [facility]/Pharmacy #[id number], [address] [place], [address], 01/04/2025 15:45:40 omepra zole 20 mg capsul e,tim yed releas e 2024 025 [email or web address] [facility]/Pharmacy #[id number], [address] [facility], [place], [address], 06/19/2024 15:59:49 Patient Targets Encounter Date Encounter Id Patient Goals Patient Target Last Modified By Organization Details Last Modified Time 04/18/2023 [id number] half-way goal of Excess Body Weight Loss % 5 Not available Not available Not available Ongoing of LDL Direct <100 Not available Not available Not available Ongoing of LDL Direct yearly Not available Not available Not available 04/18/2023 [id number] Pt agrees to follow low fat diet, [...] By Organization Details Last Modified Time 04/18/2023 [id number] A healthy lifest yle: care instructions pmadden Not available 04/18/2023 11:55:37 Well Visit 50 to 65: Care Instructions pmadden Not available 04/18/2023 11:55:37 Starting a Weight-Loss Plan: Care Instructions pmadden Not available 04/18/2023 11:55:37 Medications (OTC , herbal therapies, supplements) reviewed and reconciled with patient and or caregiver, including potential side effects, drug interactions, instructions, and the consequences of not taking medication. Reviewed potential barriers to medication adherence, such as side effects from medication or cost of medication. pmadden Not available 04/18/2023 11:31:49 06/19/2024 [id number] gastroesophageal reflux disease (GERD): care instructions awychowski Not available 06/19/2024 11:09:26 hemochromatosis: care instructions awychowski Not available 06/19/2024 11:09:26 Prostate Cancer Screening awychowski Not available 06/19/2024 11:09:26 Starting a Weight-Loss Plan: Care Instructions awychowski Not available 06/19/2024 11:09:26 Nutrition Referr al and Weight Management Follow-up Information awdenisa Not available 06/19/2024 11:09:26 01/04/2025 [id number] elevated blood pressure: care instructions awychowski Not available 01/04/2025 15:51:12 Prostate Cancer Screening awychowski Not available 01/04/2025 15:45:35 hemochromatosis: care instructions awychowski Not available 01/04/2025 15:45:35 high cholesterol : care instructions awychowski Not available 01/04/2025 15:45:36 03/04/2025 [id number] Follow up if no improvement or if symptoms worsen. 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 Refer ral for Body mass index 30+ - obesity Referring Physician: Billy Malin, Internal Medicine, Encounter Date: 04/18/2023 Yarn Man/dietitian Refer ral for Body mass index 30+ - obesity Referring Physician: Aly Dennis, Family Medicine, Encounter Date: 06/19/2024 Results Created Date Observation Date Name Description Value Unit Range Abnormal Flag Note LastModifiedBy Organization Detail LastModifiedTime 04/18/2004/18/2023 COMPL ETE BLOOD COUNT WBC 7.1 K/mm3 (4.0-1 1.0) Not Available [facility] (Centralized Electronic Ordering - All Locations) Patient Can Go To The Location Of Their Choice, [id number] 04/18/2023 14:53:35 04/18/2004/18/2023 COMPL ETE BLOOD COUNT RBC 5.24 M/mm3 (4.70- 6.10) Not Available [facility] (Centralized Electronic Ordering - All Locations) Patient Can Go To The Location Of Their Choice, [id number] 04/18/2023 14:53:35 04/18/2004/18/2023 COMPL ETE BLOOD COUNT [...] Go To The Location Of Their Choice, [id number] 04/18/2023 14:53:35 04/18/2004/18/2023 COMPL ETE BLOOD COUNT abs. 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 Not Available [facility] (Centralized Electronic Ordering - All Locations) Patient Can Go To The Location Of Their Choice, [id number] 04/30/2023 10:44:11 06/24/19 25 06/24/2024 CBC WITH DIFFE RENTI AL/PL ATELE T WBC 8.1 x10e3 /uL 3.4-10 .8 normal Not Available [facility] ([facility]) [address] [place], [address], 06/25/2024 08:08:38 06/24/19 25 06/24/2024 CBC WITH DIFFE RENTI AL/PL ATELE T RBC 5.13 x10e6 /uL 4.14-5 .80 normal Not Available [facility] ([facility]) [address] [place], [address], 06/25/2024 08:08:38 06/24/19 25 06/24/2024 CBC WITH DIFFE RENTI AL/PL ATELE T hemoglobin 16.0 g/dL 13.0-1 7.7 normal Not Available [facility] ([facility]) [address] [place], [address], 06/25/2024 08:08:38 06/24/19 25 06/24/2024 CBC WITH DIFFE RENTI AL/PL ATELE T hematocrit 46.7 % 37.5-5 1.0 normal Not Available [facility] ([facility]) [address] [facility], [place], [address], 06/25/2024 08:08:38 06/24/19 25 06/24/2024 CBC WITH DIFFE RENTI AL/PL ATELE T MCV 91 fL 79-97 normal Not Available [facility] ([facility]) [address] [facility], [place], [address], 06/25/2024 08:08:38 06/24/19 25 06/24/2024 CBC WITH DIFFE RENTI AL/PL ATELE T MCH 31.2 pg 26.6-3 3.0 normal Not Available [facility] ([facility]) [address] [facility], [place], [address], 06/25/2024 08:08:38 06/24/19 25 06/24/2024 CBC WITH DIFFE RENTI AL/PL ATELE T MCHC 34.3 g/dL 31.5-3 5.7 normal Not Available [facility] ([facility]) [address] [facility], [place], [address], 06/25/2024 08:08:38 06/24/19 25 06/24/2024 CBC WITH DIFFE RENTI AL/PL ATELE T RDW 12.6 % 11.6-1 5.4 Not Available [facility] ([facility]) [address] [facility], [place], [address], 06/25/2024 08:08:38 06/24/1906/24/2024 CBC WITH DIFFE RENTI AL/PL ATELE T platelets 273 x10e3 /uL 150-45 0 normal Not Available [facility] ([facility]) [address] [place], [address], 06/25/2024 08:08:38 06/24/19 25 06/24/2024 CBC WITH DIFFE RENTI AL/PL ATELE T neutrophils 68 % not estab. normal Not Available [facility] ([facility]) [address] [facility], [place], [address], 06/25/2024 08:08:38 06/24/19 25 06/24/2024 CBC WITH DIFFE RENTI AL/PL ATELE T lymphs 19 % not estab. normal Not Available [facility] ([facility]) [address] [facility], [place], [address], 06/25/2024 08:08:38 06/24/19 25 06/24/2024 CBC WITH DIFFE RENTI AL/PL ATELE T monocytes 8 % not estab. normal Not Available [facility] ([facility]) [address] [facility], [place], [address], 06/25/2024 08:08:38 06/24/19 25 06/24/2024 CBC WITH DIFFE RENTI AL/PL ATELE T eos 3 % not estab. normal Not Available [facility] ([facility]) [address] [facility], [place], [address], 06/25/2024 08:08:38 06/24/19 25 06/24/2024 CBC WITH DIFFE RENTI AL/PL ATELE T basos 1 % not estab. normal Not Available [facility] ([facility]) [address] [facility], [place], [address], 06/25/2024 08:08:38 06/24/19 25 06/24/2024 CBC WITH DIFFE RENTI AL/PL ATELE T immature cells COMBINATION PRESSER Not Available [facility] ([facility]) [address] [facility], [place], [address], 06/25/2024 08:08:38 06/24/19 25 06/24/2024 CBC WITH DIFFE RENTI AL/PL ATELE T neutrophils (absolute) 5.6 x10e3 /uL 1.4-7. 0 normal Not Available [facility] ([facility]) [address] [facility], [place], [address], 06/25/2024 08:08:38 06/24/19 25 06/24/2024 CBC WITH DIFFE RENTI AL/PL ATELE T lymphs (absolute) 1.5 x10e3 /uL 0.7-3. 1 normal Not Available [facility] ([facility]) [address] [facility], [place], [address], 06/25/2024 08:08:38 06/24/19 25 06/24/2024 CBC WITH DIFFE RENTI AL/PL ATELE T monocytes(ab solute) 0.7 x10e3 /uL 0.1-0. 9 normal Not Available [facility] ([facility]) [address] [facility], [place], [address], 06/25/2024 08:08:38 06/24/19 25 06/24/2024 CBC WITH DIFFE RENTI AL/PL ATELE T eos (absolute) 0.2 x10e3 /uL 0.0-0. 4 normal Not Available [facility] ([facility]) [address] [facility], [place], [address], 06/25/2024 08:08:38 06/24/19 25 06/24/2024 CBC WITH DIFFE RENTI AL/PL ATELE T baso (absolute) 0.1 x10e3 /uL 0.0-0. 2 normal Not Available [facility] ([facility]) [address] [facility], [place], [address], 06/25/2024 08:08:38 06/24/19 25 06/24/2024 CBC WITH DIFFE RENTI AL/PL ATELE T immature granulocytes 1 % not estab. Not Available [facility] ([facility]) [address] [facility], [place], [address], 06/25/2024 08:08:38 06/24/19 25 06/24/2024 CBC WITH DIFFE RENTI AL/PL ATELE T immature grans (abs) 0.1 x10e3 /uL 0.0-0. 1 Not Available [facility] ([facility]) [address], [place], [address], 06/25/2024 08:08:38 06/24/19 25 06/24/2024 CBC WITH DIFFE RENTI AL/PL ATELE T NRBC COMBINATION PRESSER Not Available [facility] ([facility]) [address], [place], [address], 06/25/2024 08:08:38 06/24/19 25 06/24/2024 CBC WITH DIFFE RENTI AL/PL ATELE T hematology comments: COMBINATION PRESSER Not Available [facility] ([facility]) [address], [place], [address], 06/25/2024 08:08:38 06/24/19 25 06/24/2024 COMP. METAB OLIC PANEL (14) glucose 99 mg/dL 70-99 normal Not Available [facility] ([facility]) [address], [place], [address], 06/25/2024 08:08:38 06/24/19 25 06/24/2024 COMP. METAB OLIC PANEL (14) BUN 16 mg/dL 6-24 normal Not Available [facility] ([facility]) [address], [place], [address], 06/25/2024 08:08:38 06/24/19 25 06/24/2024 COMP. METAB OLIC PANEL (14) creatinine 0.99 mg/dL 0.76-1 .27 normal Not Available [facility] ([facility]) [address], [place], [address], 06/25/2024 08:08:38 06/24/19 25 06/24/2024 COMP. METAB OLIC PANEL (14) eGFR 89 mL/mi n/1.7 3 >59 normal Not Available [facility] ([facility]) [address], [place], [address], 06/25/2024 08:08:38 06/24/19 25 06/24/2024 COMP. METAB OLIC PANEL (14) BUN/creatini ne ratio 16 9-20 normal Not Available [facility] ([facility]) [address] [place], [address], 06/25/2024 08:08:38 06/24/19 25 06/24/2024 COMP. METAB OLIC PANEL (14) sodium 142 mmol/ L 134-14 4 normal Not Available [facility] ([facility]) [address] [place], [address], 06/25/2024 08:08:38 06/24/19 25 06/24/2024 COMP. METAB OLIC PANEL (14) potassium 4.2 mmol/ L 3.5-5. 2 normal Not Available [facility] ([facility]) [address] [place], [address], 06/25/2024 08:08:38 06/24/19 25 06/24/2024 COMP. METAB OLIC PANEL (14) chloride 103 mmol/ L 96-106 normal Not Available [facility] ([facility]) [address] [place], [address], 06/25/2024 08:08:38 06/24/19 25 06/24/2024 COMP. METAB OLIC PANEL (14) carbon dioxide, total 23 mmol/ L 20-29 normal Not Available [facility] ([facility]) [address] [place], [address], 06/25/2024 08:08:38 06/24/19 25 06/24/2024 COMP. METAB OLIC PANEL (14) calcium 9.8 mg/dL 8.7-10 .2 normal Not Available [facility] ([facility]) [address] [place], [address], 06/25/2024 08:08:38 06/24/19 25 06/24/2024 COMP. METAB OLIC PANEL (14) protein, total 6.7 g/dL 6.0-8. 5 normal Not Available [facility] ([facility]) [address] [place], [address], 06/25/2024 08:08:38 06/24/19 25 06/24/2024 COMP. METAB OLIC PANEL (14) albumin 4.4 g/dL 3.8-4. 9 normal Not Available [facility] ([facility]) [address] [place], [address], 06/25/2024 08:08:38 06/24/19 25 06/24/2024 COMP. METAB OLIC PANEL (14) globulin, total 2.3 g/dL 1.5-4. 5 Not Available [facility] ([facility]) [address] [place], [address], 06/25/2024 08:08:38 06/24/19 25 06/24/2024 COMP. METAB OLIC PANEL (14) bilirubin, total 0.5 mg/dL 0.0-1. 2 normal Not Available [facility] ([facility]) [address] [place], [address], 06/25/2024 08:08:38 06/24/19 25 06/24/2024 COMP. METAB OLIC PANEL (14) alkaline phosphatase 57 IU/L 44-121 normal Not Available [facility] ([facility]) [address] [place], [address], 06/25/2024 08:08:38 06/24/19 25 06/24/2024 COMP. METAB OLIC PANEL (14) AST (SGOT) 24 IU/L 0-40 normal Not Available [facility] ([facility]) [address] [place], [address], 06/25/2024 08:08:38 06/24/19 25 06/24/2024 COMP. METAB OLIC PANEL (14) ALT (SGPT) 28 IU/L 0-44 normal Not Available [facility] ([facility]) [address] [place], [address], 06/25/2024 08:08:38 06/24/19 25 06/24/2024 LIPID PANEL cholesterol, total 193 mg/dL 100-19 9 normal Not Available [facility] ([facility]) [address] [place], [address], 06/25/2024 08:08:39 06/24/19 25 06/24/2024 LIPID PANEL triglyceride s 118 mg/dL 0-149 normal Not Available [facility] ([facility]) [address] [place], [address], 06/25/2024 08:08:39 06/24/19 25 06/24/2024 LIPID PANEL HDL cholesterol 39 mg/dL >39 below low normal Not Available [facility] ([facility]) [address] [place], [address], 06/25/2024 08:08:39 06/24/19 25 06/24/2024 LIPID PANEL VLDL cholesterol rosanna 21 mg/dL 5-40 Not Available [facility] ([facility]) [address] [place], [address], 06/25/2024 08:08:39 06/24/19 25 06/24/2024 LIPID PANEL LDL chol calc ([facility]) 133 mg/dL 0-99 above high normal Not Available [facility] ([facility]) [address] [place], [address], 06/25/2024 08:08:39 06/24/19 25 06/24/2024 LIPID PANEL LDL calc comment: COMBINATION PRESSER Not Available [facility] ([facility]) [address] [place], [address], 06/25/2024 08:08:39 06/24/19 25 06/25/2024 PROST ATE-S [...] t be inter prete d as absol [place] [facility] prese nce or absen ce of [facility] se. Not Available [facility] ([facility]) [address] [place], [address], 06/25/2024 08:08:40 06/24/19 25 06/25/2024 BETTY TIN ferritin 587 NG/mL 30-400 above high normal Not Available [facility] ([facility]) [address] [place], [address], 06/25/2024 08:08:41 06/24/19 25 06/25/2024 C-ANANTH CTIVE PROTE IN, QUANT C-reactive protein, quant 2 mg/L 0-10 normal Not Available [facility] ([facility]) [address] [place], [address], 06/25/2024 08:08:42 12/30/19 25 12/30/2024 LIPID PANEL cholesterol, total 147 mg/dL 100-19 9 normal Not Available [facility] ([facility]) [address] [place], [address], 12/30/2024 08:08:13 12/30/19 25 12/30/2024 LIPID PANEL triglyceride s 192 mg/dL 0-149 above high normal Not Available [facility] ([facility]) [address] [place], [address], 12/30/2024 08:08:13 12/30/19 25 12/30/2024 LIPID PANEL HDL cholesterol 31 mg/dL >39 below low normal Not Available [facility] ([facility]) [address] [place], [address], 12/30/2024 08:08:13 12/30/19 25 12/30/2024 LIPID PANEL VLDL cholesterol rosanna 33 mg/dL 5-40 Not Available [facility] ([facility]) [address] [place], [address], 12/30/2024 08:08:13 12/30/19 25 12/30/2024 LIPID PANEL LDL chol calc ([facility]) 83 mg/dL 0-99 Not Available [facility] ([facility]) [address] [place], [address], 12/30/2024 08:08:13 12/30/19 25 12/30/2024 LIPID PANEL LDL calc comment: COMBINATION PRESSER Not Available [facility] ([facility]) [address] [place], [address], 12/30/2024 08:08:13 12/30/19 25 12/30/2024 ALT+A ST AST (SGOT) 19 IU/L 0-40 normal Not Available [facility] ([facility]) [address] [place], [address], 12/30/2024 08:08:13 12/30/19 25 12/30/2024 ALT+A ST ALT (SGPT) 26 IU/L 0-44 normal Not Available [facility] ([facility]) [address] [place], [address], 12/30/2024 08:08:13 12/30/19 25 12/30/2024 CK, TOTAL creatine kinase,total 89 U/L 41-331 normal Not Available [facility] ([facility]) [address] [facility], [place], [address], 12/30/2024 08:08:14 06/23/1906/23/2024 XR, knee, 1 or [...] 3:37 pm Patien t Class: Outpat ient [facility] (Outpt Imaging) [address], [place], [address], 01/04/2025 15:34:22 02/27/20 25 02/25/2025 XR, ribs, unila teral , w/ PA chest No observ ation record ed. [facility] [address] [facility] [address], [place], [address], 03/04/2025 15:29:44 02/27/20 25 02/25/2025 XR, thora [...] fractu re or disloc ation. Examin ation [id number]. Thank you for annette hopper me to partic ipate in the care of this patien t. WSN: [id number] Orderi ng Physic thom: Yosi Malin Dictat ed By: Seymour Burks MD Dictat ed Date/T yoshi: 5:53 pm Review ed By: Seymour Burks MD Signed By: Seymour Burks MD Signed Date/T yoshi: 5:53 pm Transc ribed By: CSB Transc ribed Date/T yoshi: 5:53 pm Patien t Class: Outpat ient pmadden [facility] (Outpt Imaging) [address] [place], [address], 03/04/2025 15:29:44 02/27/20 25 02/25/2025 XR, ribs, [...] pneumo thorax is apprec iated. Examin ation [id number]. Thank you for rhondai ward me to partic ipate in the care of this patien t. WSN: [id number] Orderi ng Physic thom: Yosi Malin Dictat ed By: Seymour Burks MD Dictat ed Date/T yoshi: 5:54 pm Review ed By: Seymour Burks MD Signed By: Seymour Burks MD Signed Date/T yoshi: 5:54 pm Transc ribed By: CSB Transc ribed Date/T yoshi: 5:54 pm Patien t Class: Outpat ient [facility] (Outpt Imaging) [address] [place], [address], 03/04/2025 15:29:44 Result Notes Documentation Provider Name and Address Organization Details Recorded Time Xr, Knee, 1 Or 2 View : Knee 1 or 2 Views Left, 2 views Reason: PAIN COMPARISON: None. FINDINGS: No bone lesions or fractures. Mild tricompartmental degenerative osteoarthritis but no evidence of osteochondral defect or intra-articular loose body. Very trace joint effusion. IMPRESSION: No acute abnormality. WSN: [id number] Ordering Physician: Aly Dennis Dictated By: Kelli Esqueda MD Dictated Date/Time: 06/23/24 3:38 pm Reviewed By: Kelli Esqueda MD Signed By: Kelli Esqueda MD Signed Date/Time: 06/23/24 3:38 pm Transcribed By: KRISTOPHER Transcribed Date/Time: 06/23/24 3:37 pm Patient Class: Outpatient Aly Dennis MD [address], [address], [facility] 01/04/2025 15:34:22 Xr, Thoracic Spine, 3 View : Thoracic spine 3 views dated February 25, 2025. No prior studies are available. HISTORY: Pain. FINDINGS: There is a mild accentuated thoracic kyphosis. There is minimal loss of intervertebral disc space height and osteophyte formation throughout. Paravertebral soft tissues are within normal limits. IMPRESSION: Degenerative changes. No evidence of fracture or dislocation. Examination 97998. Thank you for allowing me to participate in the care of this patient. WSN: [id number] Ordering Physician: Billy Malin Dictated By: Seymour Burks MD Dictated Date/Time: 02/26/25 5:53 pm Reviewed By: Seymour Burks MD Signed By: Seymour Burks MD Signed Date/Time: 02/26/25 5:53 pm Transcribed By: KRISTOPHER Transcribed Date/Time: 02/26/25 5:53 pm Patient Class: Outpatient Billy Malin PA-C [address] [place], [address], [facility] 03/04/2025 15:29:44 Xr, Ribs, Unilateral, W/ Pa [...] rib fracture or pneumothorax is appreciated. Examination 58943. Thank you for allowing me to participate in the care of this patient. WSN: [id number] Ordering Physician: Billy Malin Dictated By: Seymour Burks MD Dictated Date/Time: 02/26/25 5:54 pm Reviewed By: Seymour Burks MD Signed By: Seymour Burks MD Signed Date/Time: 02/26/25 5:54 pm Transcribed By: KRISTOPHER Transcribed Date/Time: 02/26/25 5:54 pm Patient Class: Outpatient Billy Malin PA-C [address] [address], [place], [address], [facility] 03/04/2025 15:29:44 Problems Name Problem SNOMED Code Status Onset Date Resolution Date Notes Provider Name and Address Organization Details Recorded Time Hyperlipi demia 78579157 Active 2016 Darcie verdugo [facility] 9 15:16:16 Hypertrig lyceridem ia 192527093 Active 2016 Darcie verdugo [facility] 9 15:16:16 Chronic dermatiti s 44968092 Completed 201612/08/2019 Aly Dennis MD [address] [facility] [address], [place], [address] , [facility] 0 11:36:21 Obesity 185395412 Completed 201708/23/2017 Aly Dennis MD [address] [address], [place], [address] , [facility] 8 14:40:23 Body mass index 30+ - obesity 955348263 Completed 201712/08/2019 Aly Dennis MD [address] [address], [place], [address] , [facility] 5 10:59:47 Family history of malignant neoplasm of prostate 184428708 Active 2017 Darcie verdugo, [facility] 9 15:16:16 Diverticu lar disease 150707239 Active 2017 Darcie verdugo, [facility] 9 15:16:16 Internal hemorrhoi ds 68210509 Active 2017 Darcie verdugo, [facility] 9 15:16:16 Environme ntal allergy 676125097 Active 2018 Darcieriana verdugo, [facility] 9 15:16:16 Disorder of lumbar disc 414324605 Active 2019 Aly Dennis MD [address] [address], [place], [address] , [facility] 0 08:34:20 Eczema 02883593 Active 2019 Aly Dennis MD [address] [address], [address] , [facility] 0 11:45:16 Elevated blood-pre ssure reading without diagnosis of hypertens ion 025443543 Completed 201901/11/2022 Aly Dennis MD [address] [address], [address] , [facility] 2 10:49:02 Impaired fasting glycemia 800043185 Completed 202002/21/2022 Aly Dennis MD [address] [address], [address] , [facility] 2 09:19:47 Gastroeso phageal reflux disease 715398463 Active 2020 Billy Malin PA-C [address] [facility] [address], [place], [address] , [facility] 1 11:29:00 Chronic low back pain 692168509 Active 2020 Billy Malin PA-C [address] [facility] [address], [place], [address] , [facility] 1 11:32:46 Skin lesion 39868441 Completed 202001/11/2022 Aly Dennis MD [address] [facility] [address], [place], [address] , [facility] 2 10:52:09 History of SARS-CoV- 2 88039282933 7301964 Active 2021 Aly Dennis MD [address] [facility] [address], [place], [address] , [facility] 2 10:52:00 Family history of hemochrom atosis 098321559 Active 2021 Aly Dennis MD [address] [facility] [address], [place], [address] , [facility] 2 10:54:54 Serum ferritin above reference range 459441293 Active 2022 Aly Dennis MD [address] [facility] [address], [place], [address] , [facility] 3 07:30:23 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 Procedures Surgical History Date Name Laterality Status Provider Name and Address Organization Details Recorded Time 07/05/19 23 biopsy of skin completed Aly Dennis MD [address] [address], [place], [address], [facility] 07/11/2022 22:29:09 05/08/20 18 Colonoscopy completed Martina Valetnin [facility] 05/08/2018 12:09:45 08/11/19 17 Cerumen Removal completed Aly Dennis MD [address] [address], [place], [address], [facility] 08/10/2016 13:52:43 07/11/19 16 Create eardrum opening completed Gabby Underwood MA [facility] 08/10/2016 13:09:38 06/10/19 13 Other completed Gabby Underwood MA [facility] 08/10/2016 13:06:33 06/10/18 80 Orthopedic Surgery completed Aly Dennis MD [address] [address], [place], [address], [facility] 08/23/2017 14:49:00 06/10/18 78 Elbow arthroscopy/anthony earl completed Aly Dennis MD [address] [address], [place], [address], [facility] 08/25/2018 09:50:43 06/10/18 75 Ther fx nasal inf turbinate completed Aly Dennis MD [address], [place], [address], [facility] 08/25/2018 09:51:30 Imaging Results None recorded. Procedure Notes None recorded. Medical Equipment None Reported. Allergies Allergen ID Allergen Name Allergen Category Reaction Reaction Severity Criticality Documentation Date Start Date Code Code System Note Provider Name and Address Organization Details Recorded Time 40459 ragweed pollen environme nt Not available Not available Not available 06/23/2021 CHELSI Napier, [facility] 2 10:50:00 No known drug allergies Medications [...] oral route at bedtime for 10 days. 03/21 completed Not Available Not Available Not Available [...] Updated DateTime 5 171.45 cm 36 kg/m2 670839. 02 g 66 /min 97 % 97 % 97.7 [degF] 149/87 mm[Hg] Gabby lynch MA [facility] 5 10:31:04 Date Recorded Body height Body mass index (BMI) Body weight Heart rate Oxygen saturation Oxygen saturation in Arterial blood by Pulse oximetry Body temperature Systolic And Diastolic Provider Name and Address Organization Details Last Updated DateTime 5 171.45 cm 34.7 kg/m2 646082. 28 g 68 /min 97 % 97 % 98.2 [degF] 130/74 mm[Hg] Melanie Magallanes [facility] 5 15:06:21 Date Recorded Body height Body mass index (BMI) Body weight Heart rate Oxygen saturation Oxygen saturation in Arterial blood by Pulse oximetry Body temperature Pain severity - 0-10 verbal numeric rating [Score] - Reported Systolic And Diastolic Provider Name and Address Organization Details Last Updated DateTime 5 171.45 cm 34.6 kg/m2 236450. 69 g 71 /min 96 % 96 % 97.3 [degF] 6 153/86 mm[Hg] Gabby lynch MA [facility] 5 15:06:39 Date Recorded Body height Body mass index (BMI) Body weight Heart rate Oxygen saturation Oxygen saturation in Arterial blood by Pulse oximetry Body temperature Systolic And Diastolic Systolic And Diastolic Provider Name and Address Organization Details Last Updated DateTime 5 171.45 cm 34.7 kg/m2 680984. 28 g 62 /min 97 % 97 % 98 [degF] 149/80 mm[Hg] 144/82 mm[Hg] Gabby lynch MA [facility] 5 14:54:55 Date Recorded Body height Body mass index (BMI) Body weight Oxygen saturation Oxygen saturation in Arterial blood by Pulse oximetry Heart rate Body temperature Systolic And Diastolic Provider Name and Address Organization Details Last Updated DateTime 3 171.45 cm 33.8 kg/m2 40213.7 3 g 98 % 98 % 64 /min 98.3 [degF] 124/78 mm[Hg] Stefany Sutherland MA [facility] 3 10:56:04 Social History Question Answer Notes LastModified by Organizat ion Details LastModified Time Tobacco Smoking Status [facility] 13:01:06 Do You Have An Advance Directive? 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 [facility] Information not available 08/10/2016 Do you [...] History Condition Response Other N Gout N Blood Diseases N Kidney Stones N Hyperthyroidism N Breast Cancer N Lung Disease N COPD N Depression N Hypothyroidism N Defects or Inherited Disease [...] Eczema N Diverticulitis N Abuse/Domestic Violence N Allergies N Asthma N Reflux/GERD N Hepatitis N Pulmonary Embolism N Hypertension N Osteoporosis N Chicken Pox N Autism Spectrum Disorder (ASD) N Immunizations Vaccine Type Date Status Note Provider Name and Address Organization Details Recorded Time Tdap 09/15/19 13 completed Darcie verdugo [facility] 09/17/2018 15:16:17 COVID-19, mRNA, LNP-S, PF, 100 mcg/0.5mL dose or 50 mcg/0.25mL dose 06/22/19 21 completed CHELSI Munoz [facility] 11/15/2022 10:13:21 COVID-19, mRNA, LNP-S, PF, 100 mcg/0.5mL dose or 50 mcg/0.25mL dose 07/20/19 21 completed CHELSI Brennan [facility] 05/01/2021 15:54:10 Influenza, split virus, quadrivalent, PF 05/12/20 18 completed CHELSI Napier [facility] 01/11/2022 13:20:43 Influenza, split virus, quadrivalent, PF 04/18/20 19 completed [facility] 01/11/2022 13:20:43 Td (adult), 2 Lf tetanus toxoid, preservative free, adsorbed 04/18/20 23 [facility] 12:01:06 Influenza, split virus, trivalent, PF 06/19/19 25 cancelled patient objection Aly Dennis MD [address], [address], [facility] 07/21/2024 07:06:58 Influenza, split virus, trivalent, PF 03/04/20 completed CHELSI Pearson, [facility] 03/04/2025 16:10:02 Past Encounters Encounter ID Performer Location Encounter Start Date Encounter Closed Date Diagnosis/Indication Diagnosis SNOMED-CT Code Diagnosis ICD10 Code Diagnosis IMO Codes Diagnosis Note [id number] Billy Malin PA-C Main Office [address] [place] [address] 03/12/2016 15:21:35 03/12/2016 16:43:33 Mixed hyperlipidemia 715743847 E78.2 Body mass index 30+ - obesity 795747985 E66.9 Z68.35 Otitis media 51173733 H6 6.92 chronic s/p tube placement by ENT ~ 8 months ago - cont. f/u c ENT [id number] Aly Dennis MD Main Office [address] [place] [address] 08/10/2016 12:38:07 08/10/2016 14:08:03 Adult health examination 425404990 Z00.00 Immunizati on status utd per pt, flu declined. Will screen based on risk factors. Regular dental and ophtho care advised as well as seat belt and sunscreen use. Distracted driving discussed. Advance directives in place. Body mass index 30+ - obesity 723655914 Z68.30 E66.9 Hyperlipidemia 68989368 E78.5 Foreign body in ear 7544 1006 T16.2XXA [id number] Aly Dennis MD Main Office [address] [place] [address] 10/29/2016 11:08:11 10/29/2016 12:18:58 Acute dermatitis 04934403 L30.9 Possible scabies vs contact dermatitis vs eczema. Less likely impetigino us or fungal. Will see if topical steroid helps and counseled on scabies pathophysi ology. Call inb/worse. Tinea corporis 33562014 B35.4 P{t will use OTC antifungal cream for 2 weeks and call inb/worse. [id number] Aly Dennis MD Main Office [address] [facility] [address] [place] [address] 08/23/2017 13:50:12 08/23/2017 15:05:32 Adult health examination 260845621 Z00.00 Immunizati on status utd, flu declined. Will screen based on risk factors. Regular dental and ophtho care advised as well as seat belt and sunscreen use. Distracted driving discussed. Advance directives in place. Obesity 891109086 E66.9 Body mass index 30+ - obesity 556155270 Z68.34 Hypertriglyceridemia 302 274503 E78.2 Hyperlipidemia 94251724 E78.5 Well controlled and meds tolerated. Will continue current dosing. Screening for malignant neoplasm of colon 188509049 Z12.11 [id number] TANYA Dsouza Main Office [address] [address] [place] [address] 11/22/2017 08:21:09 11/22/2017 09:21:49 Epistaxis 37752563 R04.0 continue to use vaseline, do not use saline spray. Chronic sinusitis 676825 00 J32.9 Continue amox TID as directed start zyrtec daily and flonase once daily- takes 3-5 days to kick in. stop nasal saline spray. hydration, rest. call/ return if not improved after amox, may need sinus CT. [id number] Aly Dennis MD Main Office [address] [address] [place] [address] 05/12/2018 09:36:24 05/12/2018 10:55:54 Needs influenza immunization 424461224 Z23 Low back pain 060596973 M54.5 Likely muscular but if recurrent or if additional symptoms develop will need formal PT, possibly MRI and PMR vs neurosurg eval. WIll work on core strengthen ing himself and call with any recurrence . Degenerati on of lumbar intervertebral disc 26756020 M51.36 L5/S1 on xray. Bilateral nature of pain makes disc disease/sp inal stenosis less likely but will need to be considered if pain recurs. [id number] Aly Dennis MD Main Office [address] [address] [place] [address] 08/25/2018 09:15:15 08/25/2018 10:13:54 Adult health examination 852078750 Z00.00 Immunizati on status utd, flu advised in the Fall. Will screen based on risk factors. Regular dental and ophtho care advised as well as seat belt and sunscreen use. Distracted driving discussed. Advance directives in place. Body mass index 30+ - obesity 240796822 Z68.34 Obesity 144166919 E66.9 Hypertriglyceridemia 302 241473 E78.2 Hyperlipidemia 07860986 E78.5 Well controlled and meds tolerated. Will continue current dosing. Screening for malignant neoplasm of colon 213681170 Z12.11 Screening utd. Due in 2027 unless symptoms or other risk factors arise in the meantime. Gastroesop hageal reflux disease 436189862 K21.9 Discussed wt loss and caffeine intake reduction. Will use H2B PRN. Call if symptoms persist/wo rsen. Seborrheic dermatitis of scalp 639455687 L21.0 Call inb/worse. Eczema 03108335 L30.9 c/w nummular eczema. WIll see if steroid helps. Advised to f/u with derm if persistent or changing. [id number] Aly Dennis MD Main Office [address] [address] [place] [address] 11/25/2018 14:16:12 11/25/2018 15:17:45 Chronic dermatitis 66524168 L30.9 Unclear if this is related to photosensi tivity vs allergic process/ec zema. See if po prednisone helps given degree of skin involvemen t then transition to topical. Given recurrence will ask derm to help characteri ze and provide treatment plan. Advised to call inb/worse in the meantime. Eczema 39682400 L30.9 Overall findings still suggestive of this, but given recurrence will ask derm for assistance with management . Gentle soap and moisturiza tion after bathing advised. [id number] Jhon Giang MD Main Office [address] [address] [place] [address] 04/18/2019 08:24:17 04/18/2019 08:29:17 Needs influenza immunization 662005747 Z23 [id number] Aly Dennis MD Main Office [address] [facility] [address] [place] [address] 06/11/2019 10:22:52 06/11/2019 11:33:17 Low back pain 758602510 M54.5 Likely muscular but reflex asymmetry is concerning for possible radiculopa thy. If persistent will need formal PT, possibly MRI and PMR vs neurosurg eval. WIll try NSAID, muscle relaxant, sleeping on firm surface and working on core strengthen ing himself for now. Call with any new symptom developmen t. [id number] Aly Dennis MD Main Office [address] [facility] [address] [place] [address] 06/15/2019 11:03:01 06/15/2019 12:13:52 Low back pain 681984975 M54.5 Likely muscular but reflex asymmetry is concerning for possible radiculopa thy. WIll continue with conservati ve home treatment for now. If persistent will need formal PT. Given recurrent nature will ask PMR for insight on how to prevent further recurrence and to see if imaging is warranted. Advised to call with any new symptom developmen t. [id number] Aly Dennis MD Main Office [address] [facility] [address] [place] [address] 06/22/2019 09:52:17 06/22/2019 10:34:55 Lumbar radiculopathy 530794316 M54.16 Persistent pain with radicular finding on exam and worsening chronic recurrent course. Further anatomical characteri zation warranted. Will try formal PT while waiting for physiatry eval next month. [id number] Aly Dennis MD Main Office [address] [facility] [address] [place] [address] 07/09/2019 08:04:29 07/09/2019 08:46:45 Low back strain 325208550 S39.012D Based on MRI findings pain is most likely from soft tissue source/mus teresa. Will continue PT but should be fine to return to work. Physiatry referral not done but would pursue only if symptoms recur. Will return to work after PT this week. [id number] Serjio Rick MD Main Office [address] [facility] [address] [place] [address] 09/22/2019 13:00:18 09/22/2019 15:31:50 Acute otitis media 7647721 H66.91 unable to visualize TM, will tx for presumed OM. amox bid x full 10 days, hydration, rest, tylenol or ibuprofen as needed for pain. call or return of sx not improving next week. 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 Will continue with current topical treatment for now, try otc hydrocorti sone cream to skin bid for 5 days. If not improving would use medrol as he cannot use steroid cream around the eye. Call if any pain or sx in eye. [id number] Aly Dennis MD Main Office [address] [facility] [address] [facility] [place] [address] 12/08/2019 10:44:19 12/08/2019 12:06:28 Adult health examination 200836265 Z00.00 Immunizati on status utd, flu advised in the Fall. Will screen based on risk factors. Regular dental and ophtho care advised as well as seat belt and sunscreen use. Distracted driving discussed. Advance directives in place. Disorder o f lumbar disc 997695945 M51.9 Stable, has completed Pt since recent flare and works on [employer]. Refer to PMR if recurrent. Varicella vaccination 68 428932 Z23 Body mass index 30+ - obesity 930959995 Z68.33 Obesity 514946910 E66.9 Hypertriglyceridemia 302 597667 E78.2 Hyperlipidemia 18969597 E78.5 Well controlled and meds tolerated. Will continue current dosing. Screening for malignant neoplasm of colon 723115226 Z12.11 Screening utd. Due in 2027 unless symptoms or other risk factors arise in the meantime. Gastroesop hageal reflux disease 336068961 K21.9 Discussed wt loss and caffeine intake reduction. Will use H2B PRN. Call if symptoms persist/wo rsen. Eczema 67434019 L30.9 c/w nummular eczema. Responding to topical triamcinol oneAdvised to f/u with derm if persistent or changing. Family his tory of malignant neoplasm of prostate 586184576 Z80.42 Elevated blood-pressure reading without diagnosis of hypertension 458886625 R03.0 Non sepcific changes on ECG without LVH. Will screen for other end organ damage. Start diuretic if BP >130/90 at f/u. Tinea cruris 135790118 B 35.6 Call inb/worse. [id number] [facility] [address] [facility] [address] [place] [address] 04/09/2020 08:01:39 04/09/2020 10:03:14 Eczema 92316937 L30.[id number] [facility] [address] [facility] [address] [facility] [place] [address] 06/16/2020 06:55:07 06/28/2020 11:20:10 Hyperlipidemia 12650986 E78.01 Well controlled and meds tolerated. Will continue current dosing. Disorder o f lumbar disc 726908408 M51.9 Imaging from 2019 showed some subtle disease. Responded well to PT in the past so will revisit. Refer to PMR if persistent /worse. Screening for malignant neoplasm of prostate 291703954 Z12.5 Due for screening before next appt. [id number] Billy Malin PA-C Main Office [address] [facility] [address] [facility] [place] [address] 01/09/2021 10:22:29 01/09/2021 11:32:25 Adult health examination 027248636 Z00.00 Varicella vaccination 68 852700 Z23 Hyperlipidemia 47216447 E78.5 Hepatitis C screening 41 8159352 Z11.59 Prostate s pecific antigen above reference range 967593105 R97.20 Eczema 09458202 L30.9 stable, cont f/u c derm Impaired f asting glycemia 547986280 R73.01 Body mass index 30+ - obesity 090895742 E66.9 Z68.33 Chronic low back pain 27 5671147 M54.5 better lately p PT, cont HEP Skin lesion 79515682 L98 .9 Gastroesop hageal reflux disease 113597629 K21.9 mild, discussed anti-reflu x measures, rec pepcid qd/prn - if no sig help, then consider ppi [id number] Amita cisneros MD Main Office [address] [address] [place] [address] 05/01/2021 15:23:46 05/01/2021 16:26:16 Low back pain 162808280 M54.51 Rest, stretching at home, start PT program twice a week. Can use naprosyn in the am and flexeril at night, sleep with pillow under knees or between knees. Likely muscular, call if not better with PT and medication s. [id number] Quan Metcalf MD Main Office [address] [address] [place] [address] 06/08/2021 08:44:19 06/08/2021 14:18:55 Herpes zoster 4225727 B02.9 viewed pic that he sent in, [...] rec get shingrix in ~ 6 months [id number] Jhon Giang MD [facility] [address] [place] [address] 06/23/2021 08:21:26 06/23/2021 15:41:04 Exposure to viral disease 6068469500 19804 Z03.818 [id number] Aly Dennis MD Main Office [address] [address] [place] [address] 01/11/2022 10:05:08 01/11/2022 11:10:01 Adult health examination 427619206 Z00.00 Immunizati on status utd, flu advised in the Fall. Will screen based on risk factors. Regular dental and ophtho care advised as well as seat belt and sunscreen use. Distracted driving discussed. Advance directives in place. Varicella vaccination 68 268826 Z23 Hypertriglyceridemia 302 011934 E78.2 Fairly well controlled on statin/fib rate. Consider adding fish oil Hyperlipidemia 18494364 E78.5 Well controlled and meds tolerated. Will continue current dosing. Body mass index 30+ - obesity 537348377 E66.9 Z68.33 Impaired f asting glycemia 741903093 R73.01 Will monitor/re assess. Family his tory of hemochromatosis 592889388 Z83.49 Nocturia 818704545 R35.1 Allergic conjunctivitis 335824885 H10.13 Continue lubricatin g drops, try allergy tx. [id number] Aly Dennis MD Main Office [address] [address] 11/15/2022 09:56:33 11/15/2022 10:36:30 Family history of hemochromatosis 697724937 Z83.49 Due for labs before next appt. Nocturia 033025781 R35.1 Hyperlipidemia 48591372 E78.5 Well controlled and meds tolerated. Will continue current dosing. [id number] Aly Dennis MD Main Office [address] [address] 04/18/2023 10:48:33 04/18/2023 12:00:37 Adult health examination 646773530 Z00.00 colon utd Eczema 55010720 L30.9 stable, cont f/u c derm Gastroesop hageal reflux disease 931394289 K21.9 mild, discussed anti-reflu x measures, rec pepcid qd/prn - if no sig help, then consider ppi Hypertriglyceridemia 302 230918 E78.2 stable, cont meds as dir Serum ferr itin above reference range 183231565 R77.8 + fh HH, will check for genetic mutation Family his tory of hemochromatosis 507995673 Z83.49 see above Requires a tetanus booster 564541463 Z23 Body mass index 30+ - obesity 590792801 E66.9 Z68.33 Pain of le ft knee region 6296594765 51650 M25.562 mild, int - likely d/t mild OA - defers xray for now, consider turmeric or prn tyl [id number] Aly Dennis MD Main Office [address] [facility] [address] [place] [address] 06/19/2024 09:57:02 06/19/2024 11:13:42 Adult health examination 885933410 Z00.00 Immunizati on status utd, flu advised in the Fall. Will screen based on risk factors. Regular dental and ophtho care advised as well as seat belt and sunscreen use. Distracted driving discussed. Advance directives in place. Influenza vaccination declined 166042732 Z28.21 Body mass index 30+ - obesity 153185035 E66.9 Z68.36 Gastroesop hageal reflux disease 798037158 K21.9 Symptoms well controlled without warning signs on PPI. Discussed wt loss and caffeine intake reduction. Will use H2B PRN. Call if symptoms persist/wo rsen. Nocturia 857183185 R35.1 Serum ferr itin above reference range 841492699 R77.8 Likely secondary to heterzygou s hemochroma tosis, will monitor with therapeuti c phlebotomy . Hereditary hemochromatosis 16941718 E83.110 Heterzygou s but with elevated ferritin will refer for phlebotomy . Administra tion of pneumococcal vaccine 29773381 Z23 Varicella vaccination 68 503194 Z23 Pain of le ft knee region 6683536676 18350 M25.562 Will go for imaging if persistent /worse. If significan t arthritic burden will refer to ortho. [id number] Aly Dennis MD Main Office [address] [facility] [address] [facility] [place] [address] 01/04/2025 14:30:35 01/04/2025 15:49:14 Hereditary hemochromatosis 87932769 E83.110 Heterozygo us, undergoing phlebotomy . WIll monitor labs. Hyperlipidemia 56520891 E78.5 Well controlled and meds tolerated. Will continue current dosing. Hypertriglyceridemia 302 523684 E78.2 Fairly well controlled on statin, will see if adding fish oil Nocturia 742293012 R35.1 Gastroesop hageal reflux disease 989175526 K21.9 Symptoms well controlled without warning signs on PPI. Discussed wt loss and caffeine intake reduction. Will use H2B PRN. Call if symptoms persist/wo rsen. Elevated blood-pressure reading without diagnosis of hypertension 555156194 R03.0 Blood pressure in the pre-hypert ensive range, almost normal today. Will monitor for end organ damage. [id number] Aly Dennis MD Main Office [address] [place] [address] 02/25/2025 14:36:58 02/25/2025 16:14:24 Chest wall pain 231424988 R07.89 [id number] suspect has 2 potential etiologies for his pain - ? pud/gerd and / or L ribs/thora cic spinecheck xrayssee below for tmt Acute thor acic back pain 813632307 M54.6 37115807 Gastroesop hageal reflux disease without esophagitis 251522733 K21.9 215890 mild, discussed anti-reflu x measures, rec pepcid qd/prn - if no sig help, then consider ppi 9.25 - rec resume ppi qd ac mealstop diclofenac rather, tyl 500mg 1-2 tabs 3x/day as dirrec ice to L ribs prnalso rec salonpas patch o/nrtc in 1 wk for re-eval, sooner prn [id number] Aly Dennis MD Main Office [address] [place] [address] 03/04/2025 14:16:31 03/04/2025 15:38:32 Needs influenza immunization 664488010 Z23 19 YEARS AND OLDER ONLY Chest wall pain 55408993 6 R07.89 [id number] suspect has 2 potential etiologies for his [...] (hs) Gastroesop hageal reflux disease without esophagitis 986659783 K21.9 470506 mild, discussed anti-reflu x measures, rec pepcid qd/prn - if no sig help, then consider ppi 9.25 - rec resume ppi qd ac mealstop diclofenac rather, tyl 500mg 1-2 tabs 3x/day as dirrec ice to L ribs prnalso rec salonpas patch o/nrtc in 1 wk for re-eval, sooner prn 9..25 - gerd better - cont ppi qd Diastasis recti 18646108 M62.08 1998 offered reassuranc e - is mild - rec core ex Health Concerns Section Related Observation LastModified by Organization Detai ls LastModified Time None Recorded Concern Status LastModified by Organization Details LastModified Time None Recorded Advance Directives Directive Y: HCP; Suresh Rowland Payers Insurance Date Sequence Insurance Name Policy Number Policy Wheeler Covered Member ID Wheeler Member ID Guarantor Name 03/27/2025 1 [facility] [place] [id number] Roddy Ramos III [id number] Roddy Ramos III Notes Date Note Type Note Provider Name and Address Organization Details Recorded Time 3 text/html Generic HPI TemplateReported by Patient here for annual pe. Billy Malin PA-C [address], [address], [facility] 04/18/2023 12:00:57 5 text/html Generic HPI TemplateReported by PatientHere for a physical, feels well. Seeing dentist and ophtho regularly. Aly Dennis MD [address] [address], [place], [address], [facility] 07/21/2024 07:11:46 5 text/html HyperlipidemiaReported by PatientHPIFor [...] andno cardiovascular disease. Aly Dennis MD [address] [address], [place], [address], [facility] 01/04/2025 15:51:34 5 text/html Patient c/o intermittent, [...] coughingno trauma to ribsno brbpr, melena Billy Kimo LOPEZ [address] [address], [place], [address], [facility] 02/26/2025 08:41:55 5 text/html Patient c/o intermittent, [...] no coughingno trauma to ribsno brbpr, melena 9..25 - here for 1 wk f/uhad nl xraysL lower rib pain is ~ 25% better - pain is intermittent, aggrav by movementtyl helps alleviatedoes recall lifting sheet rock - 6 panels 1 at a time ~ last month stomach is better c ppi Billy Malin PA-C [address] [address], [place], [address], [facility] 03/04/2025 17:09:53
== END 2025-04-02 09:49 | disposition home or self-care (01) ==
LOC: HO.BBR 09:48
PROVIDERS: PCP Pediatrics; Visit Provider Pediatrics
DX: E83.110 Hereditary hemochromatosis (principal)
CPT/HCPCS: 36415; 85014; 85018

== ENCOUNTER 2025-05-03 09:50 | Outpatient (REF) | payer BC, SELFPAY ==
[2025-05-03 10:03] LABS: Hematocrit 44.1 % (42.0-52.0); Hemoglobin 14.8 g/dl (14.0-18.0)
[2025-05-03 11:29] LABS: Ferritin 19 ng/mL (20-250)
--- OUTSIDE RECORDS SUMMARY | 2025-05-03 11:39 | XMS_ITS | Continuity of Care Document ---
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 Med. [...] cyclobenz aprine 5 mg tablet 2024 025 [facility]/Pharmacy #[id number], [address] [place], [address], 03/21/2025 05:02:27 Patient TargetsNo targets recorded. Patient Instructions Encounter Date Encounter Id Patient Instructions Last Modified By Organization Details Last Modified Time 03/04/2025 [id number] Follow up if no improvement or if symptoms worsen. 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 None Reported. Results Created Date Observation Date Name Description Value Unit Range Abnormal Flag Note LastModifiedBy Organization Detail LastModifiedTime 02/27/2002/25/2025 XR, ribs, unila teral , w/ PA chest No observ ation record ed. [facility] [address] [facility] [address], [place], [address], 03/04/2025 15:29:44 02/27/20 25 02/25/2025 XR, thora [...] fractu re or disloc ation. Examin ation [id number]. Thank you for annette hopper me to partic ipate in the care of this patien t. WSN: [id number] Orderi ward Physic thom: Yosi Malin Dictat ed By: Seymour Burks MD Dictat ed Date/T yoshi: 5:53 pm Review ed By: Seymour Burks MD Signed By: Seymour Burks MD Signed Date/T yoshi: 5:53 pm Transc ribed By: KRISTOPHER Transc ribed Date/T yoshi: 5:53 pm Patien t Class: Outpat ient pmadden [facility] ([facility]) [address] , [place], [address], 03/04/2025 15:29:44 02/27/20 25 02/25/2025 XR, ribs, [...] pneumo thorax is apprec iated. Examin ation [id number]. Thank you for rhondai ward me to partic ipate in the care of this delilah palumbo. WSN: [id number] Orderi ng Physic thom: Yosi Malin Dictat ed By: Seymour Burks MD Dictat ed Date/T yoshi: 5:54 pm Review ed By: Seymour Burks MD Signed By: Seymour Burks MD Signed Date/T yoshi: 5:54 pm Transc ribed By: KRISTOPHER Transc ribed Date/T yoshi: 5:54 pm Patiearle t Class: Outpat ient pmadden [facility] ([facility]) [address] [place] [address], [address], 03/04/2025 15:29:44 Result Notes None recorded. Problems Name Problem SNOMED Code Status Onset Date Resolution Date Notes Provider Name and Address Organization Details Recorded Time Hyperlipi demia 57201853 Active 2016 Darcie verdugo [facility] 9 15:16:16 Hypertrig lyceridem ia 283135585 Active 2016 Darcie verdugo [facility] 9 15:16:16 Chronic dermatiti s 00737868 Completed 201612/08/2019 Aly Dennis MD [address] [address], [address] , [facility] 0 11:36:21 Obesity 827152699 Completed 201708/23/2017 Aly Dennis MD [address] [address], [address] , [facility] 8 14:40:23 Body mass index 30+ - obesity 533413240 Completed 201712/08/2019 Aly Dennis MD [address] [address], [address] , [facility] 5 10:59:47 Family history of malignant neoplasm of prostate 848379483 Active 2017 Darcie Christine kartik [facility] 9 15:16:16 Diverticu lar disease 767148022 Active 2017 Darcie Emmett verdugo [facility] 9 15:16:16 Internal hemorrhoi ds 75440186 Active 2017 Darcie Ememtt verdugo [facility] 9 15:16:16 Environme ntal allergy 302002988 Active 2018 Darcie verdugo [facility] 9 15:16:16 Disorder of lumbar disc 949424836 Active 2019 Aly Dennis MD [address] [facility] [address], [place], [address] , [facility] 0 08:34:20 Eczema 05161518 Active 2019 Aly Dennis MD [address] [facility] [address], [place], [address] , [facility] 0 11:45:16 Elevated blood-pre ssure reading without diagnosis of hypertens ion 022692842 Completed 201901/11/2022 Aly Dennis MD [address] [facility] [address], [address] , [facility] 2 10:49:02 Impaired fasting glycemia 532070145 Completed 202002/21/2022 Aly Dennis MD [address] [facility] [address], [address] , [facility] 2 09:19:47 Gastroeso phageal reflux disease 096747288 Active 2020 Billy Malin PA-C [address] [facility] [address], [place], [address] , [facility] 1 11:29:00 Chronic low back pain 129535198 Active 2020 Billy Malin PA-C [address] [facility] [address], [place], [address] , [facility] 1 11:32:46 Skin lesion 31953981 Completed 202001/11/2022 Aly Dennis MD [address] [facility] [address], [place], [address] , [facility] 2 10:52:09 History of SARS-CoV- 2 78317364931 0768168 Active 2021 Aly Dennis MD [address] [facility] [address], [place], [address] , [facility] 2 10:52:00 Family history of hemochrom atosis 588738579 Active 2021 Aly Dennis MD [address] [facility] [address], [place], [address] , [facility] 2 10:54:54 Serum ferritin above reference range 017239197 Active 2022 Aly Dennis MD [address] [facility] [address], [place], [address] , [facility] 3 07:30:23 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 Procedures Surgical History Date Name Laterality Status Provider Name and Address Organization Details Recorded Time 07/05/19 23 biopsy of skin completed Aly Dennis MD [address] [address], [place], [address], [facility] 07/11/2022 22:29:09 05/08/20 18 Colonoscopy completed Martina Valentin [facility] 05/08/2018 12:09:45 08/11/19 17 Cerumen Removal completed Aly Dennis MD [address] [address], [place], [address], [facility] 08/10/2016 13:52:43 07/11/19 16 Create eardrum opening completed Gabby Underwood MA [facility] 08/10/2016 13:09:38 06/10/19 13 Other completed Gabby Underwood MA [facility] 08/10/2016 13:06:33 06/10/18 80 Orthopedic Surgery completed Aly Dennis MD [address] [address], [place], [address], [facility] 08/23/2017 14:49:00 06/10/18 78 Elbow arthroscopy/anthony earl completed Aly Dennis MD [address], [address], [facility] 08/25/2018 09:50:43 06/10/18 75 Ther fx nasal inf turbinate completed Aly Dennis MD [address] [address], [place], [address], [facility] 08/25/2018 09:51:30 Imaging Results None recorded. Procedure Notes None recorded. Medical Equipment None Reported. Allergies Allergen ID Allergen Name Allergen Category Reaction Reaction Severity Criticality Documentation Date Start Date Code Code System Note Provider Name and Address Organization Details Recorded Time 60490 ragweed pollen environme nt Not available Not available Not available 06/23/2021 Leatha Negro MA [facility] 2 10:50:00 No known drug allergies [...] (BMI) Body weight Heart rate Oxygen saturation Body temperature Systolic And Diastolic Systolic And Diastolic Provider Name and Address Organization Details Last Updated DateTime 5 171.45 cm 34.7 kg/m2 493504. 28 g 62 /min 97 % 98 [degF] 149/80 mm[Hg] 144/82 mm[Hg] Gabby lynch MA [facility] 5 14:54:55 Social History Question Answer Notes LastModified by Organizat ion Details LastModified Time Tobacco Smoking Status [facility] 13:01:06 Do You Have [...] Many Children Do You Have? 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 [facility] Information not available 08/10/2016 Do you [...] Time Tdap 09/15/19 13 completed Darcie verdugo, [facility] 09/17/2018 15:16:17 COVID-19, mRNA, LNP-S, PF, 100 mcg/0.5mL dose or 50 mcg/0.25mL dose 06/22/19 21 completed CHELSI Munoz, [facility] 11/15/2022 10:13:21 COVID-19, mRNA, LNP-S, PF, 100 mcg/0.5mL dose or 50 mcg/0.25mL dose 07/20/19 21 completed Mikala Arizmendi [place] [facility], [facility] 05/01/2021 15:54:10 Influenza, split virus, quadrivalent, PF 05/12/20 18 completed CHELSI Napier, [facility] 01/11/2022 13:20:43 Influenza, split virus, quadrivalent, PF 04/18/20 19 completed CHELSI Napier, [facility] 01/11/2022 13:20:43 Td (adult), 2 Lf tetanus toxoid, preservative free, adsorbed 04/18/20 23 completed CHESLI Newman, [facility] 04/18/2023 12:01:06 Influenza, split virus, trivalent, PF 06/19/19 25 cancelled patient objection Aly Dennis MD [address] [address], [place], [address], [facility] 07/21/2024 07:06:58 Influenza, split virus, trivalent, PF 09/25/20 25 completed CHELSI Pearson [place] [facility] 03/04/2025 16:10:02 Past Encounters Encounter ID Performer Location Encounter Start Date Encounter Closed Date Diagnosis/Indication Diagnosis SNOMED-CT Code Diagnosis ICD10 Code Diagnosis IMO Codes Diagnosis Note [id number] Aly Dennis MD Main Office [address] [place] [address] 02/25/2025 14:36:58 02/25/2025 16:14:24 Chest wall pain 609075629 R07.89 880120 suspect has 2 potential etiologies for his pain - ? pud/gerd and / or L ribs/thora cic spinecheck xrayssee below for tmt Acute thor acic back pain 517615864 M54.6 82404367 Gastroesop hageal reflux disease without esophagitis 339992222 K21.9 015636 mild, discussed anti-reflu x measures, rec pepcid qd/prn - if no sig help, then consider ppi 9.25 - rec resume ppi qd ac mealstop diclofenac rather, tyl 500mg 1-2 tabs 3x/day as dirrec ice to L ribs prnalso rec salonpas patch o/nrtc in 1 wk for re-eval, sooner prn [id number] Aly Dennis MD Main Office [address] [place] [address] 03/04/2025 14:16:31 03/04/2025 15:38:32 Needs influenza immunization 812187042 Z23 19 YEARS AND OLDER ONLY Chest wall pain 67346060 6 R07.89 659832 suspect has 2 potential etiologies for his pain - ? pud/gerd and / or L ribs/thora cic spinecheck xrayssee below for tmt 03.04.25 - persists - believe pain d/t musculoske [...] (hs) Gastroesop hageal reflux disease without esophagitis 785102604 K21.9 200206 mild, discussed anti-reflu x measures, rec pepcid qd/prn - if no sig help, then consider ppi 9.25 - rec resume ppi qd ac mealstop diclofenac rather, tyl 500mg 1-2 tabs 3x/day as dirrec ice to L ribs prnalso rec salonpas patch o/nrtc in 1 wk for re-eval, sooner prn 03.04.25 - gerd better - cont ppi qd Diastasis recti 32736532 M62.08 1998 offered reassuranc e - is mild - rec core ex Health Concerns Section Related Observation LastModified by Organization Detai ls LastModified Time None Recorded Concern Status LastModified by Organization Details LastModified Time None Recorded Payers Encounter Date Sequence Insurance Name Policy Number Policy Wheeler Covered Member ID Wheeler Member ID Guarantor Name 03/04/[address] [facility] [place] [id number] Roddy Ramos III [id number] Roddy Ramos III Notes Date Note [...] month stomach is better c ppi Billy STONERC [address] [address], [place], [address], [facility] 03/04/2025 17:09:53
--- OUTSIDE RECORDS SUMMARY | 2025-05-03 11:39 | XMS_ITS | Data Portability ---
Author Organization [facility], Main Office Address [address] [facility] [address] [place] [address] Care Team Providers Care Oracle Forms Developer Name Role Phone ALY DENNIS Primary Care Provider TIFFANY ALLEN Mortgage Loan Officer Originator LUNA ANDREWS Assistant Production Editor [phone] [facility] Phys. Med. [...] blood/ tissue 2022 023 [facility], [address], [address], [place] [facility] [place], [address], 04/30/2023 10:44:11 CBC w/ auto diff 2022 023 [facility], [address], [address], [place], [address], 04/18/2023 14:53:35 Referral nutrit ionist /kylie galindo referr al 2024 025 [email or web address] Not available 06/19/2024 11:20:28 nutrit ionist /vinodi josie referr al 2022 023 [email or web address] Not available 05/28/2023 11:31:06 Procedures None record ed. Surgeries None record ed. Imaging XR, ribs, unilat eral, w/ PA chest 2024 025 [facility], [address] [place] [address], [id number], 02/26/2025 19:04:49 XR, thorac ic spine 2024 025 [email or web address] [facility], [address] [place] [address], [address], 03/11/2025 10:43:26 XR, knee, 3 view - to assess left knee arthri tic burden 2024 025 [email or web address] [facility], [address] [place] [address], [address], 06/24/2024 09:28:19 Medication Orders cyclob enzapr ine 5 mg tablet 2024 025 [facility]armacy #[id number], [address] [place], [address], 03/21/2025 05:02:27 Fish Oil 1,000 mg (120 mg-180 mg) capsul e 2024 025 [facility]acy #[id number], [address] [place], [address], 01/04/2025 15:45:40 omepra zole 20 mg capsul e,tim yed releas e 2024 025 [email or web address] [facility]/Pharmacy #[id number], [address] [facility], [place], [address], 06/19/2024 15:59:49 Patient Targets Encounter Date Encounter Id Patient Goals Patient Target Last Modified By Organization Details Last Modified Time 04/18/2023 [id number] 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 pmadden Not available 04/18/2023 11:31:49 06/19/2024 [id number] gastroesophageal reflux disease (GERD): care instructions awychowski Not available 06/19/2024 11:09:26 hemochromatosis: care instructions awychowski Not available 06/19/2024 11:09:26 Prostate Cancer Screening awychowski Not available 06/19/2024 11:09:26 Starting a Weight-Loss Plan: Care Instructions awychowski Not available 06/19/2024 11:09:26 Nutrition Referr al and Weight Management Follow-up Information [email or web address] Not available 06/19/2024 11:09:26 01/04/2025 [id number] elevated blood pressure: care instructions awychowski Not available 01/04/2025 15:51:12 Prostate Cancer Screening awychowski Not available 01/04/2025 15:45:35 hemochromatosis: care instructions awychowski Not available 01/04/2025 15:45:35 high cholesterol : care instructions awychowski Not available 01/04/2025 15:45:36 03/04/2025 [id number] Follow up if no improvement or if symptoms worsen. 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 Refer ral for Body mass index 30+ - obesity Referring Physician: Aly Dennis, Family Medicine, Encounter Date: 06/19/2024 Results Created Date Observation Date Name Description Value Unit Range Abnormal Flag Note LastModifiedBy Organization Detail LastModifiedTime 04/18/2004/18/2023 COMPL ETE BLOOD COUNT WBC 7.1 K/mm3 (4.0-1 1.0) Not Available [facility] (Centralized Electronic Ordering - All Locations) Patient Can Go To The Location Of Their Choice, [id number] 04/18/2023 14:53:35 04/18/2004/18/2023 COMPL ETE BLOOD COUNT RBC 5.24 M/mm3 (4.70- 6.10) Not Available [facility] (Centralized Electronic Ordering - All Locations) Patient Can Go To The Location Of Their Choice, [id number] 04/18/2023 14:53:35 04/18/2004/18/2023 COMPL ETE BLOOD COUNT [...] Go To The Location Of Their Choice, [id number] 04/18/2023 14:53:35 04/18/2004/18/2023 COMPL ETE BLOOD COUNT abs. 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 Not Available [facility] (Centralized Electronic Ordering - All Locations) Patient Can Go To The Location Of Their Choice, [id number] 04/30/2023 10:44:11 06/24/19 25 06/24/2024 CBC WITH DIFFE RENTI AL/PL ATELE T WBC 8.1 x10e3 /uL 3.4-10 .8 normal Not Available [facility] ([facility]) [address] [place], [address], 06/25/2024 08:08:38 06/24/19 25 06/24/2024 CBC WITH DIFFE RENTI AL/PL ATELE T RBC 5.13 x10e6 /uL 4.14-5 .80 normal Not Available [facility] ([facility]) [address] [place], [address], 06/25/2024 08:08:38 06/24/19 25 06/24/2024 CBC WITH DIFFE RENTI AL/PL ATELE T hemoglobin 16.0 g/dL 13.0-1 7.7 normal Not Available [facility] ([facility]) [address] [place], [address], 06/25/2024 08:08:38 06/24/19 25 06/24/2024 CBC WITH DIFFE RENTI AL/PL ATELE T hematocrit 46.7 % 37.5-5 1.0 normal Not Available [facility] ([facility]) [address] [facility], [place], [address], 06/25/2024 08:08:38 06/24/19 25 06/24/2024 CBC WITH DIFFE RENTI AL/PL ATELE T MCV 91 fL 79-97 normal Not Available [facility] ([facility]) [address] [facility], [place], [address], 06/25/2024 08:08:38 06/24/19 25 06/24/2024 CBC WITH DIFFE RENTI AL/PL ATELE T MCH 31.2 pg 26.6-3 3.0 normal Not Available [facility] ([facility]) [address] [facility], [place], [address], 06/25/2024 08:08:38 06/24/19 25 06/24/2024 CBC WITH DIFFE RENTI AL/PL ATELE T MCHC 34.3 g/dL 31.5-3 5.7 normal Not Available [facility] ([facility]) [address] [facility], [place], [address], 06/25/2024 08:08:38 06/24/19 25 06/24/2024 CBC WITH DIFFE RENTI AL/PL ATELE T RDW 12.6 % 11.6-1 5.4 Not Available [facility] ([facility]) [address] [facility], [place], [address], 06/25/2024 08:08:38 06/24/1906/24/2024 CBC WITH DIFFE RENTI AL/PL ATELE T platelets 273 x10e3 /uL 150-45 0 normal Not Available [facility] ([facility]) [address] [place], [address], 06/25/2024 08:08:38 06/24/19 25 06/24/2024 CBC WITH DIFFE RENTI AL/PL ATELE T neutrophils 68 % not estab. normal Not Available [facility] ([facility]) [address] [facility], [place], [address], 06/25/2024 08:08:38 06/24/19 25 06/24/2024 CBC WITH DIFFE RENTI AL/PL ATELE T lymphs 19 % not estab. normal Not Available [facility] ([facility]) [address] [facility], [place], [address], 06/25/2024 08:08:38 06/24/19 25 06/24/2024 CBC WITH DIFFE RENTI AL/PL ATELE T monocytes 8 % not estab. normal Not Available [facility] ([facility]) [address] [facility], [place], [address], 06/25/2024 08:08:38 06/24/19 25 06/24/2024 CBC WITH DIFFE RENTI AL/PL ATELE T eos 3 % not estab. normal Not Available [facility] ([facility]) [address] [facility], [place], [address], 06/25/2024 08:08:38 06/24/19 25 06/24/2024 CBC WITH DIFFE RENTI AL/PL ATELE T basos 1 % not estab. normal Not Available [facility] ([facility]) [address] [facility], [place], [address], 06/25/2024 08:08:38 06/24/19 25 06/24/2024 CBC WITH DIFFE RENTI AL/PL ATELE T immature cells TAKER OFF Not Available [facility] ([facility]) [address] [facility], [place], [address], 06/25/2024 08:08:38 06/24/19 25 06/24/2024 CBC WITH DIFFE RENTI AL/PL ATELE T neutrophils (absolute) 5.6 x10e3 /uL 1.4-7. 0 normal Not Available [facility] ([facility]) [address] [facility], [place], [address], 06/25/2024 08:08:38 06/24/19 25 06/24/2024 CBC WITH DIFFE RENTI AL/PL ATELE T lymphs (absolute) 1.5 x10e3 /uL 0.7-3. 1 normal Not Available [facility] ([facility]) [address] [facility], [place], [address], 06/25/2024 08:08:38 06/24/19 25 06/24/2024 CBC WITH DIFFE RENTI AL/PL ATELE T monocytes(ab solute) 0.7 x10e3 /uL 0.1-0. 9 normal Not Available [facility] ([facility]) [address] [facility], [place], [address], 06/25/2024 08:08:38 06/24/19 25 06/24/2024 CBC WITH DIFFE RENTI AL/PL ATELE T eos (absolute) 0.2 x10e3 /uL 0.0-0. 4 normal Not Available [facility] ([facility]) [address] [facility], [place], [address], 06/25/2024 08:08:38 06/24/19 25 06/24/2024 CBC WITH DIFFE RENTI AL/PL ATELE T baso (absolute) 0.1 x10e3 /uL 0.0-0. 2 normal Not Available [facility] ([facility]) [address] [facility], [place], [address], 06/25/2024 08:08:38 06/24/19 25 06/24/2024 CBC WITH DIFFE RENTI AL/PL ATELE T immature granulocytes 1 % not estab. Not Available [facility] ([facility]) [address] [facility], [place], [address], 06/25/2024 08:08:38 06/24/19 25 06/24/2024 CBC WITH DIFFE RENTI AL/PL ATELE T immature grans (abs) 0.1 x10e3 /uL 0.0-0. 1 Not Available [facility] ([facility]) [address] [place], [place], [address], 06/25/2024 08:08:38 06/24/19 25 06/24/2024 CBC WITH DIFFE RENTI AL/PL ATELE T NRBC TAKER OFF Not Available [facility] ([facility]) [address] [place] [address], [place], [address], 06/25/2024 08:08:38 06/24/19 25 06/24/2024 CBC WITH DIFFE RENTI AL/PL ATELE T hematology comments: TAKER OFF Not Available [facility] ([facility]) [address] [place] [address], [place], [address], 06/25/2024 08:08:38 06/24/19 25 06/24/2024 COMP. METAB OLIC PANEL (14) glucose 99 mg/dL 70-99 normal Not Available [facility] ([facility]) [address] [place], [place], [address], 06/25/2024 08:08:38 06/24/19 25 06/24/2024 COMP. METAB OLIC PANEL (14) BUN 16 mg/dL 6-24 normal Not Available [facility] ([facility]) [address] [place], [place], [address], 06/25/2024 08:08:38 06/24/19 25 06/24/2024 COMP. METAB OLIC PANEL (14) creatinine 0.99 mg/dL 0.76-1 .27 normal Not Available [facility] ([facility]) [address] [place], [place], [address], 06/25/2024 08:08:38 06/24/19 25 06/24/2024 COMP. METAB OLIC PANEL (14) eGFR 89 mL/mi n/1.7 3 >59 normal Not Available [facility] ([facility]) [address] [place], [place], [address], 06/25/2024 08:08:38 06/24/19 25 06/24/2024 COMP. METAB OLIC PANEL (14) BUN/creatini ne ratio 16 9-20 normal Not Available [facility] ([facility]) [address] [facility] [place], [address], 06/25/2024 08:08:38 06/24/19 25 06/24/2024 COMP. METAB OLIC PANEL (14) sodium 142 mmol/ L 134-14 4 normal Not Available [facility] ([facility]) [address] [facility] [place], [address], 06/25/2024 08:08:38 06/24/19 25 06/24/2024 COMP. METAB OLIC PANEL (14) potassium 4.2 mmol/ L 3.5-5. 2 normal Not Available [facility] ([facility]) [address] [facility] [place], [address], 06/25/2024 08:08:38 06/24/19 25 06/24/2024 COMP. METAB OLIC PANEL (14) chloride 103 mmol/ L 96-106 normal Not Available [facility] ([facility]) [address] [facility] [place], [address], 06/25/2024 08:08:38 06/24/19 25 06/24/2024 COMP. METAB OLIC PANEL (14) carbon dioxide, total 23 mmol/ L 20-29 normal Not Available [facility] ([facility]) [address] [facility] [place], [address], 06/25/2024 08:08:38 06/24/19 25 06/24/2024 COMP. METAB OLIC PANEL (14) calcium 9.8 mg/dL 8.7-10 .2 normal Not Available [facility] ([facility]) [address] [facility] [place], [address], 06/25/2024 08:08:38 06/24/19 25 06/24/2024 COMP. METAB OLIC PANEL (14) protein, total 6.7 g/dL 6.0-8. 5 normal Not Available [facility] ([facility]) [address] [place], [address], 06/25/2024 08:08:38 06/24/19 25 06/24/2024 COMP. METAB OLIC PANEL (14) albumin 4.4 g/dL 3.8-4. 9 normal Not Available [facility] ([facility]) [address] [place], [address], 06/25/2024 08:08:38 06/24/19 25 06/24/2024 COMP. METAB OLIC PANEL (14) globulin, total 2.3 g/dL 1.5-4. 5 Not Available [facility] ([facility]) [address] [place], [address], 06/25/2024 08:08:38 06/24/19 25 06/24/2024 COMP. METAB OLIC PANEL (14) bilirubin, total 0.5 mg/dL 0.0-1. 2 normal Not Available [facility] ([facility]) [address] [place], [address], 06/25/2024 08:08:38 06/24/19 25 06/24/2024 COMP. METAB OLIC PANEL (14) alkaline phosphatase 57 IU/L 44-121 normal Not Available [facility] ([facility]) [address] [place], [address], 06/25/2024 08:08:38 06/24/19 25 06/24/2024 COMP. METAB OLIC PANEL (14) AST (SGOT) 24 IU/L 0-40 normal Not Available [facility] ([facility]) [address] [place], [address], 06/25/2024 08:08:38 06/24/19 25 06/24/2024 COMP. METAB OLIC PANEL (14) ALT (SGPT) 28 IU/L 0-44 normal Not Available [facility] ([facility]) [address] [place], [address], 06/25/2024 08:08:38 06/24/19 25 06/24/2024 LIPID PANEL cholesterol, total 193 mg/dL 100-19 9 normal Not Available [facility] ([facility]) [address] [place], [address], 06/25/2024 08:08:39 06/24/19 25 06/24/2024 LIPID PANEL triglyceride s 118 mg/dL 0-149 normal Not Available [facility] ([facility]) [address] [place], [address], 06/25/2024 08:08:39 06/24/19 25 06/24/2024 LIPID PANEL HDL cholesterol 39 mg/dL >39 below low normal Not Available [facility] ([facility]) [address] [place], [address], 06/25/2024 08:08:39 06/24/19 25 06/24/2024 LIPID PANEL VLDL cholesterol rosanna 21 mg/dL 5-40 Not Available [facility] ([facility]) [address] [place], [address], 06/25/2024 08:08:39 06/24/19 25 06/24/2024 LIPID PANEL LDL chol calc ([facility]) 133 mg/dL 0-99 above high normal Not Available [facility] ([facility]) [address] [place], [address], 06/25/2024 08:08:39 06/24/19 25 06/24/2024 LIPID PANEL LDL calc comment: TAKER OFF Not Available [facility] ([facility]) [address] [place], [address], 06/25/2024 08:08:39 06/24/19 25 06/25/2024 PROST ATE-S [...] of savanna roman se. Not Available [facility] ([facility]) [address] [place], [address], 06/25/2024 08:08:40 06/24/19 25 06/25/2024 BETTY TIN ferritin 587 NG/mL 30-400 above high normal Not Available [facility] ([facility]) [address] [place], [address], 06/25/2024 08:08:41 06/24/19 25 06/25/2024 C-ANANTH CTIVE PROTE IN, QUANT C-reactive protein, quant 2 mg/L 0-10 normal Not Available [facility] ([facility]) [address] [place], [address], 06/25/2024 08:08:42 12/30/19 25 12/30/2024 LIPID PANEL cholesterol, total 147 mg/dL 100-19 9 normal Not Available [facility] ([facility]) [address] [place], [address], 12/30/2024 08:08:13 12/30/19 25 12/30/2024 LIPID PANEL triglyceride s 192 mg/dL 0-149 above high normal Not Available [facility] ([facility]) [address] [place], [address], 12/30/2024 08:08:13 12/30/19 25 12/30/2024 LIPID PANEL HDL cholesterol 31 mg/dL >39 below low normal Not Available [facility] ([facility]) [address] [facility] [place], [address], 12/30/2024 08:08:13 12/30/19 25 12/30/2024 LIPID PANEL VLDL cholesterol rosanna 33 mg/dL 5-40 Not Available [facility] ([facility]) [address] [place], [address], 12/30/2024 08:08:13 12/30/19 25 12/30/2024 LIPID PANEL LDL chol calc ([facility]) 83 mg/dL 0-99 Not Available [facility] ([facility]) [address] [place], [address], 12/30/2024 08:08:13 12/30/19 25 12/30/2024 LIPID PANEL LDL calc comment: TAKER OFF Not Available [facility] ([facility]) [address] [place], [address], 12/30/2024 08:08:13 12/30/19 25 12/30/2024 ALT+A ST AST (SGOT) 19 IU/L 0-40 normal Not Available [facility] ([facility]) [address] [place], [address], 12/30/2024 08:08:13 12/30/19 25 12/30/2024 ALT+A ST ALT (SGPT) 26 IU/L 0-44 normal Not Available [facility] ([facility]) [address] [place], [address], 12/30/2024 08:08:13 12/30/19 25 12/30/2024 CK, TOTAL creatine kinase,total 89 U/L 41-331 normal Not Available [facility] ([facility]) [address] [facility], [place], [address], 12/30/2024 08:08:14 06/23/1906/23/2024 XR, knee, 1 or [...] 3:37 pm Patien t Class: Outpat ient [facility] (Outpt Imaging) [address], [place], [address], 01/04/2025 15:34:22 02/27/20 25 02/25/2025 XR, ribs, unila teral , w/ PA chest No observ ation record ed. [facility] [address] [facility] [address], [place], [address], 03/04/2025 15:29:44 02/27/20 25 02/25/2025 XR, thora [...] fractu re or disloc ation. Examin ation [id number]. Thank you for annette hopper me to partic ipate in the care of this patien t. WSN: [id number] Orderi ng Physic thom: Yosi Malin Dictat ed By: Seymour Burks MD Dictat ed Date/T yoshi: 5:53 pm Review ed By: Seymour Burks MD Signed By: Seymour Burks MD Signed Date/T yoshi: 5:53 pm Transc ribed By: CSB Transc ribed Date/T yoshi: 5:53 pm Patien t Class: Outpat ient pmadden [facility] (Outpt Imaging) [address] [place], [address], 03/04/2025 15:29:44 02/27/20 25 02/25/2025 XR, ribs, [...] pneumo thorax is apprec iated. Examin ation [id number]. Thank you for rhondai ward me to partic ipate in the care of this patien t. WSN: [id number] Orderi ng Physic thom: Yosi Malin Dictat ed By: Seymour Burks MD Dictat ed Date/T yoshi: 5:54 pm Review ed By: Seymour Burks MD Signed By: Seymour Burks MD Signed Date/T yoshi: 5:54 pm Transc ribed By: CSB Transc ribed Date/T yoshi: 5:54 pm Patien t Class: Outpat ient [facility] (Outpt Imaging) [address] [place], [address], 03/04/2025 15:29:44 Result Notes Documentation Provider Name and Address Organization Details Recorded Time Xr, Knee, 1 Or 2 View : Knee 1 or 2 Views Left, 2 views Reason: PAIN COMPARISON: None. FINDINGS: No bone lesions or fractures. Mild tricompartmental degenerative osteoarthritis but no evidence of osteochondral defect or intra-articular loose body. Very trace joint effusion. IMPRESSION: No acute abnormality. WSN: [id number] Ordering Physician: Aly Dennis Dictated By: Kelli Esqueda MD Dictated Date/Time: 06/23/24 3:38 pm Reviewed By: Kelli Esqueda MD Signed By: Kelli Esqueda MD Signed Date/Time: 06/23/24 3:38 pm Transcribed By: KRISTOPHER Transcribed Date/Time: 06/23/24 3:37 pm Patient Class: Outpatient Aly Dennis MD [address], [address], [facility] 01/04/2025 15:34:22 Xr, Thoracic Spine, 3 View : Thoracic spine 3 views dated February 25, 2025. No prior studies are available. HISTORY: Pain. FINDINGS: There is a mild accentuated thoracic kyphosis. There is minimal loss of intervertebral disc space height and osteophyte formation throughout. Paravertebral soft tissues are within normal limits. IMPRESSION: Degenerative changes. No evidence of fracture or dislocation. Examination 47714. Thank you for allowing me to participate in the care of this patient. WSN: [id number] Ordering Physician: Billy Malin Dictated By: Seymour Burks MD Dictated Date/Time: 02/26/25 5:53 pm Reviewed By: Seymour Burks MD Signed By: Seymour Burks MD Signed Date/Time: 02/26/25 5:53 pm Transcribed By: KRISTOPHER Transcribed Date/Time: 02/26/25 5:53 pm Patient Class: Outpatient Billy Malin PA-C [address] [place], [address], [facility] [place] 03/04/2025 15:29:44 Xr, Ribs, Unilateral, W/ Pa [...] rib fracture or pneumothorax is appreciated. Examination 92447. Thank you for allowing me to participate in the care of this patient. WSN: [id number] Ordering Physician: Billy Malin Dictated By: Seymour Burks MD Dictated Date/Time: 02/26/25 5:54 pm Reviewed By: Seymour Burks MD Signed By: Seymour Burks MD Signed Date/Time: 02/26/25 5:54 pm Transcribed By: KRISTOPHER Transcribed Date/Time: 02/26/25 5:54 pm Patient Class: Outpatient Billy Malin PA-C [address] [address], [place], [address], [facility] [place] 03/04/2025 15:29:44 Problems Name Problem SNOMED Code Status Onset Date Resolution Date Notes Provider Name and Address Organization Details Recorded Time Hyperlipi demia 04492628 Active 2016 Darcie verdugo [facility] 9 15:16:16 Hypertrig lyceridem ia 410063949 Active 2016 Darcie verdugo [facility] 9 15:16:16 Chronic dermatiti s 25360016 Completed 201612/08/2019 Aly Dennis MD [address] [facility] [address], [place], [address] , [facility] [place] 0 11:36:21 Obesity 122369990 Completed 201708/23/2017 Aly Dennis MD [address] [address], [place], [address] , [facility] [place] 8 14:40:23 Body mass index 30+ - obesity 882511763 Completed 201712/08/2019 Aly Dennis MD [address] [address], [place], [address] , [facility] 5 10:59:47 Family history of malignant neoplasm of prostate 547292853 Active 2017 Darcie verdugo, [facility] 9 15:16:16 Diverticu lar disease 534882813 Active 2017 Darcie verdugo, [facility] 9 15:16:16 Internal hemorrhoi ds 68562260 Active 2017 Darcie verdugo, [facility] 9 15:16:16 Environme ntal allergy 273549964 Active 2018 Darcieriana verdugo, [facility] 9 15:16:16 Disorder of lumbar disc 385655759 Active 2019 Aly Dennis MD [address] [address], [place], [address] , [facility] 0 08:34:20 Eczema 33669016 Active 2019 Aly Dennis MD [address] [address], [address] , [facility] [place] 0 11:45:16 Elevated blood-pre ssure reading without diagnosis of hypertens ion 352521210 Completed 201901/11/2022 Aly Dennis MD [address] [address], [address] , [facility] 2 10:49:02 Impaired fasting glycemia 710625128 Completed 202002/21/2022 Aly Dennis MD [address] [address], [address] , [facility] 2 09:19:47 Gastroeso phageal reflux disease 844688100 Active 2020 Billy Malin PA-C [address] [facility] [address], [place], [address] , [facility] [place] 11:29:00 Chronic low back pain 589070727 Active 2020 Billy Malin PA-C [address] [facility] [address], [place], [address] , [facility] [place] [facility] 11:32:46 Skin lesion 12278891 Completed 202001/11/2022 Aly Dennis MD [address] [facility] [address], [place], [address] , [facility] [place] [facility] 10:52:09 History of SARS-CoV- 2 [id number] 6606051 Active 2021 Aly Dennis MD [address] [facility] [address], [place], [address] , [facility] [place] [facility] 10:52:00 Family history of hemochrom atosis 225975835 Active 2021 Aly Dennis MD [address] [facility] [address], [place], [address] , [facility] [place] [facility] 10:54:54 Serum ferritin above reference range 491933566 Active 2022 Aly Dennis MD [address] 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 [address], [place], [address] , [facility] [place] [facility] 10:59:00 Body mass index 30+ - obesity 326031511 Active 2024 Aly Dennis MD [address] [address], [place], [address] , [facility] [place] [facility] 10:59:47 Osteoarth ritis of left knee joint 61784423624 9109 Active 2024 Aly Dennis MD [address] [address], [place], [address] , [facility] [place] [facility] 09:25:50 Problem Notes None recorded. Procedures Surgical History Date Name Laterality Status Provider Name and Address Organization Details Recorded Time 07/05/19 23 biopsy of skin completed Aly Dennis MD [address] [address], [place], [address], [facility] [place] 07/11/2022 22:29:09 05/08/20 18 Colonoscopy completed Martina Valentin [facility] 05/08/2018 12:09:45 08/11/19 17 Cerumen Removal completed Aly Dennis MD [address] [address], [place], [address], [facility] [place] 08/10/2016 13:52:43 07/11/19 16 Create eardrum opening completed Gabby Underwood MA [facility] 08/10/2016 13:09:38 06/10/19 13 Other completed Gabby Underwood MA [facility] 08/10/2016 13:06:33 06/10/18 80 Orthopedic Surgery completed Aly Dennis MD [address] [address], [place], [address], [facility] [place] 08/23/2017 14:49:00 06/10/18 78 Elbow arthroscopy/anthony earl completed Aly Dennis MD [address] [address], [place], [address], [facility] [place] 08/25/2018 09:50:43 06/10/18 75 Ther fx nasal inf turbinate completed Aly Dennis MD [address], [place], [address], [facility] 08/25/[facility] 09:51:30 Imaging Results None recorded. Procedure Notes None recorded. Medical Equipment None Reported. Allergies Allergen ID Allergen Name Allergen Category Reaction Reaction Severity Criticality Documentation Date Start Date Code Code System Note Provider Name and Address Organization Details Recorded Time 49397 ragweed pollen environme nt Not available Not available Not available 06/23/2021 CHELSI Napier, [facility] 2 10:50:00 No known drug [...] Oxygen saturation Body temperature Systolic And Diastolic Provider Name and Address Organization Details Last Updated DateTime 5 171.45 cm 36 kg/m2 663858. 02 g 66 /min 97 % 97.7 [degF] 149/87 mm[Hg] Gabby lynch MA [facility] 5 10:31:04 Date Recorded Body height Body mass index (BMI) Body weight Heart rate Oxygen saturation Body temperature Systolic And Diastolic Provider Name and Address Organization Details Last Updated DateTime 5 171.45 cm 34.7 kg/m2 280098. 28 g 68 /min 97 % 98.2 [degF] 130/74 mm[Hg] Melanie Magallanes [facility] 5 15:06:21 Date Recorded Body height Body mass index (BMI) Body weight Heart rate Oxygen saturation Body temperature Pain severity - 0-10 verbal numeric rating [Score] - Reported Systolic And Diastolic Provider Name and Address Organization Details Last Updated DateTime 5 171.45 cm 34.6 kg/m2 287448. 69 g 71 /min 96 % 97.3 [degF] 6 153/86 mm[Hg] Gabby lynch [facility] 5 15:06:39 Date Recorded Body height Body mass index (BMI) Body weight Heart rate Oxygen saturation Body temperature Systolic And Diastolic Systolic And Diastolic Provider Name and Address Organization Details Last Updated DateTime 5 171.45 cm 34.7 kg/m2 024482. 28 g 62 /min 97 % 98 [degF] 149/80 mm[Hg] 144/82 mm[Hg] Gabby lynch MA [facility] 5 14:54:55 Date Recorded Body height Body mass index (BMI) Body weight Oxygen saturation Heart rate Body temperature Systolic And Diastolic Provider Name and Address Organization Details Last Updated DateTime 3 171.45 cm 33.8 kg/m2 46051.7 3 g 98 % 64 /min 98.3 [degF] 124/78 mm[Hg] Stefany Sutherland MA [facility] 3 10:56:04 Social History Question Answer Notes LastModified by Organizat ion Details LastModified Time Tobacco Smoking Status Never Smoker CHELSI Young [facility] 08/10/2016 13:01:06 Do You Have An Advance [...] Children Do You Have? 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 [email or web address] Information not available 08/10/2016 Do you [...] Time Tdap 09/15/19 13 completed Darcie verdugo [facility] 09/17/2018 15:16:17 COVID-19, mRNA, LNP-S, PF, 100 mcg/0.5mL dose or 50 mcg/0.25mL dose 06/22/19 21 completed CHELSI Munoz, [facility] 11/15/2022 10:13:21 COVID-19, mRNA, LNP-S, PF, 100 mcg/0.5mL dose or 50 mcg/0.25mL dose 07/20/19 21 completed CHELSI Brennan, [facility] 05/01/2021 15:54:10 Influenza, split virus, quadrivalent, PF 05/12/20 18 completed CHELSI Napier, [facility] 01/11/2022 13:20:43 Influenza, split virus, quadrivalent, PF 04/18/20 [facility] 13:20:43 Td (adult), 2 Lf tetanus toxoid, preservative free, adsorbed 04/18/20 23 completed CHELSI Newman, [facility] 04/18/2023 12:01:06 Influenza, split virus, trivalent, PF 06/19/19 25 cancelled patient objection Aly Dennis MD [address] [address], [place], [address], [facility] [place] 07/21/2024 07:06:58 Influenza, split virus, trivalent, PF 03/04/20 25 completed CHELSI Pearson, [place] - [facility] 03/04/2025 16:10:02 Past Encounters Encounter ID Performer Location Encounter Start Date Encounter Closed Date Diagnosis/Indication Diagnosis SNOMED-CT Code Diagnosis ICD10 Code Diagnosis IMO Codes Diagnosis Note [id number] Billy Malin PA-C Main Office [address] [address] [place] [address] 03/12/2016 15:21:35 03/12/2016 16:43:33 Mixed hyperlipidemia 094137375 E78.2 Body mass index 30+ - obesity 052192860 E66.9 Z68.35 Otitis media 93617349 H6 6.92 chronic s/p tube placement by ENT ~ 8 months ago - cont. f/u c ENT [id number] lAy Dennis MD Main Office [address] [address] [place] [address] 08/10/2016 12:38:07 08/10/2016 14:08:03 Adult health examination 714623698 Z00.00 Immunizati on status utd per pt, flu declined. Will screen based on risk factors. Regular dental and ophtho care advised as well as seat belt and sunscreen use. Distracted driving discussed. Advance directives in place. Body mass index 30+ - obesity 851256879 Z68.30 E66.9 Hyperlipidemia 65787169 E78.5 Foreign body in ear 7544 1006 T16.2XXA [id number] Aly Dennis MD Main Office [address] [address] [place] [address] 10/29/2016 11:08:11 10/29/2016 12:18:58 Acute dermatitis 67881802 L30.9 Possible scabies vs contact dermatitis vs eczema. Less likely impetigino us or fungal. Will see if topical steroid helps and counseled on scabies pathophysi ology. Call inb/worse. Tinea corporis 50035340 B35.4 P{t will use OTC antifungal cream for 2 weeks and call inb/worse. [id number] Aly Dennis MD Main Office [address] [address] [place] [address] 08/23/2017 13:50:12 08/23/2017 15:05:32 Adult health examination 020399623 Z00.00 Immunizati on status utd, flu declined. Will screen based on risk factors. Regular dental and ophtho care advised as well as seat belt and sunscreen use. Distracted driving discussed. Advance directives in place. Obesity 396437837 E66.9 Body mass index 30+ - obesity 109546632 Z68.34 Hypertriglyceridemia 302 876745 E78.2 Hyperlipidemia 74932608 E78.5 Well controlled and meds tolerated. Will continue current dosing. Screening for malignant neoplasm of colon 666122396 Z12.11 [id number] TANYA Dsouza Main Office [address] [facility] [address] [place] [address] 11/22/2017 08:21:09 11/22/2017 09:21:49 Epistaxis 44063824 R04.0 continue to use vaseline, do not use saline spray. Chronic sinusitis 592302 00 J32.9 Continue amox TID as directed start zyrtec daily and flonase once daily- takes 3-5 days to kick in. stop nasal saline spray. hydration, rest. call/ return if not improved after amox, may need sinus CT. [id number] Aly Dennis MD Main Office [address] [address] [place] [address] 05/12/2018 09:36:24 05/12/2018 10:55:54 Needs influenza immunization 648324162 Z23 Low back pain 758565533 M54.5 Likely muscular but if recurrent or if additional symptoms develop will need formal PT, possibly MRI and PMR vs neurosurg eval. WIll work on core strengthen ing himself and call with any recurrence . Degenerati on of lumbar intervertebral disc 09055063 M51.36 L5/S1 on xray. Bilateral nature of pain makes disc disease/sp inal stenosis less likely but will need to be considered if pain recurs. [id number] Aly Dennis MD Main Office [address] [facility] [address] [place] [address] 08/25/2018 09:15:15 08/25/2018 10:13:54 Adult health examination 957465130 Z00.00 Immunizati on status utd, flu advised in the Fall. Will screen based on risk factors. Regular dental and ophtho care advised as well as seat belt and sunscreen use. Distracted driving discussed. Advance directives in place. Body mass index 30+ - obesity 319604721 Z68.34 Obesity 988110228 E66.9 Hypertriglyceridemia 302 485970 E78.2 Hyperlipidemia 03083477 E78.5 Well controlled and meds tolerated. Will continue current dosing. Screening for malignant neoplasm of colon 071417971 Z12.11 Screening utd. Due in 2027 unless symptoms or other risk factors arise in the meantime. Gastroesop hageal reflux disease 733368317 K21.9 Discussed wt loss and caffeine intake reduction. Will use H2B PRN. Call if symptoms persist/wo rsen. Seborrheic dermatitis of scalp 277310637 L21.0 Call inb/worse. Eczema 61690209 L30.9 c/w nummular eczema. WIll see if steroid helps. Advised to f/u with derm if persistent or changing. [id number] Aly Dennis MD Main Office [address] [place] [address] 11/25/2018 14:16:12 11/25/2018 15:17:45 Chronic dermatitis 94069385 L30.9 Unclear if this is related to photosensi tivity vs allergic process/ec zema. See if po prednisone helps given degree of skin involvemen t then transition to topical. Given recurrence will ask derm to help characteri ze and provide treatment plan. Advised to call inb/worse in the meantime. Eczema 33693048 L30.9 Overall findings still suggestive of this, but given recurrence will ask derm for assistance with management . Gentle soap and moisturiza tion after bathing advised. [id number] Jhon Giang MD Main Office [address] [facility] [address] [place] [address] 04/18/2019 08:24:17 04/18/2019 08:29:17 Needs influenza immunization 040707518 Z23 [id number] Aly Dennis MD Main Office [address] [address] [place] [address] 06/11/2019 10:22:52 06/11/2019 11:33:17 Low back pain 191739791 M54.5 Likely muscular but reflex asymmetry is concerning for possible radiculopa thy. If persistent will need formal PT, possibly MRI and PMR vs neurosurg eval. WIll try NSAID, muscle relaxant, sleeping on firm surface and working on core strengthen ing himself for now. Call with any new symptom developmen t. [id number] Aly Dennis MD Main Office [address] [address] [place] [address] 06/15/2019 11:03:01 06/15/2019 12:13:52 Low back pain 576142622 M54.5 Likely muscular but reflex asymmetry is concerning for possible radiculopa thy. WIll continue with conservati ve home treatment for now. If persistent will need formal PT. Given recurrent nature will ask PMR for insight on how to prevent further recurrence and to see if imaging is warranted. Advised to call with any new symptom developmen t. [id number] Aly Dennis MD Main Office [address] [place] [address] 06/22/2019 09:52:17 06/22/2019 10:34:55 Lumbar radiculopathy 631500924 M54.16 Persistent pain with radicular finding on exam and worsening chronic recurrent course. Further anatomical characteri zation warranted. Will try formal PT while waiting for physiatry eval next month. [id number] Aly Dennis MD Main Office [address] [address] [place] [address] 07/09/2019 08:04:29 07/09/2019 08:46:45 Low back strain 576477841 S39.012D Based on MRI findings pain is most likely from soft tissue source/mus teresa. Will continue PT but should be fine to return to work. Physiatry referral not done but would pursue only if symptoms recur. Will return to work after PT this week. [id number] Serjio Rick MD Main Office [address] [address] [place] [address] 09/22/2019 13:00:18 09/22/2019 15:31:50 Acute otitis media 8555042 H66.91 unable to visualize TM, will tx for presumed OM. amox bid x full 10 days, hydration, rest, tylenol or ibuprofen as needed for pain. call or return of sx not improving next week. 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 Will continue with current topical treatment for now, try otc hydrocorti sone cream to skin bid for 5 days. If not improving would use medrol as he cannot use steroid cream around the eye. Call if any pain or sx in eye. [id number] Aly Dennis MD Main Office [address] [place] [address] 12/08/2019 10:44:19 12/08/2019 12:06:28 Adult health examination 094802769 Z00.00 Immunizati on status utd, flu advised in the Fall. Will screen based on risk factors. Regular dental and ophtho care advised as well as seat belt and sunscreen use. Distracted driving discussed. Advance directives in place. Disorder o f lumbar disc 072517237 M51.9 Stable, has completed Pt since recent flare and works on [employer]. Refer to PMR if recurrent. Varicella vaccination 68 144267 Z23 Body mass index 30+ - obesity 312936463 Z68.33 Obesity 684584109 E66.9 Hypertriglyceridemia 302 922382 E78.2 Hyperlipidemia 04341206 E78.5 Well controlled and meds tolerated. Will continue current dosing. Screening for malignant neoplasm of colon 276149970 Z12.11 Screening utd. Due in 2027 unless symptoms or other risk factors arise in the meantime. Gastroesop hageal reflux disease 649018545 K21.9 Discussed wt loss and caffeine intake reduction. Will use H2B PRN. Call if symptoms persist/wo rsen. Eczema 32660665 L30.9 c/w nummular eczema. Responding to topical triamcinol oneAdvised to f/u with derm if persistent or changing. Family his tory of malignant neoplasm of prostate 171445566 Z80.42 Elevated blood-pressure reading without diagnosis of hypertension 946605291 R03.0 Non sepcific changes on ECG without LVH. Will screen for other end organ damage. Start diuretic if BP >130/90 at f/u. Fransico dougherty 553850061 B 35.6 Call inb/worse. [id number] J[facility] [address] [facility] [address] [place] [address] 04/09/2020 08:01:39 04/09/2020 10:03:14 Eczema 86246331 L30.9 [id number] Aly Dennis MD [facility] [address] [facility] [address] [place] [address] 06/16/2020 06:55:07 06/28/2020 11:20:10 Hyperlipidemia 44532367 E78.01 Well controlled and meds tolerated. Will continue current dosing. Disorder o f lumbar disc 013573729 M51.9 Imaging from 2019 showed some subtle disease. Responded well to PT in the past so will revisit. Refer to PMR if persistent /worse. Screening for malignant neoplasm of prostate 675657210 Z12.5 Due for screening before next appt. [id number] Billy Malin PA-C Main Office [address] [facility] [address] [place] [address] 01/09/2021 10:22:29 01/09/2021 11:32:25 Adult health examination 778824339 Z00.00 Varicella vaccination 68 093665 Z23 Hyperlipidemia 95112967 E78.5 Hepatitis C screening 41 7221951 Z11.59 Prostate s pecific antigen above reference range 085486795 R97.20 Eczema 83754812 L30.9 stable, cont f/u c derm Impaired f asting glycemia 342370588 R73.01 Body mass index 30+ - obesity 556008292 E66.9 Z68.33 Chronic low back pain 27 3710329 M54.5 better lately p PT, cont HEP Skin lesion 79289512 L98 .9 Gastroesop hageal reflux disease 626911582 K21.9 mild, discussed anti-reflu x measures, rec pepcid qd/prn - if no sig help, then consider ppi [id number] Amita cisneros MD Main Office [address] [facility] [address] [place] [address] 05/01/2021 15:23:46 05/01/2021 16:26:16 Low back pain 321713338 M54.51 Rest, stretching at home, start PT program twice a week. Can use naprosyn in the am and flexeril at night, sleep with pillow under knees or between knees. Likely muscular, call if not better with PT and medication s. [id number] Quan Metcalf MD Main Office [address] [address] [place] [address] 06/08/2021 08:44:19 06/08/2021 14:18:55 Herpes zoster 7015699 B02.9 viewed pic that he sent in, [...] rec get shingrix in ~ 6 months [id number] Jhon Giang MD [facility] [address] [address] [place] [address] 06/23/2021 08:21:26 06/23/2021 15:41:04 Exposure to viral disease 7412863783 16967 Z03.818 [id number] Aly Dennis MD Main Office [address] [address] [place] [address] 01/11/2022 10:05:08 01/11/2022 11:10:01 Adult health examination 813836680 Z00.00 Immunizati on status utd, flu advised in the Fall. Will screen based on risk factors. Regular dental and ophtho care advised as well as seat belt and sunscreen use. Distracted driving discussed. Advance directives in place. Varicella vaccination 68 544894 Z23 Hypertriglyceridemia 302 991199 E78.2 Fairly well controlled on statin/fib rate. Consider adding fish oil Hyperlipidemia 30882274 E78.5 Well controlled and meds tolerated. Will continue current dosing. Body mass index 30+ - obesity 974814989 E66.9 Z68.33 Impaired f asting glycemia 111698557 R73.01 Will monitor/re assess. Family his tory of hemochromatosis 324298788 Z83.49 Nocturia 867320525 R35.1 Allergic conjunctivitis 159328889 H10.13 Continue lubricatin g drops, try allergy tx. [id number] Aly Dennis MD Main Office [address] [facility] [address] [facility] [address] 11/15/2022 09:56:33 11/15/2022 10:36:30 Family history of hemochromatosis 528527559 Z83.49 Due for labs before next appt. Nocturia 267473430 R35.1 Hyperlipidemia 76934528 E78.5 Well controlled and meds tolerated. Will continue current dosing. [id number] Aly Dennis MD Main Office [address] [facility] [address] [facility] [address] 04/18/2023 10:48:33 04/18/2023 12:00:37 Adult health examination 103666553 Z00.00 colon utd Eczema 65865959 L30.9 stable, cont f/u c derm Gastroesop hageal reflux disease 189243908 K21.9 mild, discussed anti-reflu x measures, rec pepcid qd/prn - if no sig help, then consider ppi Hypertriglyceridemia 302 895173 E78.2 stable, cont meds as dir Serum ferr itin above reference range 238744575 R77.8 + fh HH, will check for genetic mutation Family his tory of hemochromatosis 405131536 Z83.49 see above Requires a tetanus booster 846423802 Z23 Body mass index 30+ - obesity 398110947 E66.9 Z68.33 Pain of le ft knee region 9336030277 53020 M25.562 mild, int - likely d/t mild OA - defers xray for now, consider turmeric or prn tyl [id number] Aly Dennis MD Main Office [address] [facility] [address] [place] [address] 06/19/2024 09:57:02 06/19/2024 11:13:42 Adult health examination 678725993 Z00.00 Immunizati on status utd, flu advised in the Fall. Will screen based on risk factors. Regular dental and ophtho care advised as well as seat belt and sunscreen use. Distracted driving discussed. Advance directives in place. Influenza vaccination declined 708128929 Z28.21 Body mass index 30+ - obesity 470186742 E66.9 Z68.36 Gastroesop hageal reflux disease 082521195 K21.9 Symptoms well controlled without warning signs on PPI. Discussed wt loss and caffeine intake reduction. Will use H2B PRN. Call if symptoms persist/wo rsen. Nocturia 168239730 R35.1 Serum ferr itin above reference range 933288903 R77.8 Likely secondary to heterzygou s hemochroma tosis, will monitor with therapeuti c phlebotomy . Hereditary hemochromatosis 42914969 E83.110 Heterzygou s but with elevated ferritin will refer for phlebotomy . Administra tion of pneumococcal vaccine 13302268 Z23 Varicella vaccination 68 469409 Z23 Pain of le ft knee region 6690320295 84041 M25.562 Will go for imaging if persistent /worse. If significan t arthritic burden will refer to ortho. [id number] Aly Dennis MD Main Office [address] [facility] [address] [place] [address] 01/04/2025 14:30:35 01/04/2025 15:49:14 Hereditary hemochromatosis 13697615 E83.110 Heterozygo us, undergoing phlebotomy . WIll monitor labs. Hyperlipidemia 48049927 E78.5 Well controlled and meds tolerated. Will continue current dosing. Hypertriglyceridemia 302 504535 E78.2 Fairly well controlled on statin, will see if adding fish oil Nocturia 632925568 R35.1 Gastroesop hageal reflux disease 915757670 K21.9 Symptoms well controlled without warning signs on PPI. Discussed wt loss and caffeine intake reduction. Will use H2B PRN. Call if symptoms persist/wo rsen. Elevated blood-pressure reading without diagnosis of hypertension 015661929 R03.0 Blood pressure in the pre-hypert ensive range, almost normal today. Will monitor for end organ damage. [id number] Aly Dennis MD Main Office [address] [facility] [address] [facility] [place] [place] [address] 02/25/2025 14:36:58 02/25/2025 16:14:24 Chest wall pain 549134442 R07.89 [id number] suspect has 2 potential etiologies for his pain - ? pud/gerd and / or L ribs/thora cic spinecheck xrayssee below for tmt Acute thor acic back pain 228923453 M54.6 21217990 Gastroesop hageal reflux disease without esophagitis 419704635 K21.9 694899 mild, discussed anti-reflu x measures, rec pepcid qd/prn - if no sig help, then consider ppi 9.25 - rec resume ppi qd ac mealstop diclofenac rather, tyl 500mg 1-2 tabs 3x/day as dirrec ice to L ribs prnalso rec salonpas patch o/nrtc in 1 wk for re-eval, sooner prn [id number] Aly Dennis MD Main Office [address] [facility] [address] [place] [address] 03/04/2025 14:16:31 03/04/2025 15:38:32 Needs influenza immunization 829583314 Z23 19 YEARS AND OLDER ONLY Chest wall pain 29796272 6 R07.89 [id number] suspect has 2 potential etiologies for his [...] (hs) Gastroesop hageal reflux disease without esophagitis 565615429 K21.9 249362 mild, discussed anti-reflu x measures, rec pepcid qd/prn - if no sig help, then consider ppi 9.25 - rec resume ppi qd ac mealstop diclofenac rather, tyl 500mg 1-2 tabs 3x/day as dirrec ice to L ribs prnalso rec salonpas patch o/nrtc in 1 wk for re-eval, sooner prn 9.25.25 - gerd better - cont ppi qd Diastasis recti 43053770 M62.08 1998 offered reassuranc e - is mild - rec core ex Health Concerns Section Related Observation LastModified by Organization Detai ls LastModified Time None Recorded Concern Status LastModified by Organization Details LastModified Time None Recorded Advance Directives Directive Y: HCP; Alexandria Ramos, Suresh patricio Payers Insurance Date Sequence Insurance Name Policy Number Policy Wheeler Covered Member ID Wheeler Member ID Guarantor Name 03/27/2025 1 [place]: [facility] ([facility]) [id number] Roddy Ramos III [id number] Roddy Ramos III Notes Date Note Type Note Provider Name and Address Organization Details Recorded Time 3 text/html Generic HPI TemplateReported by Patient here for annual pe. Billy Malin PA-C [address] [address], [place], [address], [facility] 04/18/2023 12:00:57 5 text/html Generic HPI TemplateReported by PatientHere for a physical, feels well. Seeing dentist and ophtho regularly. Aly Dennis MD [address] [address], [place], [address], [facility] 07/21/2024 07:11:46 5 text/html HyperlipidemiaReported by PatientHPIFor [...] andno cardiovascular disease. Aly Dennis MD [address] [address], [place], [address], [facility] 01/04/2025 15:51:34 5 text/html Patient c/o intermittent, [...] coughingno trauma to ribsno brbpr, melena Billy STONERC [address] [facility] [address], [place], [address], [facility] 02/26/2025 08:41:55 5 text/html Patient c/o intermittent, [...] is better c ppi Billy Malin PA-C [address] [facility] [address], [place], [address], [facility] 03/04/2025 17:09:53
--- OUTSIDE RECORDS SUMMARY | 2025-05-03 11:39 | XMS_ITS | Continuity of Care Document ---
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 Med. & Rehab Assessment No assessment recorded. Plan of Treatment Reminders Order Date Submit Date Provider Last Modified By Organization Details Last Modified Time Details Appointments PE EST 2025 10:15A M Aly Dennis MD Not available Not available Not available Lab None record ed. Referral None record ed. Procedures None record ed. Surgeries None record ed. Imaging XR, ribs, unilat eral, w/ PA chest 2024 025 FARZANA [facility], [facility] [place], [address], 02/26/2025 19:04:49 XR, thorac ic spine 2024 025 [facility], [address] [place], [address], 03/11/2025 10:43:26 Medication Orders None record ed. Patient TargetsNo targets recorded. Patient InstructionsNo instructions recorded. Reason for Referral None Reported. Results Created Date Observation Date Name Description Value Unit Range Abnormal Flag Note LastModifiedBy Organization Detail LastModifiedTime 02/27/2002/25/2025 XR, ribs, unila teral , w/ PA chest No observ ation record [facility] [address], [place], [address], 03/04/2025 15:29:44 02/27/2002/25/2025 XR, thora cic spine , 3 view [...] fractu re or disloc ation. Examin ation [id number]. Thank you for annette hopper me to partic ipate in the care of this patien t. WSN: [id number] Orderi ward Physic thom: Yosi Malin Dictat ed By: Seymour Burks MD Dictat ed Date/T yoshi: 5:53 pm Review ed By: Seymour Burks MD Signed By: Seymour Burks MD Signed Date/T yoshi: 5:53 pm Transc ribed By: KRISTOPHER Transc ribed Date/T yoshi: 5:53 pm Patien t Class: Outpat ient [facility] (Outpt Imaging) [address], [place], [address], 03/04/2025 15:29:44 02/27/2002/25/2025 XR, ribs, unila teral , w/ PA chest PA chest and left RIBS 5 views dated Febem 2024. Compar avi films are from er 2017. HISTOR Y: Pain. FINDIN GS: [...] pneumo thorax is apprec iated. Examin ation [id number]. Thank you for allowi ng me to partic ipate in the care of this patien t. WSN: [id number] Orderi ng Physic thom: Yosi Malin Dictat ed By: Seymour Burks MD Dictat ed Date/T yoshi: 5:54 pm Review ed By: Seymour Burks MD Signed By: Seymour Burks MD Signed Date/T yoshi: 5:54 pm Transc ribed By: KRISTOPHER Transc ribed Date/T yoshi: 5:54 pm Patien t Class: Outpat ient [facility] (Outpt Imaging) [address] [place], [address], 03/04/2025 15:29:44 Result Notes Documentation Provider Name and Address Organization Details Recorded Time Xr, Thoracic Spine, 3 View : Thoracic spine 3 views dated February 25, 2025. No prior studies are available. HISTORY: Pain. FINDINGS: There is a mild accentuated thoracic kyphosis. There is minimal loss of intervertebral disc space height and osteophyte formation throughout. Paravertebral soft tissues are within normal limits. IMPRESSION: Degenerative changes. No evidence of fracture or dislocation. Examination [id number]. Thank you for allowing me to participate in the care of this patient. WSN: [id number] Ordering Physician: Billy Malin Dictated By: Seymour Burks MD Dictated Date/Time: 02/26/25 5:53 pm Reviewed By: Seymour Burks MD Signed By: Seymour Burks MD Signed Date/Time: 02/26/25 5:53 pm Transcribed By: KRISTOPHER Transcribed Date/Time: 02/26/25 5:53 pm Patient Class: Outpatient Billy SANTOS-C [address] [facility] [address] [facility], [place], [address], [facility] 03/04/2025 15:29:44 Xr, Ribs, Unilateral, W/ Pa [...] rib fracture or pneumothorax is appreciated. Examination 35367. Thank you for allowing me to participate in the care of this patient. WSN: [id number] Ordering Physician: Billy Malin Dictated By: Seymour Burks MD Dictated Date/Time: 02/26/25 5:54 pm Reviewed By: Seymour Burks MD Signed By: Seymour Burks MD Signed Date/Time: 02/26/25 5:54 pm Transcribed By: KRISTOPHER Transcribed Date/Time: 02/26/25 5:54 pm Patient Class: Outpatient Billy Malin PA-C [address] [address], [place], [address], [facility] 03/04/2025 15:29:44 Problems Name Problem SNOMED Code Status Onset Date Resolution Date Notes Provider Name and Address Organization Details Recorded Time Hyperlipi demia 97534404 Active 2016 Darcie verdugo [facility] 9 15:16:16 Hypertrig lyceridem ia 302791938 Active 2016 Darcie verdugo [facility] 9 15:16:16 Chronic dermatiti s 35870339 Completed 201612/08/2019 Aly Dennis MD [address] [facility] [address], [place], [address] , [facility] 0 11:36:21 Obesity 140442589 Completed 201708/23/2017 Aly Dennis MD [address] [facility] [address], [place], [address] , [facility] 8 14:40:23 Body mass index 30+ - obesity 242644127 Completed 201712/08/2019 Aly Dennis MD [address] [facility] [address], [place], [address] , [facility] 5 10:59:47 Family history of malignant neoplasm of prostate 023147136 Active 2017 Darcie Christine kartik [facility] 9 15:16:16 Diverticu lar disease 541730270 Active 2017 Darcie verdugo, [facility] 9 15:16:16 Internal hemorrhoi ds 05450811 Active 2017 Darcie Emmett verdugo, [facility] 9 15:16:16 Environme ntal allergy 619307862 Active 2018 Darcie Emmett verdugo, [facility] 9 15:16:16 Disorder of lumbar disc 660600466 Active 2019 Aly Dennis MD [address] [address], [place], [address] , [facility] 0 08:34:20 Eczema 11900776 Active 2019 Aly Dennis MD [address] [address], [place], [address] , [facility] 0 11:45:16 Elevated blood-pre ssure reading without diagnosis of hypertens ion 927734091 Completed 201901/11/2022 Ayl Dennis MD [address] [address], [address] , [facility] 2 10:49:02 Impaired fasting glycemia 111862399 Completed 202002/21/2022 Aly Dennis MD [address] [address], [address] , [facility] 2 09:19:47 Gastroeso phageal reflux disease 955190209 Active 2020 Billy Malin PA-C [address], [place], [address] , [facility] 1 11:29:00 Chronic low back pain 982254996 Active 2020 Billy Malin PA-C [address], [place], [address] , [facility] 1 11:32:46 Skin lesion 75906113 Completed 202001/11/2022 Aly Dennis MD [address], [place], [address] , [facility] 2 10:52:09 History of SARS-CoV- 2 90453392048 7578238 Active 2021 Aly Dennis MD [address] [facility] [address], [place], [address] , [facility] 2 10:52:00 Family history of hemochrom atosis 328970501 Active 2021 Aly Dennis MD [address], [place], [address] , [facility] 2 10:54:54 Serum ferritin above reference range 116714015 Active 2022 Aly Dennis MD [address], [place], [address] , [facility] 3 07:30:23 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 Procedures Surgical History Date Name Laterality Status Provider Name and Address Organization Details Recorded Time 07/05/19 23 biopsy of skin completed Aly Dennis MD [address], [address], [facility] 07/11/2022 22:29:09 05/08/20 18 Colonoscopy completed Martina Valentin [facility] 05/08/2018 12:09:45 08/11/19 17 Cerumen Removal completed Aly Dennis MD [address], [address], [facility] 08/10/2016 13:52:43 07/11/19 16 Create eardrum opening completed Gabby Underwood MA [facility] 08/10/2016 13:09:38 06/10/19 13 Other completed Gabby Underwood MA [facility] 08/10/2016 13:06:33 06/10/18 80 Orthopedic Surgery completed Aly Dennis MD [address], [address], [facility] 08/23/2017 14:49:00 06/10/18 78 Elbow arthroscopy/anthony earl completed Aly Dennis MD [address], [address], [facility] 08/25/2018 09:50:43 06/10/18 75 Ther fx nasal inf turbinate completed Aly Dennis MD [address], [address], [facility] 08/25/2018 09:51:30 Imaging Results None recorded. Procedure Notes None recorded. Medical Equipment None Reported. Allergies Allergen ID Allergen Name Allergen Category Reaction Reaction Severity Criticality Documentation Date Start Date Code Code System Note Provider Name and Address Organization Details Recorded Time 76054 ragweed pollen environme nt Not available Not available Not available 06/23/2021 CHELSI Napier [facility] 2 10:50:00 No known drug [...] Updated DateTime 5 171.45 cm 34.6 kg/m2 530369. 69 g 71 /min 96 % 97.3 [degF] 6 153/86 mm[Hg] Gabby lynch MA [facility] 5 15:06:39 Social History Question Answer Notes LastModified by Organizat ion Details LastModified Time Tobacco Smoking Status [facility] 08/10/2016 13:01:06 Do You Have An Advance [...] Many Children Do You Have? 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 [facility] Information not available 08/10/2016 Do you [...] Time Tdap 09/15/19 13 completed Darcie verdugo [facility] 09/17/2018 15:16:17 COVID-19, mRNA, LNP-S, PF, 100 mcg/0.5mL dose or 50 mcg/0.25mL dose 06/22/19 21 completed CHELSI Munoz [facility] 11/15/2022 10:13:21 COVID-19, mRNA, LNP-S, PF, 100 mcg/0.5mL dose or 50 mcg/0.25mL dose 07/20/19 21 completed CHELSI Brennan [facility] 05/01/2021 15:54:10 Influenza, split virus, quadrivalent, PF 05/12/20 18 completed CHELSI Napier [facility] 01/11/2022 13:20:43 Influenza, split virus, quadrivalent, PF 04/18/20 19 [facility] 01/11/2022 13:20:43 Td (adult), 2 Lf tetanus toxoid, preservative free, adsorbed 04/18/20 23 completed CHELSI Newman, [facility] 04/18/2023 12:01:06 Influenza, split virus, trivalent, PF 06/19/19 25 cancelled patient objection Aly Dennis MD [address] [address], [place], [address], [facility] 07/21/2024 07:06:58 Influenza, split virus, trivalent, PF 03/04/20 25 completed Gabby owens, CHELSI verdugo [place] [facility] 03/04/2025 16:10:02 Past Encounters Encounter ID Performer Location Encounter Start Date Encounter Closed Date Diagnosis/Indication Diagnosis SNOMED-CT Code Diagnosis ICD10 Code Diagnosis IMO Codes Diagnosis Note [id number] Aly Dennis MD Main Office [address] [facility] [address] 02/25/2025 14:36:58 02/25/2025 16:14:24 Chest wall pain 784331138 R07.89 160725 suspect has 2 potential etiologies for his pain - ? pud/gerd and / or L ribs/thora cic spinecheck xrayssee below for tmt Acute thor acic back pain 428965960 M54.6 64619960 Gastroesop hageal reflux disease without esophagitis 379808381 K21.9 943068 mild, discussed anti-reflu x measures, rec pepcid qd/prn - if no sig help, then consider ppi 9.25 - rec resume ppi qd ac mealstop diclofenac rather, tyl 500mg 1-2 tabs 3x/day as dirrec ice to L ribs prnalso rec salonpas patch o/nrtc in 1 wk for re-eval, sooner prn Health Concerns Section Related Observation LastModified by Organization Detai ls LastModified Time None Recorded Concern Status LastModified by Organization Details LastModified Time None Recorded Payers Encounter Date Sequence Insurance Name Policy Number Policy Wheeler Covered Member ID Wheeler Member ID Guarantor Name 02/25/2025 1 BC-PR: [facility] ([facility] [id number] Roddy Ramos III [id number] Roddy Ramos III Notes Date Note [...] yrs no coughingno trauma to ribsno brbpr, mellucas STONERC [address] [facility] [address], [place], [address], [facility] 02/26/2025 08:41:55
== END 2025-05-03 09:51 | disposition home or self-care (01) ==
LOC: HO.BBR 09:50
PROVIDERS: PCP Pediatrics; Visit Provider Pediatrics
DX: E83.110 Hereditary hemochromatosis (principal)
CPT/HCPCS: 36415; 82728; 85014; 85018